=== PATIENT | male | born 1995 | race Two or more races ===

== ENCOUNTER 2018-12-01 10:42 | Emergency (ER) | payer SELFPAY ==
[~2018-12-01] VITALS: Ht 165.1 cm; Wt 54.4 kg
[2018-12-01 11:09] VITALS: BP 110/53
== END 2018-12-01 15:14 | disposition left against medical advice (07) ==
LOC: ER 10:46
DX: R07.81 Pleurodynia (principal); Z53.21 Procedure and treatment not carried out due to patient leaving prior to being seen by health care provider
CPT/HCPCS: 71046

== ENCOUNTER 2024-08-20 14:46 | Inpatient (IN) | payer BC, MEDICAID ==
[~2024-08-20] VITALS: Ht 162.6 cm; Wt 61.0 kg
--- NOTE | 2024-08-20 15:02 | ED.PDOC ---
GI ASSESSMENT HPI Comments HPI: Poor [place][age][place]89 y.o male presents to the ED for a chief complaint of RUQ pain radiating to his right flank that started one week ago. Patient was seen at an urgent care 4 days ago, was prescribed azithromycin and Prednisone and has been taking it. Patient returned to work yesterday, pain continued and returned to the same urgent care today in which he then was referred to the ED for further evaluation. Patient reports pain is constant, associated with body aches and a fever of 99 F today at urgent care. Patient has been taking Ibuprofen 600-800mg twice a day with some pain relief and fever break. No other symptoms or pain reported. Patient denies allergies Vitals Blood Pressure: 123/79 Heart Rate: 127 Temperature: 98.7 F SPO2: 95% RA RR: Past Medical History: Depression and ADHD Past Surgical History. Denies REVIEW OF SYSTEMS: CONSTITUTIONAL: Denies acute: , diaphoresis HEAD: Denies acute: headache, photophobia Eyes: Denies acute: Double vision, vision loss, eye pain, eye discharge. EARS: Denies acute: tinnitus, hearing loss, ear discharge, ear pain, THROAT: Denies acute: sore throat, swelling, difficulty swallowing , pain with swallowing, change in voice. NECK: Denies acute: neck pain, neck swelling, stiff neck. HEART: Denies acute : chest pain, palpitations, LUNGS: Denies acute: SOB, wheezing, cough, hemoptysis ABDOMEN: Denies acute: Nausea, Vomiting, diarrhea, melena , hematemesis, hematochezia SKIN: Denies acute: rash, redness, lesions, itchiness. EXTREMITIES: Denies acute: calf pain, numbness, tingling, weakness, denies pain in extremity. Denies acute: Low back pain. Neuro: Denies acute: focal neurological deficit, motor or sensory focal neurological deficit, tremors, seizure like activity, confusion, dizziness, change in mental status, loss of bowel or bladder function, cauda equina like symptoms. : Denies acute: dysuria, hematuria, increase in urinary frequency. PSYCH: Denies acute: hallucination, suicidal ideation, homicidal ideation. PHYSICAL EXAM: General: no acute distress, awake and alert. Head: normocephalic, atraumatic. Neck: supple, trachea is midline, no swelling. Throat: Normal phonation. Eyes:, no erythema, no purulent discharge, no proptosis, no icterus. Heart: regular tachycardic, no significant murmur appreciated. Lungs: no apparent respiratory distress, Able to speak in full sentences. No wheezing, no rhonchi, no crackles. No stridors Clear to auscultation bilaterally. Abdomen: Right upper quadrant tender to palpation, non distended, soft, no guarding, no rebound, + bowel sounds. Neuro: Awake, Alert, oriented to name, self, situation, follows commands GCS=15. Speech is normal. Skin: no petechia, no purpura, no cyanosis, non-pale, not jaundice. Lower extremities: --no - Pitting edema no deformity, no focal swelling, no calf TTP. Makes eye contact. moves all four extremities. Face: no apparent facial droop. Right CVA tenderness to percussion . Ambulating in the ED independently. No nuchal rigidity, Kernig's sign, Brudzinski's sign, no meningeal signs. Chief Complaint: Abdominal Pain Time Seen by MD: 19:50 Primary Care Provider: NONE Reviewed Notes: Allergies Allergies: Coded Allergies: NO KNOWN ALLERGIES (Unverified , 12/01/18) Home Meds Reported Medications Fluoxetine HCl (Pmdd) (Fluoxetine HCl) 20 Mg Tab, 20 MG PO DAILY, TAB 08/21/24 Lamotrigine (Lamotrigine) 100 Mg Tab, 1 TAB PO BID 08/21/24 Information Source: Patient Mode of Arrival: Ambulatory Timing: Weeks (1) Duration: Since onset Past Medical History PAST MEDICAL HISTORY: Depression Past Medical History (Other): ADHD Surgical History: Denies all surgeries Family History Family History: Reviewed,noncontributory to illness, No family hx of Cancer, No family hx of DM, No family hx of Heart danii, No family hx of HTN, No family hx ofKidney danii, No family hx of Liver danii, No family hx of Lung danii, No family hx of Stroke Social History Smoker: Non-Smoker Alcohol: Denies ETOH Use Drugs: Denies Drug Use Lives In: Home Was a procedure done? Was a procedure done?: No GI differential Dx Differential Diagnosis: Other (DDX include but not limited to diverticulitis, colitis, gastroenteritis, acute abdomen, SBO, enteritis, constipation, volvulus, appendicitis, Gallbladder disease, choledocolithiasis, ascending cholangitis, pancreatitis, intraAbdominal mass/neoplasm, hepatitis, UTI, pylonephritis, kidney stone, aneurysm, dissection, Inflammatory bowel disease, gastroparesis, ischemic bowel.) X-Ray, Labs, Meds, VS Vital Signs Date Time Temp Pulse Resp B/P (MAP) Pulse Ox O2 Delivery O2 Flow Rate FiO2 08/20/24 23:30 120 19 112/66 (81) 94 08/20/24 22:43 100.2 08/20/24 21:30 106 17 102/66 (78) 93 08/20/24 19:20 Room Air* 0 21 08/20/24 19:20 99 16 104/58 (73) 99 08/20/24 18:00 99.2 105 29 110/63 (79) 96 99.2 08/20/24 18:00 107 08/20/24 17:48 99.2 08/20/24 16:58 102.9 08/20/24 16:56 121/69 08/20/24 16:45 102.9 119 26 121/69 (86) 96 102.9 08/20/24 16:45 119 26 96 Nasal Cannula* 2 28 08/20/24 16:14 114 20 96 Room Air 08/20/24 16:14 103.0 114 20 120/69 (86) 103.0 08/20/24 14:56 98.7 127 20 123/79 (94) 94 Lab Test 08/20/24 18:15 08/20/24 15:58 08/20/24 15:57 Range/Units SARS-CoV-2 Antigen (Rapid) Negative NEGATIVE White Blood Count 9.6 4.4-10.8 10^3/uL Red Blood Count 5.89 4.5-5.90 10^6/uL Hemoglobin 11.7 L 13.5-17.5 g/dL Hematocrit 36.0 L 41.0-53.0 % Mean Corpuscular Volume 61.1 L 80.0-100.0 fL Mean Corpuscular Hemoglobin 19.9 L 28.0-32.0 pg Mean Corpuscular Hemoglobin Concent 32.5 32.0-36.0 g/dL Red Cell Distribution Width 15.7 H 11.8-14.3 % Platelet Count 403 140-450 10^3/uL Mean Platelet Volume 8.3 6.9-10.8 fL Neutrophils (%) (Auto) 76.2 37.0-80.0 % Lymphocytes (%) (Auto) 10.0 10.0-50.0 % Monocytes (%) (Auto) 12.4 H 0.0-12.0 % Eosinophils (%) (Auto) 0.6 0.0-7.0 % Basophils (%) (Auto) 0.8 0.0-2.0 % Neutrophils # (Auto) 7.3 1.6-8.6 10 ^3/uL Lymphocytes # (Auto) 1.0 0.4-5.4 10 ^3/uL Monocytes # (Auto) 1.2 0-1.3 10 ^3/uL Eosinophils # (Auto) 0.1 0-0.8 10 ^3/uL Basophils # (Auto) 0.1 0-0.2 10 ^3/uL Nucleated Red Blood Cells 0.1 % Sodium Level 135 L 136-145 mmol/L Potassium Level 3.7 3.5-5.1 mmol/L Chloride Level 101 98-107 mmol/L Carbon Dioxide Level 28 20-31 mmol/L Anion Gap 6 5-15 Blood Urea Nitrogen 11 9-23 mg/dL Creatinine 0.90 0.700-1.30 mg/dL Glomerular Filtration Rate Calc 121 >90 mL/min BUN/Creatinine Ratio 12.2 10.0-20.0 Serum Glucose 125 H 74-106 mg/dL Lactic Acid Level 1.5 0.4-2.0 mmol/L Calcium Level 8.9 8.7-10.4 mg/dL Magnesium Level 2.2 1.6-2.6 mg/dL Total Bilirubin 1.0 0.2-1.0 mg/dL Aspartate Amino Transferase (AST) 62 H 13-40 U/L Alanine Aminotransferase (ALT) 89 H 7-40 U/L Alkaline Phosphatase 156 H 46-116 U/L Troponin I High Sensitivity 32 </=54 ng/L B-Type Natriuretic Peptide 25.14 0-100 pg/mL Total Protein 6.1 5.7-8.2 g/dL Albumin 4.0 3.2-4.8 g/dL Lipase 30 12-53 U/L Plasma/Serum Blood Alcohol < 3.0 <10 mg/dL Monoscreen Negative Urine Color Yellow Yellow Urine Clarity Clear Clear Urine pH 6.5 5.0-9.0 Urine Specific Dawes 1.018 1.001-1.035 Urine Protein Trace H Negative Urine Ketones Negative Negative Urine Blood 2+ H Negative /uL Urine Nitrite Negative Negative Urine Bilirubin Negative Negative Urine Urobilinogen 3 H Negative mg/dL Urine Leukocyte Esterase Negative Negative /uL Urine RBC 17 0 - 3 /hpf Urine WBC 1 0 - 3 /hpf Urine Squamous Epithelial Cells None seen <5 /hpf Urine Bacteria None seen None Seen /hpf Urine Glucose Normal Normal mg/dL Urine Opiates Screen Neg NEGATIVE Urine Fentanyl Screen Neg NEGATIVE Urine Barbiturates Screen Neg NEGATIVE Urine Phencyclidine Screen Neg NEGATIVE Urine Amphetamines Screen Neg NEGATIVE Urine Benzodiazepines Screen Neg NEGATIVE Urine Cocaine Screen Neg NEGATIVE Urine Cannabinoids Screen Neg NEGATIVE Microbiology Date/Time Source Procedure Growth Status 08/20/24 15:58 Blood Blood Culture - Final NO GROWTH AFTER 5 DAYS OF INCUBATION. [facility] [id number] [place] [address] Ph: [phone] DIAGNOSTIC IMAGING Diagnostic Imaging Report : [id number] Signed PATIENT: SIS SUTTON ACCT: [id number] UNIT: [id number] : 1995 LOC: ER ROOM / BED: / AGE / SEX: 28 / M ADM STATUS: REG ER SERVICE 1515 ORDERING PHYSICIAN: MONICA RAMIREZ DO PROCEDURE(s): CX2CT - CHEST WITHOUT CONTRAST REASON: lung consolidation ORDER NUMBER(s): [id number], ACCESSION NUMBER(s): [id number] Exam: CT CT AB PEL WO CON-NO ORAL OR IV, CT CHEST WITHOUT CONTRAST History: RUQ and r flank pain, fever Comparison Study: None available at time of dictation. TECHNIQUE: Multidetector CT of the abdomen was performed from lung bases to pubic symphysis. Imaging was performed without IV contrast. Axial, coronal and sagittal multiplanar reformats were obtained from the axial data set by the technologist. Radiation Dose Information: CT Dose: CTDI volume is 5.68 mGy. Dose-length product is 324.0 mGy*cm FINDINGS: Evaluation of solid organs is limited due to lack of intravenous contrast use. Findings: Lung Bases: Normal heart size. There is a right pleural effusion with atelectasis in the right lower lung field. There is a trace pericardial effusion.. Liver: The liver is normal in size. No focal lesions. Gallbladder and Biliary Tree: Gallbladder contracted. There are no calcified gallstones. Spleen: Unremarkable Pancreas: The pancreas is grossly normal in appearance. Adrenal Glands: Unremarkable Kidneys: Kidneys are grossly normal without calculi or hydronephrosis. Bladder: Grossly unremarkable for degree of distention. Bowel: The stomach is grossly normal in appearance. Small bowel and colon are normal in caliber and distribution. There are no findings to suggest bowel obstruction. Stool is noted throughout colon. The appendix is not visualized; however, no secondary findings of acute appendicitis identified. Ascites: Absent Lymphadenopathy: No mesenteric, retroperitoneal or periportal lymphadenopathy. Abdominal Wall and Mesentery: Unremarkable. Vasculature: The visualized abdominal aorta is normal in size and caliber. Evaluation of abdominal and pelvic vessels is limited due to lack of intravenous contrast. Pelvic Organs: Unremarkable Musculoskeletal: No aggressive focal bony lesions, acute fractures or dislocation. Soft tissues: Unremarkable IMPRESSION: 1. No acute abdominal or pelvic finding. 2. Gallbladder is contracted. 3. No findings of bowel obstruction 4. Stool noted throughout the colon. 5. No nephrolithiasis or hydronephrosis. 6. Right pleural effusion with atelectasis in the right lower lung field. Radiation optimization: All CT scans at this facility use at least one of these dose optimization techniques: automated exposure control mA and/or kV adjustment per patient size (includes targeted exams where dose is matched to clinical indication) or iterative reconstruction. ATED BY: KARYN BHAGAT Jr., DO DICTATED DATE/TIME: 08/20/24 1538 SIGNED BY: KARYN BHAGAT Jr., DO SIGNED DATE/TIME: 08/20/24 1538 CC: [place] [id number] Ph: [phone] DIAGNOSTIC IMAGING Diagnostic Imaging Report : [id number] Signed PATIENT: SIS SUTTON ACCT: [id number] UNIT: [id number] : 1995 LOC: ER ROOM / BED: / AGE / SEX: 28 / M ADM STATUS: REG ER SERVICE 1500 ORDERING PHYSICIAN: MONICA RAMIREZ DO PROCEDURE(s): CXRP - CHEST PORTABLE REASON: RUQ pain, fever ORDER NUMBER(s): [id number], ACCESSION NUMBER(s): [id number] CHEST RADIOGRAPH Indication:RUQ pain, fever Technique: Single frontal view of the chest was obtained Comparison: None FINDINGS: Lines and Tubes: None Lungs: Opacification of the right mid and lower lung zone with obscuration of the right hemidiaphragm. No pneumothorax. Cardiomediastinal contours: Unremarkable Bones: No acute osseous abnormality. IMPRESSION: Moderate right-sided pleural effusion with associated atelectasis. Underlying pneumonia / mass can not be excluded. ATED BY: XIOMARA EM DO DICTATED DATE/TIME: 08/20/241527 SIGNED BY: XIOMARA EM DO SIGNED DATE/TIME: 08/20/241527 CC: [place] [address] Ph: [phone] DIAGNOSTIC IMAGING Diagnostic Imaging Report : [id number] Signed PATIENT: SIS SUTTON ACCT: [id number] UNIT: [id number] : 1995 LOC: ER ROOM / BED: / AGE / SEX: 28 / M ADM STATUS: REG ER SERVICE 1500 ORDERING PHYSICIAN: MONICA RAMIREZ DO PROCEDURE(s): ABPL - CT AB PEL WO CON-NO ORAL OR IV REASON: RUQ and r flank pain, fever ORDER NUMBER(s): [id number], ACCESSION NUMBER(s): [id number] Exam: CT CT AB PEL WO CON-NO ORAL OR IV, CT CHEST WITHOUT CONTRAST History: RUQ and r flank pain, fever Comparison Study: None available at time of dictation. TECHNIQUE: Multidetector CT of the abdomen was performed from lung bases to pubic symphysis. Imaging was performed without IV contrast. Axial, coronal and sagittal multiplanar reformats were obtained from the axial data set by the technologist. Radiation Dose Information: CT Dose: CTDI volume is 5.68 mGy. Dose-length product is 324.0 mGy*cm FINDINGS: Evaluation of solid organs is limited due to lack of intravenous contrast use. Findings: Lung Bases: Normal heart size. There is a right pleural effusion with atelectasis in the right lower lung field. There is a trace pericardial ef fusion.. Liver: The liver is normal in size. No focal lesions. Gallbladder and Biliary Tree: Gallbladder contracted. There are no calcified gallstones. Spleen: Unremarkable Pancreas: The pancreas is grossly normal in appearance. Adrenal Glands: Unremarkable Kidneys: Kidneys are grossly normal without calculi or hydronephrosis. Bladder: Grossly unremarkable for degree of distention. Bowel: The stomach is grossly normal in appearance. Small bowel and colon are normal in caliber and distribution. There are no findings to suggest bowel obstruction. Stool is noted throughout colon. The appendix is not visualized; however, no secondary findings of acute appendicitis identified. Ascites: Absent Lymphadenopathy: No mesenteric, retroperitoneal or periportal lymphadenopathy. Abdominal Wall and Mesentery: Unremarkable. Vasculature: The visualized abdominal aorta is normal in size and caliber. Evaluation of abdominal and pelvic vessels is limited due to lack of intravenous contrast. Pelvic Organs: Unremarkable Musculoskeletal: No aggressive focal bony lesions, acute fractures or dislocation. Soft tissues: Unremarkable IMPRESSION: 1. No acute abdominal or pelvic finding. 2. Gallbladder is contracted. 3. No findings of bowel obstruction 4. Stool noted throughout the colon. 5. No nephrolithiasis or hydronephrosis. 6. Right pleural effusion with atelectasis in the right lower lung field. Radiation optimization: All CT scans at this facility use at least one of these dose optimization techniques: automated exposure control mA and/or kV adjustment per patient size (includes targeted exams where dose is matched to c linical indication) or iterative reconstruction. ATED BY: KARYN BHAGAT Jr., DO DICTATED DATE/TIME: 08/20/24 1538 SIGNED BY: KARYN BHAGAT Jr., SIGNED DATE/TIME: 08/20/241537 CC: [place] [address] Ph: [phone] DIAGNOSTIC IMAGING Diagnostic Imaging Report : [id number] Signed PATIENT: SIS SUTTON ACCT: [id number] UNIT: [id number] : 1995 LOC: ER ROOM / BED: / AGE / SEX: 28 / M ADM STATUS: REG ER SERVICE 1500 ORDERING PHYSICIAN: MONICA RAMIREZ DO PROCEDURE(s): CXRP - CHEST PORTABLE REASON: RUQ pain, fever ORDER NUMBER(s): [id number], ACCESSION NUMBER(s): [id number] CHEST RADIOGRAPH Indication:RUQ pain, fever Technique: Single frontal view of the chest was obtained Comparison: None FINDINGS: Lines and Tubes: None Lungs: Opacification of the right mid and lower lung zone with obscuration of the right hemidiaphragm. No pneumothorax. Cardiomediastinal contours: Unremarkable Bones: No acute osseous abnormality. IMPRESSION: Moderate right-sided pleural effusion with associated atelectasis. Underlying pneumonia / mass can not be excluded. ATED BY: XIOMARA EM DO DICTATED DATE/TIME: 08/20/24 1528 SIGNED BY: XIOMARA EM DO SIGNED DATE/TIME: 08/20/24 1528 CC: [place] [address] Ph: [phone] DIAGNOSTIC IMAGING Diagnostic Imaging Report : [id number] Signed PATIENT: SIS SUTTON ACCT: [id number] UNIT: [id number] : 1995 LOC: ER ROOM / BED: / AGE / SEX: 28 / M ADM STATUS: [facility] ER SERVICE 1515 ORDERING PHYSICIAN: MONICA RAMIREZ DO PROCEDURE(s): CX2CT - CHEST WITHOUT CONTRAST REASON: lung consolidation ORDER NUMBER(s): [id number], ACCESSION NUMBER(s): [id number] Exam: CT CT AB PEL WO CON-NO ORAL OR IV, CT CHEST WITHOUT CONTRAST History: RUQ and r flank pain, fever Comparison Study: None available at time of dictation. TECHNIQUE: Multidetector CT of the abdomen was performed from lung bases to pubic symphysis. Imaging was performed without IV contrast. Axial, coronal and sagittal multiplanar reformats were obtained from the axial data set by the technologist. Radiation Dose Information: CT Dose: CTDI volume is 5.68 mGy. Dose-length product is 324.0 mGy*cm FINDINGS: Evaluation of solid organs is limited due to lack of intravenous contrast use. Findings: Lung Bases: Normal heart size. There is a right pleural effusion with atelectasis in the right lower lung field. There is a trace pericardial effusion.. Liver: The liver is normal in size. No focal lesions. Gallbladder and Biliary Tree: Gallbladder contracted. There are no calcified gallstones. Spleen: Unremarkable Pancreas: The pancreas is grossly normal in appearance. Adrenal Glands: Unremarkable Kidneys: Kidneys are grossly normal without calculi or hydronephrosis. Bladder: Grossly unremarkable for degree of distention. Bowel: The stomach is grossly normal in appearance. Small bowel and colon are normal in caliber and distribution. There are no findings to suggest bowel obstruction. Stool is noted throughout colon. The appendix is not visualized; however, no secondary findings of acute appendicitis identified. Ascites: Absent Lymphadenopathy: No mesenteric, retroperitoneal or periportal lymphadenopathy. Abdominal Wall and Mesentery: Unremarkable. Vasculature: The visualized abdominal aorta is normal in size and caliber. Evaluation of abdominal and pelvic vessels is limited due to lack of intravenous contrast. Pelvic Organs: Unremarkable Musculoskeletal: No aggressive focal bony lesions, acute fractures or dislocation. Soft tissues: Unremarkable IMPRESSION: 1. No acute abdominal or pelvic finding. 2. Gallbladder is contracted. 3. No findings of bowel obstruction 4. Stool noted throughout the colon. 5. No nephrolithiasis or hydronephrosis. 6. Right pleural effusion with atelectasis in the right lower lung field. Radiation optimization: All CT scans at this facility use at least one of these dose optimization techniques: automated exposure control mA and/or kV adjustment per patient size (includes targeted exams where dose is matched to clinical indication) or iterative reconstruction. ATED BY: KARYN BHAGAT Jr., DO DICTATED DATE/TIME: 08/20/24 153 SIGNED BY: KARYN BHAGAT Jr., SIGNED DATE/TIME: 08/20/241537 CC: Time of 1ST Reevaluation: 14:57 Reevaluation 1ST: Unchanged Patient Education/Counseling: Diagnosis, Treatment Family Education/Counseling: No Family Present Comments Patient presented with the above HPI.--abdominal pain----workup was initiated. patient was found with the above mentioned diagnosis. Patient ED course and VS have been stabilized. Patient has been reassessed in the ED and remained in a stable condition. Pertinent incidental findings were discussed with the patient and/or family. Patient/family voices understanding and is agreeable with plan. Patient has been observed in the ED adequate length of time to insure improvement/stability. patient was admitted to the medicine team for further evaluation and treatment of their presentation. All the reports of any imaging studies that were ordered by myself were reviewed by myself. Departure 1 Departure Time of Disposition: 15:40 Impression: Primary Impression: Pleural effusion Additional Impressions: Abdominal pain Elevated LFTs Disposition: ADMITTED INPATIENT Admit to: Tele Condition: Guarded Discharged With: Self Critical Care Note Critical Care Time?: Yes (35 min-critical care time only) I personally scribed for MONICA RAMIREZ DO ([email or web address]) on 08/20/24 at 15:02. Electronically submitted by Cecily Powers ([facility]). I personally scribed for MONICA RAMIREZ DO ([email or web address]) on 08/20/24 at 15:52. Electronically submitted by Cecily Powers ([facility]). MONICA RAMIREZ DO Aug 20, 2024 15:02
--- NOTE | 2024-08-20 15:30 | DVH ---
CHEST RADIOGRAPH Indication:RUQ pain, fever Technique: Single frontal view of the chest was obtained Comparison: None FINDINGS: Lines and Tubes: None Lungs: Opacification of the right mid and lower lung zone with obscuration of the right hemidiaphragm . No pneumothorax. Cardiomediastinal contours: Unremarkable Bones: No acute osseous abnormality. IMPRESSION: Moderate right-sided pleural effusion with associated atelectasis. Underlying pneumonia / mass can n ot be excluded.
--- NOTE | 2024-08-20 15:40 | DVH ---
Exam: CT CT AB PEL WO CON-NO ORAL OR IV, CT CHEST WITHOUT CONTRAST History: RUQ and r flank pain, fever Comparison Study: None available at time of dictation. TECHNIQUE: Multidetector CT of the abdomen was performed from lung bases to pubic symphysis. Imaging was performed without IV contrast. Axial, coronal and sagittal multiplanar reformats were obtained fr om the axial data set by the technologist. Radiation Dose Information: CT Dose: CTDI volume is 5.68 mGy. Dose-length product is 324.0 mGy*cm FINDINGS: Evaluation of solid organs is limited due to lack of intravenous contrast use. Findings: Lung Bases: Normal heart size. There is a right pleural effusion with atelectasis in the right lower lung field. There is a trace pericardial effusion.. Liver: The liver is normal in size. No focal lesions. Gallbladder and Biliary Tree: Gallbladder contracted. There are no calcified gallstones. Spleen: Unremarkable Pancreas: The pancreas is grossly normal in appearance. Adrenal Glands: Unremarkable Kidneys: Kidneys are grossly normal without calculi or hydronephrosis. Bladder: Grossly unremarkable for degree of distention. Bowel: The stomach is grossly normal in appearance. Small bowel and colon are normal in caliber and d istribution. There are no findings to suggest bowel obstruction. Stool is noted throughout colon. The appendix is not visualized; however, no secondary findings of acute appendicitis identified. Ascites: Absent Lymphadenopathy: No mesenteric, retroperitoneal or periportal lymphadenopathy. Abdominal Wall and Mesentery: Unremarkable. Vasculature: The visualized abdominal aorta is normal in size and caliber. Evaluation of abdominal a nd pelvic vessels is limited due to lack of intravenous contrast. Pelvic Organs: Unremarkable Musculoskeletal: No aggressive focal bony lesions, acute fractures or dislocation. Soft tissues: Unremarkable IMPRESSION: 1. No acute abdominal or pelvic finding. 2. Gallbladder is contracted. 3. No findings of bowel obstruction 4. Stool noted throughout the colon. 5. No nephrolithiasis or hydronephrosis. 6. Right pleural effusion with atelectasis in the right lower lung field. Radiation optimization: All CT scans at this facility use at least one of these dose optimization leatha hniques: automated exposure control mA and/or kV adjustment per patient size (includes targeted exam s where dose is matched to clinical indication) or iterative reconstruction.
[2024-08-20 15:58] LABS: Urine Bacteria None Seen /hpf (None Seen)
[2024-08-20 16:09] LABS: Urine Blood 2+ /uL (Negative); Urine Clarity Clear (Clear); Urine Color Yellow (Yellow); Urine Protein, UAD TRACE (Negative); Urine Specific Gravity 1.018 (1.001-1.035); Urine Urobilinogen 3 mg/dL (Negative); Urine WBC 1 /hpf (0 - 3); Urine pH 6.5 (5.0-9.0)
[2024-08-20 16:23] LABS: Amphetamine Screen, Urine Neg (NEGATIVE)
[2024-08-20 16:24] LABS: Barbiturate Scree,Urine Neg (NEGATIVE); Benzodiazephine Screen, Urine Neg (NEGATIVE); Cocaine Screen, Urine Neg (NEGATIVE); Opiate Scree,Urine Neg (NEGATIVE)
[2024-08-20 16:25] LABS: Cannabinoid Screen, Urine Neg (NEGATIVE); Phencyclidine Screen, Urine Neg (NEGATIVE)
[2024-08-20 16:45] VITALS: PULSE 119; RESP 26; O2SAT 96
[2024-08-20 16:46] LABS: Basophils # (auto) 0.1 10 ^3/uL (0-0.2); Mean Corpuscular Volume 61.1 fL (80.0-100.0); Monocytes # (auto) 1.2 10 ^3/uL (0-1.3); Platelet Count (auto) 403 10^3/uL (140-450); Red Blood Cells 5.89 10^6/uL (4.5-5.90)
[2024-08-20 16:48] LABS: Basophils % (auto) 0.8 % (0.0-2.0); Eosinophils # (auto) 0.1 10 ^3/uL (0-0.8); Eosinophils % (auto) 0.6 % (0.0-7.0); Hemoglobin 11.7 g/dL (13.5-17.5); Mean Corpuscular Hemoglobin 19.9 pg (28.0-32.0); Mean Corpuscular Hgb Conc. 32.5 g/dL (32.0-36.0); Monocytes % (auto) 12.4 % (0.0-12.0); Neutrophils # (auto) 7.3 10 ^3/uL (1.6-8.6); Neutrophils % (auto) 76.2 % (37.0-80.0); Nucleated Red Blood Cells % 0.1 %; Red Cell Distribution Width 15.7 % (11.8-14.3); White Blood Cell 9.6 10^3/uL (4.4-10.8)
[2024-08-20] MEDS: SODIUM CHLORIDE 0.9% 1,000 ML IV ONE (16:52)
[2024-08-20] MEDS: PIPERACILLIN-TAZOB 3.375GM 100 ML IV ONE (16:53)
[2024-08-20] MEDS: FUROSEMIDE 40 MG/4 ML VIAL IV ONE (16:56)
[2024-08-20] MEDS: ACETAMINOPHEN 325 MG TAB PO ONE (16:58)
[2024-08-20 17:07] LABS: Alanine Aminotransferase 89 U/L (7-40); Alkaline Phosphatase 156 U/L (46-116); Anion Gap 6 (5-15); Aspartate Aminotransferase 62 U/L (13-40); BUN/Creatinine Ratio 12.2 (10.0-20.0); Blood Alcohol < 3.0 mg/dL (<10); Blood Urea Nitrogen 11 mg/dL (9-23); Calcium 8.9 mg/dL (8.7-10.4); Carbon Dioxide 28 mmol/L (20-31); Chloride 101 mmol/L (98-107); Glucose 125 mg/dL (74-106); Magnesium 2.2 mg/dL (1.6-2.6); Potassium 3.7 mmol/L (3.5-5.1); Sodium 135 mmol/L (136-145); Total Protein 6.1 g/dL (5.7-8.2)
[2024-08-20 17:15] LABS: Lipase 30 U/L (12-53)
[2024-08-20 19:03] LABS: COVID19 ANTIGEN SOFIA FIA NEGATIVE (NEGATIVE)
[2024-08-20] MEDS ORDERED: MORPHINE SULFATE INJ 2 MG/ml SYRG IV PRN ×2 (21:45→23:30)
[2024-08-20] MEDS: AZITHROMYCIN 500MG/ 250ML 250 ML IV ONE (22:25)
[2024-08-20] MEDS: SODIUM CHLORIDE 0.9% 1,000 ML IV SCH (22:42)
[2024-08-20] MEDS: IBUPROFEN 600 MG TAB PO PRN (22:43)
[2024-08-20] MEDS ORDERED: NITROGLYCERIN 0.4 MG SL TAB SL PRN (23:30)
--- NOTE | 2024-08-20 23:32 | DVHHP2 ---
History of Present Illness Reason for Visit: Pneumonia, unspecified organism History of Present Illness The patient is a 28-year-old male with past medical history of ADHD and depression who presented to [facility] ED with complaint of right upper quadrant abdominal pain. Patient reports radiating right flank pain, rating 9/10 numeric scale, getting worse that prompted this visit. Patient was seen and evaluated in the ED, laboratory data shows WBC 9.6, platelets 403, sodium 135, potassium 3.7, BUN 11, creatinine 0.90, glucose 125, troponin 32, AST 62, ALT 89, BNP 25.14, lipase 30. Chest x-ray revealing moderate right-sided pleural effusion with associated atelectasis, underlying pneumonia/mass can not be excluded. Patient was started on IV antibiotic regimen azithromycin, given IV Lasix, please see medication orders section in the computer. On my assessment, patient denied chest pain, no dizziness, no headache, no diaphoresis, no shortness of breath, no nausea, no vomiting, no fever, no chills. Patient was admitted for further evaluation and medical management. Past Medical History Depression and ADHD Past Surgical History Denies all surgeries Family History Reviewed, noncontributory to the management of this case. Past Social History The patient lives at home, denies smoking, alcohol or illicit drugs abuse. Review of Systems Constitutional: No: Fever, Chills, Sweats, Weakness, Malaise, Other Eyes: No: Pain, Vision change, Conjunctivae inflammation, Eyelid inflammation, Other, Redness ENT: No: Ear pain, Ear discharge, Nose pain, Nose discharge, Nose congestion, Mouth pain, Mouth swelling, Throat pain, Throat swelling, Other Respiratory: No: Cough, Dry, Shortness of breath, SOB with excertion, Wheezing, Hemoptysis, Pleuritic Pain, Sputum, Wheezing, Other Cardiovascular: No: Chest Pain, Palpitations, Orthopnea, Paroxysmal Noc. Dyspnea, Edema, Lt Headedness, Other Gastrointestinal: Abdominal Pain; No: Nausea, Vomiting, Diarrhea, Constipation, Melena, Hematochezia, Other Genitourinary: No Dysuria, No Frequency, No Incontinence, No Hematuria, No Retention, No Other Musculoskeletal: No: other, neck pain, shoulder pain, arm pain, back pain, hand pain, leg pain, foot pain Skin: No: Rash, Lesions, Jaundice, Bruising, Other Neurological: No: Weakness, Numbness, Incoordination, Change in speech, Confusion, Seizures, Other Allergies: Coded Allergies: NO KNOWN ALLERGIES (Unverified , 12/01/18) Medications Current Medications Medications Dose Ordered Sig/Lori Route Start Time Stop Time Status Last Admin Dose Admin Azithromycin 250 ml @ 125 mls/hr DAILY@2100 IV 08/21/24 21:00 Furosemide 40 mg DAILY IV 08/21/24 10:00 Ibuprofen 600 mg Q6HP PRN PO 08/20/24 21:45 08/20/24 22:43 600 MG Sodium Chloride 1,000 ml @ 60 mls/hr [id number] IV 08/20/24 21:45 08/20/24 22:42 60 MLS/HR Acetaminophen/ Hydrocodone Bitart 1 tab Q4HP PRN PO 08/20/24 21:45 Ondansetron HCl 4 mg Q4HP PRN IV 08/20/24 21:45 Docusate Sodium 100 mg BIDPRN PRN PO 08/20/24 21:45 Morphine Sulfate 2 mg Q4HPRN PRN IV 08/20/24 21:45 Fluoxetine HCl 40 mg DAILY PO 08/21/24 10:00 Exam Vital Signs Vital Signs Date Time Temp Pulse Resp B/P (MAP) Pulse Ox O2 Delivery O2 Flow Rate FiO2 08/20/24 22:43 100.2 08/20/24 19:20 Room Air* 0 21 08/20/24 19:20 99 16 104/58 (73) 99 General Appearance: Alert, Oriented X3, Cooperative, No acute distress HEENT: Atraumatic, PERRLA, EOMI, Mucous membr. moist/pink Respiratory: Normal air movement, Other (Diminished breath sounds) Cardiovascular: Regular rate, Normal S1, Normal S2, No murmurs Abdominal: Normal bowel sounds, Soft, No tenderness, No hepatospenomegaly, No masses Extremities: No clubbing, No cyanosis, No edema, Normal pulses, No tenderness/swelling Skin: No rashes, No breakdown, No significant lesion Neuro: Normal gait, Normal speech, Strength at 5/5 X4 ext, Normal tone, Sensation intact, Cranial nerves 3-12 NL, Reflexes 2+ Psych/Mental Status: Mental status NL, Mood NL Labs/Xrays Labs Test 08/20/24 18:15 08/20/24 15:58 08/20/24 15:57 Range/Units SARS-CoV-2 Antigen (Rapid) Negative NEGATIVE White Blood Count 9.6 4.4-10.8 10^3/uL Red Blood Count 5.89 4.5-5.90 10^6/uL Hemoglobin 11.7 L 13.5-17.5 g/dL Hematocrit 36.0 L 41.0-53.0 % Mean Corpuscular Volume 61.1 L 80.0-100.0 fL Mean Corpuscular Hemoglobin 19.9 L 28.0-32.0 pg Mean Corpuscular Hemoglobin Concent 32.5 32.0-36.0 g/dL Red Cell Distribution Width 15.7 H 11.8-14.3 % Platelet Count 403 140-450 10^3/uL Mean Platelet Volume 8.3 6.9-10.8 fL Neutrophils (%) (Auto) 76.2 37.0-80.0 % Lymphocytes (%) (Auto) 10.0 10.0-50.0 % Monocytes (%) (Auto) 12.4 H 0.0-12.0 % Eosinophils (%) (Auto) 0.6 0.0-7.0 % Basophils (%) (Auto) 0.8 0.0-2.0 % Neutrophils # (Auto) 7.3 1.6-8.6 10 ^3/uL Lymphocytes # (Auto) 1.0 0.4-5.4 10 ^3/uL Monocytes # (Auto) 1.2 0-1.3 10 ^3/uL Eosinophils # (Auto) 0.1 0-0.8 10 ^3/uL Basophils # (Auto) 0.1 0-0.2 10 ^3/uL Nucleated Red Blood Cells 0.1 % Sodium Level 135 L 136-145 mmol/L Potassium Level 3.7 3.5-5.1 mmol/L Chloride Level 101 98-107 mmol/L Carbon Dioxide Level 28 20-31 mmol/L Anion Gap 6 5-15 Blood Urea Nitrogen 11 9-23 mg/dL Creatinine 0.90 0.700-1.30 mg/dL Glomerular Filtration Rate Calc 121 >90 mL/min BUN/Creatinine Ratio 12.2 10.0-20.0 Serum Glucose 125 H 74-106 mg/dL Lactic Acid Level 1.5 0.4-2.0 mmol/L Calcium Level 8.9 8.7-10.4 mg/dL Magnesium Level 2.2 1.6-2.6 mg/dL Total Bilirubin 1.0 0.2-1.0 mg/dL Aspartate Amino Transferase (AST) 62 H 13-40 U/L Alanine Aminotransferase (ALT) 89 H 7-40 U/L Alkaline Phosphatase 156 H 46-116 U/L Troponin I High Sensitivity 32 </=54 ng/L B-Type Natriuretic Peptide 25.14 0-100 pg/mL Total Protein 6.1 5.7-8.2 g/dL Albumin 4.0 3.2-4.8 g/dL Lipase 30 12-53 U/L Plasma/Serum Blood Alcohol < 3.0 <10 mg/dL Monoscreen Negative Urine Color Yellow Yellow Urine Clarity Clear Clear Urine pH 6.5 5.0-9.0 Urine Specific [place] 1.018 1.001-1.035 Urine Protein Trace H Negative Urine Ketones Negative Negative Urine Blood 2+ H Negative /uL Urine Nitrite Negative Negative Urine Bilirubin Negative Negative Urine Urobilinogen 3 H Negative mg/dL Urine Leukocyte Esterase Negative Negative /uL Urine RBC 17 0 - 3 /hpf Urine WBC 1 0 - 3 /hpf Urine Squamous Epithelial Cells None seen <5 /hpf Urine Bacteria None seen None Seen /hpf Urine Glucose Normal Normal mg/dL Urine Opiates Screen Neg NEGATIVE Urine Fentanyl Screen Neg NEGATIVE Urine Barbiturates Screen Neg NEGATIVE Urine Phencyclidine Screen Neg NEGATIVE Urine Amphetamines Screen Neg NEGATIVE Urine Benzodiazepines Screen Neg NEGATIVE Urine Cocaine Screen Neg NEGATIVE Urine Cannabinoids Screen Neg NEGATIVE PATIENT: SIS SUTTON ACCT: [id number] UNIT: [id number] : 1995 LOC: ER ROOM / BED: / AGE / SEX: 28 / M ADM STATUS: REG ER SERVICE 1500 ORDERING PHYSICIAN: MONICA RAMIREZ DO PROCEDURE(s): ABPL - CT AB PEL WO CON-NO ORAL OR IV REASON: RUQ and r flank pain, fever ORDER NUMBER(s): [id number], ACCESSION NUMBER(s): [id number] Exam: CT CT AB PEL WO CON-NO ORAL OR IV, CT CHEST WITHOUT CONTRAST History: RUQ and r flank pain, fever Comparison Study: None available at time of dictation. TECHNIQUE: Multidetector CT of the abdomen was performed from lung bases to pubic symphysis. Imaging was performed without IV contrast. Axial, coronal and sagittal multiplanar reformats were obtained from the axial data set by the technologist. Radiation Dose Information: CT Dose: CTDI volume is 5.68 mGy. Dose-length product is 324.0 mGy*cm FINDINGS: Evaluation of solid organs is limited due to lack of intravenous contrast use. Findings: Lung Bases: Normal heart size. There is a right pleural effusion with atelectasis in the right lower lung field. There is a trace pericardial effusion.. Liver: The liver is normal in size. No focal lesions. Gallbladder and Biliary Tree: Gallbladder contracted. There are no calcified gallstones. Spleen: Unremarkable Pancreas: The pancreas is grossly normal in appearance. Adrenal Glands: Unremarkable Kidneys: Kidneys are grossly normal without calculi or hydronephrosis. Bladder: Grossly unremarkable for degree of distention. Bowel: The stomach is grossly normal in appearance. Small bowel and colon are normal in caliber and distribution. There are no findings to suggest bowel obstruction. Stool is noted throughout colon. The appendix is not visualized; however, no secondary findings of acute appendicitis identified. Ascites: Absent Lymphadenopathy: No mesenteric, retroperitoneal or periportal lymphadenopathy. Abdominal Wall and Mesentery: Unremarkable. Vasculature: The visualized abdominal aorta is normal in size and caliber. Evaluation of abdominal and pelvic vessels is limited due to lack of intravenous contrast. Pelvic Organs: Unremarkable Musculoskeletal: No aggressive focal bony lesions, acute fractures or dislocation. Soft tissues: Unremarkable IMPRESSION: 1. No acute abdominal or pelvic finding. 2. Gallbladder is contracted. 3. No findings of bowel obstruction 4. Stool noted throughout the colon. 5. No nephrolithiasis or hydronephrosis. 6. Right pleural effusion with atelectasis in the right lower lung field. ORDERING PHYSICIAN: MONICA RAMIREZ DO PROCEDURE(s): CXRP - CHEST PORTABLE REASON: RUQ pain, fever ORDER NUMBER(s): [id number], ACCESSION NUMBER(s): [id number] CHEST RADIOGRAPH Indication:RUQ pain, fever Technique: Single frontal view of the chest was obtained Comparison: None FINDINGS: Lines and Tubes: None Lungs: Opacification of the right mid and lower lung zone with obscuration of the right hemidiaphragm. No pneumothorax. Cardiomediastinal contours: Unremarkable Bones: No acute osseous abnormality. IMPRESSION: Moderate right-sided pleural effusion with associated atelectasis. Underlying pneumonia/mass can not be excluded. ORDERING PHYSICIAN: MONICA RAMIREZ DO PROCEDURE(s): CX2CT - CHEST WITHOUT CONTRAST REASON: lung consolidation ORDER NUMBER(s): [id number], ACCESSION NUMBER(s): [id number] Exam: CT CT AB PEL WO CON-NO ORAL OR IV, CT CHEST WITHOUT CONTRAST History: RUQ and r flank pain, fever Comparison Study: None available at time of dictation. TECHNIQUE: Multidetector CT of the abdomen was performed from lung bases to pubic symphysis. Imaging was performed without IV contrast. Axial, coronal and sagittal multiplanar reformats were obtained from the axial data set by the technologist. Radiation Dose Information: CT Dose: CTDI volume is 5.68 mGy. Dose-length product is 324.0 mGy*cm FINDINGS: Evaluation of solid organs is limited due to lack of intravenous contrast use. Findings: Lung Bases: Normal heart size. There is a right pleural effusion with atelectasis in the right lower lung field. There is a trace pericardial effusion.. Liver: The liver is normal in size. No focal lesions. Gallbladder and Biliary Tree: Gallbladder contracted. There are no calcified gallstones. Spleen: Unremarkable Pancreas: The pancreas is grossly normal in appearance. Adrenal Glands: Unremarkable Kidneys: Kidneys are grossly normal without calculi or hydronephrosis. Bladder: Grossly unremarkable for degree of distention. Bowel: The stomach is grossly normal in appearance. Small bowel and colon are normal in caliber and distribution. There are no findings to suggest bowel obstruction. Stool is noted throughout colon. The appendix is not visualized; however, no secondary findings of acute appendicitis identified. Ascites: Absent Lymphadenopathy: No mesenteric, retroperitoneal or periportal lymphadenopathy. Abdominal Wall and Mesentery: Unremarkable. Vasculature: The visualized abdominal aorta is normal in size and caliber. Evaluation of abdominal and pelvic vessels is limited due to lack of intravenous contrast. Pelvic Organs: Unremarkable Musculoskeletal: No aggressive focal bony lesions, acute fractures or dislocation. Soft tissues: Unremarkable IMPRESSION: 1. No acute abdominal or pelvic finding. 2. Gallbladder is contracted. 3. No findings of bowel obstruction 4. Stool noted throughout the colon. 5. No nephrolithiasis or hydronephrosis. 6. Right pleural effusion with atelectasis in the right lower lung field. Assessment/Plan Assessment/Plan Pleural effusion Elevated liver enzymes Pneumonia, unspecified organism Plan 1. Admit to telemetry unit 2. Breathing treatment 3. Pain control management 4. IV antibiotic management 5. Management of fluids and electrolytes 6. Consultation for hospitalist 7. Diagnostic test chest x-ray 8. DVT prophylaxis-on SCDs 9. Repeat labs CBC, CMP in a.m. 10. Home medication reviewed and reconciled 11. Continue with current medical management 12. Treatment plan discussed with patient and RN. Patient verbalized understanding. Plan discussed with: Patient, Other (RN) My Orders Orders - MARY KAY MOREJON DNP Procedure Category Date Status Time Azithromycin 500mg/ PHA 08/21/24 In Process 250ml (Zithromax 50 21:00 Furosemide Injection PHA 08/21/24 In Process (Lasix Injection) 10:00 Azithromycin 500mg/ PHA 08/20/24 In Process 250ml (Zithromax 50 21:45 Ibuprofen Tablet PHA 08/20/24 In Process (Motrin Tablet) 21:45 Allergies LEANDRO 08/20/24 In Process 21:32 Code Status CODE 08/20/24 Transmitted 21:32 Sodium Chloride 0.9% PHA 08/20/24 In Process 21:45 Oxygen Per Hour RT 08/20/24 Transmitted 21:32 Hydrocodone-Acet PHA 08/20/24 In Process 5/325mg Tab ([place] 21:45 Ondansetron Hcl PHA 08/20/24 In Process (Zofran) 21:45 Docusate Sodium PHA 08/20/24 In Process Capsule (Colace 21:45 Complete Blood Count LAB 08/21/24 Verified 04:00 Comprehensive LAB 08/21/24 Verified Metabolic Panel 04:00 Cardiac DIET 08/21/24 Transmitted Diet-2gna,Lofat,Lochol Breakfast Condition: Serious LEANDRO 08/20/24 In Process 21:32 Bedrest With Bathroom LEANDRO 08/20/24 In Process Privileg 21:32 Morphine Sulfate PHA 08/20/24 In Process Injection 21:45 Sequential LEANDRO 08/20/24 In Process Compression Device Fluoxetine Capsule PHA 08/21/24 In Process (Prozac Capsule) 10:00 Problem List: (1) Pleural effusion (2) Elevated liver enzymes (3) Pneumonia, unspecified organism Date of Service: Aug 20, 2024 Billing Provider: MARY KAY MOREJON DNP Common Visit Codes: [id number] INP/OBS CARE (HIGH) MARY KAY MOREJON DNP Aug 20, 2024 23:31
[2024-08-21] VITALS (14 sets, daily range): BP systolic 107–135; BP diastolic 56–73; PULSE 79–126; RESP 16–19; TEMP 98.1–101.8; O2SAT 89–100
[2024-08-21 04:03] LABS: Basophils # (auto) 0.1 10 ^3/uL (0-0.2); Eosinophils # (auto) 0.1 10 ^3/uL (0-0.8); Neutrophils # (auto) 6.3 10 ^3/uL (1.6-8.6); Red Blood Cells 5.63 10^6/uL (4.5-5.90)
[2024-08-21 04:06] LABS: Basophils % (auto) 0.7 % (0.0-2.0); Eosinophils % (auto) 0.7 % (0.0-7.0); Hematocrit 34.1 % (41.0-53.0); Hemoglobin 11.3 g/dL (13.5-17.5); Lymphocytes % (auto) 11.3 % (10.0-50.0); Mean Corpuscular Hgb Conc. 33.1 g/dL (32.0-36.0); Mean Corpuscular Volume 60.6 fL (80.0-100.0); Monocytes # (auto) 1.2 10 ^3/uL (0-1.3); Monocytes % (auto) 13.9 % (0.0-12.0); Neutrophils % (auto) 73.4 % (37.0-80.0); Nucleated Red Blood Cells % 0.1 %; Platelet Count (auto) 372 10^3/uL (140-450); Red Cell Distribution Width 16.1 % (11.8-14.3); White Blood Cell 8.6 10^3/uL (4.4-10.8)
[2024-08-21 04:12] LABS: Alanine Aminotransferase 75 U/L (7-40); Albumin 3.8 g/dL (3.2-4.8); Alkaline Phosphatase 145 U/L (46-116); Anion Gap 6 (5-15); Aspartate Aminotransferase 44 U/L (13-40); BUN/Creatinine Ratio 9.9 (10.0-20.0); Blood Urea Nitrogen 8 mg/dL (9-23); Carbon Dioxide 28 mmol/L (20-31); Chloride 103 mmol/L (98-107); Glucose 107 mg/dL (74-106); Potassium 3.2 mmol/L (3.5-5.1); Sodium 137 mmol/L (136-145)
[2024-08-21 04:13] LABS: Bilirubin, Total 1.3 mg/dL (0.2-1.0); Total Protein 6.1 g/dL (5.7-8.2)
[2024-08-21 04:35] LABS: Calcium 8.9 mg/dL (8.7-10.4)
[2024-08-21 04:53] LABS: Large Platelets FEW; Ovalocytes FEW; Platelet Estimate Adequa; Stomatocytes Few; Tear Drop Cells FEW
[2024-08-21] MEDS ORDERED: LAMO100T44 PO (05:38)
[2024-08-21] MEDS: POTASSIUM CHL 20 Meq TABLET PO ONE (06:29)
[2024-08-21] MEDS: FLUoxetine HCL 20 MG CAP PO SCH ×2 (10:00→17:56)
[2024-08-21] MEDS ORDERED: FUROSEMIDE 40 MG/4 ML VIAL IV SCH (10:00)
[2024-08-21] MEDS ORDERED: FLUO1TAB14 PO (10:30)
--- NOTE | 2024-08-21 10:54 | DVHPNRES ---
Progress Note Date Seen: Aug 21, 2024 Resident Creating Document: RAMSES CONTRERAS RESIDENT Medical Necessity Reason Pt with a Central, PICC or Fol: No Subjective Review of Systems The patient is a 28-year-old male with past medical history of ADHD and depression who presented to [facility] ED with complaint of right upper quadrant abdominal pain. Patient reports radiating right flank pain, rating 9/10 numeric scale, getting worse that prompted this visit. Patient also mentioned he has a history of fever for last 1 week and the highest temperature was 104 and yesterday he went to urgent care and he was referred from the urgent care due to the right-sided pleural effusion. Patient denied chest pain, dizziness, headache, diaphoresis, nausea or vomiting. Patient was admitted for further evaluation and medical management. Patient was seen and examined on the bedside. He is alert oriented x3. Complaining of fever, chills and right-sided chest pain. No other active complaints. Review of system: Constitutional: Fever, Chills, No Sweats, Weakness, Malaise, Other Eyes: No: Pain, Vision change, Conjunctivae inflammation, Eyelid inflammation, Other, Redness ENT: No: Ear pain, Ear discharge, Nose pain, Nose discharge, Nose congestion, Mouth pain, Mouth swelling, Throat pain, Throat swelling, Other Respiratory: Shortness of breath, improving No: Cough, Dry,Wheezing, Hemoptysis, Pleuritic Pain, Sputum, Wheezing, Other Cardiovascular: Chest Pain, No Palpitations, Orthopnea, Paroxysmal Noc. Dyspnea, Edema, Lt Headedness, Other Gastrointestinal: No: Nausea, Vomiting, Abdominal Pain, Diarrhea, Constipation, Melena, Hematochezia, Other Musculoskeletal: No: other, neck pain, shoulder pain, arm pain, back pain, hand pain, leg pain, foot pain Neurological:; No: Weakness, Numbness, Incoordination, Change in speech, Confusion, Seizures Objective vital signs Vital Sign Date Time Temp Pulse Resp B/P (MAP) Pulse Ox O2 Delivery O2 Flow Rate FiO2 08/21/24 10:03 100.1 118 18 135/73 94 2.0 28 100.1 08/21/24 05:02 Nasal Cannula* Total Intake and Output 08/20/24 08/20/24 08/21/24 15:00 23:00 07:00 Intake Total 1133.32 ml 370 ml Balance 1133.32 ml 370 ml medications Current Medications Medications Dose Ordered Sig/Lori Route Start Time Stop Time Status Last Admin Dose Admin Azithromycin 250 ml @ 125 mls/hr DAILY@2100 IV 08/21/24 21:00 Ibuprofen 600 mg Q6HP PRN PO 08/20/24 21:45 08/20/24 22:43 600 MG Sodium Chloride 1,000 ml @ 60 mls/hr [id number] IV 08/20/24 21:45 08/20/24 22:42 60 MLS/HR Acetaminophen/ Hydrocodone Bitart 1 tab Q4HP PRN PO 08/20/24 21:45 Ondansetron HCl 4 mg Q4HP PRN IV 08/20/24 21:45 Docusate Sodium 100 mg BIDPRN PRN PO 08/20/24 21:45 Morphine Sulfate 2 mg Q4HPRN PRN IV 08/20/24 21:45 Fluoxetine HCl 40 mg DAILY PO 08/21/24 10:00 Nitroglycerin 0.4 mg Q5MINP PRN SL 08/20/24 23:30 Morphine Sulfate 2 mg Q30M PRN IV 08/20/24 23:30 Piperacillin Sod/ Tazobactam Sod 100 ml @ 25 mls/hr Q6HR IV 08/21/24 12:00 Albuterol 2.5 mg Q6HR NEB 08/21/24 12:00 Ipratropium [place]iken 0.5 mg Q6HR NEB 08/21/24 12:00 Examination Physical examination: General Appearance: Alert, Oriented X3, Cooperative, No acute distress HEENT: Atraumatic, PERRLA, EOMI, Mucous membrane moist/pink Respiratory: Diminished breath sound on the rt side and Lt side vesicular breath sound. Cardiovascular: Regular rate, Normal S1, Normal S2, No murmurs, no chest wall tenderness Abdominal: Normal bowel sounds, Soft, No tenderness, No hepatospenomegaly, No masses Extremities: No clubbing, No cyanosis, No edema, Normal pulses, No tenderness/swelling Skin: No rashes, No breakdown, No significant lesion Neuro: Normal gait, Normal speech, Strength at 5/5 X4 ext, Normal tone, Sensation intact, grossly intact cranial nerves. Psych/Mental Status: Mental status NL, Mood NL laboratory and microbiology Laboratory Tests 08/21/24 03:21 Test 08/21/24 03:21 Range/Units Serum Glucose 107 H 74-106 mg/dL Labs and/or images reviewed: Labs reviewed by me, Image(s) reviewed by me Problem List/Assessment/Plan Problem List/Assessment/Plan Assessment and Plan: # Acute respiratory failure likely due to Gram positive for Gram-negative pneumonia - Patient is on 2L oxygen with saturation 94%. # Rt sided pleural effusion likely due to Gram-positive or Gram-negative pneumonia - CT chest revealed right pleural effusion with atelectasis in the right lower lung field - neb treatment with ipratropium and albuterol q.6 hour - IV Zosyn 3.37 mg q.6 hour and IV azithromycin 500 mg daily - IV normal saline at 60 mL/hour. # Hyperbilirubinemia with transaminitis likely due to medication. - Ordered hepatitis panel, HIV 1 and 2 - Monitor CMP # Hypokalemia - Replenished # ADHD, depression - Resumed home medication of fluoxetine 40 mg daily p.o lamotrigine 100 mg 1 tab p.o. b.i.d. # Vitamin D defieciency - Vitamin D 97777 units Q 7D Goal of care discussed with the patient for more than 15 minutes full code Plan of treatment discussed with . Plan discussed with: Patient, Other My Orders My Orders Orders - RAMSES CONTRERAS RESIDENT Procedure Category Date Status Time Vitamin D, 25-Hydroxy LAB 08/21/24 In Process 08:10 Rapid Influenza A&B LAB 08/21/24 Logged 09:37 Comprehensive LAB 08/21/24 In Process Hepatitis Panel 09:37 Hiv 1&2 Antibody LAB 08/21/24 In Process 09:40 Piperacillin-Tazob PHA 08/21/24 In Process 3.375gm (Zosyn 3.375g 12:00 Respiratory Culture RONNIE 08/21/24 Uncollected W/ Gs 09:40 Albuterol Medneb PHA 08/21/24 In Process (Ventolin Medneb) 12:00 Ipratropium Medneb PHA 08/21/24 In Process (Atrovent Medneb) 12:00 Lamotrigine Tablet PHA 08/21/24 Transmitted (Lamictal Tablet) 22:00 Date of Service: Aug 21, 2024 Billing Provider: CIERRA FRANCIS MD Common Visit Codes: [id number] INP/OBS CARE(HIGH) RAMSES CONTRERAS RESIDENT Aug 21, 2024 10:54 CIERRA FRANCIS MD Aug 22, 2024 02:03
[2024-08-21] MEDS: PIPERACILLIN-TAZOB 3.375GM 100 ML IV SCH (12:27)
[2024-08-21] MEDS: IPRATROPIUM BROM 0.5 MG/2.5ML INH SOL NEB SCH (13:15)
[2024-08-21] MEDS: ALBUTEROL SULF 2.5 MG/0.5ML(0.5%) NEB SOLN NEB SCH (13:15)
[2024-08-21 14:55] LABS: Rapid Influenza A Negative (Negative); Rapid Influenza B Negative (Negative)
[2024-08-21] MEDS: ERGOCALCIFEROL 50,000 UNIT(1.25MG) CAP PO SCH (15:14)
[2024-08-21] MEDS: lamoTRIgine 100 MG TAB PO SCH (21:55)
[2024-08-21] MEDS: AZITHROMYCIN 500MG/ 250ML 250 ML IV SCH (22:09)
[2024-08-22] VITALS (16 sets, daily range): BP systolic 102–122; BP diastolic 63–70; PULSE 82–130; RESP 17–22; TEMP 97.5–100.3; O2SAT 92–100
[2024-08-22 12:27] LABS: Basophils # (auto) 0.1 10 ^3/uL (0-0.2); Eosinophils # (auto) 0 10 ^3/uL (0-0.8)
[2024-08-22 12:29] LABS: Basophils % (auto) 0.6 % (0.0-2.0); Eosinophils % (auto) 0.4 % (0.0-7.0); Hematocrit 33.4 % (41.0-53.0); Lymphocytes # (auto) 0.7 10 ^3/uL (0.4-5.4); Lymphocytes % (auto) 5.8 % (10.0-50.0); Mean Corpuscular Hemoglobin 20.1 pg (28.0-32.0); Mean Corpuscular Volume 60.8 fL (80.0-100.0); Monocytes # (auto) 1.3 10 ^3/uL (0-1.3); Monocytes % (auto) 11.1 % (0.0-12.0); Neutrophils # (auto) 9.8 10 ^3/uL (1.6-8.6); Neutrophils % (auto) 82.1 % (37.0-80.0); Nucleated Red Blood Cells % 0.2 %; Platelet Count (auto) 460 10^3/uL (140-450); Red Cell Distribution Width 15.8 % (11.8-14.3)
[2024-08-22 12:39] LABS: Chloride 105 mmol/L (98-107); Potassium 3.6 mmol/L (3.5-5.1); Sodium 138 mmol/L (136-145)
[2024-08-22 12:40] LABS: Anion Gap 5 (5-15); Calcium 9.2 mg/dL (8.7-10.4); Carbon Dioxide 28 mmol/L (20-31)
[2024-08-22 12:45] LABS: BUN/Creatinine Ratio 8.2 (10.0-20.0); Blood Urea Nitrogen 6 mg/dL (9-23); Glucose 142 mg/dL (74-106)
[2024-08-22 13:27] LABS: Hypochromia Marked; Ovalocytes FEW; Platelet Estimate Increased; Tear Drop Cells FEW
[2024-08-22] MEDS: LORazepam 2MG/ML-1ML VIAL IV ONE (17:20)
--- NOTE | 2024-08-22 17:55 | DVHINCON2 ---
Date of service: Aug 22, [address] Jewell Reason for Consultation Right pleural effusion, loculated. History of Present Illness 28-year-old man history of ADHD, depression who presented with a chief complaint of right upper quadrant abdominal pain. CT chest was performed demonstrated right loculated pleural effusion. He was initiated on antibiotics. He was given diuretics as well. Pulmonary consultation is called due to acute hypoxic respiratory failure, loculated pleural effusion with compressive atelectasis. Review of systems: 14 point review of systems is negative unless otherwise noted above. Past medical history: Depression, ADHD Past surgical history: Denies any prior surgeries. Medications: Reviewed Allergies: No known drug allergies. Family history: No family history of premature CAD. No family history of lung disease Social history: Nonsmoker. No alcohol or illicit drug use. Lives at home. Family History: Patient reports no known family medical history. Allergies: Coded Allergies: NO KNOWN ALLERGIES (Unverified , 12/01/18) Home Meds Reported Medications Fluoxetine HCl (Pmdd) (Fluoxetine HCl) 20 Mg Tab, 20 MG PO DAILY, TAB 08/21/24 Lamotrigine (Lamotrigine) 100 Mg Tab, 1 TAB PO BID 08/21/24 Current Medications Current Medications Medications (Trade) Dose Ordered Sig/Lori Route PRN Reason Start Time Stop Time Status Last Admin Azithromycin 250 ml @ 125 mls/hr DAILY@2100 IV 08/21/24 21:00 08/21/24 22:09 Lamotrigine (LaMICtal TABLET) 100 mg Q12HR PO 08/21/24 22:00 08/22/24 10:08 Fluoxetine HCl (PROzac CAPSULE) 40 mg QPM PO 08/21/24 18:00 08/21/24 17:56 Vital Signs Vital Signs Date Time Temp Pulse Resp B/P (MAP) Pulse Ox O2 Delivery O2 Flow Rate FiO2 08/22/24 16:50 98.1 105 18 106/64 (78) 93 98.1 08/22/24 10:00 Nasal Cannula 2.0 08/22/24 10:00 28 Physical Exam Gen.: Patient lying in bed in no apparent distress. On supplemental oxygen. Head: Normocephalic, atraumatic Eyes: EOMI/PERRLA. Ears: Normal hearing. Normal anatomy. Neck/trachea: Trachea midline, supple. Nose: Normal external anatomy. Mouth: Moist mucous membranes. Chest: Decreased air entry right lower lung field. No wheezing or rhonchi. Dullness to percussion in mid to lower right lung field. Cardio vascular: Positive S1, positive S2. Regular rate and rhythm. Abdomen: Positive bowel sounds in all 4 quadrants. Soft, non-tender, non- distended. : Deferred. Rectal: Deferred Skin: Warm, dry. Extremities: 2+ radial pulses bilaterally. No lower extremity edema. Neuro: Awake, alert, oriented x3. No gross motor or sensory deficits. Cranial nerves II through XII intact. Gait not assessed. Labs/Diagnostic Data Labs Test 08/22/24 12:15 08/21/24 14:08 08/21/24 03:21 08/20/24 18:15 Range/Units White Blood Count 12.0 #H 4.4-10.8 10^3/uL Red Blood Count 5.50 4.5-5.90 10^6/uL Hemoglobin 11.0 L 13.5-17.5 g/dL Hematocrit 33.4 L 41.0-53.0 % Mean Corpuscular Volume 60.8 L 80.0-100.0 fL Mean Corpuscular Hemoglobin 20.1 L 28.0-32.0 pg Mean Corpuscular Hemoglobin Concent 33.0 32.0-36.0 g/dL Red Cell Distribution Width 15.8 H 11.8-14.3 % Platelet Count 460 H 140-450 10^3/uL Mean Platelet Volume 7.7 6.9-10.8 fL Neutrophils (%) (Auto) 82.1 H 37.0-80.0 % Lymphocytes (%) (Auto) 5.8 L 10.0-50.0 % Monocytes (%) (Auto) 11.1 0.0-12.0 % Eosinophils (%) (Auto) 0.4 0.0-7.0 % Basophils (%) (Auto) 0.6 0.0-2.0 % Neutrophils # (Auto) 9.8 H 1.6-8.6 10 ^3/uL Lymphocytes # (Auto) 0.7 0.4-5.4 10 ^3/uL Monocytes # (Auto) 1.3 0-1.3 10 ^3/uL Eosinophils # (Auto) 0 0-0.8 10 ^3/uL Basophils # (Auto) 0.1 0-0.2 10 ^3/uL Nucleated Red Blood Cells 0.2 % Platelet Estimate Increased Hypochromasia (manual) Marked Microcytosis Marked Tear Drop Cells Few Ovalocytes Few Sodium Level 138 136-145 mmol/L Potassium Level 3.6 3.5-5.1 mmol/L Chloride Level 105 98-107 mmol/L Carbon Dioxide Level 28 20-31 mmol/L Anion Gap 5 5-15 Blood Urea Nitrogen 6 L 9-23 mg/dL Creatinine 0.73 0.700-1.30 mg/dL Glomerular Filtration Rate Calc 129 >90 mL/min BUN/Creatinine Ratio 8.2 L 10.0-20.0 Serum Glucose 142 H 74-106 mg/dL Calcium Level 9.2 8.7-10.4 mg/dL Influenza Type A Antigen Negative Negative Influenza Type B Antigen Negative Negative Large Platelets Few Stomatocytes Few Hemoglobin A1c 5.1 <5.7 % A1C Total Bilirubin 1.3 H 0.2-1.0 mg/dL Aspartate Amino Transferase (AST) 44 H 13-40 U/L Alanine Aminotransferase (ALT) 75 H 7-40 U/L Alkaline Phosphatase 145 H 46-116 U/L Lactate Dehydrogenase 328 H 120-246 U/L Total Protein 6.1 5.7-8.2 g/dL Albumin 3.8 3.2-4.8 g/dL Vitamin B12 Level 673 211-911 pg/mL Vitamin D 25-Hydroxy 22.4 L 30.0-100 ng/mL Thyroid Stimulating Hormone (TSH) 1.30 0.55-4.78 uIU/mL HIV (1&2) Antibody Negative Negative SARS-CoV-2 Antigen (Rapid) Negative NEGATIVE Test 08/20/24 15:58 08/20/24 15:57 Range/Units Lactic Acid Level 1.5 0.4-2.0 mmol/L Magnesium Level 2.2 1.6-2.6 mg/dL Troponin I High Sensitivity 32 </=54 ng/L B-Type Natriuretic Peptide 25.14 0-100 pg/mL Lipase 30 12-53 U/L Plasma/Serum Blood Alcohol < 3.0 <10 mg/dL Monoscreen Negative Urine Color Yellow Yellow Urine Clarity Clear Clear Urine pH 6.5 5.0-9.0 Urine Specific [place] 1.018 1.001-1.035 Urine Protein Trace H Negative Urine Ketones Negative Negative Urine Blood 2+ H Negative /uL Urine Nitrite Negative Negative Urine Bilirubin Negative Negative Urine Urobilinogen 3 H Negative mg/dL Urine Leukocyte Esterase Negative Negative /uL Urine RBC 17 0 - 3 /hpf Urine WBC 1 0 - 3 /hpf Urine Squamous Epithelial Cells None seen <5 /hpf Urine Bacteria None seen None Seen /hpf Urine Glucose Normal Normal mg/dL Urine Opiates Screen Neg NEGATIVE Urine Fentanyl Screen Neg NEGATIVE Urine Barbiturates Screen Neg NEGATIVE Urine Phencyclidine Screen Neg NEGATIVE Urine Amphetamines Screen Neg NEGATIVE Urine Benzodiazepines Screen Neg NEGATIVE Urine Cocaine Screen Neg NEGATIVE Urine Cannabinoids Screen Neg NEGATIVE Microbiology Date/Time Source Procedure Growth Status 08/20/24 15:58 Blood Blood Culture - Preliminary NO GROWTH AFTER 48 HOURS OF INCUBATION. Resulted Assessment Impression: Loculated pleural effusion Pneumonia likely Gram-negative Elevated liver enzymes Atelectasis Plan: Supplemental oxygen if necessary Keep O2 saturation above 92%. Continue antibiotics Follow up fluid cultures Limited chest ultrasound demonstrated loculated pleural effusion. Drained 700 mL of yellow colored fluid. Several septations were seen. See separate procedure note for right thoracentesis. Continue bronchodilators Anxiolytics prn DVT prophylaxis Prognosis: Poor given multiple comorbidities. Rest of plan per hospitalist and other consultants. Thank you Dr. Jewell for allowing me to participate in this patient's care. Further recommendations will depend on patient's clinical course. Please do not hesitate to contact me if you have any questions or concerns. This medical document was created using an electronic medical record system with [employer] dictation system. Although this document has been carefully reviewed, there may still be some phonetic and typographical errors. These areas are purely typographical due to imperfections of the software programs, and do not reflect any compromise in the patient's medical care. Plan discussed with: Other (DCO Santiago, RT, MD) PRESTON CARTY MD Aug 22, 2024 17:55
--- NOTE | 2024-08-22 17:57 | DVHNC2 ---
Procedure - Ultrasound-guided thoracentesis procedure note: Physician: Dr Calderon Kemp Date: 08/22/24 Time: 1756 pm Medical Office Assistant Dr Jewell Consent: Consent was obtained from patient's healthcare proxy prior to procedure. Indication, risks, and benefits were explained at length. Procedure summary: A time out was performed and a chest x-ray was reviewed prior to procedure. The appropriate site was confirmed and marked. My hands were washed immediately prior to the procedure, I wore a surgical cap, mask with protective eyewear, sterile gown and sterile gloves throughout the procedure. The patient was pr epped and draped in a sterile manner using chlorhexidine scrub after the appropriate level was percussed and confirmed by ultrasound. 1% lidocaine was used to anesthetize the skin, subcutaneous tissue, superior aspect of the rib periosteum and parietal pleura. A finder needle was then introduced over the superior aspect of the rib to locate the pleural fluid; yellow colored fluid was aspirated. Thoracentesis needle was then introduced through the skin incision into the pleural space using negative aspiration pressure. The thoracentesis catheter was then threaded without difficulty. 700 mL's of yellow colored fluid were removed without difficulty. The catheter was then removed. No immediate complications were noted during the procedure. A postprocedure chest x-ray is pending at the time of this note. The pleural fluid will be sent for cultures and cytology. Estimated blood loss is less than 5 mL's. CPT: 58450 PRESTON KEMP MD Aug 22, 2024 17:57
--- NOTE | 2024-08-22 19:48 | DVHPNRES ---
Progress Note Date Seen: Aug 22, 2024 Resident Creating Document: RAMSES CONTRERAS RESIDENT Medical Necessity Reason Pt with a Central, PICC or Fol: No Subjective Review of Systems The patient is a 28-year-old male with past medical history of ADHD and depression who presented to [facility] ED with complaint of right upper quadrant abdominal pain. Patient reports radiating right flank pain, rating 9/10 numeric scale, getting worse that prompted this visit. Patient also mentioned he has a history of fever for last 1 week and the highest temperature was 104 and yesterday he went to urgent care and he was referred from the urgent care due to the right-sided pleural effusion. Patient denied chest pain, dizziness, headache, diaphoresis, nausea or vomiting. Patient was admitted for further evaluation and medical management. Patient underwent right thoracentesis due to right-sided pleural effusion on 08/22/2024 and 700 mL of pleural fluid removed and sent for study and the procedure was uneventful Patient was seen and examined on the bedside. He is alert oriented x3. Complaining of shortness of breath and right-sided chest pain. No other active complaints. Objective vital signs Vital Sign Date Time Temp Pulse Resp B/P (MAP) Pulse Ox O2 Delivery O2 Flow Rate FiO2 08/22/24 18:41 99 20 98 08/22/24 18:33 Room Air 08/22/24 18:33 0 21 08/22/24 16:50 98.1 106/64 (78) 98.1 Total Intake and Output 08/21/24 08/21/24 08/22/24 15:00 23:00 07:00 Intake Total 900 ml 1350 ml Output Total 900 ml Balance 900 ml 450 ml medications Current Medications Medications Dose Ordered Sig/Lori Route Start Time Stop Time Status Last Admin Dose Admin Azithromycin 250 ml @ 125 mls/hr DAILY@2100 IV 08/21/24 21:00 08/21/24 22:09 125 MLS/HR Ibuprofen 600 mg Q6HP PRN PO 08/20/24 21:45 08/22/24 13:43 600 MG Sodium Chloride 1,000 ml @ 60 mls/hr [id number] IV 08/20/24 21:45 08/22/24 05:28 60 MLS/HR Acetaminophen/ Hydrocodone Bitart 1 tab Q4HP PRN PO 08/20/24 21:45 Ondansetron HCl 4 mg Q4HP PRN IV 08/20/24 21:45 Docusate Sodium 100 mg BIDPRN PRN PO 08/20/24 21:45 Morphine Sulfate 2 mg Q4HPRN PRN IV 08/20/24 21:45 Nitroglycerin 0.4 mg Q5MINP PRN SL 08/20/24 23:30 Morphine Sulfate 2 mg Q30M PRN IV 08/20/24 23:30 Piperacillin Sod/ Tazobactam Sod 100 ml @ 25 mls/hr Q6HR IV 08/21/24 12:00 08/22/24 19:37 25 MLS/HR Albuterol 2.5 mg Q6HR NEB 08/21/24 12:00 08/22/24 18:33 2.5 MG Ipratropium [place] 0.5 mg Q6HR NEB 08/21/24 12:00 08/22/24 18:33 0.5 MG Lamotrigine 100 mg Q12HR PO 08/21/24 22:00 08/22/24 10:08 100 MG Ergocalciferol 50,000 unit Q7D PO 08/21/24 14:30 08/21/24 15:14 50,000 UNIT Fluoxetine HCl 40 mg QPM PO 08/21/24 18:00 08/22/24 17:59 40 MG Examination Physical examination: General Appearance: Alert, Oriented X3, Cooperative, No acute distress HEENT: Atraumatic, PERRLA, EOMI, Mucous membrane moist/pink Respiratory: Diminished breath sound on the rt side and Lt side vesicular breath sound. Cardiovascular: Regular rate, Normal S1, Normal S2, No murmurs, no chest wall tenderness Abdominal: Normal bowel sounds, Soft, No tenderness, No hepatospenomegaly, No masses Extremities: No clubbing, No cyanosis, No edema, Normal pulses, No tenderness/swelling Skin: No rashes, No breakdown, No significant lesion Neuro: Normal gait, Normal speech, Strength at 5/5 X4 ext, Normal tone, Sensation intact, grossly intact cranial nerves. Psych/Mental Status: Mental status NL, Mood NL laboratory and microbiology Laboratory Tests 08/22/24 12:15 Test 08/22/24 12:15 Range/Units Serum Glucose 142 H 74-106 mg/dL Microbiology Date/Time Source Procedure Growth Status 08/20/24 15:58 Blood Blood Culture - Preliminary NO GROWTH AFTER 48 HOURS OF INCUBATION. Resulted Labs and/or images reviewed: Labs reviewed by me, Image(s) reviewed by me Problem List/Assessment/Plan Problem List/Assessment/Plan Assessment and Plan: # Acute respiratory failure likely due to Gram positive for Gram-negative pneumonia - Patient is on 2L oxygen with saturation 94%. # Rt sided pleural effusion likely due to Gram-positive or Gram-negative pneumonia; S/P rt thoracentesis - CT chest revealed right pleural effusion with atelectasis in the right lower lung field - neb treatment with ipratropium and albuterol q.6 hour - IV Zosyn 3.37 mg q.6 hour and IV azithromycin 500 mg daily - IV normal saline at 60 mL/hour. # Hyperbilirubinemia with transaminitis likely due to medication. - HIV negative and hepatitis panel pending. - Monitor CMP # Hypokalemia - Replenished # ADHD, depression - Resumed home medication of fluoxetine 40 mg daily p.o lamotrigine 100 mg 1 tab p.o. b.i.d. # Vitamin D defieciency - Vitamin D 34258 units Q 7D Goal of care discussed with the patient for more than 15 minutes full code Plan of treatment discussed with . Plan discussed with: Patient, Other Date of Service: Aug 22, 2024 Billing Provider: CIERRA FRANCIS MD Common Visit Codes: [id number] INP/OBS CARE(HIGH) RAMSES CONTRERAS RESIDENT Aug 22, 2024 19:48 CIERRA FRANCIS MD Aug 25, 2024 18:35
[2024-08-22 19:52] LABS: Body Fluid Polymorphonuclear 3 % (0-25); Body Fluid Red Blood Cells 1213 CUMM (0-2000); Body Fluid White Blood Cells 1756 CUMM (0-200); Body Fluid pH 8
[2024-08-23] VITALS (18 sets, daily range): BP systolic 94–144; BP diastolic 62–73; PULSE 96–144; RESP 16–19; TEMP 97.3–100.6; O2SAT 90–100
--- NOTE | 2024-08-23 05:33 | DVH ---
EXAM: XY CHEST XRAY 1 VIEW Indication:s/p right thoracenetsis, r/o PTX Technique: Single frontal view of the chest was obtained Comparison: XY CHEST PORTABLE on DOS: 08/20/24 FINDINGS: Lines and Tubes: None Lungs: Right lower lobe atelectasis. Pulmonary edema. Pleura: Large right pleural effusion. No pneumothorax. Cardiomediastinal contours: Unremarkable Bones: No acute osseous abnormality. IMPRESSION: Large right pleural effusion. No pneumothorax.
[2024-08-23 06:11] LABS: Basophils # (auto) 0.1 10 ^3/uL (0-0.2); Eosinophils # (auto) 0.1 10 ^3/uL (0-0.8); Eosinophils % (auto) 0.8 % (0.0-7.0); Monocytes # (auto) 1.4 10 ^3/uL (0-1.3); Monocytes % (auto) 13.9 % (0.0-12.0)
[2024-08-23 06:19] LABS: Basophils % (auto) 0.8 % (0.0-2.0); Hematocrit 32.8 % (41.0-53.0); Lymphocytes # (auto) 1.2 10 ^3/uL (0.4-5.4); Lymphocytes % (auto) 12.2 % (10.0-50.0); Mean Corpuscular Hemoglobin 20.3 pg (28.0-32.0); Mean Corpuscular Hgb Conc. 33.5 g/dL (32.0-36.0); Mean Corpuscular Volume 60.7 fL (80.0-100.0); Neutrophils # (auto) 7.1 10 ^3/uL (1.6-8.6); Neutrophils % (auto) 72.3 % (37.0-80.0); Nucleated Red Blood Cells % 0.2 %; Platelet Count (auto) 488 10^3/uL (140-450); White Blood Cell 9.9 10^3/uL (4.4-10.8)
[2024-08-23 06:24] LABS: Red Cell Distribution Width 15.6 % (11.8-14.3)
[2024-08-23 06:39] LABS: Alanine Aminotransferase 84 U/L (7-40); Alkaline Phosphatase 207 U/L (46-116); Anion Gap 7 (5-15); Aspartate Aminotransferase 53 U/L (13-40); BUN/Creatinine Ratio 6.9 (10.0-20.0); Bilirubin, Total 1.3 mg/dL (0.2-1.0); Blood Urea Nitrogen 6 mg/dL (9-23); Calcium 9.4 mg/dL (8.7-10.4); Carbon Dioxide 27 mmol/L (20-31); Chloride 100 mmol/L (98-107); Glucose 123 mg/dL (74-106); Potassium 3.9 mmol/L (3.5-5.1); Sodium 134 mmol/L (136-145)
[2024-08-23 06:40] LABS: Total Protein 6.6 g/dL (5.7-8.2)
[2024-08-23] MEDS: LORazepam 2MG/ML-1ML VIAL IV ONE (13:43)
--- NOTE | 2024-08-23 16:08 | DVHPNRES ---
Progress Note Date Seen: Aug 23, 2024 Resident Creating Document: ROBERTO LOTT RESIDENT Medical Necessity Reason Pt with a Central, PICC or Fol: No Subjective Review of Systems Patient seen and examined at bedside. Patient complaining of feeling chilled and feverish in nighttime, however patient shortness of breath is significantly improved after he underwent right thoracentesis on 08/22/2024 where they removed 700 mL of pleural fluid. No complication noted, no overnight events notified. Objective vital signs Vital Sign Date Time Temp Pulse Resp B/P (MAP) Pulse Ox O2 Delivery O2 Flow Rate FiO2 08/23/24 11:42 101.1 08/23/24 11:26 119 16 100 08/23/24 11:20 Room Air* 0 21 08/23/24 09:00 124/67 (86) Total Intake and Output 08/22/24 08/22/24 08/23/24 15:00 23:00 07:00 Intake Total 900 ml 1850 ml Output Total 1200 ml Balance 900 ml 650 ml medications Current Medications Medications Dose Ordered Sig/Lori Route Start Time Stop Time Status Last Admin Dose Admin Azithromycin 250 ml @ 125 mls/hr DAILY@2100 IV 08/21/24 21:00 08/22/24 23:33 125 MLS/HR Ibuprofen 600 mg Q6HP PRN PO 08/20/24 21:45 08/23/24 11:42 600 MG Acetaminophen/ Hydrocodone Bitart 1 tab Q4HP PRN PO 08/20/24 21:45 Ondansetron HCl 4 mg Q4HP PRN IV 08/20/24 21:45 Docusate Sodium 100 mg BIDPRN PRN PO 08/20/24 21:45 Morphine Sulfate 2 mg Q4HPRN PRN IV 08/20/24 21:45 Nitroglycerin 0.4 mg Q5MINP PRN SL 08/20/24 23:30 Morphine Sulfate 2 mg Q30M PRN IV 08/20/24 23:30 Piperacillin Sod/ Tazobactam Sod 100 ml @ 25 mls/hr Q6HR IV 08/21/24 12:00 08/23/24 11:42 25 MLS/HR Albuterol 2.5 mg Q6HR NEB 08/21/24 12:00 08/23/24 11:20 2.5 MG Ipratropium [place] 0.5 mg Q6HR NEB 08/21/24 12:00 08/23/24 11:20 0.5 MG Lamotrigine 100 mg Q12HR PO 08/21/24 22:00 08/23/24 09:41 100 MG Ergocalciferol 50,000 unit Q7D PO 08/21/24 14:30 08/21/24 15:14 50,000 UNIT Fluoxetine HCl 40 mg QPM PO 08/21/24 18:00 08/22/24 17:59 40 MG Examination General Appearance: Cooperative. Well developed. Well nourished. NAD Head Exam: Normal inspection Neck Exam: Normal inspection. Non-tender. Normal alignment Pulmonary/Respiratory: Chest non-tender. Right lower lobe crackles, decreased breath sound in bed lower lobe, clear left lung. Cardiovascular/Chest: Regular rate and rhythm. No murmurs. No JVD. Peripheral Pulses: 2+ Radial (R). 2+ Radial (L). 2+ Pedal (R). 2+ Pedal (L) Abdominal Exam: Normal bowel sounds. Soft. Nontender. No hepatospenomegaly. No masses Ankle Exam: Negative ankle edema Lower extremities: Negative lower extremity edema Neuro/Mental Status: A&O x4. Coherent Thoughts/Psych: Normal thought pattern. Appropriate mood and affect. Good judgement and insight Appearance: In no acute distress Skin Exam: Normal inspection. Normal color. Warm. Dry laboratory and microbiology Laboratory Tests 08/23/24 05:08 Test 08/23/24 05:08 Range/Units Serum Glucose 123 H 74-106 mg/dL Microbiology Date/Time Source Procedure Growth Status 08/20/24 15:58 Blood Blood Culture - Preliminary NO GROWTH AFTER 48 HOURS OF INCUBATION. Resulted Problem List/Assessment/Plan Problem List/Assessment/Plan # Acute respiratory failure likely due to Gram positive for Gram-negative pneumonia - currently on room air. # sepsis due to pneumonia Gram-positive/Gram-negative -IV antibiotic with Zosyn and IV azithromycin -pending sputum culture # Rt sided pleural effusion likely due to Gram-positive or Gram-negative pneumonia; S/P rt thoracentesis - CT chest revealed right pleural effusion with atelectasis in the right lower lung field - neb treatment with ipratropium and albuterol q.6 hour - IV Zosyn 3.37 mg q.6 hour and IV azithromycin 500 mg daily -discontinue IV fluid -status post thoracentesis on 08/22/2024: 700 mL pleural fluid removed. -chest x-ray(08/23/24): Right-sided pleural effusion # Hyperbilirubinemia with transaminitis likely due to medication. - HIV negative and hepatitis panel pending. - Monitor CMP # Hypokalemia - Replenished # ADHD, depression - Resumed home medication of fluoxetine 40 mg daily p.o lamotrigine 100 mg 1 tab p.o. b.i.d. # Vitamin D defieciency - Vitamin D 06621 units Q 7D Goal of care discussed with the patient for more than 15 minutes full code Plan of treatment discussed with . Plan: Continue with current management with IV antibiotic given tachycardia, elevated temperature, x-ray findings of right pleural effusion. Pulmonology on board. Continue current management and follow with pulmonology. Plan discussed with: Patient, Other (RN) Date of Service: Aug 23, 2024 Billing Provider: CIERRA FRANCIS MD Common Visit Codes: [id number] INP/OBS CARE(HIGH) ROBERTO LOTT RESIDENT Aug 23, 2024 16:08 CIERRA FRANCIS MD Aug 24, 2024 22:37
--- NOTE | 2024-08-23 23:31 | DVHPN2 ---
Progress Note - Dictate Date Seen: Aug 23, 2024 Medical Necessity Reason Pt with a Central, PICC or Fol: No Subjective Patient seen and examined at bedside. Breathing comfortably on room air. Overnight events reviewed. vital signs Vital Sign Date Time Temp Pulse Resp B/P (MAP) Pulse Ox O2 Delivery O2 Flow Rate FiO2 08/23/24 21:50 98.6 08/23/24 21:00 133 18 130/70 (90) 93 08/23/24 18:28 Room Air* 0 21 Total Intake and Output 08/22/24 08/22/24 08/23/24 15:00 23:00 07:00 Intake Total 900 ml 1850 ml Output Total 1200 ml Balance 900 ml 650 ml medications Current Medications Medications Dose Ordered Sig/Lori Route Start Time Stop Time Status Last Admin Dose Admin Azithromycin 250 ml @ 125 mls/hr DAILY@2100 IV 08/21/24 21:00 08/23/24 22:30 125 MLS/HR Ibuprofen 600 mg Q6HP PRN PO 08/20/24 21:45 08/23/24 20:50 600 MG Acetaminophen/ Hydrocodone Bitart 1 tab Q4HP PRN PO 08/20/24 21:45 Ondansetron HCl 4 mg Q4HP PRN IV 08/20/24 21:45 Docusate Sodium 100 mg BIDPRN PRN PO 08/20/24 21:45 Morphine Sulfate 2 mg Q4HPRN PRN IV 08/20/24 21:45 Nitroglycerin 0.4 mg Q5MINP PRN SL 08/20/24 23:30 Morphine Sulfate 2 mg Q30M PRN IV 08/20/24 23:30 Piperacillin Sod/ Tazobactam Sod 100 ml @ 25 mls/hr Q6HR IV 08/21/24 12:00 08/23/24 17:57 25 MLS/HR Albuterol 2.5 mg Q6HR NEB 08/21/24 12:00 08/23/24 18:49 2.5 MG Ipratropium [place] 0.5 mg Q6HR NEB 08/21/24 12:00 08/23/24 18:49 0.5 MG Lamotrigine 100 mg Q12HR PO 08/21/24 22:00 08/23/24 22:22 100 MG Ergocalciferol 50,000 unit Q7D PO 08/21/24 14:30 08/21/24 15:14 50,000 UNIT Fluoxetine HCl 40 mg QPM PO 08/21/24 18:00 08/23/24 17:57 40 MG objective Gen.: Patient lying in bed in no apparent distress. Breathing on room air. Head: Normocephalic, atraumatic. Eyes: EOMI/PERRLA. Ears: Normal hearing. Normal anatomy. Neck/trachea: Trachea midline, supple. Nose: Normal external anatomy. Mouth: Moist mucous membranes. Chest: Decreased air entry bilaterally. No wheezing or rhonchi. Cardiovascular: Positive S1, positive S2. Regular rate and rhythm. Abdomen: Positive bowel sounds in all 4 quadrants. Soft, non-tender, non- distended. : Deferred. Rectal: Deferred. Skin: Warm, dry. Intact. Extremities: 2+ radial pulses bilaterally. No lower extremity edema. Neuro: Awake, alert, oriented x3. No gross motor or sensory deficits. Cranial nerves II through XII intact. Gait not assessed. laboratory and microbiology Laboratory Tests 08/23/24 05:08 Test 08/23/24 05:08 Range/Units Serum Glucose 123 H 74-106 mg/dL Assessment/Plan Impression: Loculated pleural effusion Pneumonia likely Gram-negative Elevated liver enzymes Atelectasis Events: Remains on room air No respiratory distress Continue bronchodilators Continue antibiotics Motrin - Patient spiking fevers Labs and imaging reviewed. Rest of plan as noted below. Plan: Supplemental oxygen if necessary Keep O2 saturation above 92%. Continue antibiotics Follow up fluid cultures Limited chest ultrasound demonstrated loculated pleural effusion. Drained 700 mL of yellow colored fluid. Several septations were seen. See separate procedure note for right thoracentesis (08/22). Continue bronchodilators Anxiolytics prn DVT prophylaxis Prognosis: Poor given multiple comorbidities. Rest of plan per hospitalist and other consultants. Thank you Dr. Jewell for allowing me to participate in this patient's care. Further recommendations will depend on patient's clinical course. Please do not hesitate to contact me if you have any questions or concerns. This medical document was created using an electronic medical record system with [employer] system. Although this document has been carefully reviewed, there may still be some phonetic and typographical errors. These areas are purely typographical due to imperfections of the software programs, and do not reflect any compromise in the patient's medical care. Plan discussed with: Patient, Other (DOC Brasher) PRESTON CARTY MD Aug 23, 2024 23:31
[2024-08-24] VITALS (16 sets, daily range): BP systolic 96–125; BP diastolic 60–77; PULSE 85–144; RESP 16–22; TEMP 97.8–102.9; O2SAT 91–98
[2024-08-24 07:32] LABS: Basophils # (auto) 0.1 10 ^3/uL (0-0.2); Eosinophils # (auto) 0.1 10 ^3/uL (0-0.8); Eosinophils % (auto) 1.2 % (0.0-7.0); Hemoglobin 10.8 g/dL (13.5-17.5); Monocytes # (auto) 1.2 10 ^3/uL (0-1.3); Neutrophils % (auto) 77.3 % (37.0-80.0)
[2024-08-24 07:36] LABS: Basophils % (auto) 0.7 % (0.0-2.0); Hematocrit 32.1 % (41.0-53.0); Lymphocytes # (auto) 0.9 10 ^3/uL (0.4-5.4); Lymphocytes % (auto) 8.9 % (10.0-50.0); Mean Corpuscular Hemoglobin 20.4 pg (28.0-32.0); Mean Corpuscular Hgb Conc. 33.7 g/dL (32.0-36.0); Mean Corpuscular Volume 60.5 fL (80.0-100.0); Monocytes % (auto) 11.9 % (0.0-12.0); Neutrophils # (auto) 7.7 10 ^3/uL (1.6-8.6); Nucleated Red Blood Cells % 0.2 %; Platelet Count (auto) 540 10^3/uL (140-450); Red Blood Cells 5.31 10^6/uL (4.5-5.90); Red Cell Distribution Width 15.5 % (11.8-14.3)
[2024-08-24 07:38] LABS: Anion Gap 6 (5-15); Carbon Dioxide 29 mmol/L (20-31); Chloride 100 mmol/L (98-107); Potassium 3.7 mmol/L (3.5-5.1); Sodium 135 mmol/L (136-145)
[2024-08-24 07:39] LABS: Calcium 9.5 mg/dL (8.7-10.4)
[2024-08-24 07:44] LABS: BUN/Creatinine Ratio 7.7 (10.0-20.0); Blood Urea Nitrogen 6 mg/dL (9-23); Glucose 99 mg/dL (74-106)
[2024-08-24 09:09] LABS: Hepatitis B Core Total AB Negative (Negative)
[2024-08-24 09:25] LABS: Hepatitis A Total Antibody Positive (Negative); Hepatitis B Surface Antibody Negative (Negative); Hepatitis B Surface Antigen Negative (Negative); Hepatitis C Antibody Negative (Negative)
[2024-08-24] MEDS: SODIUM CHLORIDE 0.9% 500 ML IV ONE (10:45)
[2024-08-24] MEDS ORDERED: DOXYCYCLINE 100MG/250ML 250 ML IV SCH ×2 (11:15→20:00)
[2024-08-24 11:22] LABS: % Iron Saturation 11.8 % (20-55)
[2024-08-24 11:23] LABS: Albumin 4.1 g/dL (3.2-4.8); Bilirubin, Direct 0.7 mg/dL (<0.3); Bilirubin, Total 1.3 mg/dL (0.2-1.0); Total Protein 6.7 g/dL (5.7-8.2)
--- NOTE | 2024-08-24 11:53 | DVHPNRES ---
Progress Note Date Seen: Aug 24, 2024 Resident Creating Document: LAVELL GONSALES RESIDENT Medical Necessity Reason Pt with a Central, PICC or Fol: No Subjective Review of Systems Xu Hendrickson is a 28-year-old male with past medical history of ADHD and depression who presented to [facility] ED with complaint of right sided chest pain and shortness of breath. 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 Reports vaping a lot recently and sharing his friends vape. Denies any recent travel history. [place] was [place]His father in law has probable COPD as he smokes and cough a lot per the patient. His pain is 9/10 numeric scale, getting worse on deep inhalation that prompted this visit. Patient also mentioned he has a history of fever for last 1 week and the highest temperature was 104 and yesterday he went to urgent care and he was referred from the urgent care due to the right-sided pleural effusion. Patient denied chest pain, dizziness, headache, diaphoresis, nausea or vomiting. Patient was admitted for further evaluation and medical management. Denies any weight loss. No history of incarceration or IV drug use. Home medications; lamotrigine, fluoxetine Patient seen and examined at bedside. Reports feeling better. Repeated two view chest x-ray, right-sided opacity is enlarged as compared to the previous x- ray completed on 08/23. HIV is negative. Objective vital signs Vital Sign Date Time Temp Pulse Resp B/P (MAP) Pulse Ox O2 Delivery O2 Flow Rate FiO2 08/24/24 10:00 91 Room Air 0.0 08/24/24 10:00 21 08/24/24 09:00 102.9 134 21 123/77 (92) 102.9 Total Intake and Output 08/23/24 08/23/24 08/24/24 15:00 23:00 07:00 Intake Total 100 ml 750 ml 1350 ml Output Total 1200 ml 600 ml Balance 100 ml -450 ml 750 ml medications Current Medications Medications Dose Ordered Sig/Lori Route Start Time Stop Time Status Last Admin Dose Admin Ibuprofen 600 mg Q6HP PRN PO 08/20/24 21:45 08/24/24 07:37 600 MG Acetaminophen/ Hydrocodone Bitart 1 tab Q4HP PRN PO 08/20/24 21:45 Ondansetron HCl 4 mg Q4HP PRN IV 08/20/24 21:45 Docusate Sodium 100 mg BIDPRN PRN PO 08/20/24 21:45 Morphine Sulfate 2 mg Q4HPRN PRN IV 08/20/24 21:45 Nitroglycerin 0.4 mg Q5MINP PRN SL 08/20/24 23:30 Morphine Sulfate 2 mg Q30M PRN IV 08/20/24 23:30 Albuterol 2.5 mg Q6HR NEB 08/21/24 12:00 08/24/24 06:33 2.5 MG Ipratropium [place] 0.5 mg Q6HR NEB 08/21/24 12:00 08/24/24 06:33 0.5 MG Lamotrigine 100 mg Q12HR PO 08/21/24 22:00 08/24/24 08:41 100 MG Ergocalciferol 50,000 unit Q7D PO 08/21/24 14:30 08/21/24 15:14 50,000 UNIT Fluoxetine HCl 40 mg QPM PO 08/21/24 18:00 08/23/24 17:57 40 MG Doxycycline Hyclate 250 ml @ 125 mls/hr Q12H IV 08/24/24 12:00 Piperacillin Sod/ Tazobactam Sod 100 ml @ 25 mls/hr Q6HR IV 08/24/24 14:00 Examination General Appearance: Alert, Oriented X4, Cooperative, No acute distress. Lying comfortably in the bed HEENT: Atraumatic, PERRLA, EOMI, Mucous membrane moist/pink Respiratory: Diminished breath sounds, more on the right side. No crackles or wheezing heard. Cardiovascular: Regular rate, Normal S1, Normal S2, No murmurs, no chest wall tenderness Abdominal: Normal bowel sounds, Soft, No tenderness, No hepatospenomegaly, No masses Extremities: Erythema noticed on the extensor surfaces including the elbows, knees and the ankles. Skin: No rashes, No breakdown, No significant lesion Neuro: Normal gait, Normal speech, Strength at 5/5 X4 ext, Normal tone, Sensation intact, grossly intact cranial nerves. Psych/Mental Status: Mental status NL, Mood NL laboratory and microbiology Laboratory Tests 08/24/24 05:52 Test 08/24/24 05:52 Range/Units Serum Glucose 99 74-106 mg/dL Microbiology Date/Time Source Procedure Growth Status 08/20/24 15:58 Blood Blood Culture - Preliminary NO GROWTH AFTER 72 HOURS OF INCUBATION. Resulted Labs and/or images reviewed: Labs reviewed by me, Image(s) reviewed by me Problem List/Assessment/Plan Problem List/Assessment/Plan Acute hypoxic respiratory failure likely secondary to community-acquired pneumonia ? Vape associated Sepsis due to Community-acquired pneumonia, Gram-positive and Gram-negative Loculated right-sided pleural effusion status post thoracocentesis with 700 mL drainage Patient required oxygen supplementation with 2 L oxygen via NC, now on room air. CT chest revealed right-sided pleural effusion with atelectasis in the right lower lung field Thoracocentesis performed by Dr. Kemp 08/22, drain 700 mL of yellow fluid. Pleural studies pending. IV Zosyn q.6 hour starting 08/21/2024 IV doxycycline q.12 hour started 08/24/24 Discontinue IV azithromycin 500 mg daily - patient received from 08/21 to 08/24 Nebulized treatment with albuterol and ipratropium q.6 hours Sputum g stain final result reveals many white blood cells, few Gram-positive cocci in pairs Prelim respiratory culture shows moderate grew normal oropharyngeal ghassan Prelim blood culture negative WBC 12 on arrival, now 10 COVID and influenza testing negative Rule Out pericardial effusion Echocardiogram completed 08/24 showed LVEF 55%. Normal frontal/valvular heart. No pericardial effusion Anemia, likely microcytic Hemoglobin 10.8, MCV 32, hematocrit 32 ESR 50, retic count 1.66, CRP 14, LDH 328 Iron panel completed shows low iron low TIBC low% saturation Ferritin elevated at 744 Urine analysis shows 2+ blood and 17 RBCs Transaminitis Bilirubin elevated at 1.3 Direct bili 0.7 AST 33, ALT 69, ALP 196 Patient quit drinking 3 years back Ruled out HIV HIV testing negative ADHD, depression - stable No homicidal or suicidal ideation Continue fluoxetine 40 mg daily, lamotrigine 100 mg b.i.d. Vitamin-D deficiency Supplemented Plan discussed with patient in which all questions have been answered Goals of care discussed for more than 22 minutes, full code status Case discussed with Dr. Gonzalez. critical care time 45 mins Plan discussed with: Patient My Orders My Orders Orders - LAVELL GONSALES RESIDENT Procedure Category Date Status Time Chest Xray 1 View XY 08/24/24 Logged 11:05 Doxycycline PHA 08/24/24 In Process 100mg/250ml 12:00 Date of Service: Aug 24, 2024 Billing Provider: MARICRUZ GONZALEZ MD Common Visit Codes: [id number] CARE 30-74 MIN LAVELL GONSALES RESIDENT Aug 24, 2024 11:53 MARICRUZ GONZALEZ MD Aug 25, 2024 09:28
[2024-08-24] MEDS: DOXYCYCLINE 100MG/250ML 250 ML IV SCH (11:54)
[2024-08-24 12:38] LABS: INR 1.18 (0.9-1.15); Partial Thromboplastin Time 33.3 SEC (24.5-34.5); Prothrombin Time 12.4 sec (9.3-11.8)
--- NOTE | 2024-08-24 14:14 | DVH ---
EXAM: XY CHEST XRAY 1 VIEW Indication:post effusion drainage Technique: Single frontal view of the chest was obtained Comparison: XY CHEST XRAY 1 VIEW on DOS: 08/23/24, XY CHEST PORTABLE on DOS: 08/20/24 FINDINGS: Lines and Tubes: None Lungs: Large right pleural effusion. Right lower lobe atelectasis and pulmonary edema. Cardiomediastinal contours: Unremarkable Bones: No acute osseous abnormality. IMPRESSION: No significant change compared to prior exam.
[2024-08-24] MEDS: PIPERACILLIN-TAZOB 3.375GM 100 ML IV SCH ×2 (14:22→19:23)
[2024-08-24 16:01] LABS: Erythrocyte Sedimentation Rate 50 mm/hr (0-20)
--- NOTE | 2024-08-24 16:31 | DVH ---
EXAM: XY CHEST TWO VIEWS ROUTINE TECHNIQUE: Two radiographic views of the chest CLINICAL HISTORY: PNA COMPARISON: None Findings/Impression: Frontal and lateral chest radiographs demonstrate no acute osseous or superficial soft tissue abnorma lities. The trachea is midline. The cardiac silhouette and mediastinum are within normal limits. Unchanged right mid and lower lung field atelectasis and/or infection. No pneumothorax or pleural effusions.
--- NOTE | 2024-08-24 16:32 | DVHSR ---
APPROVED REPORT EXAM: Two-dimensional and M-mode echocardiogram with Doppler and color Doppler. Blood Pressure: 96/60 mmHg INDICATION Pericarditis? Effusion? EF? RISK FACTORS Height: 64, Weight: 160 DIMENSIONS LVDd4.4 (3.8-5.7cm)LA (2D)3.5 (1.9-4.0cm)Aortic Root3.2 (2.0-3.7cm) LVDs3.0 (2.5-4.0cm)LA (MM) (1.9-4.0cm)Aortic Cusp Exc1.7 (1.5-2.0cm) EF (%) 60.0 (55-70%)Rt. Atrium3.9 (1.9-4.0cm)Asc. Aorta cm IVSd0.9 (0.7-1.1cm)RV (D) (1.8-2.4cm) PWd1.1 (0.7-1.1cm) Mitral Valve MitralMitral Stenosis E wave0.82m/sMV Mean GR.mmHg A wave0.82m/sMV Peak GR.47mmHg E/A ratio1.02D MVAcm2 DECEL [id number] 1/2 [id number] IVRTmsDop MVA4.66cm2 Aortic Valve Aortic ValveAortic Stenosis V11.12m/Yvan Mean GR.4mmHg V21.34m/Yvan Peak GR.7mmHg LVOT Diameter2.3 (1.8-2.4cm)Doppler AVA3.47cm2 Pulmonic Valve V21.14m/s Tricuspid Valve TR Velocity2.49m/s [id number] Conclusion Normal left ventricular size and dimension. Normal left ventricular systolic function estimated ejec tion fraction 55%. Normal diastolic function. Normal right ventricular size and dimension. Normal right ventricular systolic function. Normal biatrial size and dimension. Normal aortic valve structure and function. Normal mitral valve structure and function. Normal tricuspid valve structure and function. The pulmonary valve is grossly normal. No pericardial effusion.
[2024-08-24] MEDS ORDERED: PIPERACILLIN-TAZOB 3.375GM 100 ML IV SCH (17:45)
[2024-08-24] MEDS: LORazepam 2MG/ML-1ML VIAL IV ONE (22:02)
--- NOTE | 2024-08-24 22:35 | DVHPN2 ---
Progress Note - Dictate Date Seen: Aug 24, 2024 Medical Necessity Reason Pt with a Central, PICC or Fol: No Subjective Patient seen and examined at bedside. Breathing comfortably on room air. Overnight events reviewed. vital signs Vital Sign Date Time Temp Pulse Resp B/P (MAP) Pulse Ox O2 Delivery O2 Flow Rate FiO2 08/24/24 21:00 100.7 135 21 125/60 (81) 91 100.7 08/24/24 19:34 Room Air 08/24/24 19:34 0 21 Total Intake and Output 08/23/24 08/23/24 08/24/24 15:00 23:00 07:00 Intake Total 100 ml 750 ml 1350 ml Output Total 1200 ml 600 ml Balance 100 ml -450 ml 750 ml medications Current Medications Medications Dose Ordered Sig/Lori Route Start Time Stop Time Status Last Admin Dose Admin Ibuprofen 600 mg Q6HP PRN PO 08/20/24 21:45 08/24/24 07:37 600 MG Acetaminophen/ Hydrocodone Bitart 1 tab Q4HP PRN PO 08/20/24 21:45 Ondansetron HCl 4 mg Q4HP PRN IV 08/20/24 21:45 Docusate Sodium 100 mg BIDPRN PRN PO 08/20/24 21:45 Morphine Sulfate 2 mg Q4HPRN PRN IV 08/20/24 21:45 Nitroglycerin 0.4 mg Q5MINP PRN SL 08/20/24 23:30 Morphine Sulfate 2 mg Q30M PRN IV 08/20/24 23:30 Albuterol 2.5 mg Q6HR NEB 08/21/24 12:00 08/24/24 19:34 2.5 MG Ipratropium [place] 0.5 mg Q6HR NEB 08/21/24 12:00 08/24/24 19:34 0.5 MG Lamotrigine 100 mg Q12HR PO 08/21/24 22:00 08/24/24 22:01 100 MG Ergocalciferol 50,000 unit Q7D PO 08/21/24 14:30 08/21/24 15:14 50,000 UNIT Fluoxetine HCl 40 mg QPM PO 08/21/24 18:00 08/24/24 18:36 40 MG Piperacillin Sod/ Tazobactam Sod 100 ml @ 25 mls/hr Q6H IV 08/24/24 20:00 08/24/24 19:23 25 MLS/HR Doxycycline Hyclate 250 ml @ 125 mls/hr Q12H IV 08/25/24 00:00 objective Gen.: Patient lying in bed in no apparent distress. Breathing on room air. Head: Normocephalic, atraumatic. Eyes: EOMI/PERRLA. Ears: Normal hearing. Normal anatomy. Neck/trachea: Trachea midline, supple. Nose: Normal external anatomy. Mouth: Moist mucous membranes. Chest: Decreased air entry bilaterally. No wheezing or rhonchi. Cardiovascular: Positive S1, positive S2. Regular rate and rhythm. Abdomen: Positive bowel sounds in all 4 quadrants. Soft, non-tender, non- distended. : Deferred. Rectal: Deferred. Skin: Warm, dry. Intact. Extremities: 2+ radial pulses bilaterally. No lower extremity edema. Neuro: Awake, alert, oriented x3. No gross motor or sensory deficits. Cranial nerves II through XII intact. Gait not assessed. laboratory and microbiology Laboratory Tests 08/24/24 05:52 Test 08/24/24 05:52 Range/Units Serum Glucose 99 74-106 mg/dL Assessment/Plan Impression: Loculated pleural effusion Pneumonia likely Gram-negative Elevated liver enzymes Atelectasis Events: Remains on room air No respiratory distress Continue bronchodilators Continue antibiotics Pleural fluid cultures show no growth F/u chest ultrasound results Monitor for fevers. Labs and imaging reviewed. Rest of plan as noted below. Plan: Supplemental oxygen if necessary Keep O2 saturation above 92%. Continue antibiotics Follow up fluid cultures Limited chest ultrasound demonstrated loculated pleural effusion. Drained 700 mL of yellow colored fluid. Several septations were seen. See separate procedure note for right thoracentesis (08/22). Continue bronchodilators Anxiolytics prn Monitor renal function Monitor electrolytes. Supplement as necessary. DVT prophylaxis Prognosis: Poor given multiple comorbidities. Rest of plan per hospitalist and other consultants. Thank you Dr. Jewell for allowing me to participate in this patient's care. Further recommendations will depend on patient's clinical course. Please do not hesitate to contact me if you have any questions or concerns. This medical document was created using an electronic medical record system with [employer] system. Although this document has been carefully reviewed, there may still be some phonetic and typographical errors. These areas are purely typographical due to imperfections of the software programs, and do not reflect any compromise in the patient's medical care. Plan discussed with: Patient, Other (DOC Malave/Anshu) PRESTON CARTY MD Aug 24, 2024 22:35
[2024-08-25] VITALS (14 sets, daily range): BP systolic 102–115; BP diastolic 57–73; PULSE 85–134; RESP 14–21; TEMP 97.6–100.9; O2SAT 90–100
[2024-08-25] MEDS: DOXYCYCLINE 100MG/250ML 250 ML IV SCH (00:13)
[2024-08-25 05:45] LABS: Basophils # (auto) 0.1 10 ^3/uL (0-0.2); Basophils % (auto) 0.9 % (0.0-2.0); Eosinophils # (auto) 0.2 10 ^3/uL (0-0.8); Eosinophils % (auto) 1.4 % (0.0-7.0); Lymphocytes # (auto) 1.4 10 ^3/uL (0.4-5.4); Monocytes # (auto) 1.8 10 ^3/uL (0-1.3); White Blood Cell 10.9 10^3/uL (4.4-10.8)
[2024-08-25 05:48] LABS: Hematocrit 31.7 % (41.0-53.0); Hemoglobin 10.5 g/dL (13.5-17.5); Lymphocytes % (auto) 12.8 % (10.0-50.0); Mean Corpuscular Hgb Conc. 33.1 g/dL (32.0-36.0); Mean Corpuscular Volume 60.5 fL (80.0-100.0); Monocytes % (auto) 16.5 % (0.0-12.0); Neutrophils # (auto) 7.4 10 ^3/uL (1.6-8.6); Neutrophils % (auto) 68.4 % (37.0-80.0); Nucleated Red Blood Cells % 0.2 %; Platelet Count (auto) 514 10^3/uL (140-450); Red Blood Cells 5.25 10^6/uL (4.5-5.90); Red Cell Distribution Width 15.4 % (11.8-14.3)
[2024-08-25 06:05] LABS: Alanine Aminotransferase 62 U/L (7-40); Alkaline Phosphatase 189 U/L (46-116); Anion Gap 7 (5-15); BUN/Creatinine Ratio 7.4 (10.0-20.0); Blood Urea Nitrogen 7 mg/dL (9-23); Calcium 9.9 mg/dL (8.7-10.4); Carbon Dioxide 28 mmol/L (20-31); Chloride 101 mmol/L (98-107); Glucose 110 mg/dL (74-106); Potassium 3.9 mmol/L (3.5-5.1); Sodium 136 mmol/L (136-145)
--- NOTE | 2024-08-25 06:05 | DVHPNRES ---
Progress Note Date Seen: Aug 25, 2024 Resident Creating Document: LAVELL GONSALES RESIDENT Medical Necessity Reason Pt with a Central, PICC or Fol: No Subjective Review of Systems Xu Hendrickson is a 28-year-old male with past medical history of ADHD and depression who presented to [facility] ED with complaint of right sided chest pain and shortness of breath. 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 Reports vaping a lot recently and sharing his friends vape. Denies any recent travel history. Patient was [place]His father in law has probable COPD as he smokes and cough a lot per the patient. His pain is 9/10 numeric scale, getting worse on deep inhalation that prompted this visit. Patient also mentioned he has a history of fever for last 1 week and the highest temperature was 104 and yesterday he went to urgent care and he was referred from the urgent care due to the right-sided pleural effusion. Patient denied chest pain, dizziness, headache, diaphoresis, nausea or vomiting. Patient was admitted for further evaluation and medical management. Denies any weight loss. No history of incarceration or IV drug use. Home medications; lamotrigine, fluoxetine Patient seen and examined at bedside. Overnight patient was anxious received lorazepam 1 mg. Also reported night sweats. Chest x-ray repeated, shows enlarging pleural effusion, surgeon consulted for chest tube placement. Final blood culture negative, MRSA screen is negative. Objective vital signs Vital Sign Date Time Temp Pulse Resp B/P (MAP) Pulse Ox O2 Delivery O2 Flow Rate FiO2 08/25/24 05:50 95 16 100 08/25/24 05:44 Room Air 08/25/24 05:44 0 21 08/25/24 05:00 97.6 102/64 (77) 97.6 Total Intake and Output 08/24/24 08/24/24 08/25/24 15:00 23:00 07:00 Intake Total 725 ml 1000 ml Output Total 950 ml 1400 ml Balance -225 ml -400 ml medications Current Medications Medications Dose Ordered Sig/Lori Route Start Time Stop Time Status Last Admin Dose Admin Ibuprofen 600 mg Q6HP PRN PO 08/20/24 21:45 08/25/24 00:21 600 MG Acetaminophen/ Hydrocodone Bitart 1 tab Q4HP PRN PO 08/20/24 21:45 Ondansetron HCl 4 mg Q4HP PRN IV 08/20/24 21:45 Docusate Sodium 100 mg BIDPRN PRN PO 08/20/24 21:45 Morphine Sulfate 2 mg Q4HPRN PRN IV 08/20/24 21:45 Nitroglycerin 0.4 mg Q5MINP PRN SL 08/20/24 23:30 Morphine Sulfate 2 mg Q30M PRN IV 08/20/24 23:30 Albuterol 2.5 mg Q6HR NEB 08/21/24 12:00 08/25/24 05:44 2.5 MG Ipratropium [place] 0.5 mg Q6HR NEB 08/21/24 12:00 08/25/24 05:44 0.5 MG Lamotrigine 100 mg Q12HR PO 08/21/24 22:00 08/24/24 22:01 100 MG Ergocalciferol 50,000 unit Q7D PO 08/21/24 14:30 08/21/24 15:14 50,000 UNIT Fluoxetine HCl 40 mg QPM PO 08/21/24 18:00 08/24/24 18:36 40 MG Piperacillin Sod/ Tazobactam Sod 100 ml @ 25 mls/hr Q6H IV 08/24/24 20:00 08/25/24 02:29 25 MLS/HR Doxycycline Hyclate 250 ml @ 125 mls/hr Q12H IV 08/25/24 00:00 08/25/24 00:13 125 MLS/HR Examination General Appearance: Alert, Oriented X4, Cooperative, No acute distress. Lying comfortably in the bed HEENT: Atraumatic, PERRLA, EOMI, Mucous membrane moist/pink Respiratory: Diminished breath sounds, more on the right side. No crackles or wheezing heard. Cardiovascular: Regular rate, Normal S1, Normal S2, No murmurs, no chest wall tenderness Abdominal: Normal bowel sounds, Soft, No tenderness, No hepatospenomegaly, No masses Extremities: Erythema noticed on the extensor surfaces including the elbows, knees and the ankles. Skin: No rashes, No breakdown, No significant lesion Neuro: Normal gait, Normal speech, Strength at 5/5 X4 ext, Normal tone, Sensation intact, grossly intact cranial nerves. Psych/Mental Status: Mental status NL, Mood NL laboratory and microbiology Laboratory Tests 10/22/24 05:21 Test 08/25/24 05:21 Range/Units Serum Glucose Pending Microbiology Date/Time Source Procedure Growth Status 08/22/24 18:20 Pleural Fluid Gram Stain - Final Resulted 08/22/24 18:20 Pleural Fluid Body Fluid Culture - Preliminary Resulted 08/22/24 13:47 Sputum Expectorated Sputum Gram Stain - Final Resulted 08/22/24 13:47 Sputum Expectorated Sputum Respiratory Culture - Preliminary Resulted 08/20/24 15:58 Blood Blood Culture - Preliminary NO GROWTH AFTER 72 HOURS OF INCUBATION. Resulted Labs and/or images reviewed: Labs reviewed by me, Image(s) reviewed by me Problem List/Assessment/Plan Problem List/Assessment/Plan Acute hypoxic respiratory failure likely secondary to community-acquired pneumonia ? Vape associated vs ? Malignancy Sepsis due to Community-acquired pneumonia, Gram-positive and Gram-negative Loculated right-sided pleural effusion status post thoracocentesis with 700 mL drainage Consulted surgeon for chest tube placement Patient required oxygen supplementation with 2 L oxygen via NC, now on room air. CT chest revealed right-sided pleural effusion with atelectasis in the right lower lung field Thoracocentesis performed by Dr. Kemp 08/22, drain 700 mL of yellow fluid. Pleural studies pending. IV Zosyn q.6 hour starting 08/21/2024 IV doxycycline q.12 hour started 08/24/24 Discontinue IV azithromycin 500 mg daily - patient received from 08/21 to 08/24 Nebulized treatment with albuterol and ipratropium q.6 hours Sputum g stain final result reveals many white blood cells, few Gram-positive cocci in pairs Prelim respiratory culture shows moderate grew normal oropharyngeal ghassan Final blood culture negative, MRSA screen negative WBC 12 on arrival, now 10 COVID and influenza testing negative Rule Out pericardial effusion Echocardiogram completed 08/24 showed LVEF 55%. Normal frontal/valvular heart. No pericardial effusion Anemia, likely microcytic Hemoglobin 10.8, MCV 32, hematocrit 32 ESR 50, retic count 1.66, CRP 14, LDH 328 Iron panel completed shows low iron low TIBC low% saturation Ferritin elevated at 744 Urine analysis shows 2+ blood and 17 RBCs Transaminitis Bilirubin elevated at 1.3 Direct bili 0.7 AST 33, ALT 69, ALP 196 Patient quit drinking 3 years back Cavernous hemangioma Ultrasound liver completed, shows 1.7 cm well-circumscribed oval echogenic nodule in the left hepatic lobe compatible with a cavernous hemangioma Outpatient workup advised Ruled out HIV HIV testing negative ADHD, depression - stable No homicidal or suicidal ideation Continue fluoxetine 40 mg daily, lamotrigine 100 mg b.i.d. Ativan 0.5 mg p.r.n. Vitamin-D deficiency Supplemented Plan discussed with patient in which all questions have been answered Goals of care discussed for more than 22 minutes, full code status Case discussed with Dr. Gonzalez. Surgeon consulted for chest tube placement. Plan discussed with: Patient My Orders My Orders Orders - LAVELL GONSALES Procedure Category Date Status Time Chest Xray 1 View XY 08/24/24 Resulted 11:05 [facility] Inhouse Covid19 RONNIE 08/24/24 In Process 14:32 Echo 2d Mode Cardiac US 08/24/24 Resulted DOP 14:32 Mrsa Screen RONNIE 08/24/24 In Process 14:32 Chest Two Views XY 08/24/24 Resulted Routine 15:16 LIVER US 08/25/24 Logged 08:00 Doxycycline PHA 08/25/24 In Process 100mg/250ml 00:00 Comprehensive LAB 08/25/24 In Process Metabolic Panel 04:00 Date of Service: Aug 25, 2024 Billing Provider: MARICRUZ GONZALEZ MD Common Visit Codes: [id number] INP/OBS CARE(HIGH) LAVELL GONSALES Aug 25, 2024 06:04 MARICRUZ GONZALEZ MD Aug 26, 2024 08:57
[2024-08-25 06:06] LABS: Albumin 4.1 g/dL (3.2-4.8); Aspartate Aminotransferase 31 U/L (13-40); Bilirubin, Total 1.1 mg/dL (0.2-1.0); Total Protein 6.8 g/dL (5.7-8.2)
--- NOTE | 2024-08-25 09:04 | DVH ---
ULTRASOUND LIVER INDICATION: Pain. TECHNIQUE: Multiple real-time sonographic images of the abdomen were obtained. COMPARISON: None FINDINGS: [Findings] The liver parenchyma appears homogeneous. There is a 1.7 cm well-circumscribed oval echogenic nodule in the left hepatic lobe compatible with a cavernous hemangioma. There is no intrahepatic biliary jakub albin dilatation. There is partial visualization of right pleural effusion. There is no evidence of gallstones, gallbladder wall thickening or pericholecystic fluid. The sonogr apher reports a negative Britt's sign. The common duct is not dilated. The right kidney measures 10.3 cm. No nephrolithiasis or hydronephrosis. Visualized pancreas appears within normal limits. IMPRESSION: 1. 1.7 cm well-circumscribed oval echogenic nodule in the left hepatic lobe compatible with a caverno us hemangioma. 2. There is partial visualization of right pleural effusion. HS:Y
[2024-08-25 11:07] LABS: Protein, Body Fluid 4.6 g/dL (.)
[2024-08-25] MEDS: HYDROcodone-ACET 5/325MG TAB PO PRN (16:36)
--- NOTE | 2024-08-25 17:42 | DVH ---
CHEST RADIOGRAPH Indication:pleural effusion Technique: Single frontal view of the chest was obtained Comparison: XY CHEST XRAY 1 VIEW on DOS: 08/24/24, XY CHEST XRAY 1 VIEW on DOS: 08/23/24, XY CHEST PO RTABLE on DOS: 08/20/24 FINDINGS: Lines and Tubes: None Lungs: Opacification of the right mid and lower lung zone with obscuration of the right hemidiaphragm and opacification of the right lateral upper lung zone. Mild interstitial prominence of the right u pper lung zone. No pneumothorax. Cardiomediastinal contours: Unremarkable Bones: No acute osseous abnormality. IMPRESSION: Redemonstration of large right-sided pleural effusion with associated atelectasis. Underlying pneumon ia can not be excluded.
--- NOTE | 2024-08-25 21:35 | DVHPN2 ---
Progress Note - Dictate Date Seen: Aug 25, 2024 Medical Necessity Reason Pt with a Central, PICC or Fol: No Subjective Patient seen and examined at bedside. Breathing comfortably on room air. Overnight events reviewed. vital signs Vital Sign Date Time Temp Pulse Resp B/P (MAP) Pulse Ox O2 Delivery O2 Flow Rate FiO2 08/25/24 18:21 110 18 96 08/25/24 18:14 Room Air* 0 21 08/25/24 17:00 98.5 110/57 (74) 98.5 Total Intake and Output 08/24/24 08/24/24 08/25/24 15:00 23:00 07:00 Intake Total 725 ml 1200 ml Output Total 950 ml 1400 ml Balance -225 ml -200 ml medications Current Medications Medications Dose Ordered Sig/Lori Route Start Time Stop Time Status Last Admin Dose Admin Ibuprofen 600 mg Q6HP PRN PO 08/20/24 21:45 08/25/24 00:21 600 MG Acetaminophen/ Hydrocodone Bitart 1 tab Q4HP PRN PO 08/20/24 21:45 08/25/24 16:36 1 TAB Ondansetron HCl 4 mg Q4HP PRN IV 08/20/24 21:45 Docusate Sodium 100 mg BIDPRN PRN PO 08/20/24 21:45 Morphine Sulfate 2 mg Q4HPRN PRN IV 08/20/24 21:45 Nitroglycerin 0.4 mg Q5MINP PRN SL 08/20/24 23:30 Morphine Sulfate 2 mg Q30M PRN IV 08/20/24 23:30 Albuterol 2.5 mg Q6HR NEB 08/21/24 12:00 08/25/24 18:14 2.5 MG Ipratropium [place] 0.5 mg Q6HR NEB 08/21/24 12:00 08/25/24 18:14 0.5 MG Lamotrigine 100 mg Q12HR PO 08/21/24 22:00 08/25/24 20:19 100 MG Ergocalciferol 50,000 unit Q7D PO 08/21/24 14:30 08/21/24 15:14 50,000 UNIT Piperacillin Sod/ Tazobactam Sod 100 ml @ 25 mls/hr Q6H IV 08/24/24 20:00 08/25/24 20:15 25 MLS/HR Doxycycline Hyclate 250 ml @ 125 mls/hr Q12H IV 08/25/24 00:00 08/25/24 12:00 125 MLS/HR Fluoxetine HCl 40 mg DAILY@2000 PO 08/26/24 20:00 Lorazepam 0.5 mg Q6HP PRN IV 08/25/24 20:30 objective Gen.: Patient lying in bed in no apparent distress. Breathing on room air. Head: Normocephalic, atraumatic. Eyes: EOMI/PERRLA. Ears: Normal hearing. Normal anatomy. Neck/trachea: Trachea midline, supple. Nose: Normal external anatomy. Mouth: Moist mucous membranes. Chest: Decreased air entry bilaterally. No wheezing or rhonchi. Cardiovascular: Positive S1, positive S2. Regular rate and rhythm. Abdomen: Positive bowel sounds in all 4 quadrants. Soft, non-tender, non- distended. : Deferred. Rectal: Deferred. Skin: Warm, dry. Intact. Extremities: 2+ radial pulses bilaterally. No lower extremity edema. Neuro: Awake, alert, oriented x3. No gross motor or sensory deficits. Cranial nerves II through XII intact. Gait not assessed. laboratory and microbiology Laboratory Tests 08/25/24 05:21 Test 08/25/24 05:21 Range/Units Serum Glucose 110 H 74-106 mg/dL Assessment/Plan Impression: Loculated pleural effusion Pneumonia likely Gram-negative Elevated liver enzymes Atelectasis Events: Remains on room air No respiratory distress Continue bronchodilators Continue antibiotics Pleural fluid cultures show no growth CXR reviewed, redemonstration of large right-sided pleural effusion with associated atelectasis. Limited chest ultrasound shows loculated right pleural effusion IR consult for chest tube placement. TPA course after chest tube placement. Monitor for fevers. Labs and imaging reviewed. Rest of plan as noted below. Plan: Supplemental oxygen if necessary Keep O2 saturation above 92%. Continue antibiotics Follow up fluid cultures Limited chest ultrasound demonstrated loculated pleural effusion. Drained 700 mL of yellow colored fluid. Several septations were seen. See separate procedure note for right thoracentesis (08/22). Continue bronchodilators Anxiolytics prn Monitor renal function Monitor electrolytes. Supplement as necessary. DVT prophylaxis Prognosis: Poor given multiple comorbidities. Rest of plan per hospitalist and other consultants. Thank you Dr. Jewlel for allowing me to participate in this patient's care. Further recommendations will depend on patient's clinical course. Please do not hesitate to contact me if you have any questions or concerns. This medical document was created using an electronic medical record system with [employer] dictation system. Although this document has been carefully reviewed, there may still be some phonetic and typographical errors. These areas are purely typographical due to imperfections of the software programs, and do not reflect any compromise in the patient's medical care. Dietary Evaluation Review Comments: Continue current plan of care Expected Outcomes/Goals: F/U in 3-5 days Plan discussed with: Patient, Other (DOC Sanchez) PRESTON CARTY MD Aug 25, 2024 21:34
[2024-08-26] VITALS (14 sets, daily range): BP systolic 103–115; BP diastolic 55–71; PULSE 68–119; RESP 14–20; TEMP 97.1–100.7; O2SAT 92–100
[2024-08-26 06:19] LABS: Lymphocytes # (auto) 1.1 10 ^3/uL (0.4-5.4); Nucleated Red Blood Cells % 0.1 %
[2024-08-26 06:21] LABS: Basophils # (auto) 0.2 10 ^3/uL (0-0.2); Basophils % (auto) 1.3 % (0.0-2.0); Eosinophils # (auto) 0.2 10 ^3/uL (0-0.8); Eosinophils % (auto) 1.3 % (0.0-7.0); Hematocrit 30.2 % (41.0-53.0); Lymphocytes % (auto) 8.8 % (10.0-50.0); Mean Corpuscular Hemoglobin 19.8 pg (28.0-32.0); Mean Corpuscular Hgb Conc. 33.2 g/dL (32.0-36.0); Mean Corpuscular Volume 59.9 fL (80.0-100.0); Monocytes # (auto) 1.2 10 ^3/uL (0-1.3); Monocytes % (auto) 9.7 % (0.0-12.0); Neutrophils # (auto) 9.9 10 ^3/uL (1.6-8.6); Neutrophils % (auto) 78.9 % (37.0-80.0); Platelet Count (auto) 536 10^3/uL (140-450); Red Blood Cells 5.04 10^6/uL (4.5-5.90); Red Cell Distribution Width 15.6 % (11.8-14.3); White Blood Cell 12.6 10^3/uL (4.4-10.8)
[2024-08-26 06:30] LABS: Chloride 101 mmol/L (98-107); Potassium 3.2 mmol/L (3.5-5.1)
[2024-08-26 06:31] LABS: Anion Gap 6 (5-15); Calcium 9.6 mg/dL (8.7-10.4); Carbon Dioxide 24 mmol/L (20-31)
[2024-08-26 06:35] LABS: Sodium 131 mmol/L (136-145)
[2024-08-26 06:36] LABS: BUN/Creatinine Ratio 8.8 (10.0-20.0); Blood Urea Nitrogen 7 mg/dL (9-23); Glucose 105 mg/dL (74-106)
[2024-08-26] MEDS: LIDOCAINE 2%HCL (LOCAL ANESTH.) INJ 10ml MDV ONE (08:35)
[2024-08-26] MEDS: fentaNYL CITRATE 100 MCG/2 ML VL IV ONE (09:00)
[2024-08-26] MEDS: MIDAZOLAM HCL 2MG/2ML 2ml VIAL (1mg/ml) IV ONE (09:00)
[2024-08-26 09:17] LABS: Ovalocytes FEW
[2024-08-26 09:18] LABS: Tear Drop Cells FEW
[2024-08-26 09:19] LABS: Hypochromia Marked; Platelet Estimate Increased
[2024-08-26] MEDS: LORazepam 2MG/ML-1ML VIAL IV PRN (09:25)
--- NOTE | 2024-08-26 10:45 | DVH ---
EXAM: XY CHEST PORTABLE Indication:POST CHEST TUBE Technique: Single frontal view of the chest was obtained Comparison: XY CHEST PORTABLE on DOS: 08/25/24, XY CHEST XRAY 1 VIEW on DOS: 08/24/24, XY CHEST XRAY 1 VIEW on DOS: 08/23/24, XY CHEST PORTABLE on DOS: 08/20/24 FINDINGS: Lines and Tubes: Right chest tube is visualized. Lungs: Right lung consolidation. Pleura: No effusion. No pneumothorax. Cardiomediastinal contours: Unremarkable Bones: No acute osseous abnormality. IMPRESSION: Right chest tube with large right pleural effusion. No pneumothorax.
--- NOTE | 2024-08-26 11:26 | DVH ---
EXAM: CT-guided placement of right chest tube HISTORY: Loculated right pleural effusion Consent: Informed written consent was obtained from the patient. Anesthesia: 1% lidocaine local. Intravenous fentanyl and Versed for conscious sedation administered and monitored by the interventional radiology nurse under the supervision of dr. Javier dawn. To albin conscious sedation time was 45 minutes. Vital signs were continuously monitored. Technique: With the patient supine axial CT images of the chest were obtained. The right pleural effu chaitanya was localized. Skin was prepped and draped in the usual sterile fashion. A 5 Zambian needle cath eter was then advanced until fluid was aspirated. Fluid sample was sent for culture. A wire was adv anced through the catheter. Sequential dilatation of the tract was performed and a 10 [place]ambian locking pigtail drainage catheter was placed. Final CT images were obtained. The catheter was secured at th e skin and connected to Pleur-evac drainage. The patient tolerated procedure well without any immedia te complications. IMPRESSION: 1. Successful CT-guided placement of right chest tube. Continued pleural vac drainage recommended.
[2024-08-26] MEDS: POTASSIUM EFFERVESENT TAB 25 MEQ PO ONE ×2 (11:30→14:00)
--- NOTE | 2024-08-26 12:13 | DVH ---
EXAM: CT-guided placement of right chest tube HISTORY: Loculated right pleural effusion Consent: Informed written consent was obtained from the patient. Anesthesia: 1% lidocaine local. Intravenous fentanyl and Versed for conscious sedation administered a nd monitored by the interventional radiology nurse under the supervision of dr. Javier gauthier conscious sedation time was 45 minutes. Vital signs were continuously monitored. Technique: With the patient supine axial CT images of the chest were obtained. The right pleural effu chaitanya was localized. Skin was prepped and draped in the usual sterile fashion. A [address] was then advanced until fluid was aspirated. Fluid sample was sent for culture. A wire was advanc ed through the catheter. Sequential dilatation of the tract was performed and a 10 Cameroonian locking pig tail drainage catheter was placed. Final CT images were obtained. The catheter was secured at the ski n and connected to Pleur-evac drainage. The patient tolerated procedure well without any immediate co mplications. IMPRESSION: 1. Successful CT-guided placement of right chest tube. Continued pleural vac drainage recommended.
--- NOTE | 2024-08-26 13:19 | DVHPNRES ---
Progress Note Date Seen: Aug 26, 2024 Resident Creating Document: LAVELL GONSALES RESIDENT Medical Necessity Reason Pt with a Central, PICC or Fol: No Subjective Review of Systems Xu Aamdo is a 28-year-old male with past medical history of ADHD and depression who presented to [facility] ED with complaint of right sided chest pain and shortness of breath. 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 Reports vaping a lot recently and sharing his friends vape. Denies any recent travel history. Patient was [place]His father in law has probable COPD as he smokes and cough a lot per the patient. His pain is 9/10 numeric scale, getting worse on deep inhalation that prompted this visit. Patient also mentioned he has a history of fever for last 1 week and the highest temperature was 104 and yesterday he went to urgent care and he was referred from the urgent care due to the right-sided pleural effusion. Patient denied chest pain, dizziness, headache, diaphoresis, nausea or vomiting. Patient was admitted for further evaluation and medical management. Denies any weight loss. No history of incarceration or IV drug use. Home medications; lamotrigine, fluoxetine 08/25 - Patient seen and examined at bedside. Overnight patient was anxious received lorazepam 1 mg. Also reported night sweats. Chest x-ray repeated, shows enlarging pleural effusion, surgeon consulted for chest tube placement. Final blood culture negative, MRSA screen is negative. 08/26 - patient reports feeling better, no shortness of breaths. Overnight reports night sweats. IR was consulted, chest tube placed - draining yellow fluid. Specimen sent for cytology/differential/culture. Objective vital signs Vital Sign Date Time Temp Pulse Resp B/P (MAP) Pulse Ox O2 Delivery O2 Flow Rate FiO2 08/26/24 11:53 105 18 100 08/26/24 11:47 Room Air 0.0 08/26/24 11:47 N/A 08/26/24 09:00 97.6 105/55 (72) 97.6 Total Intake and Output 08/25/24 08/25/24 08/26/24 15:00 23:00 07:00 Intake Total 350 ml 1950 ml 850 ml Balance 350 ml 1950 ml 850 ml medications Current Medications Medications Dose Ordered Sig/Lori Route Start Time Stop Time Status Last Admin Dose Admin Ibuprofen 600 mg Q6HP PRN PO 08/20/24 21:45 08/26/24 02:52 600 MG Acetaminophen/ Hydrocodone Bitart 1 tab Q4HP PRN PO 08/20/24 21:45 08/25/24 16:36 1 TAB Ondansetron HCl 4 mg Q4HP PRN IV 08/20/24 21:45 Docusate Sodium 100 mg BIDPRN PRN PO 08/20/24 21:45 Morphine Sulfate 2 mg Q4HPRN PRN IV 08/20/24 21:45 Nitroglycerin 0.4 mg Q5MINP PRN SL 08/20/24 23:30 Morphine Sulfate 2 mg Q30M PRN IV 08/20/24 23:30 Albuterol 2.5 mg Q6HR NEB 08/21/24 12:00 08/26/24 11:47 2.5 MG Ipratropium [place] 0.5 mg Q6HR NEB 08/21/24 12:00 08/26/24 11:47 0.5 MG Lamotrigine 100 mg Q12HR PO 08/21/24 22:00 08/26/24 11:30 100 MG Ergocalciferol 50,000 unit Q7D PO 08/21/24 14:30 08/21/24 15:14 50,000 UNIT Piperacillin Sod/ Tazobactam Sod 100 ml @ 25 mls/hr Q6H IV 08/24/24 20:00 08/26/24 08:36 25 MLS/HR Doxycycline Hyclate 250 ml @ 125 mls/hr Q12H IV 08/25/24 00:00 08/26/24 11:30 125 MLS/HR Fluoxetine HCl 40 mg DAILY@2000 PO 08/26/24 20:00 Lorazepam 0.5 mg Q6HP PRN IV 08/25/24 20:30 08/26/24 09:25 0.5 MG Examination General Appearance: Alert, Oriented X4, Cooperative, No acute distress. Lying comfortably in the bed HEENT: Atraumatic, PERRLA, EOMI, Mucous membrane moist/pink Respiratory: Diminished breath sounds, more on the right side. No crackles or wheezing heard. Right-sided chest tube seen draining yellow fluid. No air leak noticed. Cardiovascular: Regular rate, Normal S1, Normal S2, No murmurs, no chest wall tenderness Abdominal: Normal bowel sounds, Soft, No tenderness, No hepatospenomegaly, No masses Extremities: Erythema noticed on the extensor surfaces including the elbows, knees and the ankles. Skin: No rashes, No breakdown, No significant lesion Neuro: Normal gait, Normal speech, Strength at 5/5 X4 ext, Normal tone, Sensation intact, grossly intact cranial nerves. Psych/Mental Status: Mental status NL, Mood NL laboratory and microbiology Laboratory Tests 08/26/24 05:24 Test 08/26/24 05:24 Range/Units Serum Glucose 105 74-106 mg/dL Microbiology Date/Time Source Procedure Growth Status 08/24/24 18:29 Nose MRSA Screen - Final Complete 08/22/24 18:20 Pleural Fluid Gram Stain - Final Resulted 08/22/24 18:20 Pleural Fluid Body Fluid Culture - Preliminary Resulted 08/22/24 13:47 Sputum Expectorated Sputum Gram Stain - Final Complete 08/22/24 13:47 Sputum Expectorated Sputum Respiratory Culture - Final Complete 08/20/24 15:58 Blood Blood Culture - Final NO GROWTH AFTER 5 DAYS OF INCUBATION. Complete Labs and/or images reviewed: Labs reviewed by me, Image(s) reviewed by me Problem List/Assessment/Plan Problem List/Assessment/Plan Acute hypoxic respiratory failure likely secondary to community-acquired pneumonia ? Vape associated vs ? Malignancy Sepsis due to Community-acquired pneumonia, Gram-positive and Gram-negative Loculated right-sided exudative pleural effusion status post chest tube placement and thoracocentesis with 700 mL drainage Chest tube placed 08/26/2024 in the right 4th intercostal mid axillary line by the ER. Draining yellow fluid. Per Dr. Kemp, tPA course after chest tube placement. Patient required oxygen supplementation with 2 L oxygen via NC, now on room air. CT chest revealed right-sided pleural effusion with atelectasis in the right lower lung field Thoracocentesis performed by Dr. Kemp 08/22, drain 700 mL of yellow fluid. Pleural studies suggestive of exudative effusion. IV Zosyn q.6 hour starting 08/21/2024 IV doxycycline q.12 hour started 08/24/24 Discontinue IV azithromycin 500 mg daily - patient received from 08/21 to 08/24 Nebulized treatment with albuterol and ipratropium q.6 hours Gram stain and pleural effusion culture preliminary shows no organism. Lab studies from the sample sent on 08/26 pending Sputum g stain final result reveals many white blood cells, few Gram-positive cocci in pairs Prelim respiratory culture shows moderate grew normal oropharyngeal ghassan Final blood culture negative, MRSA screen negative WBC 12 on arrival, downtrending then up trending, now 12.6 COVID and influenza testing negative Rule Out pericardial effusion Echocardiogram completed 08/24 showed LVEF 55%. Normal frontal/valvular heart. No pericardial effusion Anemia, likely microcytic Hemoglobin 10.8, MCV 32, hematocrit 32 ESR 50, retic count 1.66, CRP 14, LDH 328 Iron panel completed shows low iron low TIBC low% saturation Ferritin elevated at 744 Urine analysis shows 2+ blood and 17 RBCs Transaminitis Bilirubin elevated at 1.3 Direct bili 0.7 AST 33, ALT 69, ALP 196 Patient quit drinking 3 years back Asymptomatic Hypotonic euvolemic hyponatremia secondary to ? Fluoxetine Serum sodium 131, serum osmolality 271, urine osmolality pending Cavernous hemangioma Ultrasound liver completed, shows 1.7 cm well-circumscribed oval echogenic nodule in the left hepatic lobe compatible with a cavernous hemangioma Outpatient workup advised Ruled out HIV HIV testing negative ADHD, depression - stable No homicidal or suicidal ideation Continue fluoxetine 40 mg daily, lamotrigine 100 mg b.i.d. Ativan 0.5 mg p.r.n. Vitamin-D deficiency Supplemented Hypokalemia Replenished, magnesium 2.4 Diet cardiac Plan discussed with patient in which all questions have been answered Goals of care discussed for more than 22 minutes, full code status Case discussed with Dr. Gonzalez. Monitor WBC and monitor for fever. Per Dr. Kemp, patient will require tPA course after chest tube placement. Plan discussed with: Patient My Orders My Orders Orders - LAVELL GONSALES RESIDENT Procedure Category Date Status Time Lorazepam 2mg/Ml Inj PHA 08/25/24 In Process (Ativan Inj) 20:[address] 08/26/24 Resulted Needle Placeme 08:[address] 08/26/24 Resulted 08:20 Potassium Effervesent PHA 08/26/24 In Process Tab (Klor-Con/Ef) 14:00 Chest Portable XY 08/26/24 Resulted 10:14 Dietary Evaluation Review Comments: Continue current plan of care Expected Outcomes/Goals: F/U in 3-5 days Date of Service: Aug 26, 2024 Billing Provider: MARICRUZ GONZALEZ MD Common Visit Codes: [id number] INP/OBS CARE(HIGH) LAVELL GONSALES RESIDENT Aug 26, 2024 13:19 MARICRUZ GONZALEZ MD Aug 26, 2024 18:59
[2024-08-26] MEDS: ONDANSETRON HCL 4 MG/2 ML VIAL IV PRN (17:07)
[2024-08-26] MEDS: FLUoxetine HCL 20 MG CAP PO SCH (21:15)
--- NOTE | 2024-08-26 22:55 | DVHPN2 ---
Progress Note - Dictate Date Seen: Aug 26, 2024 Medical Necessity Reason Pt with a Central, PICC or Fol: No Subjective Patient seen and examined at bedside. Breathing comfortably on room air. Overnight events reviewed. vital signs Vital Sign Date Time Temp Pulse Resp B/P (MAP) Pulse Ox O2 Delivery O2 Flow Rate FiO2 08/26/24 21:00 97.8 102 18 103/64 (77) 95 97.8 08/26/24 11:47 Room Air 0.0 08/26/24 11:47 N/A Total Intake and Output 08/25/24 08/25/24 08/26/24 15:00 23:00 07:00 Intake Total 350 ml 1950 ml 850 ml Balance 350 ml 1950 ml 850 ml medications Current Medications Medications Dose Ordered Sig/Lori Route Start Time Stop Time Status Last Admin Dose Admin Ibuprofen 600 mg Q6HP PRN PO 08/20/24 21:45 08/26/24 17:13 600 MG Acetaminophen/ Hydrocodone Bitart 1 tab Q4HP PRN PO 08/20/24 21:45 08/25/24 16:36 1 TAB Ondansetron HCl 4 mg Q4HP PRN IV 08/20/24 21:45 08/26/24 17:07 4 MG Docusate Sodium 100 mg BIDPRN PRN PO 08/20/24 21:45 Morphine Sulfate 2 mg Q4HPRN PRN IV 08/20/24 21:45 Nitroglycerin 0.4 mg Q5MINP PRN SL 08/20/24 23:30 Morphine Sulfate 2 mg Q30M PRN IV 08/20/24 23:30 Albuterol 2.5 mg Q6HR NEB 08/21/24 12:00 08/26/24 11:47 2.5 MG Ipratropium [place] 0.5 mg Q6HR NEB 08/21/24 12:00 08/26/24 11:47 0.5 MG Lamotrigine 100 mg Q12HR PO 08/21/24 22:00 08/26/24 11:30 100 MG Ergocalciferol 50,000 unit Q7D PO 08/21/24 14:30 08/21/24 15:14 50,000 UNIT Piperacillin Sod/ Tazobactam Sod 100 ml @ 25 mls/hr Q6H IV 08/24/24 20:00 08/26/24 16:01 25 MLS/HR Doxycycline Hyclate 250 ml @ 125 mls/hr Q12H IV 08/25/24 00:00 08/26/24 11:30 125 MLS/HR Fluoxetine HCl 40 mg DAILY@2000 PO 08/26/24 20:00 08/26/24 21:15 40 MG Lorazepam 0.5 mg Q6HP PRN IV 08/25/24 20:30 08/26/24 09:25 0.5 MG objective Gen.: Patient lying in bed in no apparent distress. Breathing on room air. Head: Normocephalic, atraumatic. Eyes: EOMI/PERRLA. Ears: Normal hearing. Normal anatomy. Neck/trachea: Trachea midline, supple. Nose: Normal external anatomy. Mouth: Moist mucous membranes. Chest: Decreased air entry bilaterally. No wheezing or rhonchi. Cardiovascular: Positive S1, positive S2. Regular rate and rhythm. Abdomen: Positive bowel sounds in all 4 quadrants. Soft, non-tender, non- distended. : Deferred. Rectal: Deferred. Skin: Warm, dry. Intact. Extremities: 2+ radial pulses bilaterally. No lower extremity edema. Neuro: Awake, alert, oriented x3. No gross motor or sensory deficits. Cranial nerves II through XII intact. Gait not assessed. laboratory and microbiology Laboratory Tests 08/26/24 05:24 Test 08/26/24 05:24 Range/Units Serum Glucose 105 74-106 mg/dL Assessment/Plan Impression: Loculated pleural effusion Pneumonia likely Gram-negative Elevated liver enzymes Atelectasis Events: Remains on room air No respiratory distress Status post chest tube Plan for tPA course Obtain 3-way stopcock Order 6 mg Alteplase for intrapleural administration Discussed with patient - pt agreed to proceed with tPA course. Continue bronchodilators Continue antibiotics Limited chest ultrasound showed loculated right pleural effusion S/P chest tube placement by IR. Labs and imaging reviewed. Rest of plan as noted below. Plan: Supplemental oxygen if necessary Keep O2 saturation above 92%. Continue antibiotics Follow up fluid cultures Limited chest ultrasound demonstrated loculated pleural effusion. Drained 700 mL of yellow colored fluid. Several septations were seen. See separate procedure note for right thoracentesis (08/22). Continue bronchodilators Anxiolytics prn Monitor renal function Monitor electrolytes. Supplement as necessary. DVT prophylaxis Prognosis: Poor given multiple comorbidities. Rest of plan per hospitalist and other consultants. Thank you Dr. Jewell for allowing me to participate in this patient's care. Further recommendations will depend on patient's clinical course. Please do not hesitate to contact me if you have any questions or concerns. This medical document was created using an electronic medical record system with [employer] dictation system. Although this document has been carefully reviewed, there may still be some phonetic and typographical errors. These areas are purely typographical due to imperfections of the software programs, and do not reflect any compromise in the patient's medical care. Dietary Evaluation Review Comments: Continue current plan of care Expected Outcomes/Goals: F/U in 3-5 days Plan discussed with: Patient, Other (DOC Nick) PRESTON CARTY MD Aug 26, 2024 22:55
[2024-08-27] VITALS (18 sets, daily range): BP systolic 104–119; BP diastolic 56–76; PULSE 75–129; RESP 16–20; TEMP 98–99.8; O2SAT 90–100
[2024-08-27 05:43] LABS: Neutrophils # (auto) 9.9 10 ^3/uL (1.6-8.6)
[2024-08-27 05:46] LABS: Basophils # (auto) 0.1 10 ^3/uL (0-0.2); Basophils % (auto) 0.8 % (0.0-2.0); Eosinophils # (auto) 0.2 10 ^3/uL (0-0.8); Eosinophils % (auto) 1.6 % (0.0-7.0); Hematocrit 31.2 % (41.0-53.0); Hemoglobin 10.4 g/dL (13.5-17.5); Lymphocytes # (auto) 1.2 10 ^3/uL (0.4-5.4); Lymphocytes % (auto) 9.7 % (10.0-50.0); Mean Corpuscular Hgb Conc. 33.2 g/dL (32.0-36.0); Mean Corpuscular Volume 60.2 fL (80.0-100.0); Monocytes # (auto) 1.1 10 ^3/uL (0-1.3); Monocytes % (auto) 8.7 % (0.0-12.0); Neutrophils % (auto) 79.2 % (37.0-80.0); Nucleated Red Blood Cells % 0.1 %; Platelet Count (auto) 517 10^3/uL (140-450); Red Blood Cells 5.17 10^6/uL (4.5-5.90); Red Cell Distribution Width 15.8 % (11.8-14.3); White Blood Cell 12.5 10^3/uL (4.4-10.8)
[2024-08-27 05:50] LABS: Chloride 99 mmol/L (98-107); Potassium 4.1 mmol/L (3.5-5.1); Sodium 134 mmol/L (136-145)
[2024-08-27 05:51] LABS: Anion Gap 6 (5-15); Calcium 9.7 mg/dL (8.7-10.4); Carbon Dioxide 29 mmol/L (20-31)
[2024-08-27 05:56] LABS: BUN/Creatinine Ratio 12.5 (10.0-20.0); Blood Urea Nitrogen 10 mg/dL (9-23); Glucose 99 mg/dL (74-106)
[2024-08-27 05:57] LABS: Magnesium 2.4 mg/dL (1.6-2.6)
[2024-08-27] MEDS ORDERED: CATHFLO ACTIVASE (ALTEPLASE) 2 MG VIAL IV ONE (20:15)
--- NOTE | 2024-08-27 21:14 | DVHPNRES ---
Progress Note Date Seen: Aug 27, 2024 Resident Creating Document: LAVELL GONSALES RESIDENT Medical Necessity Reason Pt with a Central, PICC or Fol: No Subjective Review of Systems Xu Amado is a 28-year-old male with past medical history of ADHD and depression who presented to [facility] ED with complaint of right sided chest pain and shortness of breath. 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 Reports vaping a lot recently and sharing his friends vape. Denies any recent travel history. [place] was [place]His father in law has probable COPD as he smokes and cough a lot per the patient. His pain is 9/10 numeric scale, getting worse on deep inhalation that prompted this visit. Patient also mentioned he has a history of fever for last 1 week and the highest temperature was 104 and yesterday he went to urgent care and he was referred from the urgent care due to the right-sided pleural effusion. Patient denied chest pain, dizziness, headache, diaphoresis, nausea or vomiting. Patient was admitted for further evaluation and medical management. Denies any weight loss. No history of incarceration or IV drug use. Home medications; lamotrigine, fluoxetine 08/25 - Patient seen and examined at bedside. Overnight patient was anxious received lorazepam 1 mg. Also reported night sweats. Chest x-ray repeated, shows enlarging pleural effusion, surgeon consulted for chest tube placement. Final blood culture negative, MRSA screen is negative. 08/26 - patient reports feeling better, no shortness of breaths. Overnight reports night sweats. IR was consulted, chest tube placed - draining yellow fluid. Specimen sent for cytology/differential/culture. 08/27-patient has no active complaint. 6 mg alteplase injected for intra- articular administration at around 8:30 p.m.. Patient tolerated well. Advised the nurse in the night float team to open the [place] at around 9:[address] Kemp in case gross blood seen. Objective vital signs Vital Sign Date Time Temp Pulse Resp B/P (MAP) Pulse Ox O2 Delivery O2 Flow Rate FiO2 08/27/24 18:23 85 16 96 08/27/24 18:13 Room Air* 0 21 08/27/24 16:44 99.5 110/64 (79) 99.5 Total Intake and Output 08/26/24 08/26/24 08/27/24 15:00 23:00 07:00 Intake Total 350 ml 900 ml 875 ml Output Total 250 ml 600 ml 200 ml Balance 100 ml 300 ml 675 ml medications Current Medications Medications Dose Ordered Sig/Lori Route Start Time Stop Time Status Last Admin Dose Admin Ibuprofen 600 mg Q6HP PRN PO 08/20/24 21:45 08/26/24 17:13 600 MG Acetaminophen/ Hydrocodone Bitart 1 tab Q4HP PRN PO 08/20/24 21:45 08/27/24 01:50 1 TAB Ondansetron HCl 4 mg Q4HP PRN IV 08/20/24 21:45 08/26/24 17:07 4 MG Docusate Sodium 100 mg BIDPRN PRN PO 08/20/24 21:45 Morphine Sulfate 2 mg Q4HPRN PRN IV 08/20/24 21:45 Nitroglycerin 0.4 mg Q5MINP PRN SL 08/20/24 23:30 Morphine Sulfate 2 mg Q30M PRN IV 08/20/24 23:30 Albuterol 2.5 mg Q6HR NEB 08/21/24 12:00 08/27/24 18:13 2.5 MG Ipratropium [place] 0.5 mg Q6HR NEB 08/21/24 12:00 08/27/24 18:13 0.5 MG Lamotrigine 100 mg Q12HR PO 08/21/24 22:00 08/27/24 08:03 100 MG Ergocalciferol 50,000 unit Q7D PO 08/21/24 14:30 08/21/24 15:14 50,000 UNIT Piperacillin Sod/ Tazobactam Sod 100 ml @ 25 mls/hr Q6H IV 08/24/24 20:00 08/27/24 20:27 25 MLS/HR Doxycycline Hyclate 250 ml @ 125 mls/hr Q12H IV 08/25/24 00:00 08/27/24 13:21 125 MLS/HR Fluoxetine HCl 40 mg DAILY@2000 PO 08/26/24 20:00 08/27/24 20:26 40 MG Lorazepam 0.5 mg Q6HP PRN IV 08/25/24 20:30 08/26/24 09:25 0.5 MG Examination General Appearance: Alert, Oriented X4, Cooperative, No acute distress. Lying comfortably in the bed HEENT: Atraumatic, PERRLA, EOMI, Mucous membrane moist/pink Respiratory: Diminished breath sounds, more on the right side. No crackles or wheezing heard. Right-sided chest tube seen draining yellow fluid of about 20 mL. No air leak noticed. Cardiovascular: Regular rate, Normal S1, Normal S2, No murmurs, no chest wall tenderness Abdominal: Normal bowel sounds, Soft, No tenderness, No hepatospenomegaly, No masses Extremities: Erythema noticed on the extensor surfaces including the elbows, knees and the ankles. Skin: No rashes, No breakdown, No significant lesion Neuro: Normal gait, Normal speech, Strength at 5/5 X4 ext, Normal tone, Sensation intact, grossly intact cranial nerves. Psych/Mental Status: Mental status NL, Mood NL laboratory and microbiology Laboratory Tests 08/27/24 05:08 Test 08/27/24 05:08 Range/Units Serum Glucose 99 74-106 mg/dL Microbiology Date/Time Source Procedure Growth Status 08/26/24 11:00 Pleural Fluid Gram Stain - Final Resulted 08/26/24 11:00 Pleural Fluid Body Fluid Culture - Preliminary Resulted 08/24/24 18:29 Nose MRSA Screen - Final Complete 08/22/24 13:47 Sputum Expectorated Sputum Gram Stain - Final Complete 08/22/24 13:47 Sputum Expectorated Sputum Respiratory Culture - Final Complete 08/20/24 15:58 Blood Blood Culture - Final NO GROWTH AFTER 5 DAYS OF INCUBATION. Complete Labs and/or images reviewed: Labs reviewed by me, Image(s) reviewed by me Problem List/Assessment/Plan Problem List/Assessment/Plan Acute hypoxic respiratory failure likely secondary to community-acquired pneumonia ? Vape associated vs ? Malignancy Sepsis due to Community-acquired pneumonia, Gram-positive and Gram-negative Loculated right-sided exudative pleural effusion status post chest tube placement and thoracocentesis with 700 mL drainage undergoing tPA course Chest tube placed 08/26/2024 in the right 4th intercostal mid axillary line by the ER. Draining yellow fluid. Per Dr. Kemp, tPA course after chest tube placement. 08/27- 6 mg alteplase injected for intra-articular administration at around 8:30 p.m.. Patient tolerated well. Advised the nurse in the night float team to open the [place] at around 9:[address] Kemp in case gross blood seen. Chest x-ray in the a.m.. Repeat administration within 24 hours. Patient required oxygen supplementation with 2 L oxygen via [place], now on room air. CT chest revealed right-sided pleural effusion with atelectasis in the right lower lung field Thoracocentesis performed by Dr. Kemp 08/22, drain 700 mL of yellow fluid. Pleural studies suggestive of exudative effusion. IV Zosyn q.6 hour starting 08/21/2024 IV doxycycline q.12 hour started 08/24/24 Discontinue IV azithromycin 500 mg daily - patient received from 08/21 to 08/24 Nebulized treatment with albuterol and ipratropium q.6 hours Gram stain and pleural effusion culture preliminary shows no organism. Lab studies from the sample sent on 08/26 also showed negative Gram stain. Sputum g stain final result reveals many white blood cells, few Gram-positive cocci in pairs Prelim respiratory culture shows moderate grew normal oropharyngeal ghassan Final blood culture negative, MRSA screen negative WBC 12 on arrival, downtrending then up trending, now 12.6 COVID and influenza testing negative Rule Out pericardial effusion Echocardiogram completed 08/24 showed LVEF 55%. Normal frontal/valvular heart. No pericardial effusion Anemia, likely microcytic Hemoglobin 10.8, MCV 32, hematocrit 32 ESR 50, retic count 1.66, CRP 14, LDH 328 Iron panel completed shows low iron low TIBC low% saturation Ferritin elevated at 744 Urine analysis shows 2+ blood and 17 RBCs Transaminitis Bilirubin elevated at 1.3 Direct bili 0.7 AST 33, ALT 69, ALP 196 Patient quit drinking 3 years back Asymptomatic Hypotonic euvolemic hyponatremia secondary to ? Fluoxetine Serum sodium 131, serum osmolality 271, urine osmolality pending Cavernous hemangioma Ultrasound liver completed, shows 1.7 cm well-circumscribed oval echogenic nodule in the left hepatic lobe compatible with a cavernous hemangioma Outpatient workup advised Ruled out HIV HIV testing negative ADHD, depression - stable No homicidal or suicidal ideation Continue fluoxetine 40 mg daily, lamotrigine 100 mg b.i.d. Ativan 0.5 mg p.r.n. Vitamin-D deficiency Supplemented Hypokalemia Replenished, magnesium 2.4 Diet cardiac Plan discussed with patient in which all questions have been answered Goals of care discussed for more than 22 minutes, full code status Case discussed with Dr. Gonzalez. Undergoing tPA course. Plan discussed with: Patient My Orders My Orders Orders - LAVELL GONSALES Procedure Category Date Status Time Cris Direct W/Reflex LAB 08/27/24 In Process To Comp. 06:37 Dietary Evaluation Review Comments: Continue current plan of care Expected Outcomes/Goals: F/U in 3-5 days Date of Service: Aug 27, 2024 Billing Provider: MARICRUZ GONZALEZ MD Common Visit Codes: [id number] INP/OBS CARE(MOD) LAVELL GONSALES Aug 27, 2024 21:14 MARICRUZ GONZALEZ MD Aug 28, 2024 09:45
[2024-08-27] MEDS: CATHFLO ACTIVASE (ALTEPLASE) 2 MG VIAL IV STA (22:30)
[2024-08-27] MEDS: CATHFLO ACTIVASE (ALTEPLASE) 2 MG VIAL XX ONE (22:30)
--- NOTE | 2024-08-27 23:07 | DVHPN2 ---
Progress Note - Dictate Date Seen: Aug 27, 2024 Medical Necessity Reason Pt with a Central, PICC or Fol: No Subjective Patient seen and examined at bedside. Breathing comfortably on room air. Overnight events reviewed. vital signs Vital Sign Date Time Temp Pulse Resp B/P (MAP) Pulse Ox O2 Delivery O2 Flow Rate FiO2 08/27/24 21:00 99.8 115 16 112/68 (83) 98 99.8 08/27/24 18:13 Room Air* 0 21 Total Intake and Output 08/26/24 08/26/24 08/27/24 15:00 23:00 07:00 Intake Total 350 ml 900 ml 875 ml Output Total 250 ml 600 ml 200 ml Balance 100 ml 300 ml 675 ml medications Current Medications Medications Dose Ordered Sig/Lori Route Start Time Stop Time Status Last Admin Dose Admin Ibuprofen 600 mg Q6HP PRN PO 08/20/24 21:45 08/26/24 17:13 600 MG Acetaminophen/ Hydrocodone Bitart 1 tab Q4HP PRN PO 08/20/24 21:45 08/27/24 22:58 1 TAB Ondansetron HCl 4 mg Q4HP PRN IV 08/20/24 21:45 08/26/24 17:07 4 MG Docusate Sodium 100 mg BIDPRN PRN PO 08/20/24 21:45 Morphine Sulfate 2 mg Q4HPRN PRN IV 08/20/24 21:45 Nitroglycerin 0.4 mg Q5MINP PRN SL 08/20/24 23:30 Morphine Sulfate 2 mg Q30M PRN IV 08/20/24 23:30 Albuterol 2.5 mg Q6HR NEB 08/21/24 12:00 08/27/24 18:13 2.5 MG Ipratropium [place] 0.5 mg Q6HR NEB 08/21/24 12:00 08/27/24 18:13 0.5 MG Lamotrigine 100 mg Q12HR PO 08/21/24 22:00 08/27/24 22:57 100 MG Ergocalciferol 50,000 unit Q7D PO 08/21/24 14:30 08/21/24 15:14 50,000 UNIT Piperacillin Sod/ Tazobactam Sod 100 ml @ 25 mls/hr Q6H IV 08/24/24 20:00 08/27/24 20:27 25 MLS/HR Doxycycline Hyclate 250 ml @ 125 mls/hr Q12H IV 08/25/24 00:00 08/27/24 13:21 125 MLS/HR Fluoxetine HCl 40 mg DAILY@2000 PO 08/26/24 20:00 08/27/24 20:26 40 MG Lorazepam 0.5 mg Q6HP PRN IV 08/25/24 20:30 08/26/24 09:25 0.5 MG objective Gen.: Patient lying in bed in no apparent distress. Breathing on room air. Head: Normocephalic, atraumatic. Eyes: EOMI/PERRLA. Ears: Normal hearing. Normal anatomy. Neck/trachea: Trachea midline, supple. Nose: Normal external anatomy. Mouth: Moist mucous membranes. Chest: Decreased air entry bilaterally. No wheezing or rhonchi. Cardiovascular: Positive S1, positive S2. Regular rate and rhythm. Abdomen: Positive bowel sounds in all 4 quadrants. Soft, non-tender, non- distended. : Deferred. Rectal: Deferred. Skin: Warm, dry. Intact. Extremities: 2+ radial pulses bilaterally. No lower extremity edema. Neuro: Awake, alert, oriented x3. No gross motor or sensory deficits. Cranial nerves II through XII intact. Gait not assessed. laboratory and microbiology Laboratory Tests 08/27/24 05:08 Test 08/27/24 05:08 Range/Units Serum Glucose 99 74-106 mg/dL Assessment/Plan Impression: Loculated pleural effusion Pneumonia likely Gram-negative Elevated liver enzymes Atelectasis Events: Remains on room air No respiratory distress Fevers improved. Continue antibiotics Status post chest tube First dose of tPA course administered Unclamp chest tube in 1 hour. Obtain CXR in the AM to assess for interval changes Daily chest tube flush. Limited chest ultrasound showed loculated right pleural effusion S/P chest tube placement by IR. Labs and imaging reviewed. Discussed with residents. Rest of plan as noted below. Plan: Supplemental oxygen if necessary Keep O2 saturation above 92%. Continue antibiotics Follow up fluid cultures Limited chest ultrasound demonstrated loculated pleural effusion. Drained 700 mL of yellow colored fluid. Several septations were seen. See separate procedure note for right thoracentesis (08/22). Continue bronchodilators Anxiolytics prn Monitor renal function Monitor electrolytes. Supplement as necessary. DVT prophylaxis Prognosis: Poor given multiple comorbidities. Rest of plan per hospitalist and other consultants. Thank you Dr. Jewell for allowing me to participate in this patient's care. Further recommendations will depend on patient's clinical course. Please do not hesitate to contact me if you have any questions or concerns. This medical document was created using an electronic medical record system with [employer] dictation system. Although this document has been carefully reviewed, there may still be some phonetic and typographical errors. These areas are purely typographical due to imperfections of the software programs, and do not reflect any compromise in the patient's medical care. Dietary Evaluation Review Comments: Continue current plan of care Expected Outcomes/Goals: F/U in 3-5 days Plan discussed with: Patient, Other (DOC Nick) PRESTON CARTY MD Aug 27, 2024 23:07
[2024-08-28] VITALS (17 sets, daily range): BP systolic 103–113; BP diastolic 54–70; PULSE 80–131; RESP 16–20; TEMP 97.6–100.6; O2SAT 91–99
[2024-08-28 06:17] LABS: Mean Corpuscular Hgb Conc. 32.8 g/dL (32.0-36.0); Red Cell Distribution Width 15.6 % (11.8-14.3)
[2024-08-28 06:24] LABS: Basophils # (auto) 0.2 10 ^3/uL (0-0.2); Eosinophils # (auto) 0.1 10 ^3/uL (0-0.8); Eosinophils % (auto) 0.9 % (0.0-7.0); Hematocrit 31.9 % (41.0-53.0); Hemoglobin 10.5 g/dL (13.5-17.5); Lymphocytes # (auto) 0.8 10 ^3/uL (0.4-5.4); Lymphocytes % (auto) 5.5 % (10.0-50.0); Mean Corpuscular Hemoglobin 19.8 pg (28.0-32.0); Mean Corpuscular Volume 60.2 fL (80.0-100.0); Monocytes # (auto) 1.3 10 ^3/uL (0-1.3); Monocytes % (auto) 8.7 % (0.0-12.0); Neutrophils # (auto) 12.8 10 ^3/uL (1.6-8.6); Neutrophils % (auto) 83.9 % (37.0-80.0); Nucleated Red Blood Cells % 0.1 %; Platelet Count (auto) 611 10^3/uL (140-450); White Blood Cell 15.2 10^3/uL (4.4-10.8)
--- NOTE | 2024-08-28 08:37 | DVH ---
CLINICAL INFORMATION: 28 years old, Male; pleural efffusion. TECHNIQUE: Single AP portable chest radiograph was obtained. COMPARISON: XY CHEST PORTABLE on DOS: 08/26/24, XY CHEST PORTABLE on DOS: 08/25/24, XY CHEST XRAY 1 V IEW on DOS: 08/24/24 FINDINGS: Significant interval decrease in size in the right pleural effusion compared to the prior exam with r ight pleural catheter in place. Small residual right pleural effusion with overlying atelectasis and /or consolidation. Left lung is clear. No other significant interval change. IMPRESSION: Significant interval decrease in size in the right pleural effusion with right pleural catheter in pl [place].
[2024-08-28 14:06] LABS: Anti-Nuclear Antibody Direct Negative (Negative)
[2024-08-28] MEDS: CATHFLO ACTIVASE (ALTEPLASE) 2 MG VIAL IV ONE (16:56)
--- NOTE | 2024-08-28 18:02 | DVHPNRES ---
Progress Note Date Seen: Aug 28, 2024 Resident Creating Document: LAVELL GONSALES RESIDENT Medical Necessity Reason Pt with a Central, PICC or Fol: No Subjective Review of Systems Xu Amado is a 28-year-old male with past medical history of ADHD and depression who presented to [facility] ED with complaint of right sided chest pain and shortness of breath. 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 Reports vaping a lot recently and sharing his friends vape. Denies any recent travel history. Patient was [place]His father in law has probable COPD as he smokes and cough a lot per the patient. His pain is 9/10 numeric scale, getting worse on deep inhalation that prompted this visit. Patient also mentioned he has a history of fever for last 1 week and the highest temperature was 104 and yesterday he went to urgent care and he was referred from the urgent care due to the right-sided pleural effusion. Patient denied chest pain, dizziness, headache, diaphoresis, nausea or vomiting. Patient was admitted for further evaluation and medical management. Denies any weight loss. No history of incarceration or IV drug use. Home medications; lamotrigine, fluoxetine 08/25 - Patient seen and examined at bedside. Overnight patient was anxious received lorazepam 1 mg. Also reported night sweats. Chest x-ray repeated, shows enlarging pleural effusion, surgeon consulted for chest tube placement. Final blood culture negative, MRSA screen is negative. 08/26 - patient reports feeling better, no shortness of breaths. Overnight reports night sweats. IR was consulted, chest tube placed - draining yellow fluid. Specimen sent for cytology/differential/culture. 08/27-patient has no active complaint. 6 mg alteplase injected for intra- articular administration at around 8:30 p.m.. Patient tolerated well. Advised the nurse in the night float team to open the [place] at around 9:[address] Kemp in case gross blood seen. 08/28-patient feels much better. Chest x-ray repeated 12 hours after 6 mg alteplase injection. Shows dramatic improvement in the right pleural effusion. Second dose of alteplase injection administered at 5:00 p.m.. Nurse advised to and cough the chest tube at 6:00 p.m.. Notify geological sample tester in case of gross bleeding in the chest tube. Objective vital signs Vital Sign Date Time Temp Pulse Resp B/P (MAP) Pulse Ox O2 Delivery O2 Flow Rate FiO2 08/28/24 17:29 97.6 96 16 105/54 (71) 95 97.6 08/28/24 11:39 Room Air* 0 21 Total Intake and Output 08/27/24 08/27/24 08/28/24 15:00 23:00 07:00 Intake Total 100 ml 680 ml 1500 ml Output Total 1200 ml Balance 100 ml 680 ml 300 ml medications Current Medications Medications Dose Ordered Sig/Lori Route Start Time Stop Time Status Last Admin Dose Admin Ibuprofen 600 mg Q6HP PRN PO 08/20/24 21:45 08/28/24 08:51 600 MG Acetaminophen/ Hydrocodone Bitart 1 tab Q4HP PRN PO 08/20/24 21:45 08/27/24 22:58 1 TAB Ondansetron HCl 4 mg Q4HP PRN IV 08/20/24 21:45 08/26/24 17:07 4 MG Docusate Sodium 100 mg BIDPRN PRN PO 08/20/24 21:45 Morphine Sulfate 2 mg Q4HPRN PRN IV 08/20/24 21:45 Nitroglycerin 0.4 mg Q5MINP PRN SL 08/20/24 23:30 Morphine Sulfate 2 mg Q30M PRN IV 08/20/24 23:30 Albuterol 2.5 mg Q6HR NEB 08/21/24 12:00 08/28/24 11:39 2.5 MG Ipratropium [place] 0.5 mg Q6HR NEB 08/21/24 12:00 08/28/24 11:39 0.5 MG Lamotrigine 100 mg Q12HR PO 08/21/24 22:00 08/28/24 08:51 100 MG Ergocalciferol 50,000 unit Q7D PO 08/21/24 14:30 08/28/24 15:11 50,000 UNIT Piperacillin Sod/ Tazobactam Sod 100 ml @ 25 mls/hr Q6H IV 08/24/24 20:00 08/28/24 15:10 25 MLS/HR Doxycycline Hyclate 250 ml @ 125 mls/hr Q12H IV 08/25/24 00:00 08/28/24 12:00 125 MLS/HR Fluoxetine HCl 40 mg DAILY@2000 PO 08/26/24 20:00 08/27/24 20:26 40 MG Lorazepam 0.5 mg Q6HP PRN IV 08/25/24 20:30 08/26/24 09:25 0.5 MG Examination General Appearance: Alert, Oriented X4, Cooperative, No acute distress. Lying comfortably in the bed HEENT: Atraumatic, PERRLA, EOMI, Mucous membrane moist/pink Respiratory: Diminished breath sounds, more on the right side. No crackles or wheezing heard. Right-sided chest tube seen draining yellow fluid of about 50 mL. No air leak noticed. Cardiovascular: Regular rate, Normal S1, Normal S2, No murmurs, no chest wall tenderness Abdominal: Normal bowel sounds, Soft, No tenderness, No hepatospenomegaly, No masses Extremities: Erythema noticed on the extensor surfaces including the elbows, knees and the ankles. Skin: No rashes, No breakdown, No significant lesion Neuro: Normal gait, Normal speech, Strength at 5/5 X4 ext, Normal tone, Sensation intact, grossly intact cranial nerves. Psych/Mental Status: Mental status NL, Mood NL laboratory and microbiology Laboratory Tests 08/28/24 05:12 08/27/24 05:08 Test 08/27/24 05:08 Range/Units Serum Glucose 99 74-106 mg/dL Microbiology Date/Time Source Procedure Growth Status 08/26/24 11:00 Pleural Fluid Gram Stain - Final Resulted 08/26/24 11:00 Pleural Fluid Body Fluid Culture - Preliminary Resulted 08/24/24 21:20 Nasopharynx Coronavirus COVID-19 PCR (RONNIE) - Final Complete 08/24/24 18:29 Nose MRSA Screen - Final Complete 08/20/24 15:58 Blood Blood Culture - Final NO GROWTH AFTER 5 DAYS OF INCUBATION. Complete Labs and/or images reviewed: Labs reviewed by me, Image(s) reviewed by me Problem List/Assessment/Plan Problem List/Assessment/Plan Acute hypoxic respiratory failure likely secondary to community-acquired pneumonia ? Vape associated vs ? Malignancy Sepsis due to Community-acquired pneumonia, Gram-positive and Gram-negative Loculated right-sided exudative pleural effusion status post chest tube placement and thoracocentesis with 700 mL drainage undergoing tPA course Chest tube placed 08/26/2024 in the right 4th intercostal mid axillary line by the ER. Draining yellow fluid. Per Dr. Kemp, tPA course after chest tube placement. 08/27 & 08/28- patient has received a total of 2 doses of 6 mg alteplase each day injected for intra-articular administration at around 8:30 p.m.. Patient tolerated well. Advised the nurse in the night float team to open the [place] at around 9:[address] Kemp in case gross blood seen. Chest x-ray in the a.m.. Repeat administration within 24 hours. Thoracocentesis performed by Dr. Kemp 08/22, drain 700 mL of yellow fluid. Pleural studies suggestive of exudative effusion. Patient required oxygen supplementation with 2 L oxygen via [place], now on room air. CT chest revealed right-sided pleural effusion with atelectasis in the right lower lung field IV Zosyn q.6 hour starting 08/21/2024 IV doxycycline q.12 hour started 08/24/24 Discontinue IV azithromycin 500 mg daily - patient received from 08/21 to 08/24 Nebulized treatment with albuterol and ipratropium q.6 hours Gram stain and pleural effusion culture preliminary shows no organism. Lab studies from the sample sent on 08/26 also showed negative Gram stain. Sputum g stain final result reveals many white blood cells, few Gram-positive cocci in pairs Prelim respiratory culture shows moderate grew normal oropharyngeal ghassan Final blood culture negative, MRSA screen negative WBC 12 on arrival, downtrending then up trending, now 15 COVID RNA and influenza testing negative Rule Out pericardial effusion Echocardiogram completed 08/24 showed LVEF 55%. Normal frontal/valvular heart. No pericardial effusion Anemia, likely microcytic Hemoglobin on arrival 10.8, MCV 32, hematocrit 32 ESR 50, retic count 1.66, CRP 14, LDH 328 Iron panel completed shows low iron low TIBC low% saturation Ferritin elevated at 744 Urine analysis shows 2+ blood and 17 RBCs Transaminitis Bilirubin elevated at 1.3 Direct bili 0.7 AST 33, ALT 69, ALP 196 Patient quit drinking 3 years back Asymptomatic Hypotonic euvolemic hyponatremia secondary to ? Fluoxetine Serum sodium 131, serum osmolality 271, urine osmolality pending Cavernous hemangioma Ultrasound liver completed, shows 1.7 cm well-circumscribed oval echogenic nodule in the left hepatic lobe compatible with a cavernous hemangioma Outpatient workup advised Ruled out HIV HIV testing negative ADHD, depression - stable No homicidal or suicidal ideation Continue fluoxetine 40 mg daily, lamotrigine 100 mg b.i.d. Ativan 0.5 mg p.r.n. Vitamin-D deficiency Supplemented Hypokalemia Replenished, magnesium 2.4 Diet cardiac Plan discussed with patient in which all questions have been answered Goals of care discussed for more than 22 minutes, full code status Case discussed with Dr. Betancourt. Two doses of tPA administered. Pending 3rd dose tomorrow 08/29. [employer] Dr. Kemp on the case. Plan discussed with: Patient Dietary Evaluation Review Comments: Continue current plan of care Expected Outcomes/Goals: F/U in 3-5 days Date of Service: Aug 28, 2024 Billing Provider: TANO BETANCOURT MD Common Visit Codes: [id number] INP/OBS CARE(HIGH) LAVELL GONSALES RESIDENT Aug 28, 2024 18:02 TANO BETANCOURT MD Aug 29, 2024 20:38
--- NOTE | 2024-08-28 20:15 | DVHPN2 ---
Progress Note - Dictate Date Seen: Aug 28, 2024 Medical Necessity Reason Pt with a Central, PICC or Fol: No Subjective Patient seen and examined at bedside. Breathing comfortably on room air. Overnight events reviewed. vital signs Vital Sign Date Time Temp Pulse Resp B/P (MAP) Pulse Ox O2 Delivery O2 Flow Rate FiO2 08/28/24 18:33 82 16 99 08/28/24 17:29 97.6 105/54 (71) 97.6 08/28/24 11:39 Room Air* 0 21 Total Intake and Output 08/27/24 08/27/24 08/28/24 15:00 23:00 07:00 Intake Total 100 ml 680 ml 1500 ml Output Total 1200 ml Balance 100 ml 680 ml 300 ml medications Current Medications Medications Dose Ordered Sig/Lori Route Start Time Stop Time Status Last Admin Dose Admin Ibuprofen 600 mg Q6HP PRN PO 08/20/24 21:45 08/28/24 08:51 600 MG Acetaminophen/ Hydrocodone Bitart 1 tab Q4HP PRN PO 08/20/24 21:45 08/27/24 22:58 1 TAB Ondansetron HCl 4 mg Q4HP PRN IV 08/20/24 21:45 08/26/24 17:07 4 MG Docusate Sodium 100 mg BIDPRN PRN PO 08/20/24 21:45 Morphine Sulfate 2 mg Q4HPRN PRN IV 08/20/24 21:45 Nitroglycerin 0.4 mg Q5MINP PRN SL 08/20/24 23:30 Morphine Sulfate 2 mg Q30M PRN IV 08/20/24 23:30 Albuterol 2.5 mg Q6HR NEB 08/21/24 12:00 08/28/24 18:32 2.5 MG Ipratropium [place] 0.5 mg Q6HR NEB 08/21/24 12:00 08/28/24 18:32 0.5 MG Lamotrigine 100 mg Q12HR PO 08/21/24 22:00 08/28/24 08:51 100 MG Ergocalciferol 50,000 unit Q7D PO 08/21/24 14:30 08/28/24 15:11 50,000 UNIT Piperacillin Sod/ Tazobactam Sod 100 ml @ 25 mls/hr Q6H IV 08/24/24 20:00 08/28/24 15:10 25 MLS/HR Doxycycline Hyclate 250 ml @ 125 mls/hr Q12H IV 08/25/24 00:00 08/28/24 12:00 125 MLS/HR Fluoxetine HCl 40 mg DAILY@2000 PO 08/26/24 20:00 08/27/24 20:26 40 MG Lorazepam 0.5 mg Q6HP PRN IV 08/25/24 20:30 08/26/24 09:25 0.5 MG objective Gen.: Patient lying in bed in no apparent distress. Breathing on room air. Head: Normocephalic, atraumatic. Eyes: EOMI/PERRLA. Ears: Normal hearing. Normal anatomy. Neck/trachea: Trachea midline, supple. Nose: Normal external anatomy. Mouth: Moist mucous membranes. Chest: Decreased air entry bilaterally. No wheezing or rhonchi. Cardiovascular: Positive S1, positive S2. Regular rate and rhythm. Abdomen: Positive bowel sounds in all 4 quadrants. Soft, non-tender, non- distended. : Deferred. Rectal: Deferred. Skin: Warm, dry. Intact. Extremities: 2+ radial pulses bilaterally. No lower extremity edema. Neuro: Awake, alert, oriented x3. No gross motor or sensory deficits. Cranial nerves II through XII intact. Gait not assessed. laboratory and microbiology Laboratory Tests 08/28/24 05:12 08/27/24 05:08 Test 08/27/24 05:08 Range/Units Serum Glucose 99 74-106 mg/dL Assessment/Plan Impression: Loculated pleural effusion Pneumonia likely Gram-negative Elevated liver enzymes Atelectasis Events: Remains on room air No respiratory distress No fevers Continue antibiotics Incentive spirometry CXR reviewed, demonstrates improved RUL pleural effusion. Status post chest tube One dose of tPA course administered Chest tube unclamped Daily chest tube flush. Pain control/Anxiolytic Avoid oversedation Limited chest ultrasound showed loculated right pleural effusion S/P chest tube placement by IR. Labs and imaging reviewed. Discussed with residents. Rest of plan as noted below. Plan: Supplemental oxygen if necessary Keep O2 saturation above 92%. Continue antibiotics Follow up fluid cultures Limited chest ultrasound demonstrated loculated pleural effusion. Drained 700 mL of yellow colored fluid. Several septations were seen. See separate procedure note for right thoracentesis (08/22). Continue bronchodilators Anxiolytics prn Monitor renal function Monitor electrolytes. Supplement as necessary. DVT prophylaxis Prognosis: Poor given multiple comorbidities. Rest of plan per hospitalist and other consultants. Thank you Dr. Jewell for allowing me to participate in this patient's care. Further recommendations will depend on patient's clinical course. Please do not hesitate to contact me if you have any questions or concerns. This medical document was created using an electronic medical record system with [employer] dictation system. Although this document has been carefully reviewed, there may still be some phonetic and typographical errors. These areas are purely typographical due to imperfections of the software programs, and do not reflect any compromise in the patient's medical care. Dietary Evaluation Review Comments: Continue current plan of care Expected Outcomes/Goals: F/U in 3-5 days Plan discussed with: Patient, Other (DOC Jeffrey) PRESTON CARTY MD Aug 28, 2024 20:15
[2024-08-29] VITALS (17 sets, daily range): BP systolic 102–120; BP diastolic 59–71; PULSE 18–124; RESP 16–22; TEMP 98.2–100.8; O2SAT 91–99
[2024-08-29] MEDS: THROAT LOZENGES(CEPASTAT) MT PRN (05:38)
--- NOTE | 2024-08-29 05:44 | DVH ---
CHEST RADIOGRAPH Indication:Right pleural effusion Technique: Single frontal view of the chest was obtained COMPARISON: XY CHEST XRAY 1 VIEW on DOS: 08/28/24, XY CHEST PORTABLE on DOS: 08/26/24, XY CHEST ZACHARY BLE on DOS: 08/25/24 FINDINGS: Lines and Tubes: Right chest tube in-situ. Lungs: Clear Pleura: Increased small to moderate right pleural effusion. No pneumothorax. Cardiomediastinal contours: Unremarkable Bones: Unremarkable IMPRESSION: Increased [id number] right pleural effusion with right chest tube in-situ.
[2024-08-29 06:07] LABS: Basophils # (auto) 0.1 10 ^3/uL (0-0.2); Eosinophils # (auto) 0.2 10 ^3/uL (0-0.8); Hemoglobin 10.4 g/dL (13.5-17.5)
[2024-08-29 06:09] LABS: Basophils % (auto) 0.7 % (0.0-2.0); Eosinophils % (auto) 0.9 % (0.0-7.0); Lymphocytes # (auto) 0.9 10 ^3/uL (0.4-5.4); Lymphocytes % (auto) 5.5 % (10.0-50.0); Mean Corpuscular Hemoglobin 19.6 pg (28.0-32.0); Mean Corpuscular Hgb Conc. 32.5 g/dL (32.0-36.0); Mean Corpuscular Volume 60.4 fL (80.0-100.0); Monocytes # (auto) 1.2 10 ^3/uL (0-1.3); Monocytes % (auto) 6.8 % (0.0-12.0); Neutrophils # (auto) 14.8 10 ^3/uL (1.6-8.6); Neutrophils % (auto) 86.1 % (37.0-80.0); Platelet Count (auto) 678 10^3/uL (140-450); Red Cell Distribution Width 15.8 % (11.8-14.3); White Blood Cell 17.2 10^3/uL (4.4-10.8)
[2024-08-29 06:29] LABS: Chloride 99 mmol/L (98-107); Potassium 3.8 mmol/L (3.5-5.1)
[2024-08-29 06:30] LABS: Anion Gap 4 (5-15); Carbon Dioxide 25 mmol/L (20-31)
[2024-08-29 06:35] LABS: BUN/Creatinine Ratio 11.1 (10.0-20.0); Blood Urea Nitrogen 8 mg/dL (9-23); Glucose 102 mg/dL (74-106)
[2024-08-29 06:42] LABS: Sodium 128 mmol/L (136-145)
[2024-08-29 06:55] LABS: Hypochromia Marked; Platelet Estimate Increased
[2024-08-29 06:56] LABS: Large Platelets MODERATE; Ovalocytes MODERATE
[2024-08-29 06:57] LABS: Stomatocytes Few
[2024-08-29] MEDS: diphenhdrAMINE HCL 50 MG/1 ML VL IV PRN (12:02)
--- NOTE | 2024-08-29 18:46 | DVHPNRES ---
Progress Note Date Seen: Aug 29, 2024 Resident Creating Document: LAVELL GONSALES RESIDENT Medical Necessity Reason Pt with a Central, PICC or Fol: No Subjective Review of Systems Xu Amado is a 28-year-old male with past medical history of ADHD and depression who presented to [facility] ED with complaint of right sided chest pain and shortness of breath. 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 Reports vaping a lot recently and sharing his friends vape. Denies any recent travel history. Patient was [place]His father in law has probable COPD as he smokes and cough a lot per the patient. His pain is 9/10 numeric scale, getting worse on deep inhalation that prompted this visit. Patient also mentioned he has a history of fever for last 1 week and the highest temperature was 104 and yesterday he went to urgent care and he was referred from the urgent care due to the right-sided pleural effusion. Patient denied chest pain, dizziness, headache, diaphoresis, nausea or vomiting. Patient was admitted for further evaluation and medical management. Denies any weight loss. No history of incarceration or IV drug use. Home medications; lamotrigine, fluoxetine 08/25 - Patient seen and examined at bedside. Overnight patient was anxious received lorazepam 1 mg. Also reported night sweats. Chest x-ray repeated, shows enlarging pleural effusion, surgeon consulted for chest tube placement. Final blood culture negative, MRSA screen is negative. 08/26 - patient reports feeling better, no shortness of breaths. Overnight reports night sweats. IR was consulted, chest tube placed - draining yellow fluid. Specimen sent for cytology/differential/culture. 08/27-patient has no active complaint. 6 mg alteplase injected for intra- articular administration at around 8:30 p.m.. Patient tolerated well. Advised the nurse in the night float team to open the [place] at around 9:[address] Kemp in case gross blood seen. 08/28-patient feels much better. Chest x-ray repeated 12 hours after 6 mg alteplase injection. Shows dramatic improvement in the right pleural effusion. Second dose of alteplase injection administered at 5:00 p.m.. Nurse advised to and cough the chest tube at 6:00 p.m.. Notify natural gas engineer in case of gross bleeding in the chest tube. 08/29-patient reports no active complaint. Wants to go home. Chest x-ray reviewed in the a.m., or effusion looks worsen. WBC elevated from 15-17 with neutrophilic predominance. Chest tube draining 1200 mL of dark yellow color fluid. 5:00 p.m.-history of draining pinkish color serosanguineous fluid. Per Dr. Kemp, chest x-ray in the a.m.. Third course of tPA probably tomorrow 08/30. Objective vital signs Vital Sign Date Time Temp Pulse Resp B/P (MAP) Pulse Ox O2 Delivery O2 Flow Rate FiO2 08/29/24 17:00 100.8 124 20 120/71 (87) 92 100.8 08/29/24 10:00 Room Air 0.0 08/29/24 10:00 21 Total Intake and Output 08/28/24 08/28/24 08/29/24 15:00 23:00 07:00 Intake Total 780 ml 1750 ml Output Total 800 ml 2900 ml 700 ml Balance -800 ml -2120 ml 1050 ml medications Current Medications Medications Dose Ordered Sig/Lori Route Start Time Stop Time Status Last Admin Dose Admin Ibuprofen 600 mg Q6HP PRN PO 08/20/24 21:45 08/28/24 08:51 600 MG Acetaminophen/ Hydrocodone Bitart 1 tab Q4HP PRN PO 08/20/24 21:45 08/29/24 16:40 1 TAB Ondansetron HCl 4 mg Q4HP PRN IV 08/20/24 21:45 08/26/24 17:07 4 MG Docusate Sodium 100 mg BIDPRN PRN PO 08/20/24 21:45 Morphine Sulfate 2 mg Q4HPRN PRN IV 08/20/24 21:45 Nitroglycerin 0.4 mg Q5MINP PRN SL 08/20/24 23:30 Morphine Sulfate 2 mg Q30M PRN IV 08/20/24 23:30 Albuterol 2.5 mg Q6HR NEB 08/21/24 12:00 08/29/24 18:07 2.5 MG Ipratropium [place] 0.5 mg Q6HR NEB 08/21/24 12:00 08/29/24 18:07 0.5 MG Lamotrigine 100 mg Q12HR PO 08/21/24 22:00 08/29/24 09:21 100 MG Ergocalciferol 50,000 unit Q7D PO 08/21/24 14:30 08/28/24 15:11 50,000 UNIT Piperacillin Sod/ Tazobactam Sod 100 ml @ 25 mls/hr Q6H IV 08/24/24 20:00 08/29/24 14:06 25 MLS/HR Doxycycline Hyclate 250 ml @ 125 mls/hr Q12H IV 08/25/24 00:00 08/29/24 11:52 125 MLS/HR Lorazepam 0.5 mg Q6HP PRN IV 08/25/24 20:30 08/26/24 09:25 0.5 MG Diphenhydramine HCl 25 mg Q4HP PRN IV 08/29/24 05:15 08/29/24 16:41 25 MG Throat Lozenges 1 jabier Q6HPRN PRN MT 08/29/24 05:15 08/29/24 16:41 1 JABIER Examination General Appearance: Alert, Oriented X4, Cooperative, No acute distress. Lying comfortably in the bed HEENT: Atraumatic, PERRLA, EOMI, Mucous membrane moist/pink Respiratory: Diminished breath sounds, more on the right side. No crackles or wheezing heard. Right-sided chest tube seen draining light pinkish serosanguineous fluid about 1200 mL mL. No air leak noticed. Cardiovascular: Regular rate, Normal S1, Normal S2, No murmurs, no chest wall tenderness Abdominal: Normal bowel sounds, Soft, No tenderness, No hepatospenomegaly, No masses Extremities: Erythema noticed on the extensor surfaces including the elbows, knees and the ankles. Skin: No rashes, No breakdown, No significant lesion Neuro: Normal gait, Normal speech, Strength at 5/5 X4 ext, Normal tone, Sensation intact, grossly intact cranial nerves. Psych/Mental Status: Mental status NL, Mood NL laboratory and microbiology Laboratory Tests 08/29/24 05:20 Test 08/29/24 05:20 Range/Units Serum Glucose 102 74-106 mg/dL Microbiology Date/Time Source Procedure Growth Status 08/26/24 11:00 Pleural Fluid Gram Stain - Final Resulted 08/26/24 11:00 Pleural Fluid Body Fluid Culture - Preliminary Resulted 08/24/24 21:20 Nasopharynx Coronavirus COVID-19 PCR (RONNIE) - Final Complete 08/24/24 18:29 Nose MRSA Screen - Final Complete 08/20/24 15:58 Blood Blood Culture - Final NO GROWTH AFTER 5 DAYS OF INCUBATION. Complete Labs and/or images reviewed: Labs reviewed by me, Image(s) reviewed by me Problem List/Assessment/Plan Problem List/Assessment/Plan Acute hypoxic respiratory failure likely secondary to community-acquired pneumonia ? Vape associated vs ? Malignancy Sepsis due to Community-acquired pneumonia, Gram-positive and Gram-negative Loculated right-sided exudative pleural effusion status post chest tube placement and thoracocentesis with 700 mL drainage undergoing tPA course Chest tube placed 08/26/2024 in the right 4th intercostal mid axillary line by the ER. Draining yellow fluid. Per Dr. Kemp, tPA course after chest tube placement. 08/27 & 08/28- patient has received a total of 2 doses of 6 mg alteplase each day injected for intra-articular administration at around 8:30 p.m.. Patient tolerated well. Advised the nurse in the night float team to open the [place] at around 9:[address] Kemp in case gross blood seen. Chest x-ray in the a.m.. Repeat administration within 24 hours. Thoracocentesis performed by Dr. Kemp 08/22, drain 700 mL of yellow fluid. Pleural studies suggestive of exudative effusion. Patient required oxygen supplementation with 2 L oxygen via NC, now on room air. CT chest revealed right-sided pleural effusion with atelectasis in the right lower lung field IV Zosyn q.6 hour starting 08/21/2024 IV doxycycline q.12 hour started 08/24/24 Discontinue IV azithromycin 500 mg daily - patient received from 08/21 to 08/24 Nebulized treatment with albuterol and ipratropium q.6 hours Gram stain and pleural effusion culture preliminary shows no organism. Lab studies from the sample sent on 08/26 also showed negative Gram stain. Sputum g stain final result reveals many white blood cells, few Gram-positive cocci in pairs Prelim respiratory culture shows moderate grew normal oropharyngeal ghassan Final blood culture negative, MRSA screen negative WBC 12 on arrival, up trending to 17 with 86 % neutrophils COVID RNA and influenza testing negative Reactive thrombocytosis Secondary to sepsis Monitor Rule Out pericardial effusion Echocardiogram completed 08/24 showed LVEF 55%. Normal frontal/valvular heart. No pericardial effusion Anemia, likely microcytic Hemoglobin on arrival 10.8, MCV 32, hematocrit 32 ESR 50, retic count 1.66, CRP 14, LDH 328 Iron panel completed shows low iron low TIBC low% saturation Ferritin elevated at 744 Urine analysis shows 2+ blood and 17 RBCs Transaminitis Bilirubin elevated at 1.3 Direct bili 0.7 AST 33, ALT 69, ALP 196 Patient quit drinking 3 years back Asymptomatic Hypotonic euvolemic hyponatremia secondary to ? Fluoxetine Serum sodium 128, serum osmolality 271, urine osmolality pending DC fluoxetine Cavernous hemangioma Ultrasound liver completed, shows 1.7 cm well-circumscribed oval echogenic nodule in the left hepatic lobe compatible with a cavernous hemangioma Outpatient workup advised Ruled out HIV HIV testing negative ADHD, depression - stable No homicidal or suicidal ideation Continue fluoxetine 40 mg daily, lamotrigine 100 mg b.i.d. Ativan 0.5 mg p.r.n. Vitamin-D deficiency Supplemented Hypokalemia Replenished, magnesium 2.4 Diet cardiac Plan discussed with patient in which all questions have been answered Goals of care discussed for 20 minutes, full code status Case discussed with Dr. Erwin. Two doses of tPA administered 08/27 and 08/28. Pending 3rd dose tomorrow 08/30. Composite Engineer Dr. Kemp on the case. Plan discussed with: Patient, Other (RN) My Orders My Orders Orders - LAVELL GONSALES RESIDENT Procedure Category Date Status Time Blood Culture RONNIE 08/29/24 In Process 09:24 Osmolality Urine LAB 08/29/24 Logged 09:24 Urine Sodium LAB 08/29/24 Logged 09:24 Communication Order ORDERS 08/29/24 Transmitted 14:55 Dietary Evaluation Review Comments: Continue current plan of care Expected Outcomes/Goals: F/U in 3-5 days Addendum Addendum Addendum I was physically present for the wood portions of the service provided to patient by THE RESIDENT. I have reviewed the documentation, discussed the case with resident and agree with the resident's documentation except as noted. Also the patient's clinical case was discussed with the patient's nurse. This medical document was created using an electronic medical record system with computerized dictation system. Although this document has been carefully reviewed, there might still be some phonetic and typographical errors. These areas are purely typographical due to imperfections of the software programs, and do not reflect any compromise in the patient's medical care. Late signature. Date of Service: Aug 29, 2024 Billing Provider: AASHISH ERWIN MD Common Visit Codes: 44727-ZUDGBORTYV INP/OBS CARE(HIGH) Secondary Visit Codes: 44457-[id number] CARE PLAN 30 MINUTES (20 minutes) LAVELL GONSAELS RESIDENT Aug 29, 2024 18:46 AASHISH ERWIN MD Aug 30, 2024 05:24
--- NOTE | 2024-08-29 22:43 | DVHPN2 ---
Progress Note - Dictate Date Seen: Aug 29, 2024 Medical Necessity Reason Pt with a Central, PICC or Fol: No Subjective Patient seen and examined at bedside. Breathing comfortably on room air. Overnight events reviewed. vital signs Vital Sign Date Time Temp Pulse Resp B/P (MAP) Pulse Ox O2 Delivery O2 Flow Rate FiO2 08/29/24 18:17 100 18 99 08/29/24 18:07 Room Air 0.0 08/29/24 18:07 21 08/29/24 17:00 100.8 120/71 (87) 100.8 Total Intake and Output 08/28/24 08/28/24 08/29/24 15:00 23:00 07:00 Intake Total 780 ml 1750 ml Output Total 800 ml 2900 ml 700 ml Balance -800 ml -2120 ml 1050 ml medications Current Medications Medications Dose Ordered Sig/Lori Route Start Time Stop Time Status Last Admin Dose Admin Ibuprofen 600 mg Q6HP PRN PO 08/20/24 21:45 08/28/24 08:51 600 MG Acetaminophen/ Hydrocodone Bitart 1 tab Q4HP PRN PO 08/20/24 21:45 08/29/24 21:53 1 TAB Ondansetron HCl 4 mg Q4HP PRN IV 08/20/24 21:45 08/26/24 17:07 4 MG Docusate Sodium 100 mg BIDPRN PRN PO 08/20/24 21:45 Morphine Sulfate 2 mg Q4HPRN PRN IV 08/20/24 21:45 Nitroglycerin 0.4 mg Q5MINP PRN SL 08/20/24 23:30 Morphine Sulfate 2 mg Q30M PRN IV 08/20/24 23:30 Albuterol 2.5 mg Q6HR NEB 08/21/24 12:00 08/29/24 18:07 2.5 MG Ipratropium [place] 0.5 mg Q6HR NEB 08/21/24 12:00 08/29/24 18:07 0.5 MG Lamotrigine 100 mg Q12HR PO 08/21/24 22:00 08/29/24 21:03 100 MG Ergocalciferol 50,000 unit Q7D PO 08/21/24 14:30 08/28/24 15:11 50,000 UNIT Piperacillin Sod/ Tazobactam Sod 100 ml @ 25 mls/hr Q6H IV 08/24/24 20:00 08/29/24 20:46 25 MLS/HR Doxycycline Hyclate 250 ml @ 125 mls/hr Q12H IV 08/25/24 00:00 08/29/24 11:52 125 MLS/HR Lorazepam 0.5 mg Q6HP PRN IV 08/25/24 20:30 08/26/24 09:25 0.5 MG Diphenhydramine HCl 25 mg Q4HP PRN IV 08/29/24 05:15 08/29/24 21:03 25 MG Throat Lozenges 1 jabier Q6HPRN PRN MT 08/29/24 05:15 08/29/24 21:04 1 JABIER objective Gen.: Patient lying in bed in no apparent distress. Breathing on room air. Head: Normocephalic, atraumatic. Eyes: EOMI/PERRLA. Ears: Normal hearing. Normal anatomy. Neck/trachea: Trachea midline, supple. Nose: Normal external anatomy. Mouth: Moist mucous membranes. Chest: Decreased air entry bilaterally. No wheezing or rhonchi. Cardiovascular: Positive S1, positive S2. Regular rate and rhythm. Abdomen: Positive bowel sounds in all 4 quadrants. Soft, non-tender, non- distended. : Deferred. Rectal: Deferred. Skin: Warm, dry. Intact. Extremities: 2+ radial pulses bilaterally. No lower extremity edema. Neuro: Awake, alert, oriented x3. No gross motor or sensory deficits. Cranial nerves II through XII intact. Gait not assessed. laboratory and microbiology Laboratory Tests 08/29/24 05:20 Test 08/29/24 05:20 Range/Units Serum Glucose 102 74-106 mg/dL Assessment/Plan Impression: Loculated pleural effusion Pneumonia likely Gram-negative Elevated liver enzymes Atelectasis Events: Remains on room air No respiratory distress Continue antibiotics Incentive spirometry Continue bronchodilators CXR reviewed, demonstrates interval worsening right pleural effusion. Serosanguineous drainage via chest tube Will hold off on third dose of tPA course Daily chest tube flush. Pain control/Anxiolytic Avoid oversedation Limited chest ultrasound showed loculated right pleural effusion S/P chest tube placement by IR. Labs and imaging reviewed. Discussed with residents. Rest of plan as noted below. Plan: Supplemental oxygen if necessary Keep O2 saturation above 92%. Continue antibiotics Follow up fluid cultures Limited chest ultrasound demonstrated loculated pleural effusion. Drained 700 mL of yellow colored fluid. Several septations were seen. See separate procedure note for right thoracentesis (08/22). Continue bronchodilators Anxiolytics prn Monitor renal function Monitor electrolytes. Supplement as necessary. DVT prophylaxis Prognosis: Poor given multiple comorbidities. Rest of plan per hospitalist and other consultants. Thank you Dr. Jewell for allowing me to participate in this patient's care. Further recommendations will depend on patient's clinical course. Please do not hesitate to contact me if you have any questions or concerns. This medical document was created using an electronic medical record system with [employer] dictation system. Although this document has been carefully reviewed, there may still be some phonetic and typographical errors. These areas are purely typographical due to imperfections of the software programs, and do not reflect any compromise in the patient's medical care. Dietary Evaluation Review Comments: Continue current plan of care Expected Outcomes/Goals: F/U in 3-5 days Plan discussed with: Patient, Other (DOC Moore) PRESTON CARTY MD Aug 29, 2024 22:43
[2024-08-30] VITALS (14 sets, daily range): BP systolic 94–113; BP diastolic 48–60; PULSE 18–120; RESP 18–21; TEMP 97.2–100.5; O2SAT 92–100
--- NOTE | 2024-08-30 05:50 | DVH ---
CHEST RADIOGRAPH Indication:R effusion. Deep inhalation Technique: Single frontal view of the chest was obtained Comparison: XY CHEST XRAY 1 VIEW on DOS: 08/29/24, XY CHEST XRAY 1 VIEW on DOS: 08/28/24, XY CHEST PO RTABLE on DOS: 08/26/24, CT 08/26/2024 IMPRESSION: The heart appears normal in size. There is persistent airspace opacity and effusion on the right, mod erate with right pleural catheter. Nodular density in the right upper lung is redemonstrated. No dis crete pneumothorax. HS:Y
[2024-08-30 06:09] LABS: Eosinophils # (auto) 0.3 10 ^3/uL (0-0.8); Eosinophils % (auto) 1.7 % (0.0-7.0); Hemoglobin 10.1 g/dL (13.5-17.5); Neutrophils # (auto) 13.3 10 ^3/uL (1.6-8.6)
[2024-08-30 06:12] LABS: Basophils # (auto) 0.2 10 ^3/uL (0-0.2); Basophils % (auto) 0.9 % (0.0-2.0); Hematocrit 31.9 % (41.0-53.0); Lymphocytes # (auto) 1.4 10 ^3/uL (0.4-5.4); Lymphocytes % (auto) 8.4 % (10.0-50.0); Mean Corpuscular Hemoglobin 19.5 pg (28.0-32.0); Mean Corpuscular Hgb Conc. 31.7 g/dL (32.0-36.0); Mean Corpuscular Volume 61.5 fL (80.0-100.0); Monocytes # (auto) 1.2 10 ^3/uL (0-1.3); Monocytes % (auto) 7.1 % (0.0-12.0); Neutrophils % (auto) 81.9 % (37.0-80.0); Nucleated Red Blood Cells % 0.2 %; Platelet Count (auto) 628 10^3/uL (140-450); Red Cell Distribution Width 16.2 % (11.8-14.3); White Blood Cell 16.2 10^3/uL (4.4-10.8)
[2024-08-30 06:19] LABS: Chloride 97 mmol/L (98-107); Potassium 3.8 mmol/L (3.5-5.1); Sodium 131 mmol/L (136-145)
[2024-08-30 06:20] LABS: Anion Gap 9 (5-15); Carbon Dioxide 25 mmol/L (20-31)
[2024-08-30 06:21] LABS: Calcium 9.1 mg/dL (8.7-10.4)
[2024-08-30 06:25] LABS: BUN/Creatinine Ratio 10.4 (10.0-20.0); Blood Urea Nitrogen 7 mg/dL (9-23); Glucose 93 mg/dL (74-106)
[2024-08-30] MEDS: ACETAMINOPHEN 500 MG TAB PO ONE ×2 (11:15→11:16)
[2024-08-30] MEDS: MORPHINE SULFATE INJ 2 MG/ml SYRG IV ONE (11:17)
[2024-08-30] MEDS: HYDROcodone-ACET 5/325MG TAB PO PRN (17:40)
--- NOTE | 2024-08-30 19:39 | DVHPNRES ---
Progress Note Date Seen: Aug 30, 2024 Resident Creating Document: DELORIS JENSEN RESIDENT Medical Necessity Reason Pt with a Central, PICC or Fol: No Subjective Review of Systems pt seen and examined at bedside, mentions pain around the chest tube region, on room air, denies any other complaints ROS Constitutional: No: Fever, Chills, Sweats, Weakness, Malaise, Other Eyes: No: Pain, Vision change, Conjunctivae inflammation, Eyelid inflammation, Other, Redness ENT: No: Ear pain, Ear discharge, Nose pain, Nose discharge, Nose congestion, Mouth pain, Mouth swelling, Throat pain, Throat swelling, Other Respiratory: Pain around chest tube region No: Cough, Dry, Shortness of breath, SOB with excertion, Wheezing, Hemoptysis, Pleuritic Pain, Sputum, Wheezing, Other Cardiovascular: No: Chest Pain, Palpitations, Orthopnea, Paroxysmal Noc. Dyspnea, Edema, Lt Headedness, Other Gastrointestinal: No: Nausea, Vomiting, Abdominal Pain, Diarrhea, Constipation, Melena, Hematochezia, Other Musculoskeletal: No: other, neck pain, shoulder pain, arm pain, back pain, hand pain, leg pain, foot pain Neurological:; No: Weakness, Numbness, Incoordination, Change in speech, Confusion, Seizures Objective vital signs Vital Sign Date Time Temp Pulse Resp B/P (MAP) Pulse Ox O2 Delivery O2 Flow Rate FiO2 08/30/24 17:00 98.7 101 20 108/51 (70) 97 98.7 08/30/24 12:35 Room Air 0.0 08/30/24 12:35 21 Total Intake and Output 08/29/24 08/29/24 08/30/24 15:00 23:00 07:00 Intake Total 350 ml 625 ml 450 ml Output Total 2200 ml 1300 ml Balance 350 ml -1575 ml -850 ml medications Current Medications Medications Dose Ordered Sig/Lori Route Start Time Stop Time Status Last Admin Dose Admin Ibuprofen 600 mg Q6HP PRN PO 08/20/24 21:45 08/28/24 08:51 600 MG Ondansetron HCl 4 mg Q4HP PRN IV 08/20/24 21:45 08/26/24 17:07 4 MG Docusate Sodium 100 mg BIDPRN PRN PO 08/20/24 21:45 Nitroglycerin 0.4 mg Q5MINP PRN SL 08/20/24 23:30 Albuterol 2.5 mg Q6HR NEB 08/21/24 12:00 08/30/24 18:36 2.5 MG Ipratropium [place] 0.5 mg Q6HR NEB 08/21/24 12:00 08/30/24 18:36 0.5 MG Lamotrigine 100 mg Q12HR PO 08/21/24 22:00 08/30/24 09:24 100 MG Ergocalciferol 50,000 unit Q7D PO 08/21/24 14:30 08/28/24 15:11 50,000 UNIT Piperacillin Sod/ Tazobactam Sod 100 ml @ 25 mls/hr Q6H IV 08/24/24 20:00 08/30/24 14:51 25 MLS/HR Doxycycline Hyclate 250 ml @ 125 mls/hr Q12H IV 08/25/24 00:00 08/30/24 12:06 125 MLS/HR Lorazepam 0.5 mg Q6HP PRN IV 08/25/24 20:30 08/26/24 09:25 0.5 MG Diphenhydramine HCl 25 mg Q4HP PRN IV 08/29/24 05:15 08/30/24 08:11 25 MG Throat Lozenges 1 jabier Q6HPRN PRN MT 08/29/24 05:15 08/30/24 16:55 1 JABIER Acetaminophen 650 mg Q6HP PRN PO 08/30/24 11:30 Acetaminophen/ Hydrocodone Bitart 1 tab Q6HPRN PRN PO 08/30/24 15:15 08/30/24 17:40 1 TAB Examination Examination General Appearance: Alert, Oriented X3, Cooperative, No acute distress HEENT: EOMI Respiratory: Auscultation Dull on the right side, chest tube present, draining serosanguineous fluid, no discharge around the chest tube site Cardiovascular: Regular rate, Normal S1, Normal S2 Abdominal: Normal bowel sounds Extremities: No cyanosis, No edema, Normal pulses, No tenderness/swelling Skin: No rashes, No breakdown Neuro: Normal speech and tone laboratory and microbiology Laboratory Tests 08/30/24 05:14 Test 08/30/24 05:14 Range/Units Serum Glucose 93 74-106 mg/dL Microbiology Date/Time Source Procedure Growth Status 08/29/24 13:23 Blood Blood Culture - Preliminary NO GROWTH AFTER 24 HOURS OF INCUBATION. Resulted 08/26/24 11:00 Pleural Fluid Gram Stain - Final Resulted 08/26/24 11:00 Pleural Fluid Body Fluid Culture - Preliminary Resulted 08/24/24 21:20 Nasopharynx Coronavirus COVID-19 PCR (RONNIE) - Final Complete 08/24/24 18:29 Nose MRSA Screen - Final Complete Labs and/or images reviewed: Labs reviewed by me, Image(s) reviewed by me Problem List/Assessment/Plan Problem List/Assessment/Plan Assessment #Sepsis due to pneumonia -received iv fluids -iv Zosyn plus iv doxy -repeat Blood culture # acute hypoxic respiratory failure due to pneumonia Currently on room air Nebulized treatment with albuterol and ipratropium q.6 hours # community-acquired pneumonia, Gram-positive/Gram-negative -iv Zosyn plus iv doxy -repeat Blood culture # pleural effusion, right side, parapneumonic, complicated, loculated -s/p thoracentesis 08/22, drain 700 mL of yellow fluid. Pleural studies suggestive of exudative effusion. -chest tube for recurrent pleural effusion -currently draining serosanguineous fluid -chest x-ray shows mild improvement, we will monitor -pulmonology onboard #Anemia, microcytic anemia Iron panel #Asymptomatic Hypotonic hyponatremia -monitor bmp #Cavernous hemangioma Ultrasound liver completed, shows 1.7 cm well-circumscribed oval echogenic nodule in the left hepatic lobe compatible with a cavernous hemangioma Outpatient workup advised #ADHD -continue home meds #depression - stable Continue fluoxetine 40 mg daily, lamotrigine 100 mg b.i.d. #Anxiety Ativan 0.5 mg p.r.n. #Vitamin-D deficiency Supplemented #Hypokalemia Replenished Case discussed with Dr. Erwin Plan discussed with: Patient, Other (RN) My Orders My Orders Orders - DELORIS JENSEN RESIDENT Procedure Category Date Status Time Acetaminophen Tablet PHA 08/30/24 In Process (Tylenol Tablet) 11:30 Hydrocodone-Acet PHA 08/30/24 In Process 5/325mg Tab ([place] 15:15 Dietary Evaluation Review Comments: Continue current plan of care Expected Outcomes/Goals: F/U in 3-5 days Addendum Addendum Addendum I was physically present for the wood portions of the service provided to patient by THE RESIDENT. I have reviewed the documentation, discussed the case with resident and agree with the resident's documentation except as noted. Also the patient's clinical case was discussed with the patient's nurse. This medical document was created using an electronic medical record system with computerized dictation system. Although this document has been carefully reviewed, there might still be some phonetic and typographical errors. These areas are purely typographical due to imperfections of the software programs, and do not reflect any compromise in the patient's medical care. Late signature. Date of Service: Aug 30, 2024 Billing Provider: AASHISH ERWIN MD Common Visit Codes: [id number] INP/OBS CARE(HIGH) DELORIS JENSEN RESIDENT Aug 30, 2024 19:39 AASHISH ERWIN MD Aug 31, 2024 07:02
[2024-08-31] VITALS (14 sets, daily range): BP systolic 94–129; BP diastolic 50–82; PULSE 93–120; RESP 17–20; TEMP 98–98.7; O2SAT 91–100
--- NOTE | 2024-08-31 00:50 | DVHPN2 ---
Progress Note - Dictate Date Seen: Aug 30, 2024 Medical Necessity Reason Pt with a Central, PICC or Fol: No Subjective Patient seen and examined at bedside. Breathing comfortably on room air. Overnight events reviewed. vital signs Vital Sign Date Time Temp Pulse Resp B/P (MAP) Pulse Ox O2 Delivery O2 Flow Rate FiO2 08/30/24 18:46 110 20 99 08/30/24 18:36 Room Air 0.0 08/30/24 18:36 21 08/30/24 17:00 98.7 108/51 (70) 98.7 Total Intake and Output 08/30/24 08/30/24 08/31/24 15:00 23:00 07:00 Intake Total 350 ml 150 ml Output Total 945 ml Balance 350 ml -795 ml medications Current Medications Medications Dose Ordered Sig/Lori Route Start Time Stop Time Status Last Admin Dose Admin Ibuprofen 600 mg Q6HP PRN PO 08/20/24 21:45 08/28/24 08:51 600 MG Ondansetron HCl 4 mg Q4HP PRN IV 08/20/24 21:45 08/26/24 17:07 4 MG Docusate Sodium 100 mg BIDPRN PRN PO 08/20/24 21:45 Nitroglycerin 0.4 mg Q5MINP PRN SL 08/20/24 23:30 Albuterol 2.5 mg Q6HR NEB 08/21/24 12:00 08/30/24 23:37 2.5 MG Ipratropium [place] 0.5 mg Q6HR NEB 08/21/24 12:00 08/30/24 23:37 0.5 MG Lamotrigine 100 mg Q12HR PO 08/21/24 22:00 08/30/24 21:21 100 MG Ergocalciferol 50,000 unit Q7D PO 08/21/24 14:30 08/28/24 15:11 50,000 UNIT Piperacillin Sod/ Tazobactam Sod 100 ml @ 25 mls/hr Q6H IV 08/24/24 20:00 08/30/24 21:22 25 MLS/HR Doxycycline Hyclate 250 ml @ 125 mls/hr Q12H IV 08/25/24 00:00 08/30/24 12:06 125 MLS/HR Lorazepam 0.5 mg Q6HP PRN IV 08/25/24 20:30 08/26/24 09:25 0.5 MG Diphenhydramine HCl 25 mg Q4HP PRN IV 08/29/24 05:15 08/30/24 21:21 25 MG Throat Lozenges 1 jabier Q6HPRN PRN MT 08/29/24 05:15 08/30/24 16:55 1 JABIER Acetaminophen 650 mg Q6HP PRN PO 08/30/24 11:30 Acetaminophen/ Hydrocodone Bitart 1 tab Q6HPRN PRN PO 08/30/24 15:15 08/30/24 22:22 1 TAB objective Gen.: Patient lying in bed in no apparent distress. Breathing on room air. Head: Normocephalic, atraumatic. Eyes: EOMI/PERRLA. Ears: Normal hearing. Normal anatomy. Neck/trachea: Trachea midline, supple. Nose: Normal external anatomy. Mouth: Moist mucous membranes. Chest: Decreased air entry bilaterally. No wheezing or rhonchi. Cardiovascular: Positive S1, positive S2. Regular rate and rhythm. Abdomen: Positive bowel sounds in all 4 quadrants. Soft, non-tender, non- distended. : Deferred. Rectal: Deferred. Skin: Warm, dry. Intact. Extremities: 2+ radial pulses bilaterally. No lower extremity edema. Neuro: Awake, alert, oriented x3. No gross motor or sensory deficits. Cranial nerves II through XII intact. Gait not assessed. laboratory and microbiology Laboratory Tests 08/30/24 05:14 Test 08/30/24 05:14 Range/Units Serum Glucose 93 74-106 mg/dL Assessment/Plan Impression: Loculated pleural effusion Pneumonia likely Gram-negative Elevated liver enzymes Atelectasis Events: Remains on room air No respiratory distress Continue antibiotics Incentive spirometry Blood cx show no growth in 24 hours CXR demonstrates slight improvement in right pleural effusion compared to yesterday. Chest tube with improved drainage, now serous Copious fibrin clots removed. Flushed chest tube and got 150 ml drainage Obtain CXR in the AM to assess for interval changes. Will hold off on third dose of tPA course Daily chest tube flush. Pain control/Anxiolytic Avoid oversedation Labs and imaging reviewed. Rest of plan as noted below. Plan: Supplemental oxygen if necessary Keep O2 saturation above 92%. Continue antibiotics Follow up fluid cultures Limited chest ultrasound demonstrated loculated right pleural effusion. Drained 700 mL of yellow colored fluid. Several septations were seen. See separate procedure note for right thoracentesis (08/22). S/p chest tube placement by IR. Continue bronchodilators Anxiolytics prn Monitor renal function Monitor electrolytes. Supplement as necessary. DVT prophylaxis Prognosis: Poor given multiple comorbidities. Rest of plan per hospitalist and other consultants. Thank you Dr. Jewell for allowing me to participate in this patient's care. Further recommendations will depend on patient's clinical course. Please do not hesitate to contact me if you have any questions or concerns. This medical document was created using an electronic medical record system with [employer] dictation system. Although this document has been carefully reviewed, there may still be some phonetic and typographical errors. These areas are purely typographical due to imperfections of the software programs, and do not reflect any compromise in the patient's medical care. Dietary Evaluation Review Comments: Continue current plan of care Expected Outcomes/Goals: F/U in 3-5 days Plan discussed with: Patient, Other (RN) PRESTON CARTY MD Aug 31, 2024 00:50
[2024-08-31] MEDS: PIPERACILLIN-TAZOB 3.375GM 100 ML IV SCH (04:24)
[2024-08-31 05:57] LABS: Eosinophils # (auto) 0.2 10 ^3/uL (0-0.8); Eosinophils % (auto) 1.6 % (0.0-7.0); Lymphocytes # (auto) 1.1 10 ^3/uL (0.4-5.4); Lymphocytes % (auto) 8.6 % (10.0-50.0); Monocytes # (auto) 0.9 10 ^3/uL (0-1.3); Nucleated Red Blood Cells % 0.1 %
[2024-08-31 05:59] LABS: Basophils # (auto) 0.2 10 ^3/uL (0-0.2); Basophils % (auto) 1.2 % (0.0-2.0); Hematocrit 28.8 % (41.0-53.0); Hemoglobin 9.6 g/dL (13.5-17.5); Mean Corpuscular Hemoglobin 19.9 pg (28.0-32.0); Mean Corpuscular Hgb Conc. 33.2 g/dL (32.0-36.0); Mean Corpuscular Volume 59.9 fL (80.0-100.0); Monocytes % (auto) 6.6 % (0.0-12.0); Neutrophils # (auto) 10.7 10 ^3/uL (1.6-8.6); Platelet Count (auto) 582 10^3/uL (140-450); Red Blood Cells 4.81 10^6/uL (4.5-5.90); Red Cell Distribution Width 15.7 % (11.8-14.3)
[2024-08-31 06:01] LABS: Chloride 95 mmol/L (98-107); Potassium 3.5 mmol/L (3.5-5.1); Sodium 130 mmol/L (136-145)
[2024-08-31 06:02] LABS: Anion Gap 7 (5-15); Carbon Dioxide 28 mmol/L (20-31)
[2024-08-31 06:03] LABS: Calcium 8.9 mg/dL (8.7-10.4)
[2024-08-31 06:08] LABS: BUN/Creatinine Ratio 10.8 (10.0-20.0); Blood Urea Nitrogen 8 mg/dL (9-23); Glucose 122 mg/dL (74-106); Magnesium 2.1 mg/dL (1.6-2.6)
[2024-08-31] MEDS: POTASSIUM EFFERVESENT TAB 25 MEQ PO ONE (07:03)
--- NOTE | 2024-08-31 11:36 | DVH ---
CHEST RADIOGRAPH Indication:RIGHT PLEURAL EFFUSION Technique: Single frontal view of the chest was obtained Comparison: XY CHEST XRAY 1 VIEW on DOS: 08/30/24, XY CHEST XRAY 1 VIEW on DOS: 08/29/24, XY CHEST XR AY 1 VIEW on DOS: 08/28/24, XY CHEST PORTABLE on DOS: 08/26/24, XY CHEST PORTABLE on DOS: 08/25/24, X Y CHEST XRAY 1 VIEW on DOS: 08/30/24 FINDINGS: The heart appears normal in size. There is persistent airspace opacity and effusion on the right, mod erate with right pleural catheter. Nodular density in the right upper lung is redemonstrated. No disc rete pneumothorax. IMPRESSION: No interval change.
--- NOTE | 2024-08-31 17:53 | DVHPNRES ---
Progress Note Date Seen: Aug 31, 2024 Resident Creating Document: LAVELL GONSALES RESIDENT Medical Necessity Reason Pt with a Central, PICC or Fol: No Subjective Review of Systems Xu Amado is a 28-year-old male with past medical history of ADHD and depression who presented to [facility] ED with complaint of right sided chest pain and shortness of breath. 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 Reports vaping a lot recently and sharing his friends vape. Denies any recent travel history. Patient was [place]His father in law has probable COPD as he smokes and cough a lot per the patient. His pain is 9/10 numeric scale, getting worse on deep inhalation that prompted this visit. Patient also mentioned he has a history of fever for last 1 week and the highest temperature was 104 and yesterday he went to urgent care and he was referred from the urgent care due to the right-sided pleural effusion. Patient denied chest pain, dizziness, headache, diaphoresis, nausea or vomiting. Patient was admitted for further evaluation and medical management. Denies any weight loss. No history of incarceration or IV drug use. Home medications; lamotrigine, fluoxetine 08/25 - Patient seen and examined at bedside. Overnight patient was anxious received lorazepam 1 mg. Also reported night sweats. Chest x-ray repeated, shows enlarging pleural effusion, surgeon consulted for chest tube placement. Final blood culture negative, MRSA screen is negative. 08/26 - patient reports feeling better, no shortness of breaths. Overnight reports night sweats. IR was consulted, chest tube placed - draining yellow fluid. Specimen sent for cytology/differential/culture. 08/27-patient has no active complaint. 6 mg alteplase injected for intra- articular administration at around 8:30 p.m.. Patient tolerated well. Advised the nurse in the night float team to open the [place] at around 9:[address] Kemp in case gross blood seen. 08/28-patient feels much better. Chest x-ray repeated 12 hours after 6 mg alteplase injection. Shows dramatic improvement in the right pleural effusion. Second dose of alteplase injection administered at 5:00 p.m.. Nurse advised to and cough the chest tube at 6:00 p.m.. Notify brand representative in case of gross bleeding in the chest tube. 08/29-patient reports no active complaint. Wants to go home. Chest x-ray reviewed in the a.m., or effusion looks worsen. WBC elevated from 15-17 with neutrophilic predominance. Chest tube draining 800 mL of dark yellow color fluid. 5:00 p.m.-history of draining pinkish color serosanguineous fluid. Per Dr. Kemp, chest x-ray in the a.m.. Third course of tPA probably tomorrow 08/30. 08/31-no acute complaint. Chest x-ray in the a.m. repeated, shows persistent right middle and lower lobe effusion. Chest tube draining serosanguineous fluid. Dressing dry and intact. WBC trended down to 13 today. Surgeon consulted for surgical chest tube. Objective vital signs Vital Sign Date Time Temp Pulse Resp B/P (MAP) Pulse Ox O2 Delivery O2 Flow Rate FiO2 08/31/24 17:00 98.7 118 20 106/82 (90) 93 98.7 08/31/24 11:37 Room Air* 0 21 Total Intake and Output 08/30/24 08/30/24 08/31/24 15:00 23:00 07:00 Intake Total 350 ml 150 ml 610 ml Output Total 945 ml 375 ml Balance 350 ml -795 ml 235 ml medications Current Medications Medications Dose Ordered Sig/Lori Route Start Time Stop Time Status Last Admin Dose Admin Ibuprofen 600 mg Q6HP PRN PO 08/20/24 21:45 08/28/24 08:51 600 MG Ondansetron HCl 4 mg Q4HP PRN IV 08/20/24 21:45 08/26/24 17:07 4 MG Docusate Sodium 100 mg BIDPRN PRN PO 08/20/24 21:45 Nitroglycerin 0.4 mg Q5MINP PRN SL 08/20/24 23:30 Albuterol 2.5 mg Q6HR NEB 08/21/24 12:00 08/31/24 11:37 2.5 MG Ipratropium [place] 0.5 mg Q6HR NEB 08/21/24 12:00 08/31/24 11:37 0.5 MG Lamotrigine 100 mg Q12HR PO 08/21/24 22:00 08/31/24 09:05 100 MG Ergocalciferol 50,000 unit Q7D PO 08/21/24 14:30 08/28/24 15:11 50,000 UNIT Doxycycline Hyclate 250 ml @ 125 mls/hr Q12H IV 08/25/24 00:00 08/31/24 12:35 125 MLS/HR Lorazepam 0.5 mg Q6HP PRN IV 08/25/24 20:30 08/26/24 09:25 0.5 MG Diphenhydramine HCl 25 mg Q4HP PRN IV 08/29/24 05:15 08/31/24 12:41 25 MG Throat Lozenges 1 jabier Q6HPRN PRN MT 08/29/24 05:15 08/30/24 16:55 1 JABIER Acetaminophen 650 mg Q6HP PRN PO 08/30/24 11:30 Acetaminophen/ Hydrocodone Bitart 1 tab Q6HPRN PRN PO 08/30/24 15:15 08/31/24 09:05 1 TAB Piperacillin Sod/ Tazobactam Sod 100 ml @ 25 mls/hr Q6H IV 08/31/24 04:00 08/31/24 17:06 25 MLS/HR Ferrous Sulfate 325 mg BIDWM PO 08/31/24 18:00 Examination General Appearance: Alert, Oriented X4, Cooperative, No acute distress. Lying comfortably in the bed HEENT: Atraumatic, PERRLA, EOMI, Mucous membrane moist/pink Respiratory: Diminished breath sounds, more on the right side. No crackles or wheezing heard. Right-sided chest tube seen draining light pinkish serosanguineous fluid. No air leak noticed. Dressing dry clean and intact. Cardiovascular: Regular rate, Normal S1, Normal S2, No murmurs, no chest wall tenderness Abdominal: Normal bowel sounds, Soft, No tenderness, No hepatospenomegaly, No masses Extremities: Erythema noticed on the extensor surfaces including the elbows, knees and the ankles. Skin: No rashes, No breakdown, No significant lesion Neuro: Normal gait, Normal speech, Strength at 5/5 X4 ext, Normal tone, Sensation intact, grossly intact cranial nerves. Psych/Mental Status: Mental status NL, Mood NL laboratory and microbiology Laboratory Tests 08/31/24 05:21 Test 08/31/24 05:21 Range/Units Serum Glucose 122 H 74-106 mg/dL Microbiology Date/Time Source Procedure Growth Status 08/29/24 13:23 Blood Blood Culture - Preliminary NO GROWTH AFTER 48 HOURS OF INCUBATION. Resulted 08/26/24 11:00 Pleural Fluid Gram Stain - Final Complete 08/26/24 11:00 Pleural Fluid Body Fluid Culture - Final Complete 08/24/24 21:20 Nasopharynx Coronavirus COVID-19 PCR (RONNIE) - Final Complete 08/24/24 18:29 Nose MRSA Screen - Final Complete Labs and/or images reviewed: Labs reviewed by me, Image(s) reviewed by me Problem List/Assessment/Plan Problem List/Assessment/Plan Acute hypoxic respiratory failure likely secondary to community-acquired pneumonia ? Vape associated vs ? Malignancy Sepsis due to Community-acquired pneumonia, Gram-positive and Gram-negative Loculated right-sided exudative pleural effusion status post chest tube placement and thoracocentesis with 700 mL drainage undergoing tPA course Chest tube placed 08/26/2024 in the right 4th intercostal mid axillary line by the ER. Draining yellow fluid. Per Dr. Kemp, tPA course after chest tube placement. 08/27 & 08/28- patient received 2 doses of 6 mg alteplase. Holding off on 3rd dose per brand representative Dr. Kemp. Thoracocentesis performed by Dr. Kemp 08/22, drain 700 mL of yellow fluid. Pleural studies suggestive of exudative effusion. Patient required oxygen supplementation with 2 L oxygen via NC, now on room air. CT chest revealed right-sided pleural effusion with atelectasis in the right lower lung field IV Zosyn q.6 hour starting 08/21/2024 IV doxycycline q.12 hour started 08/24/24 Discontinued IV azithromycin 500 mg daily - patient received from 08/21 to 08/24 Nebulized treatment with albuterol and ipratropium q.6 hours Blood cultures and body fluid culture have been negative so far. WBC 12 on arrival, up trending to 17 with 86 % neutrophils, now 13 COVID RNA and influenza testing negative 08/31-surgeon consulted for thoracotomy. Reactive thrombocytosis Secondary to sepsis Monitor Rule Out pericardial effusion Echocardiogram completed 08/24 showed LVEF 55%. Normal frontal/valvular heart. No pericardial effusion Anemia, likely microcytic Hemoglobin on arrival 10.8, MCV 32, hematocrit 32 ESR 50, retic count 1.66, CRP 14, LDH 328 Iron panel completed shows low iron low TIBC low% saturation Ferritin elevated at 744 Urine analysis shows 2+ blood and 17 RBCs P.o. iron supplementation b.i.d. Transaminitis Bilirubin elevated at 1.3 Direct bili 0.7 AST 33, ALT 69, ALP 196 Patient quit drinking 3 years back Asymptomatic Hypotonic euvolemic hyponatremia secondary to ? Fluoxetine Serum sodium 128, serum osmolality 271, urine osmolality 340, urine sodium less than 10 DC fluoxetine Cavernous hemangioma Ultrasound liver completed, shows 1.7 cm well-circumscribed oval echogenic nodule in the left hepatic lobe compatible with a cavernous hemangioma Outpatient workup advised Ruled out HIV HIV testing negative ADHD, depression - stable No homicidal or suicidal ideation Continue fluoxetine 40 mg daily, lamotrigine 100 mg b.i.d. Ativan 0.5 mg p.r.n. Vitamin-D deficiency Supplemented Hypokalemia Replenished Diet cardiac Plan discussed with patient in which all questions have been answered Goals of care discussed for more than 22 minutes, full code status Case discussed with Dr. Gonzalez. Two doses of tPA administered 08/27 and 08/28. Surgeon consulted for thoracotomy. Plan discussed with: Patient My Orders My Orders Orders - LAVELL GONSALES Procedure Category Date Status Time Ferrous Sulfate Tablet PHA 08/31/24 In Process 18:00 Dietary Evaluation Review Comments: Continue current plan of care Expected Outcomes/Goals: F/U in 3-5 days Date of Service: Aug 31, 2024 Billing Provider: MARICRUZ GONZALEZ MD Common Visit Codes: [id number] INP/OBS CARE(HIGH) LAVELL GONSALES Aug 31, 2024 17:53 MARICRUZ GONZALEZ MD Aug 31, 2024 19:05
[2024-08-31] MEDS: FERROUS SULFATE 325mg EC TAB PO SCH (18:10)
[2024-08-31] MEDS: ACETAMINOPHEN 325 MG TAB PO ONE (18:26)
[2024-08-31] MEDS: KETOROLAC TROMETH 30 MG/ML 1ML VIAL IV ONE (18:30)
--- NOTE | 2024-08-31 21:44 | DVHPN2 ---
Progress Note - Dictate Date Seen: Aug 31, 2024 Medical Necessity Reason Pt with a Central, PICC or Fol: No Subjective Patient seen and examined at bedside. Breathing comfortably on room air. Overnight events reviewed. vital signs Vital Sign Date Time Temp Pulse Resp B/P (MAP) Pulse Ox O2 Delivery O2 Flow Rate FiO2 08/31/24 19:34 103 18 100 08/31/24 19:24 Room Air* 0 21 08/31/24 17:00 98.7 106/82 (90) 98.7 Total Intake and Output 08/30/24 08/30/24 08/31/24 14:59 22:59 06:59 Intake Total 350 ml 150 ml 610 ml Output Total 945 ml 375 ml Balance 350 ml -795 ml 235 ml medications Current Medications Medications Dose Ordered Sig/Lori Route Start Time Stop Time Status Last Admin Dose Admin Ondansetron HCl 4 mg Q4HP PRN IV 08/20/24 21:45 08/26/24 17:07 4 MG Docusate Sodium 100 mg BIDPRN PRN PO 08/20/24 21:45 Nitroglycerin 0.4 mg Q5MINP PRN SL 08/20/24 23:30 Albuterol 2.5 mg Q6HR NEB 08/21/24 12:00 08/31/24 19:27 2.5 MG Ipratropium [place] 0.5 mg Q6HR NEB 08/21/24 12:00 08/31/24 19:27 0.5 MG Lamotrigine 100 mg Q12HR PO 08/21/24 22:00 08/31/24 21:12 100 MG Ergocalciferol 50,000 unit Q7D PO 08/21/24 14:30 08/28/24 15:11 50,000 UNIT Doxycycline Hyclate 250 ml @ 125 mls/hr Q12H IV 08/25/24 00:00 08/31/24 12:35 125 MLS/HR Lorazepam 0.5 mg Q6HP PRN IV 08/25/24 20:30 08/26/24 09:25 0.5 MG Diphenhydramine HCl 25 mg Q4HP PRN IV 08/29/24 05:15 08/31/24 12:41 25 MG Throat Lozenges 1 jabier Q6HPRN PRN MT 08/29/24 05:15 08/30/24 16:55 1 JABIER Acetaminophen 650 mg Q6HP PRN PO 08/30/24 11:30 Piperacillin Sod/ Tazobactam Sod 100 ml @ 25 mls/hr Q6H IV 08/31/24 04:00 08/31/24 21:17 25 MLS/HR Ferrous Sulfate 325 mg BIDWM PO 08/31/24 18:00 08/31/24 18:10 325 MG Acetaminophen/ Hydrocodone Bitart 1 tab Q6HP PRN PO 08/31/24 18:15 objective Gen.: Patient lying in bed in no apparent distress. Breathing on room air. Head: Normocephalic, atraumatic. Eyes: EOMI/PERRLA. Ears: Normal hearing. Normal anatomy. Neck/trachea: Trachea midline, supple. Nose: Normal external anatomy. Mouth: Moist mucous membranes. Chest: Decreased air entry bilaterally. No wheezing or rhonchi. Cardiovascular: Positive S1, positive S2. Regular rate and rhythm. Abdomen: Positive bowel sounds in all 4 quadrants. Soft, non-tender, non- distended. : Deferred. Rectal: Deferred. Skin: Warm, dry. Intact. Extremities: 2+ radial pulses bilaterally. No lower extremity edema. Neuro: Awake, alert, oriented x3. No gross motor or sensory deficits. Cranial nerves II through XII intact. Gait not assessed. laboratory and microbiology Laboratory Tests 08/31/24 05:21 Test 08/31/24 05:21 Range/Units Serum Glucose 122 H 74-106 mg/dL Assessment/Plan Impression: Loculated pleural effusion Pneumonia likely Gram-negative Elevated liver enzymes Atelectasis Events: Remains on room air No respiratory distress Patient is afebrile. Continue antibiotics Incentive spirometry Blood cx show no growth in 48 hours CXR reviewed, demonstrates moderate right pleural effusion Continue daily chest tube flush. Monitor output Pain control/Anxiolytic Avoid oversedation Labs and imaging reviewed. Rest of plan as noted below. Plan: Supplemental oxygen if necessary Keep O2 saturation above 92%. Continue antibiotics Follow up fluid cultures Limited chest ultrasound demonstrated loculated right pleural effusion. Drained 700 mL of yellow colored fluid. Several septations were seen. See separate procedure note for right thoracentesis (08/22). S/p chest tube placement by IR. Continue bronchodilators Anxiolytics prn Monitor renal function Monitor electrolytes. Supplement as necessary. DVT prophylaxis Prognosis: Poor given multiple comorbidities. Rest of plan per hospitalist and other consultants. Thank you Dr. Jewell for allowing me to participate in this patient's care. Further recommendations will depend on patient's clinical course. Please do not hesitate to contact me if you have any questions or concerns. This medical document was created using an electronic medical record system with [employer] dictation system. Although this document has been carefully reviewed, there may still be some phonetic and typographical errors. These areas are purely typographical due to imperfections of the software programs, and do not reflect any compromise in the patient's medical care. Dietary Evaluation Review Comments: Continue current plan of care Expected Outcomes/Goals: F/U in 3-5 days Plan discussed with: Patient, Other (DOC Pichardo) PRESTON CARTY MD Aug 31, 2024 21:44
[2024-09-01] VITALS (16 sets, daily range): BP systolic 95–109; BP diastolic 48–61; PULSE 77–113; RESP 14–20; TEMP 97.7–98.2; O2SAT 92–99
[2024-09-01 05:42] LABS: Basophils # (auto) 0.1 10 ^3/uL (0-0.2); Eosinophils # (auto) 0.2 10 ^3/uL (0-0.8); Hematocrit 29.7 % (41.0-53.0); Hemoglobin 9.5 g/dL (13.5-17.5)
[2024-09-01 05:45] LABS: Basophils % (auto) 1.1 % (0.0-2.0); Eosinophils % (auto) 1.7 % (0.0-7.0); Lymphocytes # (auto) 0.9 10 ^3/uL (0.4-5.4); Lymphocytes % (auto) 7.4 % (10.0-50.0); Mean Corpuscular Hemoglobin 19.4 pg (28.0-32.0); Mean Corpuscular Volume 60.6 fL (80.0-100.0); Monocytes # (auto) 0.9 10 ^3/uL (0-1.3); Monocytes % (auto) 7.6 % (0.0-12.0); Neutrophils # (auto) 9.8 10 ^3/uL (1.6-8.6); Neutrophils % (auto) 82.2 % (37.0-80.0); Nucleated Red Blood Cells % 0.1 %; Platelet Count (auto) 597 10^3/uL (140-450); Red Cell Distribution Width 15.9 % (11.8-14.3); White Blood Cell 11.9 10^3/uL (4.4-10.8)
[2024-09-01 06:05] LABS: Anion Gap 7 (5-15); Calcium 9.1 mg/dL (8.7-10.4); Carbon Dioxide 27 mmol/L (20-31); Chloride 99 mmol/L (98-107); Potassium 3.8 mmol/L (3.5-5.1); Sodium 133 mmol/L (136-145)
[2024-09-01 06:11] LABS: BUN/Creatinine Ratio 9.6 (10.0-20.0); Blood Urea Nitrogen 7 mg/dL (9-23); Glucose 95 mg/dL (74-106)
[2024-09-01] MEDS: HYDROcodone-ACET 10/325MG TAB PO PRN (06:26)
--- NOTE | 2024-09-01 07:49 | DVH ---
CHEST RADIOGRAPH Indication:deep inhalation view for R effusion Technique: Single frontal view of the chest was obtained COMPARISON: XY CHEST XRAY 1 VIEW on DOS: 08/31/24, XY CHEST XRAY 1 VIEW on DOS: 08/30/24, XY CHEST XR AY 1 VIEW on DOS: 08/29/24 FINDINGS: Lines and Tubes: Right chest tube in satisfactory position. Lungs: Right lower lobe airspace disease. Pleura: Small right pleural effusion. No pneumothorax. Cardiomediastinal contours: Unremarkable Bones: Unremarkable IMPRESSION: Small right pleural effusion.
[2024-09-01] MEDS: POTASSIUM EFFERVESENT TAB 25 MEQ PO ONE (11:39)
--- NOTE | 2024-09-01 11:59 | DVHPNRES ---
Progress Note Date Seen: Sep 01, 2024 Resident Creating Document: LAVELL GONSALES RESIDENT Medical Necessity Reason Pt with a Central, PICC or Fol: No Subjective Review of Systems Xu Amado is a 28-year-old male with past medical history of ADHD and depression who presented to [facility] ED with complaint of right sided chest pain and shortness of breath. 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 Reports vaping a lot recently and sharing his friends vape. Denies any recent travel history. [place] was [place]His father in law has probable COPD as he smokes and cough a lot per the patient. His pain is 9/10 numeric scale, getting worse on deep inhalation that prompted this visit. Patient also mentioned he has a history of fever for last 1 week and the highest temperature was 104 and yesterday he went to urgent care and he was referred from the urgent care due to the right-sided pleural effusion. Patient denied chest pain, dizziness, headache, diaphoresis, nausea or vomiting. Patient was admitted for further evaluation and medical management. Denies any weight loss. No history of incarceration or IV drug use. Home medications; lamotrigine, fluoxetine 08/25 - Patient seen and examined at bedside. Overnight patient was anxious received lorazepam 1 mg. Also reported night sweats. Chest x-ray repeated, shows enlarging pleural effusion, surgeon consulted for chest tube placement. Final blood culture negative, MRSA screen is negative. 08/26 - patient reports feeling better, no shortness of breaths. Overnight reports night sweats. IR was consulted, chest tube placed - draining yellow fluid. Specimen sent for cytology/differential/culture. 08/27-patient has no active complaint. 6 mg alteplase injected for intra- articular administration at around 8:30 p.m.. Patient tolerated well. Advised the nurse in the night float team to open the [place] at around 9:[address] Kemp in case gross blood seen. 08/28 - patient feels much better. Chest x-ray repeated 12 hours after 6 mg alteplase injection. Shows dramatic improvement in the right pleural effusion. Second dose of alteplase injection administered at 5:00 p.m.. Nurse advised to and cough the chest tube at 6:00 p.m.. Notify dental coordinator in case of gross bleeding in the chest tube. 08/29 - patient reports no active complaint. Wants to go home. Chest x-ray reviewed in the a.m., or effusion looks worsen. WBC elevated from 15-17 with neutrophilic predominance. Chest tube draining 800 mL of dark yellow color fluid. 5:00 p.m.-history of draining pinkish color serosanguineous fluid. Per Dr. Kemp, chest x-ray in the a.m.. Third course of tPA probably tomorrow 08/30. 08/31 - no acute complaint. Chest x-ray in the a.m. repeated, shows persistent right middle and lower lobe effusion. Chest tube draining serosanguineous fluid. Dressing dry and intact. WBC trended down to 13 today. Surgeon consulted for surgical chest tube. 09/01 - reports feeling fine. Breath sounds absent on RLL. Flushed the chest tube with saline in AM. Draining 1020 ml of serosanguis fluid. Satting 95 on RA. Potassium 25meQ given. WBC 11.9. CXR: Small right pleural effusion. NPO starting midnight. Thoracotomy scheduled 09/02. Objective vital signs Vital Sign Date Time Temp Pulse Resp B/P (MAP) Pulse Ox O2 Delivery O2 Flow Rate FiO2 09/01/24 10:02 95 Room Air* 0 21 09/01/24 09:00 97.7 92 16 101/56 (71) 97.7 Total Intake and Output 08/31/24 08/31/24 09/01/24 15:00 23:00 07:00 Intake Total 1130 ml 1050 ml Output Total 515 ml 1215 ml Balance 615 ml -165 ml medications Current Medications Medications Dose Ordered Sig/Lori Route Start Time Stop Time Status Last Admin Dose Admin Ondansetron HCl 4 mg Q4HP PRN IV 08/20/24 21:45 08/26/24 17:07 4 MG Docusate Sodium 100 mg BIDPRN PRN PO 08/20/24 21:45 Nitroglycerin 0.4 mg Q5MINP PRN SL 08/20/24 23:30 Albuterol 2.5 mg Q6HR NEB 08/21/24 12:00 09/01/24 07:12 2.5 MG Ipratropium [place] 0.5 mg Q6HR NEB 08/21/24 12:00 09/01/24 07:12 0.5 MG Lamotrigine 100 mg Q12HR PO 08/21/24 22:00 09/01/24 08:37 100 MG Ergocalciferol 50,000 unit Q7D PO 08/21/24 14:30 08/28/24 15:11 50,000 UNIT Doxycycline Hyclate 250 ml @ 125 mls/hr Q12H IV 08/25/24 00:00 09/01/24 11:42 125 MLS/HR Lorazepam 0.5 mg Q6HP PRN IV 08/25/24 20:30 08/26/24 09:25 0.5 MG Diphenhydramine HCl 25 mg Q4HP PRN IV 08/29/24 05:15 08/31/24 12:41 25 MG Throat Lozenges 1 jabier Q6HPRN PRN MT 08/29/24 05:15 08/30/24 16:55 1 JABIER Acetaminophen 650 mg Q6HP PRN PO 08/30/24 11:30 Piperacillin Sod/ Tazobactam Sod 100 ml @ 25 mls/hr Q6H IV 08/31/24 04:00 09/01/24 08:37 25 MLS/HR Ferrous Sulfate 325 mg BIDWM PO 08/31/24 18:00 09/01/24 08:37 325 MG Acetaminophen/ Hydrocodone Bitart 1 tab Q6HP PRN PO 08/31/24 18:15 09/01/24 06:26 1 TAB Examination General Appearance: Alert, Oriented X4, Cooperative, No acute distress. Lying comfortably in the bed HEENT: Atraumatic, PERRLA, EOMI, Mucous membrane moist/pink Respiratory: Diminished breath sounds, more on the right side. No crackles or wheezing heard. Right-sided chest tube seen draining light pinkish serosanguineous fluid. No air leak noticed. Dressing dry clean and intact. Cardiovascular: Regular rate, Normal S1, Normal S2, No murmurs, no chest wall tenderness Abdominal: Normal bowel sounds, Soft, No tenderness, No hepatospenomegaly, No masses Extremities: Erythema noticed on the extensor surfaces including the elbows, knees and the ankles. Skin: No rashes, No breakdown, No significant lesion Neuro: Normal gait, Normal speech, Strength at 5/5 X4 ext, Normal tone, Sensation intact, grossly intact cranial nerves. Psych/Mental Status: Mental status NL, Mood NL laboratory and microbiology Laboratory Tests 09/01/24 05:12 Test 09/01/24 05:12 Range/Units Serum Glucose 95 74-106 mg/dL Microbiology Date/Time Source Procedure Growth Status 08/29/24 13:23 Blood Blood Culture - Preliminary NO GROWTH AFTER 48 HOURS OF INCUBATION. Resulted 08/26/24 11:00 Pleural Fluid Gram Stain - Final Complete 08/26/24 11:00 Pleural Fluid Body Fluid Culture - Final Complete 08/24/24 21:20 Nasopharynx Coronavirus COVID-19 PCR (RONNIE) - Final Complete 08/24/24 18:29 Nose MRSA Screen - Final Complete Labs and/or images reviewed: Labs reviewed by me, Image(s) reviewed by me Problem List/Assessment/Plan Problem List/Assessment/Plan Acute hypoxic respiratory failure likely secondary to community-acquired pneumonia ? Vape associated vs ? Malignancy Sepsis due to Community-acquired pneumonia, Gram-positive and Gram-negative Loculated right-sided exudative pleural effusion status post chest tube placement and thoracocentesis with 700 mL drainage undergoing tPA course Chest tube placed 08/26/2024 in the right 4th intercostal mid axillary line by the ER. Draining yellow fluid. Per Dr. Kemp, tPA course after chest tube placement. 08/27 & 08/28- patient received 2 doses of 6 mg alteplase. Holding off on 3rd dose per dental coordinator Dr. Kemp. Thoracocentesis performed by Dr. Kemp 08/22, drain 700 mL of yellow fluid. Pleural studies suggestive of exudative effusion. Patient required oxygen supplementation with 2 L oxygen via NC, now on room air. CT chest revealed right-sided pleural effusion with atelectasis in the right lower lung field IV Zosyn q.6 hour starting 08/21/2024 IV doxycycline q.12 hour started 08/24/24 Discontinued IV azithromycin 500 mg daily - patient received from 08/21 to 08/24 Nebulized treatment with albuterol and ipratropium q.6 hours Blood cultures and body fluid culture have been negative so far. WBC 12 on arrival, up trending to 17 with 86 % neutrophils, now 13 COVID RNA and influenza testing negative 08/31-surgeon consulted for thoracotomy - NPO starting midnight. Thoracotomy scheduled 09/02. Reactive thrombocytosis Secondary to sepsis Monitor Rule Out pericardial effusion Echocardiogram completed 08/24 showed LVEF 55%. Normal frontal/valvular heart. No pericardial effusion Anemia, likely microcytic Hemoglobin on arrival 10.8, MCV 32, hematocrit 32 ESR 50, retic count 1.66, CRP 14, LDH 328 Iron panel completed shows low iron low TIBC low% saturation Ferritin elevated at 744 Urine analysis shows 2+ blood and 17 RBCs P.o. iron supplementation b.i.d. Transaminitis Bilirubin elevated at 1.3 Direct bili 0.7 AST 33, ALT 69, ALP 196 Patient quit drinking 3 years back Asymptomatic Hypotonic euvolemic hyponatremia secondary to ? Fluoxetine Serum sodium 128, serum osmolality 271, urine osmolality 340, urine sodium less than 10 DC fluoxetine Cavernous hemangioma Ultrasound liver completed, shows 1.7 cm well-circumscribed oval echogenic nodule in the left hepatic lobe compatible with a cavernous hemangioma Outpatient workup advised Ruled out HIV HIV testing negative ADHD, depression - stable No homicidal or suicidal ideation Continue fluoxetine 40 mg daily, lamotrigine 100 mg b.i.d. Ativan 0.5 mg p.r.n. Vitamin-D deficiency Supplemented Hypokalemia Replenished Diet cardiac Plan discussed with patient in which all questions have been answered Goals of care discussed for more than 22 minutes, full code status Case discussed with Dr. Gonzalez. Two doses of tPA administered 08/27 and 08/28. NPO starting midnight. Thoracotomy scheduled 09/02. Spoke with spouse/fiance - An Lloyd and updated with patient's plan. Plan discussed with: Patient My Orders My Orders Orders - LAVELL GONSALES Procedure Category Date Status Time Ferrous Sulfate Tablet PHA 08/31/24 In Process 18:00 Hydrocodone-Acet PHA 08/31/24 In Process 10/325mg Tab ([place] 18:15 Chest Xray 1 View XY 09/01/24 Resulted 06:13 Dietary Evaluation Review Comments: Continue current plan of care Expected Outcomes/Goals: F/U in 3-5 days Date of Service: Sep 01, 2024 Billing Provider: MARICRUZ GONZALEZ MD Common Visit Codes: [id number] INP/OBS CARE(MOD) LAVELL GONSALES Sep 01, 2024 11:59 MARICRUZ GONZALEZ MD Sep 02, 2024 08:48
--- NOTE | 2024-09-01 18:42 | DVHPN2 ---
Progress Note - Dictate Date Seen: Sep 01, 2024 Medical Necessity Reason Pt with a Central, PICC or Fol: No Subjective Patient seen and examined at bedside. Breathing comfortably on room air. Overnight events reviewed. vital signs Vital Sign Date Time Temp Pulse Resp B/P (MAP) Pulse Ox O2 Delivery O2 Flow Rate FiO2 09/01/24 17:00 98.0 100 18 97/48 (64) 97 98.0 09/01/24 11:51 Room Air* 0 21 Total Intake and Output 08/31/24 08/31/24 09/01/24 15:00 23:00 07:00 Intake Total 1130 ml 1050 ml Output Total 515 ml 1215 ml Balance 615 ml -165 ml medications Current Medications Medications Dose Ordered Sig/Lori Route Start Time Stop Time Status Last Admin Dose Admin Ondansetron HCl 4 mg Q4HP PRN IV 08/20/24 21:45 08/26/24 17:07 4 MG Docusate Sodium 100 mg BIDPRN PRN PO 08/20/24 21:45 Nitroglycerin 0.4 mg Q5MINP PRN SL 08/20/24 23:30 Albuterol 2.5 mg Q6HR NEB 08/21/24 12:00 09/01/24 18:39 2.5 MG Ipratropium [place] 0.5 mg Q6HR NEB 08/21/24 12:00 09/01/24 18:39 0.5 MG Lamotrigine 100 mg Q12HR PO 08/21/24 22:00 09/01/24 08:37 100 MG Ergocalciferol 50,000 unit Q7D PO 08/21/24 14:30 08/28/24 15:11 50,000 UNIT Doxycycline Hyclate 250 ml @ 125 mls/hr Q12H IV 08/25/24 00:00 09/01/24 11:42 125 MLS/HR Lorazepam 0.5 mg Q6HP PRN IV 08/25/24 20:30 08/26/24 09:25 0.5 MG Diphenhydramine HCl 25 mg Q4HP PRN IV 08/29/24 05:15 08/31/24 12:41 25 MG Throat Lozenges 1 jabier Q6HPRN PRN MT 08/29/24 05:15 08/30/24 16:55 1 JABIER Acetaminophen 650 mg Q6HP PRN PO 08/30/24 11:30 Piperacillin Sod/ Tazobactam Sod 100 ml @ 25 mls/hr Q6H IV 08/31/24 04:00 09/01/24 17:53 25 MLS/HR Ferrous Sulfate 325 mg BIDWM PO 08/31/24 18:00 09/01/24 17:15 325 MG Acetaminophen/ Hydrocodone Bitart 1 tab Q6HP PRN PO 08/31/24 18:15 09/01/24 17:15 1 TAB objective Gen.: Patient lying in bed in no apparent distress. Breathing on room air. Head: Normocephalic, atraumatic. Eyes: EOMI/PERRLA. Ears: Normal hearing. Normal anatomy. Neck/trachea: Trachea midline, supple. Nose: Normal external anatomy. Mouth: Moist mucous membranes. Chest: Decreased air entry bilaterally. No wheezing or rhonchi. Cardiovascular: Positive S1, positive S2. Regular rate and rhythm. Abdomen: Positive bowel sounds in all 4 quadrants. Soft, non-tender, non- distended. : Deferred. Rectal: Deferred. Skin: Warm, dry. Intact. Extremities: 2+ radial pulses bilaterally. No lower extremity edema. Neuro: Awake, alert, oriented x3. No gross motor or sensory deficits. Cranial nerves II through XII intact. Gait not assessed. laboratory and microbiology Laboratory Tests 09/01/24 05:12 Test 09/01/24 05:12 Range/Units Serum Glucose 95 74-106 mg/dL Assessment/Plan Impression: Loculated pleural effusion Pneumonia likely Gram-negative Elevated liver enzymes Atelectasis Events: Remains on room air No respiratory distress Patient is afebrile. Continue antibiotics Incentive spirometry Blood cx show no growth x72 hours CXR reviewed, demonstrates RLL airspace disease, small right pleural effusion, right chest tube in place Continue daily chest tube flush. Monitor output Pain control/Anxiolytic Avoid oversedation Plan for thoracotomy in the AM. Labs and imaging reviewed. Rest of plan as noted below. Plan: Supplemental oxygen if necessary Keep O2 saturation above 92%. Continue antibiotics Follow up fluid cultures Limited chest ultrasound demonstrated loculated right pleural effusion. Drained 700 mL of yellow colored fluid. Several septations were seen. See separate procedure note for right thoracentesis (08/22). S/p chest tube placement by IR. Continue bronchodilators Anxiolytics prn Monitor renal function Monitor electrolytes. Supplement as necessary. DVT prophylaxis Prognosis: Poor given multiple comorbidities. Rest of plan per hospitalist and other consultants. Thank you Dr. Jewell for allowing me to participate in this patient's care. Further recommendations will depend on patient's clinical course. Please do not hesitate to contact me if you have any questions or concerns. This medical document was created using an electronic medical record system with [employer] dictation system. Although this document has been carefully reviewed, there may still be some phonetic and typographical errors. These areas are purely typographical due to imperfections of the software programs, and do not reflect any compromise in the patient's medical care. Dietary Evaluation Review Comments: Continue current plan of care Expected Outcomes/Goals: F/U in 3-5 days Plan discussed with: Patient, Other (RN) PRESTON CARTY MD Sep 01, 2024 18:42
[2024-09-02] VITALS (17 sets, daily range): BP systolic 97–115; BP diastolic 45–64; PULSE 87–114; RESP 14–21; TEMP 97.9–99.5; O2SAT 92–100
[2024-09-02] MEDS: PIPERACILLIN-TAZOB 3.375GM 100 ML IV SCH ×2 (02:25→08:50)
[2024-09-02 05:48] LABS: Hemoglobin 9.7 g/dL (13.5-17.5); Lymphocytes % (auto) 9.1 % (10.0-50.0); Monocytes # (auto) 0.9 10 ^3/uL (0-1.3); Nucleated Red Blood Cells % 0.1 %
[2024-09-02 05:49] LABS: Basophils # (auto) 0.1 10 ^3/uL (0-0.2); Basophils % (auto) 1.2 % (0.0-2.0); Eosinophils # (auto) 0.2 10 ^3/uL (0-0.8); Eosinophils % (auto) 1.8 % (0.0-7.0); Hematocrit 29.9 % (41.0-53.0); Lymphocytes # (auto) 0.9 10 ^3/uL (0.4-5.4); Mean Corpuscular Hemoglobin 19.7 pg (28.0-32.0); Mean Corpuscular Hgb Conc. 32.4 g/dL (32.0-36.0); Mean Corpuscular Volume 60.7 fL (80.0-100.0); Neutrophils # (auto) 8.2 10 ^3/uL (1.6-8.6); Neutrophils % (auto) 78.9 % (37.0-80.0); Platelet Count (auto) 598 10^3/uL (140-450); Red Blood Cells 4.92 10^6/uL (4.5-5.90); Red Cell Distribution Width 15.9 % (11.8-14.3); White Blood Cell 10.4 10^3/uL (4.4-10.8)
[2024-09-02 05:56] LABS: Chloride 100 mmol/L (98-107); Sodium 136 mmol/L (136-145)
[2024-09-02 05:57] LABS: Anion Gap 7 (5-15); Calcium 9.4 mg/dL (8.7-10.4); Carbon Dioxide 29 mmol/L (20-31)
[2024-09-02 06:02] LABS: Blood Urea Nitrogen 8 mg/dL (9-23); Glucose 94 mg/dL (74-106)
[2024-09-02] MEDS: ACETAMINOPHEN 325 MG TAB PO PRN (08:48)
--- NOTE | 2024-09-02 13:56 | DVHPNRES ---
Progress Note Date Seen: Sep 02, 2024 Resident Creating Document: LAVELL GONSALES RESIDENT Medical Necessity Reason Pt with a Central, PICC or Fol: No Subjective Review of Systems Xu Amado is a 28-year-old male with past medical history of ADHD and depression who presented to [facility] ED with complaint of right sided chest pain and shortness of breath. 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 Reports vaping a lot recently and sharing his friends vape. Denies any recent travel history. Patient was [place]His father in law has probable COPD as he smokes and cough a lot per the patient. His pain is 9/10 numeric scale, getting worse on deep inhalation that prompted this visit. Patient also mentioned he has a history of fever for last 1 week and the highest temperature was 104 and yesterday he went to urgent care and he was referred from the urgent care due to the right-sided pleural effusion. Patient denied chest pain, dizziness, headache, diaphoresis, nausea or vomiting. Patient was admitted for further evaluation and medical management. Denies any weight loss. No history of incarceration or IV drug use. Home medications; lamotrigine, fluoxetine 08/25 - Patient seen and examined at bedside. Overnight patient was anxious received lorazepam 1 mg. Also reported night sweats. Chest x-ray repeated, shows enlarging pleural effusion, surgeon consulted for chest tube placement. Final blood culture negative, MRSA screen is negative. 08/26 - patient reports feeling better, no shortness of breaths. Overnight reports night sweats. IR was consulted, chest tube placed - draining yellow fluid. Specimen sent for cytology/differential/culture. 08/27-patient has no active complaint. 6 mg alteplase injected for intra- articular administration at around 8:30 p.m.. Patient tolerated well. Advised the nurse in the night float team to open the [place] at around 9:[address] Kemp in case gross blood seen. 08/28 - patient feels much better. Chest x-ray repeated 12 hours after 6 mg alteplase injection. Shows dramatic improvement in the right pleural effusion. Second dose of alteplase injection administered at 5:00 p.m.. Nurse advised to and cough the chest tube at 6:00 p.m.. Notify cylinder press operator in case of gross bleeding in the chest tube. 08/29 - patient reports no active complaint. Wants to go home. Chest x-ray reviewed in the a.m., or effusion looks worsen. WBC elevated from 15-17 with neutrophilic predominance. Chest tube draining 800 mL of dark yellow color fluid. 5:00 p.m.-history of draining pinkish color serosanguineous fluid. Per Dr. Kemp, chest x-ray in the a.m.. Third course of tPA probably tomorrow 08/30. 08/31 - no acute complaint. Chest x-ray in the a.m. repeated, shows persistent right middle and lower lobe effusion. Chest tube draining serosanguineous fluid. Dressing dry and intact. WBC trended down to 13 today. Surgeon consulted for surgical chest tube. 09/01 - reports feeling fine. Breath sounds absent on RLL. Flushed the chest tube with saline in AM. Draining 1020 ml of serosanguis fluid. Satting 95 on RA. Potassium 25meQ given. WBC 11.9. CXR: Small right pleural effusion. NPO starting midnight. Thoracotomy scheduled 09/02. 09/02 - Tmax 99.5. WBC count downtrending 10.4. Blood cultures so far have been negative. Underwent Right thoracotomy, evacuation of empyema, right lung decortication. Objective vital signs Vital Sign Date Time Temp Pulse Resp B/P (MAP) Pulse Ox O2 Delivery O2 Flow Rate FiO2 09/02/24 11:24 92 16 95 09/02/24 11:18 Room Air 0.0 09/02/24 11:18 21 09/02/24 09:00 99.5 107/59 (75) 99.5 Total Intake and Output 09/01/24 09/01/24 09/02/24 15:00 23:00 07:00 Intake Total 60 ml 1790 ml 550 ml Output Total 1050 ml Balance 60 ml 740 ml 550 ml medications Current Medications Medications Dose Ordered Sig/Lori Route Start Time Stop Time Status Last Admin Dose Admin Ondansetron HCl 4 mg Q4HP PRN IV 08/20/24 21:45 08/26/24 17:07 4 MG Docusate Sodium 100 mg BIDPRN PRN PO 08/20/24 21:45 Nitroglycerin 0.4 mg Q5MINP PRN SL 08/20/24 23:30 Albuterol 2.5 mg Q6HR NEB 08/21/24 12:00 09/02/24 11:18 2.5 MG Ipratropium [place] 0.5 mg Q6HR NEB 08/21/24 12:00 09/02/24 11:18 0.5 MG Lamotrigine 100 mg Q12HR PO 08/21/24 22:00 09/01/24 21:30 100 MG Ergocalciferol 50,000 unit Q7D PO 08/21/24 14:30 08/28/24 15:11 50,000 UNIT Doxycycline Hyclate 250 ml @ 125 mls/hr Q12H IV 08/25/24 00:00 09/02/24 12:13 125 MLS/HR Lorazepam 0.5 mg Q6HP PRN IV 08/25/24 20:30 09/02/24 12:13 0.5 MG Diphenhydramine HCl 25 mg Q4HP PRN IV 08/29/24 05:15 08/31/24 12:41 25 MG Throat Lozenges 1 jabier Q6HPRN PRN MT 08/29/24 05:15 08/30/24 16:55 1 JABIER Acetaminophen 650 mg Q6HP PRN PO 08/30/24 11:30 09/02/24 08:48 650 MG Ferrous Sulfate 325 mg BIDWM PO 08/31/24 18:00 09/02/24 08:48 325 MG Acetaminophen/ Hydrocodone Bitart 1 tab Q6HP PRN PO 08/31/24 18:15 09/02/24 01:24 1 TAB Piperacillin Sod/ Tazobactam Sod 100 ml @ 25 mls/hr Q6H IV 09/02/24 08:00 09/02/24 08:50 25 MLS/HR Examination General Appearance: Alert, Oriented X4, Cooperative, No acute distress. Lying comfortably in the bed HEENT: Atraumatic, PERRLA, EOMI, Mucous membrane moist/pink Respiratory: Diminished breath sounds, more on the right side. No crackles or wheezing heard. Right-sided chest tube seen draining reddish serosanguineous fluid. No air leak noticed. Dressing dry clean and intact. Cardiovascular: Regular rate, Normal S1, Normal S2, No murmurs, no chest wall tenderness Abdominal: Normal bowel sounds, Soft, No tenderness, No hepatospenomegaly, No masses Extremities: Erythema noticed on the extensor surfaces including the elbows, knees and the ankles. Skin: No rashes, No breakdown, No significant lesion Neuro: Normal gait, Normal speech, Strength at 5/5 X4 ext, Normal tone, Sensation intact, grossly intact cranial nerves. Psych/Mental Status: Mental status NL, Mood NL laboratory and microbiology Laboratory Tests 09/02/24 05:14 Test 09/02/24 05:14 Range/Units Serum Glucose 94 74-106 mg/dL Microbiology Date/Time Source Procedure Growth Status 08/29/24 13:23 Blood Blood Culture - Preliminary NO GROWTH AFTER 72 HOURS OF INCUBATION. Resulted 08/26/24 11:00 Pleural Fluid Gram Stain - Final Complete 08/26/24 11:00 Pleural Fluid Body Fluid Culture - Final Complete 08/24/24 21:20 Nasopharynx Coronavirus COVID-19 PCR (RONNIE) - Final Complete 08/24/24 18:29 Nose MRSA Screen - Final Complete Labs and/or images reviewed: Labs reviewed by me, Image(s) reviewed by me Problem List/Assessment/Plan Problem List/Assessment/Plan Acute hypoxic respiratory failure likely secondary to community-acquired pneumonia ? Vape associated vs ? Malignancy Sepsis due to Community-acquired pneumonia, Gram-positive and Gram-negative Loculated right-sided exudative pleural effusion status post R thoracotomy and chest tube placement and thoracocentesis with 700 mL drainage undergoing tPA course 09/02 - Underwent Right thoracotomy, evacuation of empyema, right lung decortication by Dr. Tobar Chest tube placed 08/26/2024 in the right 4th intercostal mid axillary line by the ER. Draining yellow fluid. Per Dr. Kemp, tPA course after chest tube placement. 08/27 & 08/28- patient received 2 doses of 6 mg alteplase. Holding off on 3rd dose per cylinder press operator Dr. Kemp. Thoracocentesis performed by Dr. Kemp 08/22, drain 700 mL of yellow fluid. Pleural studies suggestive of exudative effusion. Patient required oxygen supplementation with 2 L oxygen via NC, now on room air. CT chest revealed right-sided pleural effusion with atelectasis in the right lower lung field IV Zosyn q.6 hour starting 08/21/2024 IV doxycycline q.12 hour started 08/24/24 Discontinued IV azithromycin 500 mg daily - patient received from 08/21 to 08/24 Nebulized treatment with albuterol and ipratropium q.6 hours Blood cultures and body fluid culture have been negative so far. WBC 12 on arrival, up trending to 17 with 86 % neutrophils, now 13 COVID RNA and influenza testing negative 08/31-surgeon consulted for thoracotomy - NPO starting midnight. Thoracotomy scheduled 09/02. R lower lobe atelectasis Incentive spirometery Q1hr advised Reactive thrombocytosis Secondary to sepsis Monitor Rule Out pericardial effusion Echocardiogram completed 08/24 showed LVEF 55%. Normal frontal/valvular heart. No pericardial effusion Anemia, likely microcytic Hemoglobin on arrival 10.8, MCV 32, hematocrit 32 ESR 50, retic count 1.66, CRP 14, LDH 328 Iron panel completed shows low iron low TIBC low% saturation Ferritin elevated at 744 Urine analysis shows 2+ blood and 17 RBCs P.o. iron supplementation b.i.d. Transaminitis Bilirubin elevated at 1.3 Direct bili 0.7 AST 33, ALT 69, ALP 196 Patient quit drinking 3 years back Asymptomatic Hypotonic euvolemic hyponatremia secondary to ? Fluoxetine Serum sodium 128, serum osmolality 271, urine osmolality 340, urine sodium less than 10 DC fluoxetine Cavernous hemangioma Ultrasound liver completed, shows 1.7 cm well-circumscribed oval echogenic nodule in the left hepatic lobe compatible with a cavernous hemangioma Outpatient workup advised Ruled out HIV HIV testing negative ADHD, depression - stable No homicidal or suicidal ideation Continue fluoxetine 40 mg daily, lamotrigine 100 mg b.i.d. Ativan 0.5 mg p.r.n. Vitamin-D deficiency Supplemented Hypokalemia Replenished Diet cardiac Plan discussed with patient in which all questions have been answered Goals of care discussed for more than 22 minutes, full code status Case discussed with Dr. Gonzalez. Two doses of tPA administered 08/27 and 08/28. Underwent Right thoracotomy, evacuation of empyema, right lung decortication. critical care time 45 mins Plan discussed with: Patient My Orders My Orders Orders - LAVELL GONSALES RESIDENT Procedure Category Date Status Time Npo (Nothing By DIET 09/01/24 Transmitted Mouth) Diet Dinner Dietary Evaluation Review Comments: Continue current plan of care Expected Outcomes/Goals: F/U in 3-5 days Date of Service: Sep 02, 2024 Billing Provider: MARICRUZ GONZALEZ MD Common Visit Codes: [id number] CARE 30-74 MIN LAVELL GONSALES RESIDENT Sep 02, 2024 13:56 MARICRUZ GONZALEZ MD Sep 02, 2024 18:21
[2024-09-02] MEDS ORDERED: GLYCOPYRROLATE 0.2 MG/ML 1ML VIAL ONE (14:04)
[2024-09-02] MEDS ORDERED: ePHEDrine SULFATE 50 MG/ML AMP ONE (14:04)
[2024-09-02] MEDS ORDERED: ONDANSETRON HCL 4 MG/2 ML VIAL ONE (14:04)
[2024-09-02] MEDS ORDERED: MIDAZOLAM HCL 2MG/2ML 2ml VIAL (1mg/ml) ONE (14:04)
[2024-09-02] MEDS ORDERED: fentaNYL CITRATE 100 MCG/2 ML VL ONE (14:04)
[2024-09-02] MEDS ORDERED: KETOROLAC TROMETH 30 MG/ML 1ML VIAL ONE (14:04)
[2024-09-02] MEDS ORDERED: PROPOFOL 10 MG/ML 20 ML IV ONE (14:04)
[2024-09-02] MEDS ORDERED: HYDROmorphone HCL 2 MG/ML VL/or syr ONE (14:04)
[2024-09-02] MEDS ORDERED: DexAMETHasone SOD PHOS 10MG/1ML VIAL INJ ONE (14:04)
[2024-09-02] MEDS ORDERED: MEPERIDINE HCL (50 MG/ML) 1 ML VIAL ONE (14:05)
[2024-09-02] MEDS ORDERED: HYDROmorphone HCL 2 MG/ML VL/or syr IV PRN ×2 (15:15→17:30)
[2024-09-02] MEDS ORDERED: SUGAMMADEX 200mg/2ml Vial (100MG/ML) IV ONE (15:20)
[2024-09-02] MEDS: BUPIVACAINE W/ EPINEPH 0.5% MPF 30ML VIAL IJ ONE (16:06)
[2024-09-02] MEDS: LIDOCAINE 1% HCL (LOCAL ANESTH.) INJ 20ML MDV ONE (16:36)
--- NOTE | 2024-09-02 17:20 | DVHOP ---
DATE OF SURGERY: 09/02/2024 PREOPERATIVE DIAGNOSIS: Empyema, right chest. POSTOPERATIVE DIAGNOSES: Empyema, right chest plus lung entrapment with pleural peel. SURGEON: Nicholas Tobar MD DOG BATHER: Chivo Prescott. ANESTHESIA: General endotracheal. ANESTHESIOLOGIST: Dr. Mendez. PROCEDURE: Right thoracotomy, evacuation of empyema, right lung decortication. DESCRIPTION OF PROCEDURE: Under general endotracheal anesthesia, with the patient's skin prepped and draped, 0.25% Marcaine, 0.5% Xylocaine infiltration wheal was raised over the fifth interspace and the incision accomplished with a knife deepened with electrocautery. Muscles divided with electrocautery. The fifth interspace was entered superior to the 6th rib. The patient's chest cavity contained infected fluid, which was sent for cultures. The patient's lung was trapped by a pleural peel, which was decorticated. Samples of the decortication sent for histopathologic examination. The chest was then thoroughly irrigated with saline containing Betadine solution, which was aspirated prior to closure. Following achievement of complete hemostasis, the 40 size chest tube was placed to replace the pleural catheter ____ removed prior to anesthesia. The 40 size chest tube was directed posterosuperiorly and secured with Tevdek suture. Subsequently, the ribcage was approximated using nonabsorbable [id number] sutures. Muscle was approximated using #1 double stranded PDS suture. The wound was approximated using Monocryl sutures, Dermabond glue and Steri-Strips. The patient remained stable throughout the procedure, left the operating room following an accurate needle and sponge count. The patient's family was informed by phone. Nicholas Tobar MD PF TID: [id number] RECEIPT: [id number]
[2024-09-02] MEDS ORDERED: ePHEDrine SULFATE 50 MG/ML AMP IV PRN (17:30)
[2024-09-02] MEDS ORDERED: fentaNYL CITRATE 100 MCG/2 ML VL IV PRN (17:30)
[2024-09-02] MEDS ORDERED: hydrALAZINE HCL 20 MG/ML VL IV PRN (17:30)
[2024-09-02] MEDS ORDERED: MIDAZOLAM HCL 2MG/2ML 2ml VIAL (1mg/ml) IV PRN (17:30)
[2024-09-02] MEDS ORDERED: MORPHINE SULFATE 4 MG/ML SYR/VIAL IV PRN (17:30)
--- NOTE | 2024-09-02 17:39 | DVH ---
CHEST RADIOGRAPH Indication:S/P RIGHT THORACOTOMY AND DECORTICATION Technique: Single frontal view of the chest was obtained Comparison: XY CHEST XRAY 1 VIEW on DOS: 09/01/24, XY CHEST XRAY 1 VIEW on DOS: 08/31/24, XY CHEST XR AY 1 VIEW on DOS: 08/30/24 Findings/ IMPRESSION: Elevated right hemidiaphragm with right basilar atelectasis. Right-sided surgical drain terminating i n the right lower lung zone. Left lung is clear. No pneumothorax.
[2024-09-02] MEDS: ePHEDrine SULFATE 50 MG/ML AMP ONE (18:21)
[2024-09-02] MEDS: KETOROLAC TROMETH 30 MG/ML 1ML VIAL IV ONE (20:50)
--- NOTE | 2024-09-02 22:26 | DVHPN2 ---
Progress Note - Dictate Date Seen: Sep 02, 2024 Medical Necessity Reason Pt with a Central, PICC or Fol: No Subjective Patient seen and examined at bedside. Breathing comfortably on room air. Overnight events reviewed. vital signs Vital Sign Date Time Temp Pulse Resp B/P (MAP) Pulse Ox O2 Delivery O2 Flow Rate FiO2 09/02/24 19:29 91 16 99 09/02/24 19:24 Room Air* 0 21 09/02/24 19:20 98.1 100/45 (63) 98.1 Total Intake and Output 09/01/24 09/01/24 09/02/24 15:00 23:00 07:00 Intake Total 60 ml 1790 ml 550 ml Output Total 1050 ml Balance 60 ml 740 ml 550 ml medications Current Medications Medications Dose Ordered Sig/Lori Route Start Time Stop Time Status Last Admin Dose Admin Ondansetron HCl 4 mg Q4HP PRN IV 08/20/24 21:45 08/26/24 17:07 4 MG Docusate Sodium 100 mg BIDPRN PRN PO 08/20/24 21:45 Nitroglycerin 0.4 mg Q5MINP PRN SL 08/20/24 23:30 Albuterol 2.5 mg Q6HR NEB 08/21/24 12:00 09/02/24 19:23 2.5 MG Ipratropium [place] 0.5 mg Q6HR NEB 08/21/24 12:00 09/02/24 19:23 0.5 MG Lamotrigine 100 mg Q12HR PO 08/21/24 22:00 09/02/24 22:05 100 MG Ergocalciferol 50,000 unit Q7D PO 08/21/24 14:30 08/28/24 15:11 50,000 UNIT Doxycycline Hyclate 250 ml @ 125 mls/hr Q12H IV 08/25/24 00:00 09/02/24 12:13 125 MLS/HR Lorazepam 0.5 mg Q6HP PRN IV 08/25/24 20:30 09/02/24 12:13 0.5 MG Diphenhydramine HCl 25 mg Q4HP PRN IV 08/29/24 05:15 08/31/24 12:41 25 MG Throat Lozenges 1 jabier Q6HPRN PRN MT 08/29/24 05:15 08/30/24 16:55 1 JABIER Acetaminophen 650 mg Q6HP PRN PO 08/30/24 11:30 09/02/24 08:48 650 MG Ferrous Sulfate 325 mg BIDWM PO 08/31/24 18:00 09/02/24 08:48 325 MG Acetaminophen/ Hydrocodone Bitart 1 tab Q6HP PRN PO 08/31/24 18:15 09/02/24 22:24 1 TAB Piperacillin Sod/ Tazobactam Sod 100 ml @ 25 mls/hr Q6H IV 09/02/24 08:00 09/02/24 20:06 25 MLS/HR objective Gen.: Patient lying in bed in no apparent distress. Breathing on room air. Head: Normocephalic, atraumatic. Eyes: EOMI/PERRLA. Ears: Normal hearing. Normal anatomy. Neck/trachea: Trachea midline, supple. Nose: Normal external anatomy. Mouth: Moist mucous membranes. Chest: Decreased air entry bilaterally. No wheezing or rhonchi. Cardiovascular: Positive S1, positive S2. Regular rate and rhythm. Abdomen: Positive bowel sounds in all 4 quadrants. Soft, non-tender, non- distended. : Deferred. Rectal: Deferred. Skin: Warm, dry. Intact. Extremities: 2+ radial pulses bilaterally. No lower extremity edema. Neuro: Awake, alert, oriented x3. No gross motor or sensory deficits. Cranial nerves II through XII intact. Gait not assessed. laboratory and microbiology Laboratory Tests 09/02/24 05:14 Test 09/02/24 05:14 Range/Units Serum Glucose 94 74-106 mg/dL Assessment/Plan Impression: Loculated pleural effusion Pneumonia likely Gram-negative Elevated liver enzymes Atelectasis Events: Remains on room air No respiratory distress Patient is afebrile. Continue antibiotics Incentive spirometry Blood cx show no growth thus far. S/p large-bore chest tube Chest tube placed to suction -20 cmH2O. Sanguineous output - continue to monitor Continue daily chest tube flush. Pain control/Anxiolytic Avoid oversedation Plan for thoracotomy. Labs and imaging reviewed. Rest of plan as noted below. Plan: Supplemental oxygen if necessary Keep O2 saturation above 92%. Continue antibiotics Follow up fluid cultures Limited chest ultrasound demonstrated loculated right pleural effusion. Drained 700 mL of yellow colored fluid. Several septations were seen. See separate procedure note for right thoracentesis (08/22). S/p chest tube placement by IR. Continue bronchodilators Anxiolytics prn Monitor renal function Monitor electrolytes. Supplement as necessary. DVT prophylaxis Prognosis: Poor given multiple comorbidities. Rest of plan per hospitalist and other consultants. Thank you Dr. Jewell for allowing me to participate in this patient's care. Further recommendations will depend on patient's clinical course. Please do not hesitate to contact me if you have any questions or concerns. This medical document was created using an electronic medical record system with [employer] dictation system. Although this document has been carefully reviewed, there may still be some phonetic and typographical errors. These areas are purely typographical due to imperfections of the software programs, and do not reflect any compromise in the patient's medical care. Dietary Evaluation Review Comments: Continue current plan of care Expected Outcomes/Goals: F/U in 3-5 days Plan discussed with: Patient, Other (DOC Mann) PRESTON CARTY MD Sep 02, 2024 22:26
[2024-09-03] VITALS (16 sets, daily range): BP systolic 91–111; BP diastolic 54–66; PULSE 78–113; RESP 16–20; TEMP 97.3–98; O2SAT 94–100
[2024-09-03 05:39] LABS: Hemoglobin 9.1 g/dL (13.5-17.5)
[2024-09-03 05:42] LABS: Hematocrit 28.4 % (41.0-53.0); Mean Corpuscular Hemoglobin 19.5 pg (28.0-32.0); Mean Corpuscular Hgb Conc. 31.8 g/dL (32.0-36.0); Mean Corpuscular Volume 61.2 fL (80.0-100.0); Platelet Count (auto) 603 10^3/uL (140-450); Red Blood Cells 4.65 10^6/uL (4.5-5.90); Red Cell Distribution Width 16.1 % (11.8-14.3); White Blood Cell 9.8 10^3/uL (4.4-10.8)
--- NOTE | 2024-09-03 05:52 | DVH ---
CHEST RADIOGRAPH Indication:POST OP Technique: Single frontal view of the chest was obtained Comparison: XY CHEST PORTABLE on DOS: 09/02/24 FINDINGS: Lines and Tubes: Right chest tubes unchanged. Lungs: Right airspace disease similar to prior study. Pleura: No effusion. No pneumothorax. Cardiomediastinal contours: Unremarkable Bones: No acute osseous abnormality. IMPRESSION: 1. Right chest tubes unchanged. Right airspace disease similar to prior study.
[2024-09-03 05:55] LABS: Band Neutrophils % (manual) 0; Basophils % (manual) 0 (0.0-2.0); Blast Cells 0; Eosinophils % (manual) 0 (0-7); Metamyelocytes % 0; Myelocytes % 0; Promyelocytes % 0; Reactive Lymphocytes 0
--- NOTE | 2024-09-03 06:36 | DVHPNRES ---
Progress Note Date Seen: Sep 03, 2024 Resident Creating Document: LAVELL GONSALES RESIDENT Medical Necessity Reason Pt with a Central, PICC or Fol: No Subjective Review of Systems Xu Amado is a 28-year-old male with past medical history of ADHD and depression who presented to [facility] ED with complaint of right sided chest pain and shortness of breath. 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 Reports vaping a lot recently and sharing his friends vape. Denies any recent travel history. Patient was [place]His father in law has probable COPD as he smokes and cough a lot per the patient. His pain is 9/10 numeric scale, getting worse on deep inhalation that prompted this visit. Patient also mentioned he has a history of fever for last 1 week and the highest temperature was 104 and yesterday he went to urgent care and he was referred from the urgent care due to the right-sided pleural effusion. Patient denied chest pain, dizziness, headache, diaphoresis, nausea or vomiting. Patient was admitted for further evaluation and medical management. Denies any weight loss. No history of incarceration or IV drug use. Home medications; lamotrigine, fluoxetine 08/25 - Patient seen and examined at bedside. Overnight patient was anxious received lorazepam 1 mg. Also reported night sweats. Chest x-ray repeated, shows enlarging pleural effusion, surgeon consulted for chest tube placement. Final blood culture negative, MRSA screen is negative. 08/26 - patient reports feeling better, no shortness of breaths. Overnight reports night sweats. IR was consulted, chest tube placed - draining yellow fluid. Specimen sent for cytology/differential/culture. 08/27-patient has no active complaint. 6 mg alteplase injected for intra- articular administration at around 8:30 p.m.. Patient tolerated well. Advised the nurse in the night float team to open the [place] at around 9:[address] Kemp in case gross blood seen. 08/28 - patient feels much better. Chest x-ray repeated 12 hours after 6 mg alteplase injection. Shows dramatic improvement in the right pleural effusion. Second dose of alteplase injection administered at 5:00 p.m.. Nurse advised to and cough the chest tube at 6:00 p.m.. Notify cut off saw operator in case of gross bleeding in the chest tube. 08/29 - patient reports no active complaint. Wants to go home. Chest x-ray reviewed in the a.m., or effusion looks worsen. WBC elevated from 15-17 with neutrophilic predominance. Chest tube draining 800 mL of dark yellow color fluid. 5:00 p.m.-history of draining pinkish color serosanguineous fluid. Per Dr. Kemp, chest x-ray in the a.m.. Third course of tPA probably tomorrow 08/30. 08/31 - no acute complaint. Chest x-ray in the a.m. repeated, shows persistent right middle and lower lobe effusion. Chest tube draining serosanguineous fluid. Dressing dry and intact. WBC trended down to 13 today. Surgeon consulted for surgical chest tube. 09/01 - reports feeling fine. Breath sounds absent on RLL. Flushed the chest tube with saline in AM. Draining 1020 ml of serosanguis fluid. Satting 95 on RA. Potassium 25meQ given. WBC 11.9. CXR: Small right pleural effusion. NPO starting midnight. Thoracotomy scheduled 09/02. 09/02 - Tmax 99.5. WBC count downtrending 10.4. Blood cultures so far have been negative. Underwent Right thoracotomy, evacuation of empyema, right lung decortication - The patient's chest cavity contained infected fluid, which was sent for cultures. 40 size chest tube placed 09/03 - Patient feels fine. Chest tube draining 190cc red serosanguinous fluid. Dressing dry, intact and clean. Objective vital signs Vital Sign Date Time Temp Pulse Resp B/P (MAP) Pulse Ox O2 Delivery O2 Flow Rate FiO2 09/03/24 05:00 97.7 90 18 98/65 (76) 95 97.7 09/03/24 00:36 Room Air* 0 21 Total Intake and Output 09/02/24 09/02/24 09/03/24 15:00 23:00 07:00 Intake Total 350 ml 0 ml 600 ml Output Total 400 ml Balance 350 ml 0 ml 200 ml medications Current Medications Medications Dose Ordered Sig/Lori Route Start Time Stop Time Status Last Admin Dose Admin Ondansetron HCl 4 mg Q4HP PRN IV 08/20/24 21:45 08/26/24 17:07 4 MG Docusate Sodium 100 mg BIDPRN PRN PO 08/20/24 21:45 Nitroglycerin 0.4 mg Q5MINP PRN SL 08/20/24 23:30 Albuterol 2.5 mg Q6HR NEB 08/21/24 12:00 09/03/24 00:36 2.5 MG Ipratropium [place] 0.5 mg Q6HR NEB 08/21/24 12:00 09/03/24 00:36 0.5 MG Lamotrigine 100 mg Q12HR PO 08/21/24 22:00 09/02/24 22:05 100 MG Ergocalciferol 50,000 unit Q7D PO 08/21/24 14:30 08/28/24 15:11 50,000 UNIT Doxycycline Hyclate 250 ml @ 125 mls/hr Q12H IV 08/25/24 00:00 09/03/24 00:00 125 MLS/HR Lorazepam 0.5 mg Q6HP PRN IV 08/25/24 20:30 09/02/24 12:13 0.5 MG Diphenhydramine HCl 25 mg Q4HP PRN IV 08/29/24 05:15 08/31/24 12:41 25 MG Throat Lozenges 1 jabier Q6HPRN PRN MT 08/29/24 05:15 08/30/24 16:55 1 JABIER Acetaminophen 650 mg Q6HP PRN PO 08/30/24 11:30 09/02/24 08:48 650 MG Ferrous Sulfate 325 mg BIDWM PO 08/31/24 18:00 09/02/24 08:48 325 MG Acetaminophen/ Hydrocodone Bitart 1 tab Q6HP PRN PO 08/31/24 18:15 09/03/24 05:44 1 TAB Piperacillin Sod/ Tazobactam Sod 100 ml @ 25 mls/hr Q6H IV 09/02/24 08:00 09/02/24 20:06 25 MLS/HR Examination General Appearance: Alert, Oriented X4, Cooperative, No acute distress. Lying comfortably in the bed HEENT: Atraumatic, PERRLA, EOMI, Mucous membrane moist/pink Respiratory: Diminished breath sounds, more on the right side. No crackles or wheezing heard. Right-sided chest tube seen draining 190cc reddish serosanguineous fluid. No air leak noticed. Dressing dry clean and intact. Cardiovascular: Regular rate, Normal S1, Normal S2, No murmurs, no chest wall tenderness Abdominal: Normal bowel sounds, Soft, No tenderness, No hepatospenomegaly, No masses Extremities: Erythema noticed on the extensor surfaces including the elbows, knees and the ankles. Skin: No rashes, No breakdown, No significant lesion Neuro: Normal gait, Normal speech, Strength at 5/5 X4 ext, Normal tone, Sensation intact, grossly intact cranial nerves. Psych/Mental Status: Mental status NL, Mood NL laboratory and microbiology Laboratory Tests 09/03/24 05:12 09/02/24 05:14 Test 09/02/24 05:14 Range/Units Serum Glucose 94 74-106 mg/dL Microbiology Date/Time Source Procedure Growth Status 08/29/24 13:23 Blood Blood Culture - Preliminary NO GROWTH AFTER 72 HOURS OF INCUBATION. Resulted 08/26/24 11:00 Pleural Fluid Gram Stain - Final Complete 08/26/24 11:00 Pleural Fluid Body Fluid Culture - Final Complete 08/24/24 21:20 Nasopharynx Coronavirus COVID-19 PCR (RONNIE) - Final Complete 08/24/24 18:29 Nose MRSA Screen - Final Complete Labs and/or images reviewed: Labs reviewed by me, Image(s) reviewed by me Problem List/Assessment/Plan Problem List/Assessment/Plan Acute hypoxic respiratory failure likely secondary to community-acquired pneumonia ? Vape associated vs ? Malignancy Sepsis due to Community-acquired pneumonia, Gram-positive and Gram-negative Loculated right-sided exudative pleural effusion status post R thoracotomy and chest tube placement and thoracocentesis with 700 mL drainage undergoing tPA course 09/02 - Underwent Right thoracotomy, evacuation of empyema, right lung decortication by Dr. Tobar Chest tube placed 08/26/2024 in the right 4th intercostal mid axillary line by the ER. Draining yellow fluid. Per Dr. Kemp, tPA course after chest tube placement. 08/27 & 08/28- patient received 2 doses of 6 mg alteplase. Holding off on 3rd dose per cut off saw operator Dr. Kemp. Thoracocentesis performed by Dr. Kemp 08/22, drain 700 mL of yellow fluid. Pleural studies suggestive of exudative effusion. Patient required oxygen supplementation with 2 L oxygen via NC, now on room air. CT chest revealed right-sided pleural effusion with atelectasis in the right lower lung field IV Zosyn q.6 hour starting 08/21/2024 IV doxycycline q.12 hour started 08/24/24 Discontinued IV azithromycin 500 mg daily - patient received from 08/21 to 08/24 Nebulized treatment with albuterol and ipratropium q.6 hours Blood cultures and body fluid culture have been negative so far. WBC 12 on arrival, up trending to 17 with 86 % neutrophils, now 13 COVID RNA and influenza testing negative R lower lobe atelectasis Incentive spirometery Q1hr advised Reactive thrombocytosis Secondary to sepsis Monitor Rule Out pericardial effusion Echocardiogram completed 08/24 showed LVEF 55%. Normal frontal/valvular heart. No pericardial effusion Anemia, likely microcytic Hemoglobin on arrival 10.8, MCV 32, hematocrit 32 ESR 50, retic count 1.66, CRP 14, LDH 328 Iron panel completed shows low iron low TIBC low% saturation Ferritin elevated at 744 Urine analysis shows 2+ blood and 17 RBCs P.o. iron supplementation b.i.d. Transaminitis Bilirubin elevated at 1.3 Direct bili 0.7 AST 33, ALT 69, ALP 196 Patient quit drinking 3 years back Asymptomatic Hypotonic euvolemic hyponatremia secondary to ? Fluoxetine Serum sodium 128, serum osmolality 271, urine osmolality 340, urine sodium less than 10 DC fluoxetine Cavernous hemangioma Ultrasound liver completed, shows 1.7 cm well-circumscribed oval echogenic nodule in the left hepatic lobe compatible with a cavernous hemangioma Outpatient workup advised Ruled out HIV HIV testing negative ADHD, depression - stable No homicidal or suicidal ideation Continue fluoxetine 40 mg daily, lamotrigine 100 mg b.i.d. Ativan 0.5 mg p.r.n. Vitamin-D deficiency Supplemented Hypokalemia Replenished Diet cardiac Plan discussed with patient in which all questions have been answered Goals of care discussed for more than 22 minutes, full code status Case discussed with Dr. Gonzalez. Two doses of tPA administered 08/27 and 08/28. Underwent Right thoracotomy 09/02. Chest tube draining 190cc red serosanguinous fluid. Plan discussed with: Patient, Spouse Dietary Evaluation Review Comments: Continue current plan of care Expected Outcomes/Goals: F/U in 3-5 days Date of Service: Sep 03, 2024 Billing Provider: MARICRUZ GONZALEZ MD Common Visit Codes: [id number] INP/OBS CARE(HIGH) LAVELL GONSALES RESIDENT Sep 03, 2024 06:36 MARICRUZ GONZALEZ MD Sep 03, 2024 18:02
[2024-09-03 07:30] LABS: Lymphocytes % (manual) 3 (10.0-50.0); Monocytes % (manual) 1 (0-12); Platelet Estimate Increased
--- NOTE | 2024-09-03 11:06 | DVHPNRES ---
Progress Note Medical Necessity Reason Pt with a Central, PICC or Fol: No Objective vital signs Vital Sign Date Time Temp Pulse Resp B/P (MAP) Pulse Ox O2 Delivery O2 Flow Rate FiO2 09/03/24 09:00 97.4 91 19 96/54 (68) 94 97.4 09/03/24 07:00 Room Air 0.0 09/03/24 07:00 21 Total Intake and Output 09/02/24 09/02/24 09/03/24 15:00 23:00 07:00 Intake Total 350 ml 0 ml 600 ml Output Total 400 ml Balance 350 ml 0 ml 200 ml medications Current Medications Medications Dose Ordered Sig/Lori Route Start Time Stop Time Status Last Admin Dose Admin Ondansetron HCl 4 mg Q4HP PRN IV 08/20/24 21:45 08/26/24 17:07 4 MG Docusate Sodium 100 mg BIDPRN PRN PO 08/20/24 21:45 Nitroglycerin 0.4 mg Q5MINP PRN SL 08/20/24 23:30 Albuterol 2.5 mg Q6HR NEB 08/21/24 12:00 09/03/24 07:00 2.5 MG Ipratropium [place] 0.5 mg Q6HR NEB 08/21/24 12:00 09/03/24 07:00 0.5 MG Lamotrigine 100 mg Q12HR PO 08/21/24 22:00 09/03/24 09:07 100 MG Ergocalciferol 50,000 unit Q7D PO 08/21/24 14:30 08/28/24 15:11 50,000 UNIT Doxycycline Hyclate 250 ml @ 125 mls/hr Q12H IV 08/25/24 00:00 09/03/24 00:00 125 MLS/HR Lorazepam 0.5 mg Q6HP PRN IV 08/25/24 20:30 09/02/24 12:13 0.5 MG Diphenhydramine HCl 25 mg Q4HP PRN IV 08/29/24 05:15 08/31/24 12:41 25 MG Throat Lozenges 1 jabier Q6HPRN PRN MT 08/29/24 05:15 08/30/24 16:55 1 JABIRE Acetaminophen 650 mg Q6HP PRN PO 08/30/24 11:30 09/02/24 08:48 650 MG Ferrous Sulfate 325 mg BIDWM PO 08/31/24 18:00 09/03/24 09:07 325 MG Acetaminophen/ Hydrocodone Bitart 1 tab Q6HP PRN PO 08/31/24 18:15 09/03/24 05:44 1 TAB Piperacillin Sod/ Tazobactam Sod 100 ml @ 25 mls/hr Q6H IV 09/02/24 08:00 09/03/24 08:56 25 MLS/HR laboratory and microbiology Laboratory Tests 09/03/24 05:12 09/02/24 05:14 Test 09/02/24 05:14 Range/Units Serum Glucose 94 74-106 mg/dL Microbiology Date/Time Source Procedure Growth Status 08/29/24 13:23 Blood Blood Culture - Preliminary NO GROWTH AFTER 72 HOURS OF INCUBATION. Resulted 08/26/24 11:00 Pleural Fluid Gram Stain - Final Complete 08/26/24 11:00 Pleural Fluid Body Fluid Culture - Final Complete 08/24/24 21:20 Nasopharynx Coronavirus COVID-19 PCR (RONNIE) - Final Complete 08/24/24 18:29 Nose MRSA Screen - Final Complete Problem List/Assessment/Plan Problem List/Assessment/Plan Acute hypoxic respiratory failure likely secondary to community-acquired pneumonia ? Vape associated vs ? Malignancy Sepsis due to Community-acquired pneumonia, Gram-positive and Gram-negative Loculated right-sided exudative pleural effusion status post R thoracotomy and chest tube placement and thoracocentesis with 700 mL drainage undergoing tPA course 09/02 - Underwent Right thoracotomy, evacuation of empyema, right lung decortication by Dr. Tobar Chest tube placed 08/26/2024 in the right 4th intercostal mid axillary line by the ER. Draining yellow fluid. Per Dr. Kemp, tPA course after chest tube placement. 08/27 & 08/28- patient received 2 doses of 6 mg alteplase. Holding off on 3rd dose per vegetable thinner Dr. Kemp. Thoracocentesis performed by Dr. Kemp 08/22, drain 700 mL of yellow fluid. Pleural studies suggestive of exudative effusion. Patient required oxygen supplementation with 2 L oxygen via NC, now on room air. CT chest revealed right-sided pleural effusion with atelectasis in the right lower lung field IV Zosyn q.6 hour starting 08/21/2024 IV doxycycline q.12 hour started 08/24/24 Discontinued IV azithromycin 500 mg daily - patient received from 08/21 to 08/24 Nebulized treatment with albuterol and ipratropium q.6 hours Blood cultures and body fluid culture have been negative so far. WBC 12 on arrival, up trending to 17 with 86 % neutrophils, now 13 COVID RNA and influenza testing negative 08/31-surgeon consulted for thoracotomy - NPO starting midnight. Thoracotomy scheduled 09/02. R lower lobe atelectasis Incentive spirometery Q1hr advised Reactive thrombocytosis Secondary to sepsis Monitor Rule Out pericardial effusion Echocardiogram completed 08/24 showed LVEF 55%. Normal frontal/valvular heart. No pericardial effusion Anemia, likely microcytic Hemoglobin on arrival 10.8, MCV 32, hematocrit 32 ESR 50, retic count 1.66, CRP 14, LDH 328 Iron panel completed shows low iron low TIBC low% saturation Ferritin elevated at 744 Urine analysis shows 2+ blood and 17 RBCs P.o. iron supplementation b.i.d. Transaminitis Bilirubin elevated at 1.3 Direct bili 0.7 AST 33, ALT 69, ALP 196 Patient quit drinking 3 years back Asymptomatic Hypotonic euvolemic hyponatremia secondary to ? Fluoxetine Serum sodium 128, serum osmolality 271, urine osmolality 340, urine sodium less than 10 DC fluoxetine Cavernous hemangioma Ultrasound liver completed, shows 1.7 cm well-circumscribed oval echogenic nodule in the left hepatic lobe compatible with a cavernous hemangioma Outpatient workup advised Ruled out HIV HIV testing negative ADHD, depression - stable No homicidal or suicidal ideation Continue fluoxetine 40 mg daily, lamotrigine 100 mg b.i.d. Ativan 0.5 mg p.r.n. Vitamin-D deficiency Supplemented Hypokalemia Replenished Diet cardiac Plan discussed with patient in which all questions have been answered Goals of care discussed for more than 22 minutes, full code status Case discussed with Dr. Gonzalez. Two doses of tPA administered 08/27 and 08/28. Underwent Right thoracotomy, evacuation of empyema, right lung decortication. My Orders My Orders Orders - LAVELL GONSALES Procedure Category Date Status Time Discontinue Tele LEANDRO 09/03/24 In Process 07:15 Regular Diet DIET 09/03/24 Transmitted Breakfast Dietary Evaluation Review Comments: Continue current plan of care Expected Outcomes/Goals: F/U in 3-5 days LAVELL GONSALES Sep 03, 2024 11:06
--- NOTE | 2024-09-03 14:05 | DVHPN2 ---
Progress Note Date Seen: Sep 03, 2024 Medical Necessity Reason Pt with a Central, PICC or Fol: No Objective vital signs Vital Sign Date Time Temp Pulse Resp B/P (MAP) Pulse Ox O2 Delivery O2 Flow Rate FiO2 09/03/24 12:12 92 18 95 09/03/24 12:06 Room Air 0.0 09/03/24 12:06 21 09/03/24 09:00 97.4 96/54 (68) 97.4 Total Intake and Output 09/02/24 09/02/24 09/03/24 15:00 23:00 07:00 Intake Total 350 ml 0 ml 600 ml Output Total 400 ml Balance 350 ml 0 ml 200 ml medications Current Medications Medications Dose Ordered Sig/Lori Route Start Time Stop Time Status Last Admin Dose Admin Ondansetron HCl 4 mg Q4HP PRN IV 08/20/24 21:45 08/26/24 17:07 4 MG Docusate Sodium 100 mg BIDPRN PRN PO 08/20/24 21:45 Nitroglycerin 0.4 mg Q5MINP PRN SL 08/20/24 23:30 Albuterol 2.5 mg Q6HR NEB 08/21/24 12:00 09/03/24 12:06 2.5 MG Ipratropium [place] 0.5 mg Q6HR NEB 08/21/24 12:00 09/03/24 12:06 0.5 MG Lamotrigine 100 mg Q12HR PO 08/21/24 22:00 09/03/24 09:07 100 MG Ergocalciferol 50,000 unit Q7D PO 08/21/24 14:30 08/28/24 15:11 50,000 UNIT Doxycycline Hyclate 250 ml @ 125 mls/hr Q12H IV 08/25/24 00:00 09/03/24 11:41 125 MLS/HR Lorazepam 0.5 mg Q6HP PRN IV 08/25/24 20:30 09/02/24 12:13 0.5 MG Diphenhydramine HCl 25 mg Q4HP PRN IV 08/29/24 05:15 08/31/24 12:41 25 MG Throat Lozenges 1 jabier Q6HPRN PRN MT 08/29/24 05:15 08/30/24 16:55 1 JABIER Acetaminophen 650 mg Q6HP PRN PO 08/30/24 11:30 09/02/24 08:48 650 MG Ferrous Sulfate 325 mg BIDWM PO 08/31/24 18:00 09/03/24 09:07 325 MG Acetaminophen/ Hydrocodone Bitart 1 tab Q6HP PRN PO 08/31/24 18:15 09/03/24 11:42 1 TAB Piperacillin Sod/ Tazobactam Sod 100 ml @ 25 mls/hr Q6H IV 09/02/24 08:00 09/03/24 08:56 25 MLS/HR laboratory and microbiology Laboratory Tests 09/03/24 05:12 09/02/24 05:14 Test 09/02/24 05:14 Range/Units Serum Glucose 94 74-106 mg/dL Problem List/Assessment/Plan Problem List/Assessment/Plan 09/03/24 feels like he is breathing betterm, dressing dry, chest tube output moderate, no effusion on X ray, no air leak per chest tube. continue as is Plan discussed with: Patient Dietary Evaluation Review Comments: Continue current plan of care Expected Outcomes/Goals: F/U in 3-5 days DELTA CHI MD Sep 03, 2024 14:05
[2024-09-03] MEDS: BACLOFEN 10 MG TAB PO ONE (21:14)
--- NOTE | 2024-09-03 21:23 | DVHPN2 ---
Progress Note - Dictate Date Seen: Sep 03, 2024 Medical Necessity Reason Pt with a Central, PICC or Fol: No Subjective Patient seen and examined at bedside. Breathing comfortably on room air. Overnight events reviewed. vital signs Vital Sign Date Time Temp Pulse Resp B/P (MAP) Pulse Ox O2 Delivery O2 Flow Rate FiO2 09/03/24 18:30 95 Room Air 09/03/24 18:30 0 21 09/03/24 17:00 97.3 90 19 107/66 (80) 97.3 Total Intake and Output 09/02/24 09/02/24 09/03/24 15:00 23:00 07:00 Intake Total 350 ml 0 ml 600 ml Output Total 120 ml 400 ml Balance 350 ml -120 ml 200 ml medications Current Medications Medications Dose Ordered Sig/Lori Route Start Time Stop Time Status Last Admin Dose Admin Ondansetron HCl 4 mg Q4HP PRN IV 08/20/24 21:45 08/26/24 17:07 4 MG Docusate Sodium 100 mg BIDPRN PRN PO 08/20/24 21:45 Nitroglycerin 0.4 mg Q5MINP PRN SL 08/20/24 23:30 Albuterol 2.5 mg Q6HR NEB 08/21/24 12:00 09/03/24 12:06 2.5 MG Ipratropium [place] 0.5 mg Q6HR NEB 08/21/24 12:00 09/03/24 12:06 0.5 MG Lamotrigine 100 mg Q12HR PO 08/21/24 22:00 09/03/24 21:14 100 MG Ergocalciferol 50,000 unit Q7D PO 08/21/24 14:30 08/28/24 15:11 50,000 UNIT Doxycycline Hyclate 250 ml @ 125 mls/hr Q12H IV 08/25/24 00:00 09/03/24 11:41 125 MLS/HR Lorazepam 0.5 mg Q6HP PRN IV 08/25/24 20:30 09/02/24 12:13 0.5 MG Diphenhydramine HCl 25 mg Q4HP PRN IV 08/29/24 05:15 08/31/24 12:41 25 MG Throat Lozenges 1 jabier Q6HPRN PRN MT 08/29/24 05:15 08/30/24 16:55 1 JABIER Acetaminophen 650 mg Q6HP PRN PO 08/30/24 11:30 09/02/24 08:48 650 MG Ferrous Sulfate 325 mg BIDWM PO 08/31/24 18:00 09/03/24 18:14 325 MG Acetaminophen/ Hydrocodone Bitart 1 tab Q6HP PRN PO 08/31/24 18:15 09/03/24 18:15 1 TAB Piperacillin Sod/ Tazobactam Sod 100 ml @ 25 mls/hr Q6H IV 09/02/24 08:00 09/03/24 19:45 25 MLS/HR Baclofen 5 mg Q8HR PO 09/04/24 06:00 objective Gen.: Patient lying in bed in no apparent distress. Breathing on room air. Head: Normocephalic, atraumatic. Eyes: EOMI/PERRLA. Ears: Normal hearing. Normal anatomy. Neck/trachea: Trachea midline, supple. Nose: Normal external anatomy. Mouth: Moist mucous membranes. Chest: Decreased air entry bilaterally. No wheezing or rhonchi. Cardiovascular: Positive S1, positive S2. Regular rate and rhythm. Abdomen: Positive bowel sounds in all 4 quadrants. Soft, non-tender, non- distended. : Deferred. Rectal: Deferred. Skin: Warm, dry. Intact. Extremities: 2+ radial pulses bilaterally. No lower extremity edema. Neuro: Awake, alert, oriented x3. No gross motor or sensory deficits. Cranial nerves II through XII intact. Gait not assessed. laboratory and microbiology Laboratory Tests 09/03/24 05:12 09/02/24 05:14 Test 09/02/24 05:14 Range/Units Serum Glucose 94 74-106 mg/dL Assessment/Plan Impression: Loculated pleural effusion Pneumonia likely Gram-negative Elevated liver enzymes Atelectasis Events: Breathing on room air No respiratory distress Patient is afebrile. Continue antibiotics Incentive spirometry Blood cx show no growth thus far. S/p large-bore chest tube Chest tube placed to suction -20 cmH2O. Serosanguineous drainage - chest tube output 20 mL this shift. Continue to monitor output No air leak. Continue daily chest tube flush. Obtain daily CXR to monitor pleural effusion as well as chest tube. Pain control/Anxiolytic PRN Avoid oversedation S/p thoracotomy on 09/02 - Right thoracotomy with evacuation of empyema and right lung decortication. F/u cultures Labs and imaging reviewed. Rest of plan as noted below. Plan: Supplemental oxygen if necessary Keep O2 saturation above 92%. Continue antibiotics Follow up fluid cultures Limited chest ultrasound demonstrated loculated right pleural effusion. Drained 700 mL of yellow colored fluid. Several septations were seen. See separate procedure note for right thoracentesis (08/22). S/p thoracotomy on 09/02 - Right thoracotomy with evacuation of empyema and right lung decortication. S/p chest tube placement. Continue bronchodilators Anxiolytics prn Monitor renal function Monitor electrolytes. Supplement as necessary. DVT prophylaxis Prognosis: Poor given multiple comorbidities. Rest of plan per hospitalist and other consultants. Thank you Dr. Jewell for allowing me to participate in this patient's care. Further recommendations will depend on patient's clinical course. Please do not hesitate to contact me if you have any questions or concerns. This medical document was created using an electronic medical record system with [email or web address] dictation system. Although this document has been carefully reviewed, there may still be some phonetic and typographical errors. These areas are purely typographical due to imperfections of the software programs, and do not reflect any compromise in the patient's medical care. Dietary Evaluation Review Comments: Continue current plan of care Expected Outcomes/Goals: F/U in 3-5 days Plan discussed with: Patient, Other (DOC Loya) PRESTON CARTY MD Sep 03, 2024 21:23
[2024-09-04] VITALS (17 sets, daily range): BP systolic 99–124; BP diastolic 58–74; PULSE 86–114; RESP 16–22; TEMP 97.4–98.4; O2SAT 93–97
[2024-09-04] MEDS: BACLOFEN 10 MG TAB PO SCH (06:00)
[2024-09-04] MEDS: DOCUSATE SOD 100 MG CAP PO PRN (08:57)
--- NOTE | 2024-09-04 09:09 | DVH ---
CHEST RADIOGRAPH Indication:r pl effuson vs atelectasis Technique: Single frontal view of the chest was obtained Comparison: XY CHEST PORTABLE on DOS: 09/03/24, XY CHEST PORTABLE on DOS: 09/02/24, XY CHEST XRAY 1 V IEW on DOS: 09/01/24, XY CHEST XRAY 1 VIEW on DOS: 08/31/24, XY CHEST XRAY 1 VIEW on DOS: 08/30/24, X Y CHEST PORTABLE on DOS: 09/03/24 FINDINGS: Lines and Tubes: Right chest tubes unchanged. Lungs: Right airspace disease similar to prior study. Pleura: No effusion. No pneumothorax. Cardiomediastinal contours: Unremarkable Bones: No acute osseous abnormality. IMPRESSION: 1. Right chest tubes unchanged. Right airspace disease similar to prior study.
--- NOTE | 2024-09-04 12:21 | DVHPNRES ---
Progress Note Date Seen: Sep 04, 2024 Resident Creating Document: LAVELL GONSALES RESIDENT Medical Necessity Reason Pt with a Central, PICC or Fol: No Subjective Review of Systems Xu Amado is a 28-year-old male with past medical history of ADHD and depression who presented to [facility] ED with complaint of right sided chest pain and shortness of breath. 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 Reports vaping a lot recently and sharing his friends vape. Denies any recent travel history. [place] was [place]His father in law has probable COPD as he smokes and cough a lot per the patient. His pain is 9/10 numeric scale, getting worse on deep inhalation that prompted this visit. Patient also mentioned he has a history of fever for last 1 week and the highest temperature was 104 and yesterday he went to urgent care and he was referred from the urgent care due to the right-sided pleural effusion. Patient denied chest pain, dizziness, headache, diaphoresis, nausea or vomiting. Patient was admitted for further evaluation and medical management. Denies any weight loss. No history of incarceration or IV drug use. Home medications; lamotrigine, fluoxetine 08/25 - Patient seen and examined at bedside. Overnight patient was anxious received lorazepam 1 mg. Also reported night sweats. Chest x-ray repeated, shows enlarging pleural effusion, surgeon consulted for chest tube placement. Final blood culture negative, MRSA screen is negative. 08/26 - patient reports feeling better, no shortness of breaths. Overnight reports night sweats. IR was consulted, chest tube placed - draining yellow fluid. Specimen sent for cytology/differential/culture. 08/27-patient has no active complaint. 6 mg alteplase injected for intra- articular administration at around 8:30 p.m.. Patient tolerated well. Advised the nurse in the night float team to open the [place] at around 9:[address] Kemp in case gross blood seen. 08/28 - patient feels much better. Chest x-ray repeated 12 hours after 6 mg alteplase injection. Shows dramatic improvement in the right pleural effusion. Second dose of alteplase injection administered at 5:00 p.m.. Nurse advised to and cough the chest tube at 6:00 p.m.. Notify mechanical assembly in case of gross bleeding in the chest tube. 08/29 - patient reports no active complaint. Wants to go home. Chest x-ray reviewed in the a.m., or effusion looks worsen. WBC elevated from 15-17 with neutrophilic predominance. Chest tube draining 800 mL of dark yellow color fluid. 5:00 p.m.-history of draining pinkish color serosanguineous fluid. Per Dr. Kemp, chest x-ray in the a.m.. Third course of tPA probably tomorrow 08/30. 08/31 - no acute complaint. Chest x-ray in the a.m. repeated, shows persistent right middle and lower lobe effusion. Chest tube draining serosanguineous fluid. Dressing dry and intact. WBC trended down to 13 today. Surgeon consulted for surgical chest tube. 09/01 - reports feeling fine. Breath sounds absent on RLL. Flushed the chest tube with saline in AM. Draining 1020 ml of serosanguis fluid. Satting 95 on RA. Potassium 25meQ given. WBC 11.9. CXR: Small right pleural effusion. NPO starting midnight. Thoracotomy scheduled 09/02. 09/02 - Tmax 99.5. WBC count downtrending 10.4. Blood cultures so far have been negative. Underwent Right thoracotomy, evacuation of empyema, right lung decortication - The patient's chest cavity contained infected fluid, which was sent for cultures. 40 size chest tube placed 09/03 - Patient feels fine. Chest tube draining 190cc red serosanguinous fluid. Dressing dry, intact and clean. 09/04 - patient is anxious, reports tingling pain at the site of chest tube, otherwise in no distress. Chest x-ray reviewed, shows right basilar atelectasis versus effusion. Objective vital signs Vital Sign Date Time Temp Pulse Resp B/P (MAP) Pulse Ox O2 Delivery O2 Flow Rate FiO2 09/04/24 08:10 97.8 102 22 124/69 (87) 97 97.8 09/04/24 06:53 Room Air* 0 21 Total Intake and Output 09/03/24 09/03/24 09/04/24 15:00 23:00 07:00 Intake Total 920 ml 1050 ml Output Total 1345 ml 2000 ml Balance -425 ml -950 ml medications Current Medications Medications Dose Ordered Sig/Lori Route Start Time Stop Time Status Last Admin Dose Admin Ondansetron HCl 4 mg Q4HP PRN IV 08/20/24 21:45 09/04/24 05:01 4 MG Docusate Sodium 100 mg BIDPRN PRN PO 08/20/24 21:45 09/04/24 08:57 100 MG Nitroglycerin 0.4 mg Q5MINP PRN SL 08/20/24 23:30 Albuterol 2.5 mg Q6HR NEB 08/21/24 12:00 09/04/24 06:53 2.5 MG Ipratropium [place] 0.5 mg Q6HR NEB 08/21/24 12:00 09/04/24 06:53 0.5 MG Lamotrigine 100 mg Q12HR PO 08/21/24 22:00 09/04/24 08:57 100 MG Ergocalciferol 50,000 unit Q7D PO 08/21/24 14:30 08/28/24 15:11 50,000 UNIT Doxycycline Hyclate 250 ml @ 125 mls/hr Q12H IV 08/25/24 00:00 09/04/24 00:09 125 MLS/HR Lorazepam 0.5 mg Q6HP PRN IV 08/25/24 20:30 09/02/24 12:13 0.5 MG Diphenhydramine HCl 25 mg Q4HP PRN IV 08/29/24 05:15 08/31/24 12:41 25 MG Throat Lozenges 1 jabier Q6HPRN PRN MT 08/29/24 05:15 08/30/24 16:55 1 JABIER Acetaminophen 650 mg Q6HP PRN PO 08/30/24 11:30 09/02/24 08:48 650 MG Ferrous Sulfate 325 mg BIDWM PO 08/31/24 18:00 09/04/24 08:57 325 MG Acetaminophen/ Hydrocodone Bitart 1 tab Q6HP PRN PO 08/31/24 18:15 09/04/24 06:49 1 TAB Piperacillin Sod/ Tazobactam Sod 100 ml @ 25 mls/hr Q6H IV 09/02/24 08:00 09/04/24 08:57 25 MLS/HR Baclofen 5 mg Q8HR PO 09/04/24 06:00 Morphine Sulfate 0.5 mg Q6HP PRN IV 09/04/24 09:15 Examination General Appearance: Alert, Oriented X4, Cooperative, No acute distress. Lying comfortably in the bed HEENT: Atraumatic, PERRLA, EOMI, Mucous membrane moist/pink Respiratory: Diminished breath sounds, more on the right side. No crackles or wheezing heard. Right-sided chest tube seen draining 220cc reddish serosanguineous fluid. No air leak noticed. Dressing dry clean and intact. Cardiovascular: Regular rate, Normal S1, Normal S2, No murmurs, no chest wall tenderness Abdominal: Normal bowel sounds, Soft, No tenderness, No hepatospenomegaly, No masses Extremities: Erythema noticed on the extensor surfaces including the elbows, knees and the ankles. Skin: No rashes, No breakdown, No significant lesion Neuro: Normal gait, Normal speech, Strength at 5/5 X4 ext, Normal tone, Sensation intact, grossly intact cranial nerves. Psych/Mental Status: Mental status NL, Mood NL laboratory and microbiology Laboratory Tests 09/03/24 05:12 09/02/24 05:14 Test 09/02/24 05:14 Range/Units Serum Glucose 94 74-106 mg/dL Microbiology Date/Time Source Procedure Growth Status 08/29/24 13:23 Blood Blood Culture - Final NO GROWTH AFTER 5 DAYS OF INCUBATION. Complete 08/26/24 11:00 Pleural Fluid Gram Stain - Final Complete 08/26/24 11:00 Pleural Fluid Body Fluid Culture - Final Complete 08/24/24 21:20 Nasopharynx Coronavirus COVID-19 PCR (RONNIE) - Final Complete 08/24/24 18:29 Nose MRSA Screen - Final Complete Labs and/or images reviewed: Labs reviewed by me, Image(s) reviewed by me Problem List/Assessment/Plan Problem List/Assessment/Plan Acute hypoxic respiratory failure likely secondary to community-acquired pneumonia ? Vape associated vs ? Malignancy Sepsis due to Community-acquired pneumonia, Gram-positive and Gram-negative Loculated right-sided exudative pleural effusion status post R thoracotomy and chest tube placement and thoracocentesis with 700 mL drainage undergoing tPA course 09/02 - Underwent Right thoracotomy, evacuation of empyema, right lung decortication by Dr. Tobar Chest tube placed 08/26/2024 in the right 4th intercostal mid axillary line by the ER. Draining yellow fluid. Per Dr. Kemp, tPA course after chest tube placement. 08/27 & 08/28- patient received 2 doses of 6 mg alteplase. Holding off on 3rd dose per mechanical assembly Dr. Kemp. Thoracocentesis performed by Dr. Kemp 08/22, drain 700 mL of yellow fluid. Pleural studies suggestive of exudative effusion. Patient required oxygen supplementation with 2 L oxygen via NC, now on room air. CT chest revealed right-sided pleural effusion with atelectasis in the right lower lung field IV Zosyn q.6 hour starting 08/21/2024 IV doxycycline q.12 hour started 08/24/24 Discontinued IV azithromycin 500 mg daily - patient received from 08/21 to 08/24 Nebulized treatment with albuterol and ipratropium q.6 hours Blood cultures and body fluid culture have been negative so far. WBC 12 on arrival, up trending to 17 with 86 % neutrophils, now 13 COVID RNA and influenza testing negative R lower lobe atelectasis Incentive spirometery Q1hr advised Reactive thrombocytosis Secondary to sepsis Monitor Rule Out pericardial effusion Echocardiogram completed 08/24 showed LVEF 55%. Normal frontal/valvular heart. No pericardial effusion Anemia, likely microcytic Hemoglobin on arrival 10.8, MCV 32, hematocrit 32 ESR 50, retic count 1.66, CRP 14, LDH 328 Iron panel completed shows low iron low TIBC low% saturation Ferritin elevated at 744 Urine analysis shows 2+ blood and 17 RBCs P.o. iron supplementation b.i.d. Transaminitis Bilirubin elevated at 1.3 Direct bili 0.7 AST 33, ALT 69, ALP 196 Patient quit drinking 3 years back Asymptomatic Hypotonic euvolemic hyponatremia secondary to ? Fluoxetine Serum sodium 128, serum osmolality 271, urine osmolality 340, urine sodium less than 10 DC fluoxetine Cavernous hemangioma Ultrasound liver completed, shows 1.7 cm well-circumscribed oval echogenic nodule in the left hepatic lobe compatible with a cavernous hemangioma Outpatient workup advised Ruled out HIV HIV testing negative ADHD, depression - stable No homicidal or suicidal ideation Continue lamotrigine 100 mg b.i.d. Ativan 0.5 mg p.r.n. DC fluoxetine given the questionable SIADH Vitamin-D deficiency Supplemented Hypokalemia Replenished Diet regular Plan discussed with patient in which all questions have been answered Goals of care discussed for more than 22 minutes, full code status Case discussed with Dr. Gonzalez. Two doses of tPA administered 08/27 and 08/28. Underwent Right thoracotomy 09/02. Chest tube draining 220cc red serosanguinous fluid. Plan discussed with: Patient, Spouse My Orders My Orders Orders - LAVELL GONSALES Procedure Category Date Status Time Baclofen Tablet PHA 09/04/24 In Process (Liorisal Tablet) 06:00 Chest Xray 1 View XY 09/04/24 Resulted 06:21 Dietary Evaluation Review Comments: Continue current plan of care Expected Outcomes/Goals: F/U in 3-5 days Date of Service: Sep 04, 2024 Billing Provider: MARICRUZ GONZALEZ MD Common Visit Codes: [id number] INP/OBS CARE(HIGH) LAVELL GONSALES Sep 04, 2024 12:21 MARICRUZ GONZALEZ MD Sep 04, 2024 18:13
[2024-09-04] MEDS: MORPHINE SULFATE INJ 2 MG/ml SYRG IV PRN (12:42)
--- NOTE | 2024-09-04 14:06 | DVHPN2 ---
Progress Note Date Seen: Sep 04, 2024 Medical Necessity Reason Pt with a Central, PICC or Fol: No Objective vital signs Vital Sign Date Time Temp Pulse Resp B/P (MAP) Pulse Ox O2 Delivery O2 Flow Rate FiO2 09/04/24 13:15 105 18 95 09/04/24 13:12 101/63 09/04/24 13:09 Room Air* 0 21 09/04/24 12:15 98.4 98.4 Total Intake and Output 09/03/24 09/03/24 09/04/24 15:00 23:00 07:00 Intake Total 920 ml 1050 ml Output Total 1345 ml 2000 ml Balance -425 ml -950 ml medications Current Medications Medications Dose Ordered Sig/Lori Route Start Time Stop Time Status Last Admin Dose Admin Ondansetron HCl 4 mg Q4HP PRN IV 08/20/24 21:45 09/04/24 05:01 4 MG Docusate Sodium 100 mg BIDPRN PRN PO 08/20/24 21:45 09/04/24 08:57 100 MG Nitroglycerin 0.4 mg Q5MINP PRN SL 08/20/24 23:30 Albuterol 2.5 mg Q6HR NEB 08/21/24 12:00 09/04/24 13:09 2.5 MG Ipratropium [place] 0.5 mg Q6HR NEB 08/21/24 12:00 09/04/24 13:09 0.5 MG Lamotrigine 100 mg Q12HR PO 08/21/24 22:00 09/04/24 08:57 100 MG Ergocalciferol 50,000 unit Q7D PO 08/21/24 14:30 08/28/24 15:11 50,000 UNIT Doxycycline Hyclate 250 ml @ 125 mls/hr Q12H IV 08/25/24 00:00 09/04/24 12:41 125 MLS/HR Lorazepam 0.5 mg Q6HP PRN IV 08/25/24 20:30 09/02/24 12:13 0.5 MG Diphenhydramine HCl 25 mg Q4HP PRN IV 08/29/24 05:15 08/31/24 12:41 25 MG Throat Lozenges 1 jabier Q6HPRN PRN MT 08/29/24 05:15 08/30/24 16:55 1 JABIER Acetaminophen 650 mg Q6HP PRN PO 08/30/24 11:30 09/02/24 08:48 650 MG Ferrous Sulfate 325 mg BIDWM PO 08/31/24 18:00 09/04/24 08:57 325 MG Acetaminophen/ Hydrocodone Bitart 1 tab Q6HP PRN PO 08/31/24 18:15 09/04/24 06:49 1 TAB Piperacillin Sod/ Tazobactam Sod 100 ml @ 25 mls/hr Q6H IV 09/02/24 08:00 09/04/24 08:57 25 MLS/HR Baclofen 5 mg Q8HR PO 09/04/24 06:00 Morphine Sulfate 0.5 mg Q6HP PRN IV 09/04/24 09:15 09/04/24 12:42 0.5 MG laboratory and microbiology Laboratory Tests 09/03/24 05:12 09/02/24 05:14 Test 09/02/24 05:14 Range/Units Serum Glucose 94 74-106 mg/dL Problem List/Assessment/Plan Problem List/Assessment/Plan 09/04/24 - No new complaints - Denies shortness of breath - Feels better every day - Chest tube output: okay - Wound: clean, dry, and intact - No air leak Plan: - continue with current treatment Advised to use incentive spirometer hourly Plan discussed with: Patient Dietary Evaluation Review Comments: Continue current plan of care Expected Outcomes/Goals: F/U in 3-5 days TAMELA DEMARCO NP Sep 04, 2024 14:06
[2024-09-04] MEDS ORDERED: POLYETHYLENE GLYCOL 17 GM PWDR PO PRN (16:00)
[2024-09-04] MEDS: POLYETHYLENE GLYCOL 17 GM PWDR PO ONE (16:26)
[2024-09-04] MEDS: PIPERACILLIN-TAZOB 3.375GM 100 ML IV SCH (21:28)
--- NOTE | 2024-09-04 22:34 | DVHPN2 ---
Progress Note - Dictate Date Seen: Sep 04, 2024 Medical Necessity Reason Pt with a Central, PICC or Fol: No vital signs Vital Sign Date Time Temp Pulse Resp B/P (MAP) Pulse Ox O2 Delivery O2 Flow Rate FiO2 09/04/24 21:00 98.2 112 18 108/58 (75) 93 98.2 09/04/24 20:00 Room Air* 0 21 Total Intake and Output 09/03/24 09/03/24 09/04/24 15:00 23:00 07:00 Intake Total 350 ml 920 ml 1050 ml Output Total 1345 ml 2000 ml Balance 350 ml -425 ml -950 ml medications Current Medications Medications Dose Ordered Sig/Lori Route Start Time Stop Time Status Last Admin Dose Admin Ondansetron HCl 4 mg Q4HP PRN IV 08/20/24 21:45 09/04/24 05:01 4 MG Docusate Sodium 100 mg BIDPRN PRN PO 08/20/24 21:45 09/04/24 18:15 100 MG Nitroglycerin 0.4 mg Q5MINP PRN SL 08/20/24 23:30 Albuterol 2.5 mg Q6HR NEB 08/21/24 12:00 09/04/24 19:03 2.5 MG Ipratropium [place] 0.5 mg Q6HR NEB 08/21/24 12:00 09/04/24 19:03 0.5 MG Lamotrigine 100 mg Q12HR PO 08/21/24 22:00 09/04/24 21:27 100 MG Ergocalciferol 50,000 unit Q7D PO 08/21/24 14:30 09/04/24 15:49 50,000 UNIT Doxycycline Hyclate 250 ml @ 125 mls/hr Q12H IV 08/25/24 00:00 09/04/24 12:41 125 MLS/HR Lorazepam 0.5 mg Q6HP PRN IV 08/25/24 20:30 09/02/24 12:13 0.5 MG Diphenhydramine HCl 25 mg Q4HP PRN IV 08/29/24 05:15 08/31/24 12:41 25 MG Throat Lozenges 1 jabier Q6HPRN PRN MT 08/29/24 05:15 08/30/24 16:55 1 JABIER Acetaminophen 650 mg Q6HP PRN PO 08/30/24 11:30 09/02/24 08:48 650 MG Ferrous Sulfate 325 mg BIDWM PO 08/31/24 18:00 09/04/24 18:15 325 MG Acetaminophen/ Hydrocodone Bitart 1 tab Q6HP PRN PO 08/31/24 18:15 09/04/24 16:27 1 TAB Baclofen 5 mg Q8HR PO 09/04/24 06:00 09/04/24 21:27 5 MG Morphine Sulfate 0.5 mg Q6HP PRN IV 09/04/24 09:15 09/04/24 20:08 0.5 MG Polyethylene Glycol 17 gm DAILYPRN PRN PO 09/04/24 16:00 Piperacillin Sod/ Tazobactam Sod 100 ml @ 25 mls/hr Q6H IV 09/04/24 22:00 09/04/24 21:28 25 MLS/HR laboratory and microbiology Laboratory Tests 09/03/24 05:12 09/02/24 05:14 Test 09/02/24 05:14 Range/Units Serum Glucose 94 74-106 mg/dL Dietary Evaluation Review Comments: Continue current plan of care Expected Outcomes/Goals: F/U in 3-5 days [facility] Sep 04, 2024 22:34
[2024-09-05] VITALS (18 sets, daily range): BP systolic 100–148; BP diastolic 51–71; PULSE 89–106; RESP 16–20; TEMP 98.1–98.7; O2SAT 92–100
--- NOTE | 2024-09-05 10:15 | DVHPN2 ---
Progress Note - Dictate Date Seen: Sep 04, 2024 Medical Necessity Reason Pt with a Central, PICC or Fol: No Subjective Patient seen and examined at bedside. Breathing comfortably on room air. Overnight events reviewed. vital signs Vital Sign Date Time Temp Pulse Resp B/P (MAP) Pulse Ox O2 Delivery O2 Flow Rate FiO2 09/05/24 09:21 98.5 89 17 118/69 (85) 96 98.5 09/05/24 06:45 0.0 09/05/24 06:09 Room Air* Total Intake and Output 09/04/24 09/04/24 09/05/24 15:00 23:00 07:00 Intake Total 350 ml 480 ml 2350 ml Output Total 1160 ml 600 ml Balance 350 ml -680 ml 1750 ml medications Current Medications Medications Dose Ordered Sig/Lori Route Start Time Stop Time Status Last Admin Dose Admin Ondansetron HCl 4 mg Q4HP PRN IV 08/20/24 21:45 09/04/24 05:01 4 MG Docusate Sodium 100 mg BIDPRN PRN PO 08/20/24 21:45 09/05/24 06:48 100 MG Nitroglycerin 0.4 mg Q5MINP PRN SL 08/20/24 23:30 Albuterol 2.5 mg Q6HR NEB 08/21/24 12:00 09/05/24 06:09 2.5 MG Ipratropium [place] 0.5 mg Q6HR NEB 08/21/24 12:00 09/05/24 06:09 0.5 MG Lamotrigine 100 mg Q12HR PO 08/21/24 22:00 09/05/24 08:51 100 MG Ergocalciferol 50,000 unit Q7D PO 08/21/24 14:30 09/04/24 15:49 50,000 UNIT Lorazepam 0.5 mg Q6HP PRN IV 08/25/24 20:30 09/02/24 12:13 0.5 MG Diphenhydramine HCl 25 mg Q4HP PRN IV 08/29/24 05:15 08/31/24 12:41 25 MG Throat Lozenges 1 jabier Q6HPRN PRN MT 08/29/24 05:15 08/30/24 16:55 1 JABIER Acetaminophen 650 mg Q6HP PRN PO 08/30/24 11:30 09/02/24 08:48 650 MG Ferrous Sulfate 325 mg BIDWM PO 08/31/24 18:00 09/05/24 08:51 325 MG Acetaminophen/ Hydrocodone Bitart 1 tab Q6HP PRN PO 08/31/24 18:15 09/05/24 05:04 1 TAB Baclofen 5 mg Q8HR PO 09/04/24 06:00 09/05/24 05:04 5 MG Morphine Sulfate 0.5 mg Q6HP PRN IV 09/04/24 09:15 09/05/24 08:53 0.5 MG Polyethylene Glycol 17 gm DAILYPRN PRN PO 09/04/24 16:00 Piperacillin Sod/ Tazobactam Sod 100 ml @ 25 mls/hr Q6H IV 09/04/24 22:00 09/05/24 08:53 25 MLS/HR objective Gen.: Patient lying in bed in no apparent distress. Breathing on room air. Head: Normocephalic, atraumatic. Eyes: EOMI/PERRLA. Ears: Normal hearing. Normal anatomy. Neck/trachea: Trachea midline, supple. Nose: Normal external anatomy. Mouth: Moist mucous membranes. Chest: Decreased air entry bilaterally. No wheezing or rhonchi. Cardiovascular: Positive S1, positive S2. Regular rate and rhythm. Abdomen: Positive bowel sounds in all 4 quadrants. Soft, non-tender, non- distended. : Deferred. Rectal: Deferred. Skin: Warm, dry. Intact. Extremities: 2+ radial pulses bilaterally. No lower extremity edema. Neuro: Awake, alert, oriented x3. No gross motor or sensory deficits. Cranial nerves II through XII intact. Gait not assessed. laboratory and microbiology Laboratory Tests 09/03/24 05:12 09/02/24 05:14 Test 09/02/24 05:14 Range/Units Serum Glucose 94 74-106 mg/dL Assessment/Plan Impression: Loculated pleural effusion Pneumonia likely Gram-negative Elevated liver enzymes Atelectasis Events: Breathing on room air No respiratory distress CXR pending. Nausea - Zofran x1. Patient is afebrile. Continue antibiotics Incentive spirometry Blood cx show no growth thus far. S/p large-bore chest tube Chest tube placed to suction -20 cmH2O. Serosanguineous drainage - chest tube output 8 mL this shift. Continue to monitor output No air leak. Continue daily chest tube flush. Obtain daily CXR to monitor pleural effusion as well as chest tube. Pain control/Anxiolytic PRN Avoid oversedation S/p thoracotomy on 09/02 - Right thoracotomy with evacuation of empyema and right lung decortication. F/u cultures Labs and imaging reviewed. Rest of plan as noted below. Plan: Supplemental oxygen if necessary Keep O2 saturation above 92%. Continue antibiotics Follow up fluid cultures Limited chest ultrasound demonstrated loculated right pleural effusion. Drained 700 mL of yellow colored fluid. Several septations were seen. See separate procedure note for right thoracentesis (08/22). S/p thoracotomy on 09/02 - Right thoracotomy with evacuation of empyema and right lung decortication. S/p chest tube placement. Continue bronchodilators Anxiolytics prn Monitor renal function Monitor electrolytes. Supplement as necessary. DVT prophylaxis Prognosis: Poor given multiple comorbidities. Rest of plan per hospitalist and other consultants. Thank you Dr. Jewell for allowing me to participate in this patient's care. Further recommendations will depend on patient's clinical course. Please do not hesitate to contact me if you have any questions or concerns. This medical document was created using an electronic medical record system with [employer] dictation system. Although this document has been carefully reviewed, there may still be some phonetic and typographical errors. These areas are purely typographical due to imperfections of the software programs, and do not reflect any compromise in the patient's medical care. Dietary Evaluation Review Comments: Continue current plan of care Expected Outcomes/Goals: F/U in 3-5 days Plan discussed with: Patient, Other (DOC Neil) PRESTON CARTY MD Sep 05, 2024 10:15
--- NOTE | 2024-09-05 10:25 | DVH ---
EXAM: CT CHEST WITHOUT CONTRAST HISTORY: recurrent pleural effusion COMPARISON: Chest radiograph dated 09/04/2024 CT CHEST WITHOUT CONTRAST on DOS: 08/26/24, CT CHEST WI THOUT CONTRAST on DOS: 08/20/24 TECHNIQUE: Axial images were obtained and reformatted in coronal and sagittal planes. All CT scans at this medical facility are performed using dose modulation techniques as appropriate to a performed exam including the following: Automated exposure control was utilized; adjustment of the MA and/or K V according to patient size; and use of iterative reconstruction technique. CT Dose: CTDI volume is 4.82 mGy. Dose-length product is 175.36 mGy*cm FINDINGS: The right-sided chest tube anterior say hemithorax in the right costophrenic angle extending superior ly, tightly kinked in the posterolateral upper right hemithorax. Small right hydro pneumothorax note d. Moderate right lower and middle lobe consolidation. 8 mm spiculated nodule in the left upper lobe . Numerous tiny, 1-2 mm nodules in tree-in-bud pattern noted in the left apex. Mild mediastinal lymp hadenopathy with lymph nodes measuring up to 1.2 x 0.9 cm. Airways are patent. The heart is normal in size. In the upper abdomen, mild splenomegaly noted measu ring 12.6 cm in AP. Thyroid gland is unremarkable. No acute osseous abnormality. Small right latera l chest wall subcutaneous emphysema. IMPRESSION: 1. The right chest tube is tiny kinked in the upper hemithorax . Reposition is recommended . 2. Small right hydropneumothorax or pleural effusion mixed with air due to placement of the chest tub e. 3. Stable right upper and lower lobe consolidations likely pneumonia . 4. Stable left upper lobe pulmonary nodules with a suspicious spiculated nodule in the left apex. Met astatic malignancy can not be ruled out although unlikely considering patient's demographics. Recomm end correlation with pleural fluid cytology. Further evaluation with PET-CT scan may be required.
--- NOTE | 2024-09-05 10:39 | DVHPN2 ---
Progress Note Date Seen: Sep 05, 2024 Medical Necessity Reason Pt with a Central, PICC or Fol: No Objective vital signs Vital Sign Date Time Temp Pulse Resp B/P (MAP) Pulse Ox O2 Delivery O2 Flow Rate FiO2 09/05/24 09:21 98.5 89 17 118/69 (85) 96 98.5 09/05/24 06:45 0.0 21 09/05/24 06:09 Room Air* Total Intake and Output 09/04/24 09/04/24 09/05/24 15:00 23:00 07:00 Intake Total 350 ml 480 ml 2350 ml Output Total 1160 ml 600 ml Balance 350 ml -680 ml 1750 ml medications Current Medications Medications Dose Ordered Sig/Lori Route Start Time Stop Time Status Last Admin Dose Admin Ondansetron HCl 4 mg Q4HP PRN IV 08/20/24 21:45 09/04/24 05:01 4 MG Docusate Sodium 100 mg BIDPRN PRN PO 08/20/24 21:45 09/05/24 06:48 100 MG Nitroglycerin 0.4 mg Q5MINP PRN SL 08/20/24 23:30 Albuterol 2.5 mg Q6HR NEB 08/21/24 12:00 09/05/24 06:09 2.5 MG Ipratropium [place] 0.5 mg Q6HR NEB 08/21/24 12:00 09/05/24 06:09 0.5 MG Lamotrigine 100 mg Q12HR PO 08/21/24 22:00 09/05/24 08:51 100 MG Ergocalciferol 50,000 unit Q7D PO 08/21/24 14:30 09/04/24 15:49 50,000 UNIT Lorazepam 0.5 mg Q6HP PRN IV 08/25/24 20:30 09/02/24 12:13 0.5 MG Diphenhydramine HCl 25 mg Q4HP PRN IV 08/29/24 05:15 08/31/24 12:41 25 MG Throat Lozenges 1 jabier Q6HPRN PRN MT 08/29/24 05:15 08/30/24 16:55 1 JABIER Acetaminophen 650 mg Q6HP PRN PO 08/30/24 11:30 09/02/24 08:48 650 MG Ferrous Sulfate 325 mg BIDWM PO 08/31/24 18:00 09/05/24 08:51 325 MG Acetaminophen/ Hydrocodone Bitart 1 tab Q6HP PRN PO 08/31/24 18:15 09/05/24 05:04 1 TAB Baclofen 5 mg Q8HR PO 09/04/24 06:00 09/05/24 05:04 5 MG Morphine Sulfate 0.5 mg Q6HP PRN IV 09/04/24 09:15 09/05/24 08:53 0.5 MG Polyethylene Glycol 17 gm DAILYPRN PRN PO 09/04/24 16:00 Piperacillin Sod/ Tazobactam Sod 100 ml @ 25 mls/hr Q6H IV 09/04/24 22:00 09/05/24 08:53 25 MLS/HR laboratory and microbiology Laboratory Tests 09/03/24 05:12 09/02/24 05:14 Test 09/02/24 05:14 Range/Units Serum Glucose 94 74-106 mg/dL Problem List/Assessment/Plan Problem List/Assessment/Plan 09/03/24 feels like he is breathing betterm, dressing dry, chest tube output moderate, no effusion on X ray, no air leak per chest tube. continue as is 09/05/24 FEELS WELL, CHEST WALL WOUND CLEAN AND WELL APPROXIMATED, CHEST TUBE WITH MINIMAL AIR LEAK ON FORCED EXPIRATION, OUTPUT DIMINISHING, PLAN TO REMOVE CHEST TUBE ON SATURDAY. Plan discussed with: Patient Dietary Evaluation Review Comments: Continue current plan of care Expected Outcomes/Goals: F/U in 3-5 days DELTA CHI MD Sep 05, 2024 10:39
[2024-09-05] MEDS: LACTULOSE 20Gm/30ML SOLN PO ONE (14:01)
--- NOTE | 2024-09-05 14:57 | DVHPNRES ---
Progress Note Date Seen: Sep 05, 2024 Resident Creating Document: DELORIS JENSEN RESIDENT Medical Necessity Reason Pt with a Central, PICC or Fol: No Subjective Review of Systems Patient seen and examined at bedside. Mentioned only mild pain at chest tube area but denied any other complaints. ROS Constitutional: No: Fever, Chills, Sweats, Weakness, Malaise, Other Eyes: No: Pain, Vision change, Conjunctivae inflammation, Eyelid inflammation, Other, Redness ENT: No: Ear pain, Ear discharge, Nose pain, Nose discharge, Nose congestion, Mouth pain, Mouth swelling, Throat pain, Throat swelling, Other Respiratory: No: Cough, Dry, Shortness of breath, SOB with excertion, Wheezing, Hemoptysis, Pleuritic Pain, Sputum, Wheezing, Other Cardiovascular: No: Chest Pain, Palpitations, Orthopnea, Paroxysmal Noc. Dyspnea, Edema, Lt Headedness, Other Gastrointestinal: No: Nausea, Vomiting, Abdominal Pain, Diarrhea, Constipation, Melena, Hematochezia, Other Musculoskeletal: No: other, neck pain, shoulder pain, arm pain, back pain, hand pain, leg pain, foot pain Neurological:; No: Weakness, Numbness, Incoordination, Change in speech, Confusion, Seizures Review of Systems: HEENT:Normal, CVS:Normal, RESPIRATORY:Normal, GI:Normal, :Normal Objective vital signs Vital Sign Date Time Temp Pulse Resp B/P (MAP) Pulse Ox O2 Delivery O2 Flow Rate FiO2 09/05/24 13:00 98.7 99 16 148/61 (90) 96 98.7 09/05/24 11:37 Room Air 09/05/24 11:37 0 21 Total Intake and Output 09/04/24 09/04/24 09/05/24 15:00 23:00 07:00 Intake Total 350 ml 480 ml 2350 ml Output Total 1160 ml 600 ml Balance 350 ml -680 ml 1750 ml medications Current Medications Medications Dose Ordered Sig/Lori Route Start Time Stop Time Status Last Admin Dose Admin Ondansetron HCl 4 mg Q4HP PRN IV 08/20/24 21:45 09/04/24 05:01 4 MG Docusate Sodium 100 mg BIDPRN PRN PO 08/20/24 21:45 09/05/24 06:48 100 MG Nitroglycerin 0.4 mg Q5MINP PRN SL 08/20/24 23:30 Albuterol 2.5 mg Q6HR NEB 08/21/24 12:00 09/05/24 11:37 2.5 MG Ipratropium [place] 0.5 mg Q6HR NEB 08/21/24 12:00 09/05/24 11:37 0.5 MG Lamotrigine 100 mg Q12HR PO 08/21/24 22:00 09/05/24 08:51 100 MG Ergocalciferol 50,000 unit Q7D PO 08/21/24 14:30 09/04/24 15:49 50,000 UNIT Lorazepam 0.5 mg Q6HP PRN IV 08/25/24 20:30 09/02/24 12:13 0.5 MG Diphenhydramine HCl 25 mg Q4HP PRN IV 08/29/24 05:15 08/31/24 12:41 25 MG Throat Lozenges 1 jabier Q6HPRN PRN MT 08/29/24 05:15 08/30/24 16:55 1 JABIER Acetaminophen 650 mg Q6HP PRN PO 08/30/24 11:30 09/02/24 08:48 650 MG Ferrous Sulfate 325 mg BIDWM PO 08/31/24 18:00 09/05/24 08:51 325 MG Acetaminophen/ Hydrocodone Bitart 1 tab Q6HP PRN PO 08/31/24 18:15 09/05/24 11:06 1 TAB Baclofen 5 mg Q8HR PO 09/04/24 06:00 09/05/24 14:01 5 MG Morphine Sulfate 0.5 mg Q6HP PRN IV 09/04/24 09:15 09/05/24 08:53 0.5 MG Polyethylene Glycol 17 gm DAILYPRN PRN PO 09/04/24 16:00 Piperacillin Sod/ Tazobactam Sod 100 ml @ 25 mls/hr Q6H IV 09/04/24 22:00 09/05/24 08:53 25 MLS/HR Examination Examination General Appearance: Alert, Oriented X3, Cooperative, No acute distress HEENT: EOMI Respiratory: Decreased air entry on right basilar lung, chest tube present Cardiovascular: Regular rate, Normal S1, Normal S2 Abdominal: Normal bowel sounds Extremities: No cyanosis, No edema, Normal pulses, No tenderness/swelling Skin: No rashes, No breakdown Neuro: Normal speech and tone laboratory and microbiology Laboratory Tests 09/03/24 05:12 09/02/24 05:14 Test 09/02/24 05:14 Range/Units Serum Glucose 94 74-106 mg/dL Microbiology Date/Time Source Procedure Growth Status 08/29/24 13:23 Blood Blood Culture - Final NO GROWTH AFTER 5 DAYS OF INCUBATION. Complete 08/26/24 11:00 Pleural Fluid Gram Stain - Final Complete 08/26/24 11:00 Pleural Fluid Body Fluid Culture - Final Complete 08/24/24 21:20 Nasopharynx Coronavirus COVID-19 PCR (RONNIE) - Final Complete 08/24/24 18:29 Nose MRSA Screen - Final Complete Labs and/or images reviewed: Labs reviewed by me, Image(s) reviewed by me Problem List/Assessment/Plan Problem List/Assessment/Plan Assessment # Sepsis due to pneumonia, resolved -received iv fluids -iv antibiotics -repeat Blood culture reveals no growth # acute hypoxic respiratory failure due to pneumonia Currently on room air Nebulized treatment with albuterol and ipratropium q.6 hours # community-acquired pneumonia, Gram-positive/Gram-negative -iv antibiotics -repeat Blood culture # recurrent pleural effusion, right side, parapneumonic, complicated, loculated , exudative -s/p thoracentesis 08/22, drain 700 mL of yellow fluid. Pleural studies suggestive of exudative effusion. -chest tube for recurrent pleural effusion -currently draining serosanguineous fluid -pulmonology and surgery on board -Chest CT revealed The right chest tube is tiny kinked in the upper hemithorax . Reposition is recommended . -repeat Cytology sent # Stable left upper lobe pulmonary nodules with a suspicious spiculated nodule in the left apex approx 8mm -IR consulted for biopsy -pulmonology on board # Right lower lobe atelectasis Incentive spirometry Q1hr advised # Anemia, microcytic anemia Iron panel # Asymptomatic Hypotonic hyponatremia -monitor bmp # Cavernous hemangioma Ultrasound liver completed, shows 1.7 cm well-circumscribed oval echogenic nodule in the left hepatic lobe compatible with a cavernous hemangioma Outpatient workup advised # ADHD -continue home meds # depression - stable Continue fluoxetine 40 mg daily, lamotrigine 100 mg b.i.d. # Anxiety Ativan 0.5 mg p.r.n. # Vitamin-D deficiency Supplemented #Hypokalemia Replenished Goals of care discussed with the patient for greater than 21 minute, full code Case discussion with dr Rhodes Plan discussed with: Patient, Other My Orders My Orders Orders - DELORIS JENSEN Procedure Category Date Status Time Chest Without Contrast CT 09/05/24 Resulted 09:27 Dietary Evaluation Review Comments: Continue current plan of care Expected Outcomes/Goals: F/U in 3-5 days Date of Service: Sep 05, 2024 Billing Provider: TRINITY RHODES DO Common Visit Codes: [id number] INP/OBS CARE(HIGH) DELORIS JENSEN Sep 05, 2024 14:57 TRINITY RHODES DO Sep 06, 2024 12:06
--- NOTE | 2024-09-05 20:57 | DVHINCON2 ---
DATE OF CONSULTATION: 09/05/2024 PULMONARY FOLLOWUP I am covering for Dr. Kemp. HISTORY OF PRESENT ILLNESS: The patient has a history of loculated pleural effusion, pneumonia, likely gram-negative. The patient had a chest tube placement. The patient was seen in the morning by Dr. Tobar who was planned to remove the chest tube over the next few days. The patient is feeling well. His is at bedside. He denies any significant pain, which gets controlled with pain medication. He denies any orthopnea or PND. He is tolerating p.o. No fevers. He denies any significant cough or expectoration. PHYSICAL EXAMINATION: VITAL SIGNS: Reveals he is afebrile, heart rate 90, respiratory rate 17, blood pressure 118/70, saturations 96 on room air. HEENT: Unremarkable. Tongue moist. NECK: Supple. No JVD. CHEST: Reveals diminished air entry on the right side. No wheezing, no rales. ABDOMEN: Soft, nontender. No organomegaly. No guarding, rigidity or rebound. EXTREMITIES: No edema or clubbing. NEUROLOGIC: Awake and oriented, moving all extremities live. LABORATORY DATA: Lab work and chest x-ray done shows a right sided chest tube in the upper thorax. There is a small right hydropneumothorax. Stable right upper and left lower lobe consolidation and pulmonary nodule. Lab work, WBC 9.8, hematocrit 28, platelet count 603, this was done on 09/03/2024. BMP done on 09/02/2024 was largely unremarkable. The patient's pleural fluid analysis has revealed 97% mononuclear cells, protein 4.6. LDH 1184. Cultures have so far all been negative. The Gram stain and culture had drawn no growth after intubation for 5 days from the right pleural effusion. Another one done on 08/26/2024 also has shown no growth. IMPRESSION: Pneumonia, parapneumonic effusion with loculated pleural effusion, empyema pulmonary nodule. PLAN: At this time, is to continue current chest tube, incentive spirometry, pain control. The patient remains on Zosyn, p.r.n. morphine. Recommended follow up for pulmonary nodule unstable. Discussed importance of followup and compliance. Continue med nebs. Agapito Pedro MD /ANDREW TID: [id number] RECEIPT: [id number]
[2024-09-06] VITALS (16 sets, daily range): BP systolic 101–117; BP diastolic 51–67; PULSE 86–113; RESP 16–20; TEMP 97.9–98.8; O2SAT 92–100
[2024-09-06 08:35] LABS: Basophils # (auto) 0.1 10 ^3/uL (0-0.2); Eosinophils # (auto) 0.3 10 ^3/uL (0-0.8); Hemoglobin 9.4 g/dL (13.5-17.5)
[2024-09-06 08:37] LABS: Eosinophils % (auto) 2.6 % (0.0-7.0); Lymphocytes # (auto) 1.1 10 ^3/uL (0.4-5.4); Lymphocytes % (auto) 10.5 % (10.0-50.0); Mean Corpuscular Hemoglobin 19.5 pg (28.0-32.0); Mean Corpuscular Hgb Conc. 31.3 g/dL (32.0-36.0); Mean Corpuscular Volume 62.3 fL (80.0-100.0); Monocytes # (auto) 0.7 10 ^3/uL (0-1.3); Monocytes % (auto) 7.1 % (0.0-12.0); Neutrophils % (auto) 78.8 % (37.0-80.0); Nucleated Red Blood Cells % 0.6 %; Platelet Count (auto) 621 10^3/uL (140-450); Red Blood Cells 4.81 10^6/uL (4.5-5.90); Red Cell Distribution Width 16.9 % (11.8-14.3); White Blood Cell 10.1 10^3/uL (4.4-10.8)
[2024-09-06 09:01] LABS: Alanine Aminotransferase 95 U/L (7-40); Albumin 3.7 g/dL (3.2-4.8); Alkaline Phosphatase 146 U/L (46-116); Anion Gap 8 (5-15); Aspartate Aminotransferase 85 U/L (13-40); BUN/Creatinine Ratio 6.4 (10.0-20.0); Blood Urea Nitrogen 5 mg/dL (9-23); Calcium 9.5 mg/dL (8.7-10.4); Carbon Dioxide 26 mmol/L (20-31); Chloride 104 mmol/L (98-107); Glucose 116 mg/dL (74-106); Potassium 3.8 mmol/L (3.5-5.1); Sodium 138 mmol/L (136-145)
[2024-09-06 09:02] LABS: Bilirubin, Total 0.8 mg/dL (0.2-1.0); Total Protein 6.3 g/dL (5.7-8.2)
[2024-09-06 09:19] LABS: Hypochromia Marked; Ovalocytes FEW; Platelet Estimate Increased
--- NOTE | 2024-09-06 13:38 | DVHINCON2 ---
Date of service: Sep 06, 2024 Referring Physician Dionne Zaidi Reason for Consultation pneumonia History of Present Illness A patient who is a 28-year-old male with past medical history of ADHD and depression who presented to [facility] ED with complaint of right upper quadrant abdominal pain. Patient reports radiating right flank pain, rating 9/10 numeric scale, getting worse that prompted this visit. Patient was seen and evaluated in the ED, laboratory data shows WBC 9.6, platelets 403, sodium 135, potassium 3.7, BUN 11, creatinine 0.90, glucose 125, troponin 32, AST 62, ALT 89, BNP 25.14, lipase 30. Chest x-ray revealing moderate right-sided pleural effusion with associated atelectasis, underlying pneumonia/mass can not be excluded. Patient was started on IV antibiotic regimen azithromycin, given IV Lasix. Patient was admitted for further evaluation and medical management. Past Medical History depression and ADHD Past Surgical History denies all surgeries Family History: Patient reports no known family medical history. Family History Reviewed , noncontributory to the management of this case Social History The patient lives at home, denies smoking, alcohol , or drug abuse. Allergies: Coded Allergies: NO KNOWN ALLERGIES (Unverified , 12/01/18) Home Meds Reported Medications Fluoxetine HCl (Pmdd) (Fluoxetine HCl) 20 Mg Tab, 20 MG PO DAILY, TAB 08/21/24 Lamotrigine (Lamotrigine) 100 Mg Tab, 1 TAB PO BID 08/21/24 Review of Systems Constitutional: No: Fever, Chills, Sweats, Weakness, Malaise, Other Eyes: No: Pain, Vision change, Conjunctivae inflammation, Eyelid inflammation, Other, Redness ENT: No: Ear pain, Ear discharge, Nose pain, Nose discharge, Nose congestion, Mouth pain, Mouth swelling, Throat pain, Throat swelling, Other Respiratory: No: Cough, Dry, Shortness of breath, SOB with excertion, Wheezing, Hemoptysis, Pleuritic Pain, Sputum, Wheezing, Other Cardiovascular: No: Chest Pain, Palpitations, Orthopnea, Paroxysmal Noc. Dyspnea, Edema, Lt Headedness, Other Gastrointestinal: Abdominal Pain; No: Nausea, Vomiting, Diarrhea, Constipation, Melena, Hematochezia, Other Genitourinary: No Dysuria, No Frequency, No Incontinence, No Hematuria, No Retention, No Other Musculoskeletal: No: other, neck pain, shoulder pain, arm pain, back pain, hand pain, leg pain, foot pain Skin: No: Rash, Lesions, Jaundice, Bruising, Other Neurological: No: Weakness, Numbness, Incoordination, Change in speech, Confusion, Seizures, Other Vital Signs Vital Signs Date Time Temp Pulse Resp B/P (MAP) Pulse Ox O2 Delivery O2 Flow Rate FiO2 09/06/24 13:04 99 18 100 09/06/24 10:00 Room Air 0.0 09/06/24 10:00 21 09/06/24 09:12 98.6 101/56 (71) 98.6 Physical Exam General Appearance: Alert, Oriented X3, Cooperative, No acute distress HEENT: Atraumatic, PERRLA, EOMI, Mucous membr. moist/pink Respiratory: Normal air movement, Other (Diminished breath sounds) Cardiovascular: Regular rate, Normal S1, Normal S2, No murmurs Abdominal: Normal bowel sounds, Soft, No tenderness, No hepatospenomegaly, No masses Extremities: No clubbing, No cyanosis, No edema, Normal pulses, No tenderness/swelling Skin: No rashes, No breakdown, No significant lesion Neuro: Normal gait, Normal speech, Strength at 5/5 X4 ext, Normal tone, Sensation intact, Cranial nerves 3-12 NL, Reflexes 2+ Psych/Mental Status: Mental status NL, Mood NL Labs/Diagnostic Data Labs Test 09/06/24 08:17 09/03/24 05:12 08/31/24 05:21 08/30/24 06:54 Range/Units White Blood Count 10.1 4.4-10.8 10^3/uL Red Blood Count 4.81 4.5-5.90 10^6/uL Hemoglobin 9.4 L 13.5-17.5 g/dL Hematocrit 30.0 L 41.0-53.0 % Mean Corpuscular Volume 62.3 L 80.0-100.0 fL Mean Corpuscular Hemoglobin 19.5 L 28.0-32.0 pg Mean Corpuscular Hemoglobin Concent 31.3 L 32.0-36.0 g/dL Red Cell Distribution Width 16.9 H 11.8-14.3 % Platelet Count 621 H 140-450 10^3/uL Mean Platelet Volume 7.1 6.9-10.8 fL Neutrophils (%) (Auto) 78.8 37.0-80.0 % Lymphocytes (%) (Auto) 10.5 10.0-50.0 % Monocytes (%) (Auto) 7.1 0.0-12.0 % Eosinophils (%) (Auto) 2.6 0.0-7.0 % Basophils (%) (Auto) 1.0 0.0-2.0 % Neutrophils # (Auto) 8.0 1.6-8.6 10 ^3/uL Lymphocytes # (Auto) 1.1 0.4-5.4 10 ^3/uL Monocytes # (Auto) 0.7 0-1.3 10 ^3/uL Eosinophils # (Auto) 0.3 0-0.8 10 ^3/uL Basophils # (Auto) 0.1 0-0.2 10 ^3/uL Nucleated Red Blood Cells 0.6 % Platelet Estimate Increased Hypochromasia (manual) Marked Microcytosis Marked Ovalocytes Few Sodium Level 138 136-145 mmol/L Potassium Level 3.8 3.5-5.1 mmol/L Chloride Level 104 98-107 mmol/L Carbon Dioxide Level 26 20-31 mmol/L Anion Gap 8 5-15 Blood Urea Nitrogen 5 L 9-23 mg/dL Creatinine 0.78 0.700-1.30 mg/dL Glomerular Filtration Rate Calc 126 >90 mL/min BUN/Creatinine Ratio 6.4 L 10.0-20.0 Serum Glucose 116 H 74-106 mg/dL Calcium Level 9.5 8.7-10.4 mg/dL Total Bilirubin 0.8 0.2-1.0 mg/dL Aspartate Amino Transferase (AST) 85 H 13-40 U/L Alanine Aminotransferase (ALT) 95 H 7-40 U/L Alkaline Phosphatase 146 H 46-116 U/L Total Protein 6.3 5.7-8.2 g/dL Albumin 3.7 3.2-4.8 g/dL Differential Total Cells Counted 100.0 100 Neutrophils % (Manual) 96 H 37.0-80.0 Band Neutrophils % (Manual) 0 Lymphocytes % (Manual) 3 L 10.0-50.0 Monocytes % (Manual) 1 0-12 Eosinophils % (Manual) 0 0-7 Basophils % (Manual) 0 0.0-2.0 Metamyelocytes % (manual) 0 Myelocytes % (Manual) 0 Promyelocytes % (Manual) 0 Blast Cells % (Manual) 0 Reactive Lymphocytes 0 Magnesium Level 2.1 1.6-2.6 mg/dL Urine Osmolality 340 mOsm/kg Urine Sodium < 10 L 40-220 mmol/L Test 08/29/24 05:20 08/27/24 07:57 08/26/24 05:24 08/24/24 11:52 Range/Units Large Platelets Moderate Stomatocytes Few Anti-Nuclear Antibody Screen Negative Negative Tear Drop Cells Few Serum Osmolality 271 L 278-298 mOsm/kg Prothrombin Time 12.4 H 9.3-11.8 sec Prothrombin Time INR 1.18 H 0.9-1.15 Activated Partial Thromboplast Time 33.3 24.5-34.5 SEC Test 08/24/24 05:52 08/22/24 18:20 08/21/24 14:08 08/21/24 03:21 Range/Units Erythrocyte Sedimentation Rate 50 H 0-20 mm/hr Reticulocyte Count (auto) 1.66 H 0.5-1.5 % Iron Level 23 L 65-175 ug/dL Total Iron Binding Capacity 195 L 250-425 ug/dL Percent Iron Saturation 11.8 L 20-55 % Ferritin 744.9 H 22-322 ng/mL Direct Bilirubin 0.7 H <0.3 mg/dL C-Reactive Protein High Sensitivity 14.73 H <1.0 mg/dL Body Fluid Source Pleural fluid Body Fluid pH 8 Body Fluid WBC (Manual) 1756 H 0-200 CUMM Body Fluid RBC (Manual) 1213 0-2000 CUMM Body Fluid Mononuclear Cells 97 % Body Fluid Polymorphonuclear Cells 3 0-25 % Body Fluid Glucose 70 . mg/dL Body Fluid Total Protein 4.6 . g/dL Body Fluid Lactate Dehydrogenase 1184 . IU/L Influenza Type A Antigen Negative Negative Influenza Type B Antigen Negative Negative Hemoglobin A1c 5.1 <5.7 % A1C Lactate Dehydrogenase 328 H 120-246 U/L Vitamin B12 Level 673 211-911 pg/mL Vitamin D 25-Hydroxy 22.4 L 30.0-100 ng/mL Thyroid Stimulating Hormone (TSH) 1.30 0.55-4.78 uIU/mL Hepatitis A Antibody Total Positive H Negative Hepatitis B Surface Antigen Negative Negative Hepatitis B Surface Antibody Negative Negative Hepatitis B Core Total Antibody Negative Negative Hepatitis C Antibody Negative Negative HIV (1&2) Antibody Negative Negative Test 08/20/24 18:15 08/20/24 15:58 08/20/24 15:57 Range/Units SARS-CoV-2 Antigen (Rapid) Negative NEGATIVE Lactic Acid Level 1.5 0.4-2.0 mmol/L Troponin I High Sensitivity 32 </=54 ng/L B-Type Natriuretic Peptide 25.14 0-100 pg/mL Lipase 30 12-53 U/L Plasma/Serum Blood Alcohol < 3.0 <10 mg/dL Monoscreen Negative Urine Color Yellow Yellow Urine Clarity Clear Clear Urine pH 6.5 5.0-9.0 Urine Specific [place] 1.018 1.001-1.035 Urine Protein Trace H Negative Urine Ketones Negative Negative Urine Blood 2+ H Negative /uL Urine Nitrite Negative Negative Urine Bilirubin Negative Negative Urine Urobilinogen 3 H Negative mg/dL Urine Leukocyte Esterase Negative Negative /uL Urine RBC 17 0 - 3 /hpf Urine WBC 1 0 - 3 /hpf Urine Squamous Epithelial Cells None seen <5 /hpf Urine Bacteria None seen None Seen /hpf Urine Glucose Normal Normal mg/dL Urine Opiates Screen Neg NEGATIVE Urine Fentanyl Screen Neg NEGATIVE Urine Barbiturates Screen Neg NEGATIVE Urine Phencyclidine Screen Neg NEGATIVE Urine Amphetamines Screen Neg NEGATIVE Urine Benzodiazepines Screen Neg NEGATIVE Urine Cocaine Screen Neg NEGATIVE Urine Cannabinoids Screen Neg NEGATIVE Microbiology Date/Time Source Procedure Growth Status 08/29/24 13:23 Blood Blood Culture - Final NO GROWTH AFTER 5 DAYS OF INCUBATION. Complete 08/26/24 11:00 Pleural Fluid Gram Stain - Final Complete 08/26/24 11:00 Pleural Fluid Body Fluid Culture - Final Complete 08/24/24 21:20 Nasopharynx Coronavirus COVID-19 PCR (RONNIE) - Final Complete 08/24/24 18:29 Nose MRSA Screen - Final Complete Assessment A patient 28 year old male patient Assessment Pleural effusion Elevated liver enzymes Pneumonia, unspecified organism Plan/Recommendation plan Plan discussed with: Patient, Other (RN) MITCH CAMP MD Sep 06, 2024 13:38
--- NOTE | 2024-09-06 16:42 | DVHPNRES ---
Progress Note Date Seen: Sep 06, 2024 Resident Creating Document: LAVELL GONSALES RESIDENT Medical Necessity Reason Pt with a Central, PICC or Fol: No Subjective Review of Systems Xu Amado is a 28-year-old male with past medical history of ADHD and depression who presented to [facility] ED with complaint of right sided chest pain and shortness of breath. 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 Reports vaping a lot recently and sharing his friends vape. Denies any recent travel history. Patient was [place]His father in law has probable COPD as he smokes and cough a lot per the patient. His pain is 9/10 numeric scale, getting worse on deep inhalation that prompted this visit. Patient also mentioned he has a history of fever for last 1 week and the highest temperature was 104 and yesterday he went to urgent care and he was referred from the urgent care due to the right-sided pleural effusion. Patient denied chest pain, dizziness, headache, diaphoresis, nausea or vomiting. Patient was admitted for further evaluation and medical management. Denies any weight loss. No history of incarceration or IV drug use. Home medications; lamotrigine, fluoxetine 08/25 - Patient seen and examined at bedside. Overnight patient was anxious received lorazepam 1 mg. Also reported night sweats. Chest x-ray repeated, shows enlarging pleural effusion, surgeon consulted for chest tube placement. Final blood culture negative, MRSA screen is negative. 08/26 - patient reports feeling better, no shortness of breaths. Overnight reports night sweats. IR was consulted, chest tube placed - draining yellow fluid. Specimen sent for cytology/differential/culture. 08/27-patient has no active complaint. 6 mg alteplase injected for intra- articular administration at around 8:30 p.m.. Patient tolerated well. Advised the nurse in the night float team to open the [place] at around 9:[address] Kemp in case gross blood seen. 08/28 - patient feels much better. Chest x-ray repeated 12 hours after 6 mg alteplase injection. Shows dramatic improvement in the right pleural effusion. Second dose of alteplase injection administered at 5:00 p.m.. Nurse advised to and cough the chest tube at 6:00 p.m.. Notify computer applications instructor in case of gross bleeding in the chest tube. 08/29 - patient reports no active complaint. Wants to go home. Chest x-ray reviewed in the a.m., or effusion looks worsen. WBC elevated from 15-17 with neutrophilic predominance. Chest tube draining 800 mL of dark yellow color fluid. 5:00 p.m.-history of draining pinkish color serosanguineous fluid. Per Dr. Kemp, chest x-ray in the a.m.. Third course of tPA probably tomorrow 08/30. 08/31 - no acute complaint. Chest x-ray in the a.m. repeated, shows persistent right middle and lower lobe effusion. Chest tube draining serosanguineous fluid. Dressing dry and intact. WBC trended down to 13 today. Surgeon consulted for surgical chest tube. 09/01 - reports feeling fine. Breath sounds absent on RLL. Flushed the chest tube with saline in AM. Draining 1020 ml of serosanguis fluid. Satting 95 on RA. Potassium 25meQ given. WBC 11.9. CXR: Small right pleural effusion. NPO starting midnight. Thoracotomy scheduled 09/02. 09/02 - Tmax 99.5. WBC count downtrending 10.4. Blood cultures so far have been negative. Underwent Right thoracotomy, evacuation of empyema, right lung decortication - The patient's chest cavity contained infected fluid, which was sent for cultures. 40 size chest tube placed 09/03 - Patient feels fine. Chest tube draining 190cc red serosanguinous fluid. Dressing dry, intact and clean. 09/04 - patient is anxious, reports tingling pain at the site of chest tube, otherwise in no distress. Chest x-ray reviewed, shows right basilar atelectasis versus effusion. 09/06 - no active issues. Chest tube draining 400 cc of serosanguineous fluid. Patient is in isolation protocols given the suspected TB. Patient reports: No new complaints Review of Systems: HEENT:Normal, CVS:Normal, RESPIRATORY:Normal, GI:Normal, :Normal, MSK:Normal Objective vital signs Vital Sign Date Time Temp Pulse Resp B/P (MAP) Pulse Ox O2 Delivery O2 Flow Rate FiO2 09/06/24 13:04 99 18 100 09/06/24 13:00 98.7 112/58 (76) 98.7 09/06/24 10:00 Room Air 0.0 09/06/24 10:00 21 Total Intake and Output 09/05/24 09/05/24 09/06/24 15:00 23:00 07:00 Intake Total 1500 ml 700 ml Output Total 1700 ml 500 ml Balance -200 ml 200 ml medications Current Medications Medications Dose Ordered Sig/Lori Route Start Time Stop Time Status Last Admin Dose Admin Ondansetron HCl 4 mg Q4HP PRN IV 08/20/24 21:45 09/04/24 05:01 4 MG Docusate Sodium 100 mg BIDPRN PRN PO 08/20/24 21:45 09/06/24 09:53 100 MG Nitroglycerin 0.4 mg Q5MINP PRN SL 08/20/24 23:30 Albuterol 2.5 mg Q6HR NEB 08/21/24 12:00 09/06/24 12:54 2.5 MG Ipratropium [place] 0.5 mg Q6HR NEB 08/21/24 12:00 09/06/24 12:53 0.5 MG Lamotrigine 100 mg Q12HR PO 08/21/24 22:00 09/06/24 09:53 100 MG Ergocalciferol 50,000 unit Q7D PO 08/21/24 14:30 09/04/24 15:49 50,000 UNIT Lorazepam 0.5 mg Q6HP PRN IV 08/25/24 20:30 09/02/24 12:13 0.5 MG Diphenhydramine HCl 25 mg Q4HP PRN IV 08/29/24 05:15 08/31/24 12:41 25 MG Throat Lozenges 1 jabier Q6HPRN PRN MT 08/29/24 05:15 08/30/24 16:55 1 JABIER Acetaminophen 650 mg Q6HP PRN PO 08/30/24 11:30 09/02/24 08:48 650 MG Ferrous Sulfate 325 mg BIDWM PO 08/31/24 18:00 09/06/24 09:53 325 MG Acetaminophen/ Hydrocodone Bitart 1 tab Q6HP PRN PO 08/31/24 18:15 09/06/24 13:24 1 TAB Baclofen 5 mg Q8HR PO 09/04/24 06:00 09/06/24 13:24 5 MG Morphine Sulfate 0.5 mg Q6HP PRN IV 09/04/24 09:15 09/05/24 08:53 0.5 MG Polyethylene Glycol 17 gm DAILYPRN PRN PO 09/04/24 16:00 Piperacillin Sod/ Tazobactam Sod 100 ml @ 25 mls/hr Q6H IV 09/04/24 22:00 09/06/24 15:59 25 MLS/HR Examination General Appearance: Alert, Oriented X4, Cooperative, No acute distress. Lying comfortably in the bed HEENT: Atraumatic, PERRLA, EOMI, Mucous membrane moist/pink Respiratory: Diminished breath sounds, more on the right side. No crackles or wheezing heard. Right-sided chest tube seen draining 450cc reddish serosanguineous fluid. No air leak noticed. Dressing dry clean and intact. Cardiovascular: Regular rate, Normal S1, Normal S2, No murmurs, no chest wall tenderness Abdominal: Normal bowel sounds, Soft, No tenderness, No hepatospenomegaly, No masses Extremities: Erythema noticed on the extensor surfaces including the elbows, knees and the ankles. Skin: No rashes, No breakdown, No significant lesion Neuro: Normal gait, Normal speech, Strength at 5/5 X4 ext, Normal tone, Sensation intact, grossly intact cranial nerves. Psych/Mental Status: Mental status NL, Mood NL Examination: GENERAL:Normal, HEENT:Normal, NECK:Normal, CVS:Normal, SKIN:Normal laboratory and microbiology Laboratory Tests 09/06/24 08:17 Test 09/06/24 08:17 Range/Units Serum Glucose 116 H 74-106 mg/dL Microbiology Date/Time Source Procedure Growth Status 08/29/24 13:23 Blood Blood Culture - Final NO GROWTH AFTER 5 DAYS OF INCUBATION. Complete 08/26/24 11:00 Pleural Fluid Gram Stain - Final Complete 08/26/24 11:00 Pleural Fluid Body Fluid Culture - Final Complete 08/24/24 21:20 Nasopharynx Coronavirus COVID-19 PCR (RONNIE) - Final Complete 08/24/24 18:29 Nose MRSA Screen - Final Complete Labs and/or images reviewed: Labs reviewed by me, Image(s) reviewed by me Problem List/Assessment/Plan Problem List/Assessment/Plan Acute hypoxic respiratory failure likely secondary to community-acquired pneumonia ? Vape associated vs ? Malignancy vs ? Mycobacterium tuberculosis Sepsis due to Community-acquired pneumonia, Gram-positive and Gram-negative Loculated right-sided exudative pleural effusion status post R thoracotomy and chest tube placement and thoracocentesis with 700 mL drainage undergoing tPA course 09/02 - Underwent Right thoracotomy, evacuation of empyema, right lung decortication by Dr. Tobar Chest tube placed 08/26/2024 in the right 4th intercostal mid axillary line by the ER. Draining yellow fluid. Per Dr. Kemp, tPA course after chest tube placement. 08/27 & 08/28- patient received 2 doses of 6 mg alteplase. Holding off on 3rd dose per computer applications instructor Dr. Kemp. Thoracocentesis performed by Dr. Kemp 08/22, drain 700 mL of yellow fluid. Pleural studies suggestive of exudative effusion. Patient required oxygen supplementation with 2 L oxygen via NC, now on room air. CT chest revealed right-sided pleural effusion with atelectasis in the right lower lung field IV Zosyn q.6 hour starting 08/21/2024 IV doxycycline q.12 hour started 08/24/24 Discontinued IV azithromycin 500 mg daily - patient received from 08/21 to 08/24 Nebulized treatment with albuterol and ipratropium q.6 hours Blood cultures and body fluid culture have been negative so far. WBC 12 on arrival, up trending to 17 with 86 % neutrophils, now 13 COVID RNA and influenza testing negative Chest CT revealed The right chest tube is tiny kinked in the upper hemithorax. Reposition is recommended . Stable left upper lobe pulmonary nodules with a suspicious spiculated nodule in the left apex approx 8mm Chest CT completed 09/05 showed Stable left upper lobe pulmonary nodules with a suspicious spiculated nodule in the left apex. Metastatic malignancy can not be ruled out although unlikely considering patient's demographics. Recommend correlation with pleural fluid cytology. Further evaluation with PET-CT scan may be required. IR consulted for biopsy pulmonology on board Infectious disease consulted R lower lobe atelectasis Incentive spirometery Q1hr advised Reactive thrombocytosis Secondary to sepsis Monitor Rule Out pericardial effusion Echocardiogram completed 08/24 showed LVEF 55%. Normal frontal/valvular heart. No pericardial effusion Anemia, likely microcytic Hemoglobin on arrival 10.8, MCV 32, hematocrit 32 ESR 50, retic count 1.66, CRP 14, LDH 328 Iron panel completed shows low iron low TIBC low% saturation Ferritin elevated at 744 Urine analysis shows 2+ blood and 17 RBCs P.o. iron supplementation b.i.d. Transaminitis Bilirubin elevated at 1.3 Direct bili 0.7 AST 33, ALT 69, ALP 196 Patient quit drinking 3 years back Liver U/S pending Asymptomatic Hypotonic euvolemic hyponatremia secondary to ? Fluoxetine Serum sodium 128, serum osmolality 271, urine osmolality 340, urine sodium less than 10 DC fluoxetine Cavernous hemangioma Ultrasound liver completed, shows 1.7 cm well-circumscribed oval echogenic nodule in the left hepatic lobe compatible with a cavernous hemangioma Outpatient workup advised Ruled out HIV HIV testing negative ADHD, depression - stable No homicidal or suicidal ideation Continue lamotrigine 100 mg b.i.d. Ativan 0.5 mg p.r.n. DC fluoxetine given the questionable SIADH Vitamin-D deficiency Supplemented Hypokalemia Replenished Diet regular Plan discussed with patient in which all questions have been answered Goals of care discussed for more than 22 minutes, full code status Case discussed with Dr. Rhodes. Infectious Disease consulted. IR consulted for biopsy. Two doses of tPA administered 08/27 and 08/28. Underwent Right thoracotomy 09/02. Chest tube draining 450cc red serosanguinous fluid. Plan discussed with: Patient, Spouse (Over the phone) Dietary Evaluation Review Comments: Continue current plan of care Expected Outcomes/Goals: F/U in 3-5 days Date of Service: Sep 06, 2024 Billing Provider: TRINITY RHODES DO Common Visit Codes: [id number] INP/OBS CARE(HIGH) LAVELL GONSALES RESIDENT Sep 06, 2024 16:41 TRINITY RHODES DO Sep 14, 2024 07:33
[2024-09-06] MEDS: LACTULOSE 20Gm/30ML SOLN PO ONE (18:29)
[2024-09-07] VITALS (12 sets, daily range): BP systolic 103–115; BP diastolic 56–65; PULSE 85–108; RESP 16–18; TEMP 97.9–99.3; O2SAT 93–99
[2024-09-07 06:59] LABS: Albumin 3.5 g/dL (3.2-4.8); Bilirubin, Direct 0.3 mg/dL (<0.3); Bilirubin, Total 0.7 mg/dL (0.2-1.0); Total Protein 5.8 g/dL (5.7-8.2)
--- NOTE | 2024-09-07 11:01 | DVHPN2 ---
Progress Note - Dictate Date Seen: Sep 07, 2024 Medical Necessity Reason Pt with a Central, PICC or Fol: No Subjective Patient is seen and evaluated. patient is awake and alert x4. No S/S of distress/SOB or pain. IV intact with no redness at the site. QuantiFERON gold test and AFB smear pending. Overnight patient had a bowel movement which was soft. vital signs Vital Sign Date Time Temp Pulse Resp B/P (MAP) Pulse Ox O2 Delivery O2 Flow Rate FiO2 09/07/24 09:55 98.6 87 16 104/61 (75) 97 98.6 09/07/24 06:42 Room Air 0.0 09/07/24 06:42 21 Total Intake and Output 09/06/24 09/06/24 09/07/24 15:00 23:00 07:00 Intake Total 650 ml 650 ml 1800 ml Output Total 700 ml 1200 ml Balance 650 ml -50 ml 600 ml medications Current Medications Medications Dose Ordered Sig/Lori Route Start Time Stop Time Status Last Admin Dose Admin Ondansetron HCl 4 mg Q4HP PRN IV 08/20/24 21:45 09/04/24 05:01 4 MG Docusate Sodium 100 mg BIDPRN PRN PO 08/20/24 21:45 09/06/24 09:53 100 MG Nitroglycerin 0.4 mg Q5MINP PRN SL 08/20/24 23:30 Albuterol 2.5 mg Q6HR NEB 08/21/24 12:00 09/07/24 06:42 2.5 MG Ipratropium [place] 0.5 mg Q6HR NEB 08/21/24 12:00 09/07/24 06:42 0.5 MG Lamotrigine 100 mg Q12HR PO 08/21/24 22:00 09/07/24 10:16 100 MG Ergocalciferol 50,000 unit Q7D PO 08/21/24 14:30 09/04/24 15:49 50,000 UNIT Lorazepam 0.5 mg Q6HP PRN IV 08/25/24 20:30 09/02/24 12:13 0.5 MG Diphenhydramine HCl 25 mg Q4HP PRN IV 08/29/24 05:15 08/31/24 12:41 25 MG Throat Lozenges 1 jabier Q6HPRN PRN MT 08/29/24 05:15 08/30/24 16:55 1 JABIER Acetaminophen 650 mg Q6HP PRN PO 08/30/24 11:30 09/02/24 08:48 650 MG Ferrous Sulfate 325 mg BIDWM PO 08/31/24 18:00 09/07/24 10:15 325 MG Acetaminophen/ Hydrocodone Bitart 1 tab Q6HP PRN PO 08/31/24 18:15 09/07/24 04:29 1 TAB Baclofen 5 mg Q8HR PO 09/04/24 06:00 09/07/24 10:16 5 MG Morphine Sulfate 0.5 mg Q6HP PRN IV 09/04/24 09:15 09/05/24 08:53 0.5 MG Polyethylene Glycol 17 gm DAILYPRN PRN PO 09/04/24 16:00 Piperacillin Sod/ Tazobactam Sod 100 ml @ 25 mls/hr Q6H IV 09/04/24 22:00 09/07/24 10:14 25 MLS/HR laboratory and microbiology Laboratory Tests 09/06/24 08:17 Test 09/06/24 08:17 Range/Units Serum Glucose 116 H 74-106 mg/dL Assessment/Plan A patient 28 year old male patient Assessment Pleural effusion Elevated liver enzymes Pneumonia, unspecified organism Recommendations B QuantiFERON gold test and AFB smear pending. Dietary Evaluation Review Comments: Continue current plan of care Expected Outcomes/Goals: F/U in 3-5 days MITCH CMAP MD Sep 07, 2024 11:01
--- NOTE | 2024-09-07 11:21 | DVHPNRES ---
Progress Note Date Seen: Sep 07, 2024 Resident Creating Document: LAVELL GONSALES RESIDENT Medical Necessity Reason Pt with a Central, PICC or Fol: No Subjective Review of Systems Xu Amado is a 28-year-old male with past medical history of ADHD and depression who presented to [facility] ED with complaint of right sided chest pain and shortness of breath. 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 Reports vaping a lot recently and sharing his friends vape. Denies any recent travel history. Patient was [place]His father in law has probable COPD as he smokes and cough a lot per the patient. His pain is 9/10 numeric scale, getting worse on deep inhalation that prompted this visit. Patient also mentioned he has a history of fever for last 1 week and the highest temperature was 104 and yesterday he went to urgent care and he was referred from the urgent care due to the right-sided pleural effusion. Patient denied chest pain, dizziness, headache, diaphoresis, nausea or vomiting. Patient was admitted for further evaluation and medical management. Denies any weight loss. No history of incarceration or IV drug use. Home medications; lamotrigine, fluoxetine 08/25 - Patient seen and examined at bedside. Overnight patient was anxious received lorazepam 1 mg. Also reported night sweats. Chest x-ray repeated, shows enlarging pleural effusion, surgeon consulted for chest tube placement. Final blood culture negative, MRSA screen is negative. 08/26 - patient reports feeling better, no shortness of breaths. Overnight reports night sweats. IR was consulted, chest tube placed - draining yellow fluid. Specimen sent for cytology/differential/culture. 08/27-patient has no active complaint. 6 mg alteplase injected for intra- articular administration at around 8:30 p.m.. Patient tolerated well. Advised the nurse in the night float team to open the [place] at around 9:[address] Kemp in case gross blood seen. 08/28 - patient feels much better. Chest x-ray repeated 12 hours after 6 mg alteplase injection. Shows dramatic improvement in the right pleural effusion. Second dose of alteplase injection administered at 5:00 p.m.. Nurse advised to and cough the chest tube at 6:00 p.m.. Notify methods examiner in case of gross bleeding in the chest tube. 08/29 - patient reports no active complaint. Wants to go home. Chest x-ray reviewed in the a.m., or effusion looks worsen. WBC elevated from 15-17 with neutrophilic predominance. Chest tube draining 800 mL of dark yellow color fluid. 5:00 p.m.-history of draining pinkish color serosanguineous fluid. Per Dr. Kemp, chest x-ray in the a.m.. Third course of tPA probably tomorrow 08/30. 08/31 - no acute complaint. Chest x-ray in the a.m. repeated, shows persistent right middle and lower lobe effusion. Chest tube draining serosanguineous fluid. Dressing dry and intact. WBC trended down to 13 today. Surgeon consulted for surgical chest tube. 09/01 - reports feeling fine. Breath sounds absent on RLL. Flushed the chest tube with saline in AM. Draining 1020 ml of serosanguis fluid. Satting 95 on RA. Potassium 25meQ given. WBC 11.9. CXR: Small right pleural effusion. NPO starting midnight. Thoracotomy scheduled 09/02. 09/02 - Tmax 99.5. WBC count downtrending 10.4. Blood cultures so far have been negative. Underwent Right thoracotomy, evacuation of empyema, right lung decortication - The patient's chest cavity contained infected fluid, which was sent for cultures. 40 size chest tube placed 09/03 - Patient feels fine. Chest tube draining 190cc red serosanguinous fluid. Dressing dry, intact and clean. 09/04 - patient is anxious, reports tingling pain at the site of chest tube, otherwise in no distress. Chest x-ray reviewed, shows right basilar atelectasis versus effusion. 09/06 - no active issues. Chest tube draining 400 cc of serosanguineous fluid. Patient is in isolation protocols given the suspected TB. Discussed the plan and why the patient is in isolation precautions with the patient for more than 30 minutes. 09/07 - patient reports feeling fine, wants to go home. Chest tube draining serosanguineous dark red fluid. Id consulted. TB QuantiFERON gold test and AFB smear pending. Overnight patient had a bowel movement which was soft. Objective vital signs Vital Sign Date Time Temp Pulse Resp B/P (MAP) Pulse Ox O2 Delivery O2 Flow Rate FiO2 09/07/24 09:55 98.6 87 16 104/61 (75) 97 98.6 09/07/24 06:42 Room Air 0.0 09/07/24 06:42 21 Total Intake and Output 09/06/24 09/06/24 09/07/24 15:00 23:00 07:00 Intake Total 650 ml 650 ml 1800 ml Output Total 700 ml 1200 ml Balance 650 ml -50 ml 600 ml medications Current Medications Medications Dose Ordered Sig/Lori Route Start Time Stop Time Status Last Admin Dose Admin Ondansetron HCl 4 mg Q4HP PRN IV 08/20/24 21:45 09/04/24 05:01 4 MG Docusate Sodium 100 mg BIDPRN PRN PO 08/20/24 21:45 09/06/24 09:53 100 MG Nitroglycerin 0.4 mg Q5MINP PRN SL 08/20/24 23:30 Albuterol 2.5 mg Q6HR NEB 08/21/24 12:00 09/07/24 06:42 2.5 MG Ipratropium [place] 0.5 mg Q6HR NEB 08/21/24 12:00 09/07/24 06:42 0.5 MG Lamotrigine 100 mg Q12HR PO 08/21/24 22:00 09/07/24 10:16 100 MG Ergocalciferol 50,000 unit Q7D PO 08/21/24 14:30 09/04/24 15:49 50,000 UNIT Lorazepam 0.5 mg Q6HP PRN IV 08/25/24 20:30 09/02/24 12:13 0.5 MG Diphenhydramine HCl 25 mg Q4HP PRN IV 08/29/24 05:15 08/31/24 12:41 25 MG Throat Lozenges 1 jabier Q6HPRN PRN MT 08/29/24 05:15 08/30/24 16:55 1 JABIER Acetaminophen 650 mg Q6HP PRN PO 08/30/24 11:30 09/02/24 08:48 650 MG Ferrous Sulfate 325 mg BIDWM PO 08/31/24 18:00 09/07/24 10:15 325 MG Acetaminophen/ Hydrocodone Bitart 1 tab Q6HP PRN PO 08/31/24 18:15 09/07/24 10:48 1 TAB Baclofen 5 mg Q8HR PO 09/04/24 06:00 09/07/24 10:16 5 MG Morphine Sulfate 0.5 mg Q6HP PRN IV 09/04/24 09:15 09/05/24 08:53 0.5 MG Polyethylene Glycol 17 gm DAILYPRN PRN PO 09/04/24 16:00 Piperacillin Sod/ Tazobactam Sod 100 ml @ 25 mls/hr Q6H IV 09/04/24 22:00 09/07/24 10:14 25 MLS/HR Examination General Appearance: Alert, Oriented X4, Cooperative, No acute distress. Lying comfortably in the bed HEENT: Atraumatic, PERRLA, EOMI, Mucous membrane moist/pink Respiratory: Diminished breath sounds, more on the right side which is improving. No crackles or wheezing heard. Right-sided chest tube seen draining around 470cc reddish serosanguineous fluid. No air leak noticed. Dressing dry clean and intact. Cardiovascular: Regular rate, Normal S1, Normal S2, No murmurs, no chest wall tenderness Abdominal: Normal bowel sounds, Soft, No tenderness, No hepatospenomegaly, No masses Extremities: Erythema noticed on the extensor surfaces including the elbows, knees and the ankles. Skin: No rashes, No breakdown, No significant lesion Neuro: Normal gait, Normal speech, Strength at 5/5 X4 ext, Normal tone, Sensation intact, grossly intact cranial nerves. Psych/Mental Status: Mental status NL, Mood NL laboratory and microbiology Laboratory Tests 09/06/24 08:17 Test 09/06/24 08:17 Range/Units Serum Glucose 116 H 74-106 mg/dL Microbiology Date/Time Source Procedure Growth Status 08/29/24 13:23 Blood Blood Culture - Final NO GROWTH AFTER 5 DAYS OF INCUBATION. Complete 08/26/24 11:00 Pleural Fluid Gram Stain - Final Complete 08/26/24 11:00 Pleural Fluid Body Fluid Culture - Final Complete 08/24/24 21:20 Nasopharynx Coronavirus COVID-19 PCR (RONNIE) - Final Complete 08/24/24 18:29 Nose MRSA Screen - Final Complete Labs and/or images reviewed: Labs reviewed by me, Image(s) reviewed by me Problem List/Assessment/Plan Problem List/Assessment/Plan Acute hypoxic respiratory failure likely secondary to community-acquired pneumonia ? Vape associated vs ? Malignancy vs ? Mycobacterium tuberculosis Sepsis due to Community-acquired pneumonia, Gram-positive and Gram-negative Loculated right-sided exudative pleural effusion status post R thoracotomy and chest tube placement and thoracocentesis with 700 mL drainage undergoing tPA course 09/02 - Underwent Right thoracotomy, evacuation of empyema, right lung decortication by Dr. Tobar Chest tube placed 08/26/2024 in the right 4th intercostal mid axillary line by the ER. Draining yellow fluid. Per Dr. Kemp, tPA course after chest tube placement. 08/27 & 08/28- patient received 2 doses of 6 mg alteplase. Holding off on 3rd dose per methods examiner Dr. Kemp. Thoracocentesis performed by Dr. Kemp 08/22, drain 700 mL of yellow fluid. Pleural studies suggestive of exudative effusion. Patient required oxygen supplementation with 2 L oxygen via NC, now on room air. CT chest revealed right-sided pleural effusion with atelectasis in the right lower lung field IV Zosyn q.6 hour starting 08/21/2024 IV doxycycline q.12 hour started 08/24/24 Discontinued IV azithromycin 500 mg daily - patient received from 08/21 to 08/24 Nebulized treatment with albuterol and ipratropium q.6 hours Blood cultures and body fluid culture have been negative so far. WBC 12 on arrival, up trending to 17 with 86 % neutrophils, now 13 COVID RNA and influenza testing negative Chest CT revealed The right chest tube is tiny kinked in the upper hemithorax. Reposition is recommended . QuantiFERON gold test and AFB smear pending Stable left upper lobe pulmonary nodules with a suspicious spiculated nodule in the left apex approx 8mm Chest CT completed 09/05 showed Stable left upper lobe pulmonary nodules with a suspicious spiculated nodule in the left apex. Metastatic malignancy can not be ruled out although unlikely considering patient's demographics. Recommend correlation with pleural fluid cytology. Further evaluation with PET-CT scan may be required. IR consulted for biopsy pulmonology on board Infectious disease consulted R lower lobe atelectasis Incentive spirometery Q1hr advised Reactive thrombocytosis Secondary to sepsis Monitor Rule Out pericardial effusion Echocardiogram completed 08/24 showed LVEF 55%. Normal frontal/valvular heart. No pericardial effusion Anemia, likely microcytic Hemoglobin on arrival 10.8, MCV 32, hematocrit 32 ESR 50, retic count 1.66, CRP 14, LDH 328 Iron panel completed shows low iron low TIBC low% saturation Ferritin elevated at 744 Urine analysis shows 2+ blood and 17 RBCs P.o. iron supplementation b.i.d. Transaminitis Bilirubin elevated at 1.3 Direct bili 0.7 AST 33, ALT 69, ALP 196 Patient quit drinking 3 years back Liver U/S pending Asymptomatic Hypotonic euvolemic hyponatremia secondary to ? Fluoxetine Serum sodium 128, serum osmolality 271, urine osmolality 340, urine sodium less than 10 DC fluoxetine Cavernous hemangioma Ultrasound liver completed, shows 1.7 cm well-circumscribed oval echogenic nodule in the left hepatic lobe compatible with a cavernous hemangioma Outpatient workup advised Ruled out HIV HIV testing negative ADHD, depression - stable No homicidal or suicidal ideation Continue lamotrigine 100 mg b.i.d. Ativan 0.5 mg p.r.n. DC fluoxetine given the questionable SIADH Vitamin-D deficiency Supplemented Hypokalemia Replenished Diet regular 66 minutes of critical care time Goals of care discussed for 20 minutes, full code status Case discussed with Dr. Erwin. Infectious Disease consulted. Two doses of tPA administered 08/27 and 08/28. Underwent Right thoracotomy 09/02. Chest tube draining red serosanguinous fluid. QuantiFERON gold test and AFB smear pending. Plan discussed with: Patient, Spouse (Over the phone), Other (Nurse) My Orders My Orders Orders - LAVELL GONSALES RESIDENT Procedure Category Date Status Time Afb Cult/Smear Broth RONNIE 09/08/24 Uncollected Suscep 05:00 Afb Cult/Smear Broth RONNIE 09/09/24 Uncollected Suscep 05:00 Afb Cult/Smear Broth RONNIE 09/10/24 Uncollected Suscep 05:00 Quantiferon-Tb Gold LAB 09/07/24 Logged 10:17 Dietary Evaluation Review Comments: Continue current plan of care Expected Outcomes/Goals: F/U in 3-5 days Critical Care Time (mins): 66 Addendum Addendum Addendum I was physically present for the wood portions of the service provided to patient by THE RESIDENT. I have reviewed the documentation, discussed the case with resident and agree with the resident's documentation except as noted. Also the patient's clinical case was discussed with the patient's nurse. This medical document was created using an electronic medical record system with computerized dictation system. Although this document has been carefully reviewed, there might still be some phonetic and typographical errors. These areas are purely typographical due to imperfections of the software programs, and do not reflect any compromise in the patient's medical care. Late signature. Date of Service: Sep 07, 2024 Billing Provider: AASHISH ERWIN MD Common Visit Codes: 02996-YHHLXHCA CARE 30-74 MIN (66 minutes) Secondary Visit Codes: 65544-[id number] CARE PLAN 30 MINUTES (20 minutes) LAVELL GONSALES Sep 07, 2024 11:21 AASHISH ERWIN MD Sep 08, 2024 04:24
--- NOTE | 2024-09-07 12:57 | DVHPN2 ---
Progress Note Date Seen: Sep 07, 2024 Medical Necessity Reason Pt with a Central, PICC or Fol: No Objective vital signs Vital Sign Date Time Temp Pulse Resp B/P (MAP) Pulse Ox O2 Delivery O2 Flow Rate FiO2 09/07/24 09:55 98.6 87 16 104/61 (75) 97 98.6 09/07/24 06:42 Room Air 0.0 09/07/24 06:42 21 Total Intake and Output 09/06/24 09/06/24 09/07/24 15:00 23:00 07:00 Intake Total 650 ml 650 ml 1800 ml Output Total 700 ml 1200 ml Balance 650 ml -50 ml 600 ml medications Current Medications Medications Dose Ordered Sig/Lori Route Start Time Stop Time Status Last Admin Dose Admin Ondansetron HCl 4 mg Q4HP PRN IV 08/20/24 21:45 09/04/24 05:01 4 MG Docusate Sodium 100 mg BIDPRN PRN PO 08/20/24 21:45 09/06/24 09:53 100 MG Nitroglycerin 0.4 mg Q5MINP PRN SL 08/20/24 23:30 Albuterol 2.5 mg Q6HR NEB 08/21/24 12:00 09/07/24 06:42 2.5 MG Ipratropium [place] 0.5 mg Q6HR NEB 08/21/24 12:00 09/07/24 06:42 0.5 MG Lamotrigine 100 mg Q12HR PO 08/21/24 22:00 09/07/24 10:16 100 MG Ergocalciferol 50,000 unit Q7D PO 08/21/24 14:30 09/04/24 15:49 50,000 UNIT Lorazepam 0.5 mg Q6HP PRN IV 08/25/24 20:30 09/02/24 12:13 0.5 MG Diphenhydramine HCl 25 mg Q4HP PRN IV 08/29/24 05:15 08/31/24 12:41 25 MG Throat Lozenges 1 jabier Q6HPRN PRN MT 08/29/24 05:15 08/30/24 16:55 1 JABIER Acetaminophen 650 mg Q6HP PRN PO 08/30/24 11:30 09/02/24 08:48 650 MG Ferrous Sulfate 325 mg BIDWM PO 08/31/24 18:00 09/07/24 10:15 325 MG Acetaminophen/ Hydrocodone Bitart 1 tab Q6HP PRN PO 08/31/24 18:15 09/07/24 10:48 1 TAB Baclofen 5 mg Q8HR PO 09/04/24 06:00 09/07/24 10:16 5 MG Morphine Sulfate 0.5 mg Q6HP PRN IV 09/04/24 09:15 09/05/24 08:53 0.5 MG Polyethylene Glycol 17 gm DAILYPRN PRN PO 09/04/24 16:00 Piperacillin Sod/ Tazobactam Sod 100 ml @ 25 mls/hr Q6H IV 09/04/24 22:00 09/07/24 10:14 25 MLS/HR laboratory and microbiology Laboratory Tests 09/06/24 08:17 Test 09/06/24 08:17 Range/Units Serum Glucose 116 H 74-106 mg/dL Problem List/Assessment/Plan Problem List/Assessment/Plan 09/03/24 feels like he is breathing betterm, dressing dry, chest tube output moderate, no effusion on X ray, no air leak per chest tube. continue as is 09/05/24 FEELS WELL, CHEST WALL WOUND CLEAN AND WELL APPROXIMATED, CHEST TUBE WITH MINIMAL AIR LEAK ON FORCED EXPIRATION, OUTPUT DIMINISHING, PLAN TO REMOVE CHEST TUBE ON SATURDAY. 09/07/24 FEELS"VERY WELL", NO SHORTNESS OF BREATH, NO AIR LEAK PER CHEST TUBE HOWEVER OUTPUT STILL QUITE SANGUINEOUS AND ABOUT 40 CC, WILL KEEP CHEST TUBE IN Plan discussed with: Patient Dietary Evaluation Review Comments: Continue current plan of care Expected Outcomes/Goals: F/U in 3-5 days DELTA CHI MD Sep 07, 2024 12:57
[2024-09-07] MEDS ORDERED: IPRATROPIUM BROM 0.5 MG/2.5ML INH SOL NEB PRN (14:00)
[2024-09-07] MEDS ORDERED: ALBUTEROL SULF 2.5 MG/0.5ML(0.5%) NEB SOLN NEB PRN (14:00)
--- NOTE | 2024-09-07 19:59 | DVHPN2 ---
Progress Note - Dictate Date Seen: Sep 07, 2024 Medical Necessity Reason Pt with a Central, PICC or Fol: No Subjective Patient seen and examined at bedside. Breathing comfortably on room air. Overnight events reviewed. vital signs Vital Sign Date Time Temp Pulse Resp B/P (MAP) Pulse Ox O2 Delivery O2 Flow Rate FiO2 09/07/24 18:26 95 Room Air* 0 21 09/07/24 17:00 98.8 88 18 104/56 (72) 98.8 Total Intake and Output 09/06/24 09/06/24 09/07/24 15:00 23:00 07:00 Intake Total 650 ml 650 ml 1800 ml Output Total 700 ml 1200 ml Balance 650 ml -50 ml 600 ml medications Current Medications Medications Dose Ordered Sig/Lori Route Start Time Stop Time Status Last Admin Dose Admin Ondansetron HCl 4 mg Q4HP PRN IV 08/20/24 21:45 09/04/24 05:01 4 MG Docusate Sodium 100 mg BIDPRN PRN PO 08/20/24 21:45 09/06/24 09:53 100 MG Nitroglycerin 0.4 mg Q5MINP PRN SL 08/20/24 23:30 Lamotrigine 100 mg Q12HR PO 08/21/24 22:00 09/07/24 10:16 100 MG Ergocalciferol 50,000 unit Q7D PO 08/21/24 14:30 09/04/24 15:49 50,000 UNIT Lorazepam 0.5 mg Q6HP PRN IV 08/25/24 20:30 09/02/24 12:13 0.5 MG Diphenhydramine HCl 25 mg Q4HP PRN IV 08/29/24 05:15 08/31/24 12:41 25 MG Throat Lozenges 1 jabier Q6HPRN PRN MT 08/29/24 05:15 08/30/24 16:55 1 JABIER Acetaminophen 650 mg Q6HP PRN PO 08/30/24 11:30 09/02/24 08:48 650 MG Ferrous Sulfate 325 mg BIDWM PO 08/31/24 18:00 09/07/24 17:04 325 MG Acetaminophen/ Hydrocodone Bitart 1 tab Q6HP PRN PO 08/31/24 18:15 09/07/24 17:07 1 TAB Baclofen 5 mg Q8HR PO 09/04/24 06:00 09/07/24 10:16 5 MG Morphine Sulfate 0.5 mg Q6HP PRN IV 09/04/24 09:15 09/05/24 08:53 0.5 MG Polyethylene Glycol 17 gm DAILYPRN PRN PO 09/04/24 16:00 Piperacillin Sod/ Tazobactam Sod 100 ml @ 25 mls/hr Q6H IV 09/04/24 22:00 09/07/24 17:05 25 MLS/HR Albuterol 2.5 mg Q4HPRN PRN NEB 09/07/24 14:00 Ipratropium [place] 0.5 mg Q4HPRN PRN NEB 09/07/24 14:00 objective Gen.: Patient lying in bed in no apparent distress. Breathing on room air. Head: Normocephalic, atraumatic. Eyes: EOMI/PERRLA. Ears: Normal hearing. Normal anatomy. Neck/trachea: Trachea midline, supple. Nose: Normal external anatomy. Mouth: Moist mucous membranes. Chest: Decreased air entry bilaterally. No wheezing or rhonchi. Cardiovascular: Positive S1, positive S2. Regular rate and rhythm. Abdomen: Positive bowel sounds in all 4 quadrants. Soft, non-tender, non- distended. : Deferred. Rectal: Deferred. Skin: Warm, dry. Intact. Extremities: 2+ radial pulses bilaterally. No lower extremity edema. Neuro: Awake, alert, oriented x3. No gross motor or sensory deficits. Cranial nerves II through XII intact. Gait not assessed. laboratory and microbiology Laboratory Tests 09/06/24 08:17 Test 09/06/24 08:17 Range/Units Serum Glucose 116 H 74-106 mg/dL Assessment/Plan Impression: Loculated pleural effusion Pneumonia likely Gram-negative Elevated liver enzymes Atelectasis Events: Breathing on room air No respiratory distress Continue antibiotics Incentive spirometry Recommend outpatient CT chest in 2-3 months. OK to remove chest tube in the AM. Pain control Avoid oversedation S/p thoracotomy on 09/02 - Right thoracotomy with evacuation of empyema and right lung decortication. Labs and imaging reviewed. Rest of plan as noted below. Plan: Supplemental oxygen if necessary Keep O2 saturation above 92%. Continue antibiotics Fluid cultures show no growth Blood cultures show no growth Limited chest ultrasound demonstrated loculated right pleural effusion. Drained 700 mL of yellow colored fluid. Several septations were seen. See separate procedure note for right thoracentesis (08/22). S/p thoracotomy on 09/02 - Right thoracotomy with evacuation of empyema and right lung decortication. S/p chest tube placement. S/p large-bore chest tube Chest tube placed to suction -20 cmH2O. Monitor output No air leak. Continue daily chest tube flush. Obtain daily CXR to monitor pleural effusion as well as chest tube. Continue bronchodilators Pain control Avoid oversedation Anxiolytics prn Monitor renal function Monitor electrolytes. Supplement as necessary. DVT prophylaxis Prognosis: Poor given multiple comorbidities. Rest of plan per hospitalist and other consultants. Thank you Dr. Jewell for allowing me to participate in this patient's care. Further recommendations will depend on patient's clinical course. Please do not hesitate to contact me if you have any questions or concerns. This medical document was created using an electronic medical record system with [employer] dictation system. Although this document has been carefully reviewed, there may still be some phonetic and typographical errors. These areas are purely typographical due to imperfections of the software programs, and do not reflect any compromise in the patient's medical care. Dietary Evaluation Review Comments: Continue current plan of care Expected Outcomes/Goals: F/U in 3-5 days Plan discussed with: Patient, Other (DOC Arndt) PRESTON CARTY MD Sep 07, 2024 19:59
[2024-09-08] VITALS (12 sets, daily range): BP systolic 93–119; BP diastolic 42–65; PULSE 73–103; RESP 16–20; TEMP 98–98.7; O2SAT 93–97
[2024-09-08] MEDS: ONDANSETRON HCL 4 MG/2 ML VIAL IV ONE ×2 (07:36→07:37)
--- NOTE | 2024-09-08 09:23 | DVH ---
XY CHEST PORTABLE, HISTORY: pleural effusion COMPARISON: XY CHEST XRAY 1 VIEW on DOS: 09/04/24, XY CHEST PORTABLE on DOS: 09/03/24, XY CHEST PORTAB LE on DOS: 09/02/24 XY CHEST XRAY 1 VIEW on DOS: 09/04/24, XY CHEST PORTABLE on DOS: 09/03/24, XY CHEST PORTABLE on DOS: 1 TECHNICAL DATA: 1 view of the chest was obtained. FINDINGS: Lines and tubes: Right chest tube is seen in place. Cardiomediastinal silhouette: normal Pulmonary vasculature: normal Lung expansion: normal Lung airspace: Patchy right basilar airspace opacities. Lung interstitium: prominent Pleura: small right pleural effusion. Pneumothorax: no Bones: Unremarkable Other: no IMPRESSION: Similar lung aeration with patchy right basilar airspace opacities and right chest tube in place. No pneumothorax seen.
--- NOTE | 2024-09-08 15:37 | DVHPNRES ---
Progress Note Date Seen: Sep 08, 2024 Resident Creating Document: LAVELL GONSALES RESIDENT Medical Necessity Reason Pt with a Central, PICC or Fol: No Subjective Review of Systems Xu Amado is a 28-year-old male with past medical history of ADHD and depression who presented to [facility] ED with complaint of right sided chest pain and shortness of breath. 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 Reports vaping a lot recently and sharing his friends vape. Denies any recent travel history. Patient was [place]His father in law has probable COPD as he smokes and cough a lot per the patient. His pain is 9/10 numeric scale, getting worse on deep inhalation that prompted this visit. Patient also mentioned he has a history of fever for last 1 week and the highest temperature was 104 and yesterday he went to urgent care and he was referred from the urgent care due to the right-sided pleural effusion. Patient denied chest pain, dizziness, headache, diaphoresis, nausea or vomiting. Patient was admitted for further evaluation and medical management. Denies any weight loss. No history of incarceration or IV drug use. Home medications; lamotrigine, fluoxetine 08/25 - Patient seen and examined at bedside. Overnight patient was anxious received lorazepam 1 mg. Also reported night sweats. Chest x-ray repeated, shows enlarging pleural effusion, surgeon consulted for chest tube placement. Final blood culture negative, MRSA screen is negative. 08/26 - patient reports feeling better, no shortness of breaths. Overnight reports night sweats. IR was consulted, chest tube placed - draining yellow fluid. Specimen sent for cytology/differential/culture. 08/27-patient has no active complaint. 6 mg alteplase injected for intra- articular administration at around 8:30 p.m.. Patient tolerated well. Advised the nurse in the night float team to open the [place] at around 9:[address] Kemp in case gross blood seen. 08/28 - patient feels much better. Chest x-ray repeated 12 hours after 6 mg alteplase injection. Shows dramatic improvement in the right pleural effusion. Second dose of alteplase injection administered at 5:00 p.m.. Nurse advised to and cough the chest tube at 6:00 p.m.. Notify chemical compounder in case of gross bleeding in the chest tube. 08/29 - patient reports no active complaint. Wants to go home. Chest x-ray reviewed in the a.m., or effusion looks worsen. WBC elevated from 15-17 with neutrophilic predominance. Chest tube draining 800 mL of dark yellow color fluid. 5:00 p.m.-history of draining pinkish color serosanguineous fluid. Per Dr. Kemp, chest x-ray in the a.m.. Third course of tPA probably tomorrow 08/30. 08/31 - no acute complaint. Chest x-ray in the a.m. repeated, shows persistent right middle and lower lobe effusion. Chest tube draining serosanguineous fluid. Dressing dry and intact. WBC trended down to 13 today. Surgeon consulted for surgical chest tube. 09/01 - reports feeling fine. Breath sounds absent on RLL. Flushed the chest tube with saline in AM. Draining 1020 ml of serosanguis fluid. Satting 95 on RA. Potassium 25meQ given. WBC 11.9. CXR: Small right pleural effusion. NPO starting midnight. Thoracotomy scheduled 09/02. 09/02 - Tmax 99.5. WBC count downtrending 10.4. Blood cultures so far have been negative. Underwent Right thoracotomy, evacuation of empyema, right lung decortication - The patient's chest cavity contained infected fluid, which was sent for cultures. 40 size chest tube placed 09/03 - Patient feels fine. Chest tube draining 190cc red serosanguinous fluid. Dressing dry, intact and clean. 09/04 - patient is anxious, reports tingling pain at the site of chest tube, otherwise in no distress. Chest x-ray reviewed, shows right basilar atelectasis versus effusion. 09/06 - no active issues. Chest tube draining 400 cc of serosanguineous fluid. Patient is in isolation protocols given the suspected TB. Discussed the plan and why the patient is in isolation precautions with the patient for more than 30 minutes. 09/07 - patient reports feeling fine, wants to go home. Chest tube draining serosanguineous dark red fluid. Id consulted. TB QuantiFERON gold test and AFB smear pending. Overnight patient had a bowel movement which was soft. 09/08 - patient is alert and oriented x4, feeling all right, no active complaint. Chest tube drained 25 cc overnight. Surgeon consultation pending. Chest x-ray repeated, shows resolving right lower effusion/atelectasis. Objective vital signs Vital Sign Date Time Temp Pulse Resp B/P (MAP) Pulse Ox O2 Delivery O2 Flow Rate FiO2 09/08/24 13:00 98.7 91 19 104/56 (72) 96 98.7 09/08/24 09:44 Room Air* 0 21 Total Intake and Output 09/07/24 09/07/24 09/08/24 15:00 23:00 07:00 Intake Total 1700 ml 1800 ml Output Total 950 ml 0 ml Balance 750 ml 1800 ml medications Current Medications Medications Dose Ordered Sig/Lori Route Start Time Stop Time Status Last Admin Dose Admin Ondansetron HCl 4 mg Q4HP PRN IV 08/20/24 21:45 09/04/24 05:01 4 MG Docusate Sodium 100 mg BIDPRN PRN PO 08/20/24 21:45 09/06/24 09:53 100 MG Nitroglycerin 0.4 mg Q5MINP PRN SL 08/20/24 23:30 Lamotrigine 100 mg Q12HR PO 08/21/24 22:00 09/08/24 09:01 100 MG Ergocalciferol 50,000 unit Q7D PO 08/21/24 14:30 09/04/24 15:49 50,000 UNIT Lorazepam 0.5 mg Q6HP PRN IV 08/25/24 20:30 09/02/24 12:13 0.5 MG Diphenhydramine HCl 25 mg Q4HP PRN IV 08/29/24 05:15 08/31/24 12:41 25 MG Throat Lozenges 1 jabier Q6HPRN PRN MT 08/29/24 05:15 08/30/24 16:55 1 JABIER Acetaminophen 650 mg Q6HP PRN PO 08/30/24 11:30 09/02/24 08:48 650 MG Ferrous Sulfate 325 mg BIDWM PO 08/31/24 18:00 09/08/24 09:01 325 MG Acetaminophen/ Hydrocodone Bitart 1 tab Q6HP PRN PO 08/31/24 18:15 09/08/24 13:31 1 TAB Baclofen 5 mg Q8HR PO 09/04/24 06:00 11/5/24 13:31 5 MG Morphine Sulfate 0.5 mg Q6HP PRN IV 09/04/24 09:15 09/05/24 08:53 0.5 MG Polyethylene Glycol 17 gm DAILYPRN PRN PO 09/04/24 16:00 Piperacillin Sod/ Tazobactam Sod 100 ml @ 25 mls/hr Q6H IV 09/04/24 22:00 09/08/24 11:23 25 MLS/HR Albuterol 2.5 mg Q4HPRN PRN NEB 09/07/24 14:00 Ipratropium [place] 0.5 mg Q4HPRN PRN NEB 09/07/24 14:00 Examination General Appearance: Alert, Oriented X4, Cooperative, No acute distress. Lying comfortably in the bed HEENT: Atraumatic, PERRLA, EOMI, Mucous membrane moist/pink Respiratory: Diminished breath sounds, more on the right side which is improving. No crackles or wheezing heard. Right-sided chest tube seen draining reddish serosanguineous fluid. No air leak noticed. Dressing dry clean and intact. Cardiovascular: Regular rate, Normal S1, Normal S2, No murmurs, no chest wall tenderness Abdominal: Normal bowel sounds, Soft, No tenderness, No hepatosplenomegaly, No masses Extremities: Erythema noticed on the extensor surfaces including the elbows, knees and the ankles. Skin: No rashes, No breakdown, No significant lesion Neuro: Normal gait, Normal speech, Strength at 5/5 X4 ext, Normal tone, Sensation intact, grossly intact cranial nerves. Psych/Mental Status: Mental status NL, Mood NL laboratory and microbiology Laboratory Tests 09/06/24 08:17 Test 09/06/24 08:17 Range/Units Serum Glucose 116 H 74-106 mg/dL Microbiology Date/Time Source Procedure Growth Status 09/07/24 10:00 Sputum AFB Broth Culture Pending Resulted 09/07/24 10:00 Sputum - Final Resulted 09/07/24 10:00 Sputum - Final Resulted 09/07/24 10:00 Sputum Acid Fast Bacilli Culture Pending Resulted 08/29/24 13:23 Blood Blood Culture - Final NO GROWTH AFTER 5 DAYS OF INCUBATION. Complete 08/26/24 11:00 Pleural Fluid Gram Stain - Final Complete 08/26/24 11:00 Pleural Fluid Body Fluid Culture - Final Complete 08/24/24 18:29 Nose MRSA Screen - Final Complete Labs and/or images reviewed: Labs reviewed by me, Image(s) reviewed by me Problem List/Assessment/Plan Problem List/Assessment/Plan Acute hypoxic respiratory failure likely secondary to community-acquired pneumonia ? Vape associated vs ? Malignancy vs ? Mycobacterium tuberculosis Sepsis due to Community-acquired pneumonia, Gram-positive and Gram-negative Loculated right-sided exudative pleural effusion status post R thoracotomy and chest tube placement and thoracocentesis with 700 mL drainage undergoing tPA course 09/02 - Underwent Right thoracotomy, evacuation of empyema, right lung decortication by Dr. Tobar Chest tube placed 08/26/2024 in the right 4th intercostal mid axillary line by the ER. Draining yellow fluid. Per Dr. Kemp, tPA course after chest tube placement. 08/27 & 08/28- patient received 2 doses of 6 mg alteplase. Holding off on 3rd dose per chemical compounder Dr. Kemp. Thoracocentesis performed by Dr. Kemp 08/22, drain 700 mL of yellow fluid. Pleural studies suggestive of exudative effusion. Patient required oxygen supplementation with 2 L oxygen via NC, now on room air. CT chest revealed right-sided pleural effusion with atelectasis in the right lower lung field IV Zosyn q.6 hour starting 08/21/2024 IV doxycycline q.12 hour started 08/24/24 Discontinued IV azithromycin 500 mg daily - patient received from 08/21 to 08/24 Nebulized treatment with albuterol and ipratropium q.6 hours Blood cultures and body fluid culture have been negative so far. WBC 12 on arrival, up trending to 17 with 86 % neutrophils, now 13 COVID RNA and influenza testing negative Chest CT revealed The right chest tube is tiny kinked in the upper hemithorax. Reposition is recommended . QuantiFERON gold test and AFB smear pending Stable left upper lobe pulmonary nodules with a suspicious spiculated nodule in the left apex approx 8mm Chest CT completed 09/05 showed Stable left upper lobe pulmonary nodules with a suspicious spiculated nodule in the left apex. Metastatic malignancy can not be ruled out although unlikely considering patient's demographics. Recommend correlation with pleural fluid cytology. Further evaluation with PET-CT scan may be required. IR consulted for biopsy pulmonology on board Infectious disease consulted R lower lobe atelectasis Incentive spirometry Q1hr advised Reactive thrombocytosis Secondary to sepsis Monitor Rule Out pericardial effusion Echocardiogram completed 08/24 showed LVEF 55%. Normal frontal/valvular heart. No pericardial effusion Anemia, microcytic due to iron deficiency Hemoglobin on arrival 10.8, MCV 32, hematocrit 32 ESR 50, retic count 1.66, CRP 14, LDH 328 Iron panel completed shows low iron low TIBC low% saturation Ferritin elevated at 744 Urine analysis shows 2+ blood and 17 RBCs P.o. iron supplementation b.i.d. Transaminitis Bilirubin elevated at 1.3 Direct bili 0.7 AST 33, ALT 69, ALP 196 Patient quit drinking 3 years back Liver U/S pending Asymptomatic Hypotonic euvolemic hyponatremia secondary to ? Fluoxetine Serum sodium 128, serum osmolality 271, urine osmolality 340, urine sodium less than 10 D/C fluoxetine Cavernous hemangioma Ultrasound liver completed, shows 1.7 cm well-circumscribed oval echogenic nodule in the left hepatic lobe compatible with a cavernous hemangioma Outpatient workup advised Ruled out HIV HIV testing negative ADHD, depression - stable No homicidal or suicidal ideation Continue lamotrigine 100 mg b.i.d. Ativan 0.5 mg p.r.n. D/C fluoxetine given the questionable SIADH Vitamin-D deficiency Supplemented Hypokalemia Replenished Diet; regular Plan discussed with patient and his over the phone call for more than 30 minutes in which all questions have been answered Goals of care; rediscussed for 20 minutes; full code 66 minutes of critical care time Case discussed with Dr. Erwin. Infectious Disease consulted. Two doses of tPA administered 08/27 and 08/28. Underwent Right thoracotomy 09/02. Chest tube draining red serosanguineous fluid. QuantiFERON gold test and AFB smear pending. Plan discussed with: Patient, Other (RN) My Orders My Orders Orders - LAVELL GONSALES RESIDENT Procedure Category Date Status Time Up In Chair Radha REEVES 09/07/24 In Process 15:49 Dietary Evaluation Review Comments: Continue current plan of care Expected Outcomes/Goals: F/U in 3-5 days Critical Care Time (mins): 66 Addendum Addendum Addendum I was physically present for the wood portions of the service provided to patient by THE RESIDENT. I have reviewed the documentation, discussed the case with resident and agree with the resident's documentation except as noted. Also the patient's clinical case was discussed with the patient's nurse. This medical document was created using an electronic medical record system with computerized dictation system. Although this document has been carefully reviewed, there might still be some phonetic and typographical errors. These areas are purely typographical due to imperfections of the software programs, and do not reflect any compromise in the patient's medical care. Late signature. Date of Service: Sep 08, 2024 Billing Provider: AASHISH ERWIN MD Common Visit Codes: 27132-ILCDJYIP CARE 30-74 MIN (66 minutes) Secondary Visit Codes: 75914-[id number] CARE PLAN 30 MINUTES (20 minutes) LAVELL GONSALES RESIDENT Sep 08, 2024 15:37 AASHISH ERWIN MD Sep 09, 2024 04:34
--- NOTE | 2024-09-08 18:37 | DVHINCON2 ---
Date of service: Sep 08, 2024 Family History: Patient reports no known family medical history. Allergies: Coded Allergies: NO KNOWN ALLERGIES (Unverified , 12/01/18) Home Meds Reported Medications Fluoxetine HCl (Pmdd) (Fluoxetine HCl) 20 Mg Tab, 20 MG PO DAILY, TAB 08/21/24 Lamotrigine (Lamotrigine) 100 Mg Tab, 1 TAB PO BID 08/21/24 Vital Signs Vital Signs Date Time Temp Pulse Resp B/P (MAP) Pulse Ox O2 Delivery O2 Flow Rate FiO2 09/08/24 17:00 98.0 73 19 94/42 (59) 96 98.0 09/08/24 09:44 Room Air* 0 21 Labs/Diagnostic Data Labs Test 09/08/24 06:30 09/07/24 12:58 09/07/24 12:18 09/07/24 05:41 Range/Units Miscellaneous Referred Test (Rm Tmp Sent to [facility] Miscellaneous Referred Test (Refrg) Sent to [facility] Total Bilirubin 0.7 0.2-1.0 mg/dL Direct Bilirubin 0.3 <0.3 mg/dL Aspartate Amino Transferase (AST) 45 H 13-40 U/L Alanine Aminotransferase (ALT) 70 H 7-40 U/L Alkaline Phosphatase 129 H 46-116 U/L Total Protein 5.8 5.7-8.2 g/dL Albumin 3.5 3.2-4.8 g/dL Test 09/06/24 08:17 09/03/24 05:12 08/31/24 05:21 08/30/24 06:54 Range/Units White Blood Count 10.1 4.4-10.8 10^3/uL Red Blood Count 4.81 4.5-5.90 10^6/uL Hemoglobin 9.4 L 13.5-17.5 g/dL Hematocrit 30.0 L 41.0-53.0 % Mean Corpuscular Volume 62.3 L 80.0-100.0 fL Mean Corpuscular Hemoglobin 19.5 L 28.0-32.0 pg Mean Corpuscular Hemoglobin Concent 31.3 L 32.0-36.0 g/dL Red Cell Distribution Width 16.9 H 11.8-14.3 % Platelet Count 621 H 140-450 10^3/uL Mean Platelet Volume 7.1 6.9-10.8 fL Neutrophils (%) (Auto) 78.8 37.0-80.0 % Lymphocytes (%) (Auto) 10.5 10.0-50.0 % Monocytes (%) (Auto) 7.1 0.0-12.0 % Eosinophils (%) (Auto) 2.6 0.0-7.0 % Basophils (%) (Auto) 1.0 0.0-2.0 % Neutrophils # (Auto) 8.0 1.6-8.6 10 ^3/uL Lymphocytes # (Auto) 1.1 0.4-5.4 10 ^3/uL Monocytes # (Auto) 0.7 0-1.3 10 ^3/uL Eosinophils # (Auto) 0.3 0-0.8 10 ^3/uL Basophils # (Auto) 0.1 0-0.2 10 ^3/uL Nucleated Red Blood Cells 0.6 % Platelet Estimate Increased Hypochromasia (manual) Marked Microcytosis Marked Ovalocytes Few Sodium Level 138 136-145 mmol/L Potassium Level 3.8 3.5-5.1 mmol/L Chloride Level 104 98-107 mmol/L Carbon Dioxide Level 26 20-31 mmol/L Anion Gap 8 5-15 Blood Urea Nitrogen 5 L 9-23 mg/dL Creatinine 0.78 0.700-1.30 mg/dL Glomerular Filtration Rate Calc 126 >90 mL/min BUN/Creatinine Ratio 6.4 L 10.0-20.0 Serum Glucose 116 H 74-106 mg/dL Calcium Level 9.5 8.7-10.4 mg/dL Differential Total Cells Counted 100.0 100 Neutrophils % (Manual) 96 H 37.0-80.0 Band Neutrophils % (Manual) 0 Lymphocytes % (Manual) 3 L 10.0-50.0 Monocytes % (Manual) 1 0-12 Eosinophils % (Manual) 0 0-7 Basophils % (Manual) 0 0.0-2.0 Metamyelocytes % (manual) 0 Myelocytes % (Manual) 0 Promyelocytes % (Manual) 0 Blast Cells % (Manual) 0 Reactive Lymphocytes 0 Magnesium Level 2.1 1.6-2.6 mg/dL Urine Osmolality 340 mOsm/kg Urine Sodium < 10 L 40-220 mmol/L Test 08/29/24 05:20 08/27/24 07:57 08/26/24 05:24 08/24/24 11:52 Range/Units Large Platelets Moderate Stomatocytes Few Anti-Nuclear Antibody Screen Negative Negative Tear Drop Cells Few Serum Osmolality 271 L 278-298 mOsm/kg Prothrombin Time 12.4 H 9.3-11.8 sec Prothrombin Time INR 1.18 H 0.9-1.15 Activated Partial Thromboplast Time 33.3 24.5-34.5 SEC Test 08/24/24 05:52 08/22/24 18:20 08/21/24 14:08 08/21/24 03:21 Range/Units Erythrocyte Sedimentation Rate 50 H 0-20 mm/hr Reticulocyte Count (auto) 1.66 H 0.5-1.5 % Iron Level 23 L 65-175 ug/dL Total Iron Binding Capacity 195 L 250-425 ug/dL Percent Iron Saturation 11.8 L 20-55 % Ferritin 744.9 H 22-322 ng/mL C-Reactive Protein High Sensitivity 14.73 H <1.0 mg/dL Body Fluid Source Pleural fluid Body Fluid pH 8 Body Fluid WBC (Manual) 1756 H 0-200 CUMM Body Fluid RBC (Manual) 1213 0-2000 CUMM Body Fluid Mononuclear Cells 97 % Body Fluid Polymorphonuclear Cells 3 0-25 % Body Fluid Glucose 70 . mg/dL Body Fluid Total Protein 4.6 . g/dL Body Fluid Lactate Dehydrogenase 1184 . IU/L Influenza Type A Antigen Negative Negative Influenza Type B Antigen Negative Negative Hemoglobin A1c 5.1 <5.7 % A1C Lactate Dehydrogenase 328 H 120-246 U/L Vitamin B12 Level 673 211-911 pg/mL Vitamin D 25-Hydroxy 22.4 L 30.0-100 ng/mL Thyroid Stimulating Hormone (TSH) 1.30 0.55-4.78 uIU/mL Hepatitis A Antibody Total Positive H Negative Hepatitis B Surface Antigen Negative Negative Hepatitis B Surface Antibody Negative Negative Hepatitis B Core Total Antibody Negative Negative Hepatitis C Antibody Negative Negative HIV (1&2) Antibody Negative Negative Test 08/20/24 18:15 08/20/24 15:58 08/20/24 15:57 Range/Units SARS-CoV-2 Antigen (Rapid) Negative NEGATIVE Lactic Acid Level 1.5 0.4-2.0 mmol/L Troponin I High Sensitivity 32 </=54 ng/L B-Type Natriuretic Peptide 25.14 0-100 pg/mL Lipase 30 12-53 U/L Plasma/Serum Blood Alcohol < 3.0 <10 mg/dL Monoscreen Negative Urine Color Yellow Yellow Urine Clarity Clear Clear Urine pH 6.5 5.0-9.0 Urine Specific [place] 1.018 1.001-1.035 Urine Protein Trace H Negative Urine Ketones Negative Negative Urine Blood 2+ H Negative /uL Urine Nitrite Negative Negative Urine Bilirubin Negative Negative Urine Urobilinogen 3 H Negative mg/dL Urine Leukocyte Esterase Negative Negative /uL Urine RBC 17 0 - 3 /hpf Urine WBC 1 0 - 3 /hpf Urine Squamous Epithelial Cells None seen <5 /hpf Urine Bacteria None seen None Seen /hpf Urine Glucose Normal Normal mg/dL Urine Opiates Screen Neg NEGATIVE Urine Fentanyl Screen Neg NEGATIVE Urine Barbiturates Screen Neg NEGATIVE Urine Phencyclidine Screen Neg NEGATIVE Urine Amphetamines Screen Neg NEGATIVE Urine Benzodiazepines Screen Neg NEGATIVE Urine Cocaine Screen Neg NEGATIVE Urine Cannabinoids Screen Neg NEGATIVE Microbiology Date/Time Source Procedure Growth Status 09/07/24 10:00 Sputum AFB Broth Culture Pending Resulted 09/07/24 10:00 Sputum - Final Resulted 09/07/24 10:00 Sputum - Final Resulted 09/07/24 10:00 Sputum Acid Fast Bacilli Culture Pending Resulted 08/29/24 13:23 Blood Blood Culture - Final NO GROWTH AFTER 5 DAYS OF INCUBATION. Complete 08/26/24 11:00 Pleural Fluid Gram Stain - Final Complete 08/26/24 11:00 Pleural Fluid Body Fluid Culture - Final Complete 08/24/24 18:29 Nose MRSA Screen - Final Complete Problems(with codes): (1) Elevated liver enzymes (2) Pneumonia, unspecified organism (3) Abdominal pain (4) Elevated LFTs (5) Pleural effusion Plan/Recommendation Clinical Note: - Encounter date: 09/10/2024 Patient Name: Xu Amado Patient ID: [ID] - Assessment and Plan: ID Problem List: - Right loculated pleural effusion - Acute hypoxic respiratory failure - Atypical pneumonia - Emphysema - Positive Quantiferon Gold test - Multiple psychiatric disorders, including depression and ADHD Assessment: Mr. Xu Amado is a 28-year-old male with no significant past medical history except for multiple psychiatric disorders on fluoxetine and lamotrigine, who presents with a complaint of right upper quadrant abdominal pain ongoing for about a month. He also reports shortness of breath, fevers, night sweats, but no cough or hemoptysis. A CT test demonstrated a right loculated pleural effusion. Initial Hospital Course: - The patient was initially in acute hypoxic respiratory failure requiring 2 liters nasal cannula. - Vital signs: Temp: 90.1F, HR: 105, RR: 18, BP: 106/64. - Started on azithromycin initially, later changed to ceftriaxone. Labs/Imaging: - WBC: 12 on admission, Hemoglobin: 11, Platelet count: 460. - HIV test: Negative, COVID test: Negative. - Vitamin D level: 22.4, Lactic acid: 1.5. - Urine drug screen: Negative. - Pleural fluid analysis: pH 8.0, WBC 1756, RBC 1213, PMNs 3%, polynuclear cells 97%, LDH 1184, glucose 70, protein 4.6. - Hepatitis B/C: Negative, Hepatitis A antibody: Positive. - Quantiferon Gold test: Positive, with methodogen response of 10 and nil of 0.17. Imaging Results: - CT Scan: - Stable left upper lobe pulmonary nodules with a suspicious speculated nodule on the left apex. - Moderate right lower lobe consolidation. - Numerous tiny 1-2 mm nodules in a tree-in-bud pattern noted in the left apex. Plan: - Continue monitoring while inpatient. continue Zosyn - Evaluate for full acute TB rule out: AFB negative x3 and MTB-PCR negative x2. 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 - Check for coccidioidomycosis and aspergillus antibodies. - Ultimately, if all cultures are negative, patient can be discharged on 30 days of Augmentin and fu w ID. - Stop Diflucan unless there is specific concern for fungal pneumonia. - Follow up on pending AFB cultures, pleural fluid cytology. - Send pleural fluid for AFB testing and ADA level. Isolation Precautions: Standard. Assessment and plan was discussed with the patient as written above. Plan is subject to change pending incorporation of new incoming information/diagnostics. Updates may be added as an addendum at the bottom (OR TOP) of this note. - History: The patient's chart and medications were reviewed in detail and the patient was seen and examined. History obtained from: Patient and medical records. - Review of Systems: (ROS) - CONSTITUTIONAL: Denies weight loss, fever, and chills. - HEENT: Denies changes in vision and hearing. - RESPIRATORY: Reports shortness of breath; denies cough and hemoptysis. - CV: Denies palpitations and chest pain. - GI: Denies abdominal pain, nausea, vomiting, and diarrhea. - : Denies dysuria and urinary frequency. - MSK: Denies myalgia and joint pain. - SKIN: Denies rash and pruritus. - NEUROLOGICAL: Denies headache and syncope. - PSYCHIATRIC: Denies recent changes in mood, anxiety, and depression. - Past Medical History: Diagnosis: Multiple psychiatric disorders, including depression and ADHD. - Past Surgical History: No pertinent surgical history. - Home Medications: - Fluoxetine - Lamotrigine - Allergies: - No Known Allergies - Family History: - Problem: Not reported. - Relation: Not reported. - Age of Onset: Not reported. Family status: - Father: Not specified. - Sister: Not specified. - Brother: Not specified. - Social History: Socioeconomic History: - Marital status: Not reported. - Children: Not reported. - Education: Not reported. - Occupation: Works at a [employer] facility. Tobacco Use: - Smoking status: Never - Smokeless tobacco: Never Alcohol Use: - Never Drug Use: - Never - Vaping: Extensive use. Sexual Activity: - Not currently sexually active. - Objective: Vital Signs: - On Arrival: Temp: 90.1F, BP: 106/64, Pulse: 105, Resp: 18, SpO2: 96% on 2L nasal cannula. - Physical Exam: General: NAD Neck: Supple. No masses. HEENT: PERRL. Normal lids and conjunctiva. Moist mucous membranes. Oropharynx without lesions, exudates or excessive erythema. Normal appearance of the external aspects of the nose and ears. Heart: Regular rhythm, normal rate. No murmur. No lower extremity edema. Lungs: Normal respiratory effort. Crackles in the right lower lung base. Abdomen: Soft. Non-tender. Non-distended. No masses or abdominal hernia. Musculoskeletal: No digital cyanosis. Normal strength and tone in all 4 limbs. Skin: Warm and dry, no rashes. Tattoos across the back and face. Neuro: Alert. No facial droop or slurred speech. Extra-ocular movements intact. Sensation intact to soft touch in all 4 limbs. Psych: Appropriate mood. Full affect. Oriented to person, place, time, and situation. - Diagnostic Studies: Plan discussed with: Patient CONCEPCION BURRELL MD Sep 08, 2024 18:37
--- NOTE | 2024-09-08 20:54 | DVHPN2 ---
Progress Note - Dictate Date Seen: Sep 08, 2024 Medical Necessity Reason Pt with a Central, PICC or Fol: No Subjective Patient seen and examined at bedside. Breathing comfortably on room air. Overnight events reviewed. vital signs Vital Sign Date Time Temp Pulse Resp B/P (MAP) Pulse Ox O2 Delivery O2 Flow Rate FiO2 09/08/24 20:05 96 Room Air* 0 21 09/08/24 17:00 98.0 73 19 94/42 (59) 98.0 Total Intake and Output 09/07/24 09/07/24 09/08/24 15:00 23:00 07:00 Intake Total 1700 ml 1800 ml Output Total 950 ml 0 ml Balance 750 ml 1800 ml medications Current Medications Medications Dose Ordered Sig/Lori Route Start Time Stop Time Status Last Admin Dose Admin Ondansetron HCl 4 mg Q4HP PRN IV 08/20/24 21:45 09/04/24 05:01 4 MG Docusate Sodium 100 mg BIDPRN PRN PO 08/20/24 21:45 09/06/24 09:53 100 MG Nitroglycerin 0.4 mg Q5MINP PRN SL 08/20/24 23:30 Lamotrigine 100 mg Q12HR PO 08/21/24 22:00 09/08/24 09:01 100 MG Ergocalciferol 50,000 unit Q7D PO 08/21/24 14:30 09/04/24 15:49 50,000 UNIT Lorazepam 0.5 mg Q6HP PRN IV 08/25/24 20:30 09/02/24 12:13 0.5 MG Diphenhydramine HCl 25 mg Q4HP PRN IV 08/29/24 05:15 08/31/24 12:41 25 MG Throat Lozenges 1 jabier Q6HPRN PRN MT 08/29/24 05:15 08/30/24 16:55 1 JABIER Acetaminophen 650 mg Q6HP PRN PO 08/30/24 11:30 09/02/24 08:48 650 MG Ferrous Sulfate 325 mg BIDWM PO 08/31/24 18:00 09/08/24 16:41 325 MG Acetaminophen/ Hydrocodone Bitart 1 tab Q6HP PRN PO 08/31/24 18:15 09/08/24 13:31 1 TAB Baclofen 5 mg Q8HR PO 09/04/24 06:00 09/08/24 13:31 5 MG Morphine Sulfate 0.5 mg Q6HP PRN IV 09/04/24 09:15 09/05/24 08:53 0.5 MG Polyethylene Glycol 17 gm DAILYPRN PRN PO 09/04/24 16:00 Piperacillin Sod/ Tazobactam Sod 100 ml @ 25 mls/hr Q6H IV 09/04/24 22:00 09/08/24 16:41 25 MLS/HR Albuterol 2.5 mg Q4HPRN PRN NEB 09/07/24 14:00 Ipratropium [place] 0.5 mg Q4HPRN PRN NEB 09/07/24 14:00 objective Gen.: Patient lying in bed in no apparent distress. Breathing on room air. Head: Normocephalic, atraumatic. Eyes: EOMI/PERRLA. Ears: Normal hearing. Normal anatomy. Neck/trachea: Trachea midline, supple. Nose: Normal external anatomy. Mouth: Moist mucous membranes. Chest: Decreased air entry bilaterally. No wheezing or rhonchi. Cardiovascular: Positive S1, positive S2. Regular rate and rhythm. Abdomen: Positive bowel sounds in all 4 quadrants. Soft, non-tender, non- distended. : Deferred. Rectal: Deferred. Skin: Warm, dry. Intact. Extremities: 2+ radial pulses bilaterally. No lower extremity edema. Neuro: Awake, alert, oriented x3. No gross motor or sensory deficits. Cranial nerves II through XII intact. Gait not assessed. laboratory and microbiology Laboratory Tests 09/06/24 08:17 Test 09/06/24 08:17 Range/Units Serum Glucose 116 H 74-106 mg/dL Assessment/Plan Impression: Loculated pleural effusion Pneumonia likely Gram-negative Elevated liver enzymes Atelectasis Events: Breathing on room air No respiratory distress CXR demonstrates right chest tube in place. No pneumothorax. Patchy right basilar opacities. Continue antibiotics Bronchodilators PRN. Incentive spirometry Iron supplementation Monitor hemoglobin Recommend outpatient CT chest in 2-3 months. Pain control Avoid oversedation S/p thoracotomy on 09/02 - Right thoracotomy with evacuation of empyema and right lung decortication. Labs and imaging reviewed. Rest of plan as noted below. Plan: Supplemental oxygen if necessary Keep O2 saturation above 92%. Continue antibiotics Fluid cultures show no growth Blood cultures show no growth Limited chest ultrasound demonstrated loculated right pleural effusion. Drained 700 mL of yellow colored fluid. Several septations were seen. See separate procedure note for right thoracentesis (08/22). S/p thoracotomy on 09/02 - Right thoracotomy with evacuation of empyema and right lung decortication. S/p chest tube placement. S/p large-bore chest tube Chest tube placed to suction -20 cmH2O. Monitor output No air leak. Continue daily chest tube flush. Obtain daily CXR to monitor pleural effusion as well as chest tube. Continue bronchodilators Pain control Avoid oversedation Anxiolytics prn Monitor renal function Monitor electrolytes. Supplement as necessary. DVT prophylaxis Prognosis: Poor given multiple comorbidities. Rest of plan per hospitalist and other consultants. Thank you Dr. Jewell for allowing me to participate in this patient's care. Further recommendations will depend on patient's clinical course. Please do not hesitate to contact me if you have any questions or concerns. This medical document was created using an electronic medical record system with [employer] dictation system. Although this document has been carefully reviewed, there may still be some phonetic and typographical errors. These areas are purely typographical due to imperfections of the software programs, and do not reflect any compromise in the patient's medical care. Dietary Evaluation Review Comments: Continue current plan of care Expected Outcomes/Goals: F/U in 3-5 days Plan discussed with: Patient, Other PRESTON CARTY MD Sep 08, 2024 20:54
[2024-09-09] VITALS (10 sets, daily range): BP systolic 94–106; BP diastolic 48–60; PULSE 76–111; RESP 17–20; TEMP 97.3–98; O2SAT 93–97
--- NOTE | 2024-09-09 14:15 | DVHPN2 ---
Progress Note Date Seen: Sep 09, 2024 Medical Necessity Reason Pt with a Central, PICC or Fol: No Objective vital signs Vital Sign Date Time Temp Pulse Resp B/P (MAP) Pulse Ox O2 Delivery O2 Flow Rate FiO2 09/09/24 12:13 97.8 89 20 105/57 (73) 96 97.8 09/09/24 09:55 Room Air 09/09/24 09:55 0 21 Total Intake and Output 09/08/24 09/08/24 09/09/24 15:00 23:00 07:00 Intake Total 100 ml 550 ml 2100 ml Output Total 15 ml 1700 ml Balance 100 ml 535 ml 400 ml medications Current Medications Medications Dose Ordered Sig/Lori Route Start Time Stop Time Status Last Admin Dose Admin Ondansetron HCl 4 mg Q4HP PRN IV 08/20/24 21:45 09/04/24 05:01 4 MG Docusate Sodium 100 mg BIDPRN PRN PO 08/20/24 21:45 09/06/24 09:53 100 MG Nitroglycerin 0.4 mg Q5MINP PRN SL 08/20/24 23:30 Lamotrigine 100 mg Q12HR PO 08/21/24 22:00 09/09/24 09:58 100 MG Ergocalciferol 50,000 unit Q7D PO 08/21/24 14:30 09/04/24 15:49 50,000 UNIT Lorazepam 0.5 mg Q6HP PRN IV 08/25/24 20:30 09/09/24 14:01 0.5 MG Diphenhydramine HCl 25 mg Q4HP PRN IV 08/29/24 05:15 08/31/24 12:41 25 MG Throat Lozenges 1 jabier Q6HPRN PRN MT 08/29/24 05:15 08/30/24 16:55 1 JABIER Acetaminophen 650 mg Q6HP PRN PO 08/30/24 11:30 09/02/24 08:48 650 MG Ferrous Sulfate 325 mg BIDWM PO 08/31/24 18:00 09/09/24 08:25 325 MG Acetaminophen/ Hydrocodone Bitart 1 tab Q6HP PRN PO 08/31/24 18:15 09/09/24 09:59 1 TAB Baclofen 5 mg Q8HR PO 09/04/24 06:00 09/09/24 14:01 5 MG Morphine Sulfate 0.5 mg Q6HP PRN IV 09/04/24 09:15 09/05/24 08:53 0.5 MG Polyethylene Glycol 17 gm DAILYPRN PRN PO 09/04/24 16:00 Piperacillin Sod/ Tazobactam Sod 100 ml @ 25 mls/hr Q6H IV 09/04/24 22:00 09/09/24 09:57 25 MLS/HR Albuterol 2.5 mg Q4HPRN PRN NEB 09/07/24 14:00 Ipratropium [place] 0.5 mg Q4HPRN PRN NEB 09/07/24 14:00 laboratory and microbiology Laboratory Tests 09/06/24 08:17 Test 09/06/24 08:17 Range/Units Serum Glucose 116 H 74-106 mg/dL Problem List/Assessment/Plan Problem List/Assessment/Plan 09/03/24 feels like he is breathing betterm, dressing dry, chest tube output moderate, no effusion on X ray, no air leak per chest tube. continue as is 09/05/24 FEELS WELL, CHEST WALL WOUND CLEAN AND WELL APPROXIMATED, CHEST TUBE WITH MINIMAL AIR LEAK ON FORCED EXPIRATION, OUTPUT DIMINISHING, PLAN TO REMOVE CHEST TUBE ON SATURDAY. 09/07/24 FEELS"VERY WELL", NO SHORTNESS OF BREATH, NO AIR LEAK PER CHEST TUBE HOWEVER OUTPUT STILL QUITE SANGUINEOUS AND ABOUT 40 CC, WILL KEEP CHEST TUBE IN 09/09/24 minimal chest tube output, no air leak, chest x ray reviewed, chest tube removed, wound clean and well approximated, will get CR in the AM and if OK he can be discharged tomorrow Plan discussed with: Patient Dietary Evaluation Review Comments: Continue current plan of care Expected Outcomes/Goals: F/U in 3-5 days DELTA CHI MD Sep 09, 2024 14:15
--- NOTE | 2024-09-09 15:30 | DVHPNRES ---
Progress Note Date Seen: Sep 09, 2024 Resident Creating Document: LAVELL GONSALES RESIDENT Medical Necessity Reason Pt with a Central, PICC or Fol: No Subjective Review of Systems Xu Amado is a 28-year-old male with past medical history of ADHD and depression who presented to [facility] ED with complaint of right sided chest pain and shortness of breath. 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 Reports vaping a lot recently and sharing his friends vape. Denies any recent travel history. [place] was [place]His father in law has probable COPD as he smokes and cough a lot per the patient. His pain is 9/10 numeric scale, getting worse on deep inhalation that prompted this visit. Patient also mentioned he has a history of fever for last 1 week and the highest temperature was 104 and yesterday he went to urgent care and he was referred from the urgent care due to the right-sided pleural effusion. Patient denied chest pain, dizziness, headache, diaphoresis, nausea or vomiting. Patient was admitted for further evaluation and medical management. Denies any weight loss. No history of incarceration or IV drug use. Home medications; lamotrigine, fluoxetine 08/25 - Patient seen and examined at bedside. Overnight patient was anxious received lorazepam 1 mg. Also reported night sweats. Chest x-ray repeated, shows enlarging pleural effusion, surgeon consulted for chest tube placement. Final blood culture negative, MRSA screen is negative. 08/26 - patient reports feeling better, no shortness of breaths. Overnight reports night sweats. IR was consulted, chest tube placed - draining yellow fluid. Specimen sent for cytology/differential/culture. 08/27-patient has no active complaint. 6 mg alteplase injected for intra- articular administration at around 8:30 p.m.. Patient tolerated well. Advised the nurse in the night float team to open the [place] at around 9:[address] Kemp in case gross blood seen. 08/28 - patient feels much better. Chest x-ray repeated 12 hours after 6 mg alteplase injection. Shows dramatic improvement in the right pleural effusion. Second dose of alteplase injection administered at 5:00 p.m.. Nurse advised to and cough the chest tube at 6:00 p.m.. Notify cocoa powder mixer operator in case of gross bleeding in the chest tube. 08/29 - patient reports no active complaint. Wants to go home. Chest x-ray reviewed in the a.m., or effusion looks worsen. WBC elevated from 15-17 with neutrophilic predominance. Chest tube draining 800 mL of dark yellow color fluid. 5:00 p.m.-history of draining pinkish color serosanguineous fluid. Per Dr. Kemp, chest x-ray in the a.m.. Third course of tPA probably tomorrow 08/30. 08/31 - no acute complaint. Chest x-ray in the a.m. repeated, shows persistent right middle and lower lobe effusion. Chest tube draining serosanguineous fluid. Dressing dry and intact. WBC trended down to 13 today. Surgeon consulted for surgical chest tube. 09/01 - reports feeling fine. Breath sounds absent on RLL. Flushed the chest tube with saline in AM. Draining 1020 ml of serosanguis fluid. Satting 95 on RA. Potassium 25meQ given. WBC 11.9. CXR: Small right pleural effusion. NPO starting midnight. Thoracotomy scheduled 09/02. 09/02 - Tmax 99.5. WBC count downtrending 10.4. Blood cultures so far have been negative. Underwent Right thoracotomy, evacuation of empyema, right lung decortication - The patient's chest cavity contained infected fluid, which was sent for cultures. 40 size chest tube placed 09/03 - Patient feels fine. Chest tube draining 190cc red serosanguinous fluid. Dressing dry, intact and clean. 09/04 - patient is anxious, reports tingling pain at the site of chest tube, otherwise in no distress. Chest x-ray reviewed, shows right basilar atelectasis versus effusion. 09/06 - no active issues. Chest tube draining 400 cc of serosanguineous fluid. Patient is in isolation protocols given the suspected TB. Discussed the plan and why the patient is in isolation precautions with the patient for more than 30 minutes. 09/07 - patient reports feeling fine, wants to go home. Chest tube draining serosanguineous dark red fluid. Id consulted. TB QuantiFERON gold test and AFB smear pending. Overnight patient had a bowel movement which was soft. 09/08 - patient is alert and oriented x4, feeling all right, no active complaint. Chest tube drained 25 cc overnight. Surgeon consultation pending. Chest x-ray repeated, shows resolving right lower effusion/atelectasis. 09/09 - patient feels fine, chest tube removed by the surgeon, wound clean and well approximated. Chest x-ray in the morning. Objective vital signs Vital Sign Date Time Temp Pulse Resp B/P (MAP) Pulse Ox O2 Delivery O2 Flow Rate FiO2 09/09/24 12:13 97.8 89 20 105/57 (73) 96 97.8 09/09/24 09:55 Room Air 09/09/24 09:55 0 21 Total Intake and Output 09/08/24 09/08/24 09/09/24 15:00 23:00 07:00 Intake Total 100 ml 550 ml 2100 ml Output Total 15 ml 1700 ml Balance 100 ml 535 ml 400 ml medications Current Medications Medications Dose Ordered Sig/Lori Route Start Time Stop Time Status Last Admin Dose Admin Ondansetron HCl 4 mg Q4HP PRN IV 08/20/24 21:45 09/04/24 05:01 4 MG Docusate Sodium 100 mg BIDPRN PRN PO 08/20/24 21:45 09/06/24 09:53 100 MG Nitroglycerin 0.4 mg Q5MINP PRN SL 08/20/24 23:30 Lamotrigine 100 mg Q12HR PO 08/21/24 22:00 09/09/24 09:58 100 MG Ergocalciferol 50,000 unit Q7D PO 08/21/24 14:30 09/04/24 15:49 50,000 UNIT Lorazepam 0.5 mg Q6HP PRN IV 08/25/24 20:30 09/09/24 14:01 0.5 MG Diphenhydramine HCl 25 mg Q4HP PRN IV 08/29/24 05:15 08/31/24 12:41 25 MG Throat Lozenges 1 jabier Q6HPRN PRN MT 08/29/24 05:15 08/30/24 16:55 1 JABIER Acetaminophen 650 mg Q6HP PRN PO 08/30/24 11:30 09/02/24 08:48 650 MG Ferrous Sulfate 325 mg BIDWM PO 08/31/24 18:00 09/09/24 08:25 325 MG Acetaminophen/ Hydrocodone Bitart 1 tab Q6HP PRN PO 08/31/24 18:15 09/09/24 09:59 1 TAB Baclofen 5 mg Q8HR PO 09/04/24 06:00 09/09/24 14:01 5 MG Morphine Sulfate 0.5 mg Q6HP PRN IV 09/04/24 09:15 09/05/24 08:53 0.5 MG Polyethylene Glycol 17 gm DAILYPRN PRN PO 09/04/24 16:00 Piperacillin Sod/ Tazobactam Sod 100 ml @ 25 mls/hr Q6H IV 09/04/24 22:00 09/09/24 15:04 25 MLS/HR Albuterol 2.5 mg Q4HPRN PRN NEB 09/07/24 14:00 Ipratropium [place] 0.5 mg Q4HPRN PRN NEB 09/07/24 14:00 Examination General Appearance: Alert, Oriented X4, Cooperative, No acute distress. Lying comfortably in the bed HEENT: Atraumatic, PERRLA, EOMI, Mucous membrane moist/pink Respiratory: Diminished breath sounds, more on the right side which is improving. No crackles or wheezing heard. Right-sided chest tube is removed. Dressing dry clean and intact. Cardiovascular: Regular rate, Normal S1, Normal S2, No murmurs, no chest wall tenderness Abdominal: Normal bowel sounds, Soft, No tenderness, No hepatosplenomegaly, No masses Extremities: Erythema noticed on the extensor surfaces including the elbows, knees and the ankles. Skin: No rashes, No breakdown, No significant lesion Neuro: Normal gait, Normal speech, Strength at 5/5 X4 ext, Normal tone, Sensation intact, grossly intact cranial nerves. Psych/Mental Status: Mental status NL, Mood NL laboratory and microbiology Laboratory Tests 09/06/24 08:17 Test 09/06/24 08:17 Range/Units Serum Glucose 116 H 74-106 mg/dL Microbiology Date/Time Source Procedure Growth Status 09/07/24 10:00 Sputum AFB Broth Culture Pending Resulted 09/07/24 10:00 Sputum - Final Resulted 09/07/24 10:00 Sputum - Final Resulted 09/07/24 10:00 Sputum Acid Fast Bacilli Culture Pending Resulted 08/29/24 13:23 Blood Blood Culture - Final NO GROWTH AFTER 5 DAYS OF INCUBATION. Complete 08/26/24 11:00 Pleural Fluid Gram Stain - Final Complete 08/26/24 11:00 Pleural Fluid Body Fluid Culture - Final Complete 08/24/24 18:29 Nose MRSA Screen - Final Complete Labs and/or images reviewed: Labs reviewed by me, Image(s) reviewed by me Problem List/Assessment/Plan Problem List/Assessment/Plan Acute hypoxic respiratory failure likely secondary to community-acquired pneumonia ? Vape associated vs ? Malignancy vs ? Mycobacterium tuberculosis Sepsis due to Community-acquired pneumonia, Gram-positive and Gram-negative Loculated right-sided exudative pleural effusion status post R thoracotomy and chest tube removal and thoracocentesis with 700 mL drainage undergoing tPA course 09/02 - Underwent Right thoracotomy, evacuation of empyema, right lung decortication by Dr. Tobar Chest tube placed 08/26/2024 to 09/09/2024, in the right 4th intercostal mid axillary line by the ER. Draining yellow fluid. Per Dr. Kemp, tPA course after chest tube placement. 08/27 & 08/28- patient received 2 doses of 6 mg alteplase. Holding off on 3rd dose per cocoa powder mixer operator Dr. Kemp. Thoracocentesis performed by Dr. Kemp 08/22, drain 700 mL of yellow fluid. Pleural studies suggestive of exudative effusion. Patient required oxygen supplementation with 2 L oxygen via NC, now on room air. CT chest revealed right-sided pleural effusion with atelectasis in the right lower lung field IV Zosyn q.6 hour starting 08/21/2024 IV doxycycline q.12 hour started 08/24/24 Discontinued IV azithromycin 500 mg daily - patient received from 08/21 to 08/24 Nebulized treatment with albuterol and ipratropium q.6 hours Blood cultures and body fluid culture have been negative so far. COVID RNA and influenza testing negative QuantiFERON gold test and AFB smear pending Stable left upper lobe pulmonary nodules with a suspicious spiculated nodule in the left apex approx 8mm Chest CT completed 09/05 showed Stable left upper lobe pulmonary nodules with a suspicious spiculated nodule in the left apex. Metastatic malignancy can not be ruled out although unlikely considering patient's demographics. Recommend correlation with pleural fluid cytology. Further evaluation with PET-CT scan may be required. IR consulted - no need of biopsy given the small size pulmonology on board - outpatient PET-CT scan Infectious disease consulted - TB testing pending R lower lobe atelectasis Incentive spirometery Q1hr advised Reactive thrombocytosis Secondary to sepsis Monitor Rule Out pericardial effusion Echocardiogram completed 08/24 showed LVEF 55%. Normal frontal/valvular heart. No pericardial effusion Anemia, likely microcytic Hemoglobin on arrival 10.8, MCV 32, hematocrit 32 ESR 50, retic count 1.66, CRP 14, LDH 328 Iron panel completed shows low iron low TIBC low% saturation Ferritin elevated at 744 Urine analysis shows 2+ blood and 17 RBCs P.o. iron supplementation b.i.d. Transaminitis Bilirubin elevated at 1.3 Direct bili 0.7 AST 33, ALT 69, ALP 196 Patient quit drinking 3 years back Liver U/S shows given cavernous hemangioma otherwise unremarkable Asymptomatic Hypotonic euvolemic hyponatremia secondary to ? Fluoxetine Serum sodium 128, serum osmolality 271, urine osmolality 340, urine sodium less than 10 DC fluoxetine Cavernous hemangioma Ultrasound liver completed, shows 1.7 cm well-circumscribed oval echogenic nodule in the left hepatic lobe compatible with a cavernous hemangioma Outpatient workup advised Ruled out HIV HIV testing negative ADHD, depression - stable No homicidal or suicidal ideation Continue lamotrigine 100 mg b.i.d. Ativan 0.5 mg p.r.n. DC fluoxetine given the questionable SIADH Vitamin-D deficiency Supplemented Hypokalemia Replenished Diet regular Plan discussed with patient and his over the phone call for more than 30 minutes in which all questions have been answered Goals of care discussed for more than 22 minutes, full code status Case discussed with Dr. Katz. Infectious Disease consulted. Chest tube removed, chest x-ray in the a.m. QuantiFERON gold test and AFB smear pending. Plan discussed with: Patient, Spouse Dietary Evaluation Review Comments: Continue current plan of care Expected Outcomes/Goals: F/U in 3-5 days LAVELL GONSALES RESIDENT Sep 09, 2024 15:30
--- NOTE | 2024-09-09 19:49 | DVHPN2 ---
Progress Note - Dictate Date Seen: Sep 09, 2024 Medical Necessity Reason Pt with a Central, PICC or Fol: No Subjective Patient seen and examined at bedside. Breathing comfortably on room air. Overnight events reviewed. vital signs Vital Sign Date Time Temp Pulse Resp B/P (MAP) Pulse Ox O2 Delivery O2 Flow Rate FiO2 09/09/24 17:00 97.8 87 18 96/60 (72) 97 97.8 09/09/24 09:55 Room Air 09/09/24 09:55 0 21 Total Intake and Output 09/08/24 09/08/24 09/09/24 15:00 23:00 07:00 Intake Total 100 ml 550 ml 2100 ml Output Total 15 ml 1700 ml Balance 100 ml 535 ml 400 ml medications Current Medications Medications Dose Ordered Sig/Lori Route Start Time Stop Time Status Last Admin Dose Admin Ondansetron HCl 4 mg Q4HP PRN IV 08/20/24 21:45 09/04/24 05:01 4 MG Docusate Sodium 100 mg BIDPRN PRN PO 08/20/24 21:45 09/06/24 09:53 100 MG Nitroglycerin 0.4 mg Q5MINP PRN SL 08/20/24 23:30 Lamotrigine 100 mg Q12HR PO 08/21/24 22:00 09/09/24 09:58 100 MG Ergocalciferol 50,000 unit Q7D PO 08/21/24 14:30 09/04/24 15:49 50,000 UNIT Lorazepam 0.5 mg Q6HP PRN IV 08/25/24 20:30 09/09/24 14:01 0.5 MG Diphenhydramine HCl 25 mg Q4HP PRN IV 08/29/24 05:15 08/31/24 12:41 25 MG Throat Lozenges 1 jabier Q6HPRN PRN MT 08/29/24 05:15 08/30/24 16:55 1 JABIER Acetaminophen 650 mg Q6HP PRN PO 08/30/24 11:30 09/02/24 08:48 650 MG Ferrous Sulfate 325 mg BIDWM PO 08/31/24 18:00 09/09/24 16:38 325 MG Acetaminophen/ Hydrocodone Bitart 1 tab Q6HP PRN PO 08/31/24 18:15 09/09/24 16:39 1 TAB Baclofen 5 mg Q8HR PO 09/04/24 06:00 09/09/24 14:01 5 MG Morphine Sulfate 0.5 mg Q6HP PRN IV 09/04/24 09:15 09/05/24 08:53 0.5 MG Polyethylene Glycol 17 gm DAILYPRN PRN PO 09/04/24 16:00 Piperacillin Sod/ Tazobactam Sod 100 ml @ 25 mls/hr Q6H IV 09/04/24 22:00 09/09/24 15:04 25 MLS/HR Albuterol 2.5 mg Q4HPRN PRN NEB 09/07/24 14:00 Ipratropium [place] 0.5 mg Q4HPRN PRN NEB 09/07/24 14:00 objective Gen.: Patient lying in bed in no apparent distress. Breathing on room air. Head: Normocephalic, atraumatic. Eyes: EOMI/PERRLA. Ears: Normal hearing. Normal anatomy. Neck/trachea: Trachea midline, supple. Nose: Normal external anatomy. Mouth: Moist mucous membranes. Chest: Decreased air entry bilaterally. No wheezing or rhonchi. Cardiovascular: Positive S1, positive S2. Regular rate and rhythm. Abdomen: Positive bowel sounds in all 4 quadrants. Soft, non-tender, non- distended. : Deferred. Rectal: Deferred. Skin: Warm, dry. Intact. Extremities: 2+ radial pulses bilaterally. No lower extremity edema. Neuro: Awake, alert, oriented x3. No gross motor or sensory deficits. Cranial nerves II through XII intact. Gait not assessed. laboratory and microbiology Laboratory Tests 09/06/24 08:17 Test 09/06/24 08:17 Range/Units Serum Glucose 116 H 74-106 mg/dL Assessment/Plan Impression: Loculated pleural effusion Pneumonia likely Gram-negative Elevated liver enzymes Atelectasis Events: Breathing on room air No respiratory distress CXR demonstrates right chest tube in place. Improved aeration. Patchy right basilar airspace opacities. Chest tube output 65 mL, sanguineous. ID recs appreciated. Continue antibiotics Bronchodilators PRN. Incentive spirometry Surgery recommends keeping chest tube in until fluid is less sanguineous. Awaiting Quantiferon. Pleural fluid cultures negative. Blood cultures negative. Monitor hemoglobin Recommend outpatient CT chest in 2-3 months. Pain control Avoid oversedation S/p thoracotomy on 09/02 - Right thoracotomy with evacuation of empyema and right lung decortication. Labs and imaging reviewed. Rest of plan as noted below. Plan: Supplemental oxygen if necessary Keep O2 saturation above 92%. Continue antibiotics Fluid cultures show no growth Blood cultures show no growth Limited chest ultrasound demonstrated loculated right pleural effusion. Drained 700 mL of yellow colored fluid. Several septations were seen. See separate procedure note for right thoracentesis (08/22). S/p thoracotomy on 09/02 - Right thoracotomy with evacuation of empyema and right lung decortication. S/p chest tube placement. S/p large-bore chest tube Chest tube placed to suction -20 cmH2O. Monitor output No air leak. Continue daily chest tube flush. Obtain daily CXR to monitor pleural effusion as well as chest tube. Continue bronchodilators Pain control Avoid oversedation Anxiolytics prn Monitor renal function Monitor electrolytes. Supplement as necessary. DVT prophylaxis Prognosis: Poor given multiple comorbidities. Rest of plan per hospitalist and other consultants. Thank you Dr. Jewell for allowing me to participate in this patient's care. Further recommendations will depend on patient's clinical course. Please do not hesitate to contact me if you have any questions or concerns. This medical document was created using an electronic medical record system with [employer] dictation system. Although this document has been carefully reviewed, there may still be some phonetic and typographical errors. These areas are purely typographical due to imperfections of the software programs, and do not reflect any compromise in the patient's medical care. Dietary Evaluation Review Comments: Continue current plan of care Expected Outcomes/Goals: F/U in 3-5 days Plan discussed with: Patient, Other (DOC Carias) PRESTON CARTY MD Sep 09, 2024 19:49
[2024-09-10] VITALS (9 sets, daily range): BP systolic 92–110; BP diastolic 51–59; PULSE 78–109; RESP 15–20; TEMP 97.7–98.3; O2SAT 94–98
[2024-09-10 02:06] LABS: QuantiFERON-TB Gold Plus Positive (Negative)
--- NOTE | 2024-09-10 06:00 | DVH ---
CHEST RADIOGRAPH Indication:s/p chest tube removal Technique: Single frontal view of the chest was obtained COMPARISON: XY CHEST PORTABLE on DOS: 09/08/24, XY CHEST XRAY 1 VIEW on DOS: 09/04/24, XY CHEST PORTABL E on DOS: 09/03/24, XY CHEST PORTABLE on DOS: 09/08/24 FINDINGS: Lines and tubes: Right chest tube is seen in place. Cardiomediastinal silhouette: normal Pulmonary vasculature: normal Lung expansion: normal Lung airspace: Patchy right basilar airspace opacities. Lung interstitium: prominent Pleura: small right pleural effusion. Pneumothorax: no Bones: Unremarkable Other: no IMPRESSION: Similar lung aeration with patchy right basilar airspace opacities and right chest tube in place. No pneumothorax seen.
[2024-09-10 09:42] LABS: Basophils # (auto) 0.1 10 ^3/uL (0-0.2); Eosinophils # (auto) 0.3 10 ^3/uL (0-0.8); Hemoglobin 8.7 g/dL (13.5-17.5); Mean Corpuscular Volume 62.2 fL (80.0-100.0); Neutrophils # (auto) 6.5 10 ^3/uL (1.6-8.6); White Blood Cell 9.1 10^3/uL (4.4-10.8)
[2024-09-10 09:44] LABS: Basophils % (auto) 1.5 % (0.0-2.0); Eosinophils % (auto) 3.2 % (0.0-7.0); Hematocrit 28.3 % (41.0-53.0); Lymphocytes # (auto) 1.3 10 ^3/uL (0.4-5.4); Mean Corpuscular Hemoglobin 19.2 pg (28.0-32.0); Mean Corpuscular Hgb Conc. 30.9 g/dL (32.0-36.0); Monocytes # (auto) 0.9 10 ^3/uL (0-1.3); Monocytes % (auto) 9.6 % (0.0-12.0); Neutrophils % (auto) 71.7 % (37.0-80.0); Nucleated Red Blood Cells % 0.2 %; Platelet Count (auto) 570 10^3/uL (140-450); Red Blood Cells 4.54 10^6/uL (4.5-5.90)
[2024-09-10] MEDS ORDERED: FLUCONAZOLE 200MG/100ML 100 ML IV SCH (10:00)
[2024-09-10 10:02] LABS: Chloride 106 mmol/L (98-107); Sodium 140 mmol/L (136-145)
[2024-09-10 10:03] LABS: Anion Gap 7 (5-15); Carbon Dioxide 27 mmol/L (20-31)
[2024-09-10 10:04] LABS: Calcium 9.6 mg/dL (8.7-10.4)
[2024-09-10 10:08] LABS: Glucose 92 mg/dL (74-106)
[2024-09-10 10:09] LABS: Blood Urea Nitrogen 7 mg/dL (9-23)
--- NOTE | 2024-09-10 14:34 | DVHPN2 ---
Progress Note Date Seen: Sep 10, 2024 Medical Necessity Reason Pt with a Central, PICC or Fol: No Objective vital signs Vital Sign Date Time Temp Pulse Resp B/P (MAP) Pulse Ox O2 Delivery O2 Flow Rate FiO2 09/10/24 12:43 98.3 102 16 104/58 (73) 94 98.3 09/10/24 12:00 Room Air* 0 21 Total Intake and Output 09/09/24 09/09/24 09/10/24 15:00 23:00 07:00 Intake Total 200 ml 1860 ml 695 ml Output Total 1000 ml 650 ml Balance 200 ml 860 ml 45 ml medications Current Medications Medications Dose Ordered Sig/Lori Route Start Time Stop Time Status Last Admin Dose Admin Ondansetron HCl 4 mg Q4HP PRN IV 08/20/24 21:45 09/04/24 05:01 4 MG Docusate Sodium 100 mg BIDPRN PRN PO 08/20/24 21:45 09/06/24 09:53 100 MG Nitroglycerin 0.4 mg Q5MINP PRN SL 08/20/24 23:30 Lamotrigine 100 mg Q12HR PO 08/21/24 22:00 09/10/24 11:51 100 MG Ergocalciferol 50,000 unit Q7D PO 08/21/24 14:30 09/04/24 15:49 50,000 UNIT Lorazepam 0.5 mg Q6HP PRN IV 08/25/24 20:30 09/09/24 20:16 0.5 MG Diphenhydramine HCl 25 mg Q4HP PRN IV 08/29/24 05:15 08/31/24 12:41 25 MG Throat Lozenges 1 jabier Q6HPRN PRN MT 08/29/24 05:15 08/30/24 16:55 1 JABIER Acetaminophen 650 mg Q6HP PRN PO 08/30/24 11:30 09/02/24 08:48 650 MG Ferrous Sulfate 325 mg BIDWM PO 08/31/24 18:00 09/10/24 11:51 325 MG Acetaminophen/ Hydrocodone Bitart 1 tab Q6HP PRN PO 08/31/24 18:15 09/10/24 12:09 1 TAB Baclofen 5 mg Q8HR PO 09/04/24 06:00 09/10/24 05:21 5 MG Morphine Sulfate 0.5 mg Q6HP PRN IV 09/04/24 09:15 09/05/24 08:53 0.5 MG Polyethylene Glycol 17 gm DAILYPRN PRN PO 09/04/24 16:00 Piperacillin Sod/ Tazobactam Sod 100 ml @ 25 mls/hr Q6H IV 09/04/24 22:00 09/10/24 11:52 25 MLS/HR Albuterol 2.5 mg Q4HPRN PRN NEB 09/07/24 14:00 Ipratropium [place] 0.5 mg Q4HPRN PRN NEB 09/07/24 14:00 Fluconazole 100 ml @ 100 mls/hr DAILY IV 09/10/24 10:00 Cancel laboratory and microbiology Laboratory Tests 09/10/24 08:30 Test 09/10/24 08:30 Range/Units Serum Glucose 92 74-106 mg/dL Problem List/Assessment/Plan Problem List/Assessment/Plan 09/03/24 feels like he is breathing betterm, dressing dry, chest tube output moderate, no effusion on X ray, no air leak per chest tube. continue as is 09/05/24 FEELS WELL, CHEST WALL WOUND CLEAN AND WELL APPROXIMATED, CHEST TUBE WITH MINIMAL AIR LEAK ON FORCED EXPIRATION, OUTPUT DIMINISHING, PLAN TO REMOVE CHEST TUBE ON SATURDAY. 09/07/24 FEELS"VERY WELL", NO SHORTNESS OF BREATH, NO AIR LEAK PER CHEST TUBE HOWEVER OUTPUT STILL QUITE SANGUINEOUS AND ABOUT 40 CC, WILL KEEP CHEST TUBE IN 09/09/24 minimal chest tube output, no air leak, chest x ray reviewed, chest tube removed, wound clean and well approximated, will get CR in the AM and if OK he can be discharged tomorrow 09/10/24 DOING WELL, WOUND OK, CXR WITHOUT EFFUSION OR PNEUMOTHORAX, HE IS CLEARED FOR DISCHARGE, RETURN TO SEE ME IN TWO WEEKS IN THE OFFICE Plan discussed with: Patient Dietary Evaluation Review Comments: Continue current plan of care Expected Outcomes/Goals: F/U in 3-5 days DELTA CHI MD Sep 10, 2024 14:34
[2024-09-10] MEDS ORDERED: FLUO-470 PO (17:54)
[2024-09-10] MEDS ORDERED: FLUO40CA PO (17:54)
--- NOTE | 2024-09-10 19:31 | DVHPNRES ---
Progress Note Date Seen: Sep 10, 2024 Resident Creating Document: LAVELL GONSALES RESIDENT Medical Necessity Reason Pt with a Central, PICC or Fol: No Subjective Review of Systems Xu Amado is a 28-year-old male with past medical history of ADHD and depression who presented to [facility] ED with complaint of right sided chest pain and shortness of breath. 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 Reports vaping a lot recently and sharing his friends vape. Denies any recent travel history. [place] was [place]His father in law has probable COPD as he smokes and cough a lot per the patient. His pain is 9/10 numeric scale, getting worse on deep inhalation that prompted this visit. Patient also mentioned he has a history of fever for last 1 week and the highest temperature was 104 and yesterday he went to urgent care and he was referred from the urgent care due to the right-sided pleural effusion. Patient denied chest pain, dizziness, headache, diaphoresis, nausea or vomiting. Patient was admitted for further evaluation and medical management. Denies any weight loss. No history of incarceration or IV drug use. Home medications; lamotrigine, fluoxetine 08/25 - Patient seen and examined at bedside. Overnight patient was anxious received lorazepam 1 mg. Also reported night sweats. Chest x-ray repeated, shows enlarging pleural effusion, surgeon consulted for chest tube placement. Final blood culture negative, MRSA screen is negative. 08/26 - patient reports feeling better, no shortness of breaths. Overnight reports night sweats. IR was consulted, chest tube placed - draining yellow fluid. Specimen sent for cytology/differential/culture. 08/27-patient has no active complaint. 6 mg alteplase injected for intra- articular administration at around 8:30 p.m.. Patient tolerated well. Advised the nurse in the night float team to open the [place] at around 9:[address] Kemp in case gross blood seen. 08/28 - patient feels much better. Chest x-ray repeated 12 hours after 6 mg alteplase injection. Shows dramatic improvement in the right pleural effusion. Second dose of alteplase injection administered at 5:00 p.m.. Nurse advised to and cough the chest tube at 6:00 p.m.. Notify field service analyst in case of gross bleeding in the chest tube. 08/29 - patient reports no active complaint. Wants to go home. Chest x-ray reviewed in the a.m., or effusion looks worsen. WBC elevated from 15-17 with neutrophilic predominance. Chest tube draining 800 mL of dark yellow color fluid. 5:00 p.m.-history of draining pinkish color serosanguineous fluid. Per Dr. Kemp, chest x-ray in the a.m.. Third course of tPA probably tomorrow 08/30. 08/31 - no acute complaint. Chest x-ray in the a.m. repeated, shows persistent right middle and lower lobe effusion. Chest tube draining serosanguineous fluid. Dressing dry and intact. WBC trended down to 13 today. Surgeon consulted for surgical chest tube. 09/01 - reports feeling fine. Breath sounds absent on RLL. Flushed the chest tube with saline in AM. Draining 1020 ml of serosanguis fluid. Satting 95 on RA. Potassium 25meQ given. WBC 11.9. CXR: Small right pleural effusion. NPO starting midnight. Thoracotomy scheduled 09/02. 09/02 - Tmax 99.5. WBC count downtrending 10.4. Blood cultures so far have been negative. Underwent Right thoracotomy, evacuation of empyema, right lung decortication - The patient's chest cavity contained infected fluid, which was sent for cultures. 40 size chest tube placed 09/03 - Patient feels fine. Chest tube draining 190cc red serosanguinous fluid. Dressing dry, intact and clean. 09/04 - patient is anxious, reports tingling pain at the site of chest tube, otherwise in no distress. Chest x-ray reviewed, shows right basilar atelectasis versus effusion. 09/06 - no active issues. Chest tube draining 400 cc of serosanguineous fluid. Patient is in isolation protocols given the suspected TB. Discussed the plan and why the patient is in isolation precautions with the patient for more than 30 minutes. 09/07 - patient reports feeling fine, wants to go home. Chest tube draining serosanguineous dark red fluid. Id consulted. TB QuantiFERON gold test and AFB smear pending. Overnight patient had a bowel movement which was soft. 09/08 - patient is alert and oriented x4, feeling all right, no active complaint. Chest tube drained 25 cc overnight. Surgeon consultation pending. Chest x-ray repeated, shows resolving right lower effusion/atelectasis. 09/09 - patient feels fine, chest tube removed by the surgeon, wound clean and well approximated. Chest x-ray in the morning. 09/10 - patient reports no active complaint. WBC stable at 9, hemoglobin 8.7/hematocrit 28. MCV 62. Continuing ferrous sulfate b.i.d.. Infectious disease consulted, ordered Aspergillus antibodies. Objective vital signs Vital Sign Date Time Temp Pulse Resp B/P (MAP) Pulse Ox O2 Delivery O2 Flow Rate FiO2 09/10/24 16:26 97.9 78 15 92/51 (65) 96 97.9 09/10/24 12:00 Room Air* 0 21 Total Intake and Output 09/09/24 09/09/24 09/10/24 15:00 23:00 07:00 Intake Total 200 ml 1860 ml 695 ml Output Total 1000 ml 650 ml Balance 200 ml 860 ml 45 ml medications Current Medications Medications Dose Ordered Sig/Lori Route Start Time Stop Time Status Last Admin Dose Admin Ondansetron HCl 4 mg Q4HP PRN IV 08/20/24 21:45 09/04/24 05:01 4 MG Docusate Sodium 100 mg BIDPRN PRN PO 08/20/24 21:45 09/06/24 09:53 100 MG Nitroglycerin 0.4 mg Q5MINP PRN SL 08/20/24 23:30 Lamotrigine 100 mg Q12HR PO 08/21/24 22:00 09/10/24 11:51 100 MG Ergocalciferol 50,000 unit Q7D PO 08/21/24 14:30 09/04/24 15:49 50,000 UNIT Lorazepam 0.5 mg Q6HP PRN IV 08/25/24 20:30 09/09/24 20:16 0.5 MG Diphenhydramine HCl 25 mg Q4HP PRN IV 08/29/24 05:15 08/31/24 12:41 25 MG Throat Lozenges 1 jabier Q6HPRN PRN MT 08/29/24 05:15 08/30/24 16:55 1 JABIER Acetaminophen 650 mg Q6HP PRN PO 08/30/24 11:30 09/02/24 08:48 650 MG Ferrous Sulfate 325 mg BIDWM PO 08/31/24 18:00 09/10/24 17:43 325 MG Acetaminophen/ Hydrocodone Bitart 1 tab Q6HP PRN PO 08/31/24 18:15 09/10/24 18:44 1 TAB Baclofen 5 mg Q8HR PO 09/04/24 06:00 09/10/24 15:29 5 MG Morphine Sulfate 0.5 mg Q6HP PRN IV 09/04/24 09:15 09/05/24 08:53 0.5 MG Polyethylene Glycol 17 gm DAILYPRN PRN PO 09/04/24 16:00 Piperacillin Sod/ Tazobactam Sod 100 ml @ 25 mls/hr Q6H IV 09/04/24 22:00 09/10/24 15:29 25 MLS/HR Albuterol 2.5 mg Q4HPRN PRN NEB 09/07/24 14:00 Ipratropium [place] 0.5 mg Q4HPRN PRN NEB 09/07/24 14:00 Fluconazole 100 ml @ 100 mls/hr DAILY IV 09/10/24 10:00 Cancel Examination General Appearance: Alert, Oriented X4, Cooperative, No acute distress. Lying comfortably in the bed HEENT: Atraumatic, PERRLA, EOMI, Mucous membrane moist/pink Respiratory: Diminished breath sounds, more on the right side which is improving. No crackles or wheezing heard. Right-sided chest tube is removed. Dressing dry clean and intact. Cardiovascular: Regular rate, Normal S1, Normal S2, No murmurs, no chest wall tenderness Abdominal: Normal bowel sounds, Soft, No tenderness, No hepatosplenomegaly, No masses Extremities: Erythema noticed on the extensor surfaces including the elbows, knees and the ankles. Skin: No rashes, No breakdown, No significant lesion Neuro: Normal gait, Normal speech, Strength at 5/5 X4 ext, Normal tone, Sensation intact, grossly intact cranial nerves. Psych/Mental Status: Mental status NL, Mood NL laboratory and microbiology Laboratory Tests 09/10/24 08:30 Test 09/10/24 08:30 Range/Units Serum Glucose 92 74-106 mg/dL Microbiology Date/Time Source Procedure Growth Status 09/09/24 05:00 Sputum Expectorated Sputum AFB Broth Culture Pending Resulted 09/09/24 05:00 Sputum Expectorated Sputum - Final Resulted 09/09/24 05:00 Sputum Expectorated Sputum - Final Resulted 09/09/24 05:00 Sputum Expectorated Sputum Acid Fast Bacilli Culture Pending Resulted 08/29/24 13:23 Blood Blood Culture - Final NO GROWTH AFTER 5 DAYS OF INCUBATION. Complete 08/26/24 11:00 Pleural Fluid Gram Stain - Final Complete 08/26/24 11:00 Pleural Fluid Body Fluid Culture - Final Complete 08/24/24 18:29 Nose MRSA Screen - Final Complete Labs and/or images reviewed: Labs reviewed by me, Image(s) reviewed by me Problem List/Assessment/Plan Problem List/Assessment/Plan Acute hypoxic respiratory failure likely secondary to community-acquired pneumonia ? Vape associated vs ? Malignancy vs ? Mycobacterium tuberculosis Sepsis due to Community-acquired pneumonia, Gram-positive and Gram-negative Loculated right-sided exudative pleural effusion status post R thoracotomy and chest tube removal and thoracocentesis with 700 mL drainage undergoing tPA course 08/22, Thoracocentesis performed by Dr. Kemp. drain 700 mL of yellow fluid. Pleural studies suggestive of exudative effusion. 08/27 & 08/28- patient received 2 doses of 6 mg alteplase. 09/02 - Underwent Right thoracotomy, evacuation of empyema, right lung decortication by Dr. Tobar 09/02/2024 to 09/09/2024 - surgical chest tube was placed. Patient required oxygen supplementation with 2 L oxygen via NC, now on room air. CT chest revealed right-sided pleural effusion with atelectasis in the right lower lung field IV Zosyn q.6 hour starting 08/21/2024 IV doxycycline q.12 hour started 08/24/24 to 09/05 Discontinued IV azithromycin 500 mg daily - patient received from 08/21 to 08/24 Nebulized treatment with albuterol and ipratropium q.6 hours Blood cultures and body fluid culture have been negative so far. TB QuantiFERON gold test positive. Final AFB smear is negative. AFB culture pending Stable left upper lobe pulmonary nodules with a suspicious spiculated nodule in the left apex approx 8mm Chest CT completed 09/05 showed Stable left upper lobe pulmonary nodules with a suspicious spiculated nodule in the left apex. Metastatic malignancy can not be ruled out although unlikely considering patient's demographics. Recommend correlation with pleural fluid cytology. Further evaluation with PET-CT scan may be required. IR consulted - no need of biopsy given the small size pulmonology on board - outpatient PET-CT scan Infectious disease consulted - TB QuantiFERON gold test positive. Final AFB smear is negative. AFB culture pending R lower lobe atelectasis Incentive spirometery Q1hr advised Reactive thrombocytosis Secondary to sepsis Monitor Rule Out pericardial effusion Echocardiogram completed 08/24 showed LVEF 55%. Normal frontal/valvular heart. No pericardial effusion Anemia, likely microcytic Hemoglobin on arrival 10.8, MCV 32, hematocrit 32 ESR 50, retic count 1.66, CRP 14, LDH 328 Iron panel completed shows low iron low TIBC low% saturation Ferritin elevated at 744 Urine analysis shows 2+ blood and 17 RBCs P.o. iron supplementation b.i.d. Transaminitis Bilirubin elevated at 1.3 Direct bili 0.7 AST 33, ALT 69, ALP 196 Patient quit drinking 3 years back Liver U/S shows given cavernous hemangioma otherwise unremarkable Asymptomatic Hypotonic euvolemic hyponatremia secondary to ? Fluoxetine Serum sodium 128, serum osmolality 271, urine osmolality 340, urine sodium less than 10 DC fluoxetine Cavernous hemangioma Ultrasound liver completed, shows 1.7 cm well-circumscribed oval echogenic nodule in the left hepatic lobe compatible with a cavernous hemangioma Outpatient workup advised Ruled out HIV HIV testing negative ADHD, depression - stable No homicidal or suicidal ideation Continue lamotrigine 100 mg b.i.d. Ativan 0.5 mg p.r.n. DC fluoxetine given the questionable SIADH Vitamin-D deficiency Supplemented Hypokalemia Replenished Diet regular Plan discussed with patient and his over the phone call for more than 30 minutes in which all questions have been answered Goals of care discussed for more than 22 minutes, full code status Case discussed with Dr. Katz. Infectious Disease. TB QuantiFERON gold test positive. Final AFB smear is negative. AFB culture pending Plan discussed with: Patient Dietary Evaluation Review Comments: Continue current plan of care Expected Outcomes/Goals: F/U in 3-5 days LAVELL GONSALES RESIDENT Sep 10, 2024 19:31
--- NOTE | 2024-09-10 20:40 | DVHPN2 ---
Consult Progress Note Date Seen: Sep 09, 2024 Subjective Patient reports: Feels better (breathing well no chest pain) Objective vital signs Vital Sign Date Time Temp Pulse Resp B/P (MAP) Pulse Ox O2 Delivery O2 Flow Rate FiO2 09/10/24 16:26 97.9 78 15 92/51 (65) 96 97.9 09/10/24 12:00 Room Air* 0 21 Total Intake and Output 09/09/24 09/09/24 09/10/24 15:00 23:00 07:00 Intake Total 200 ml 1860 ml 695 ml Output Total 1000 ml 650 ml Balance 200 ml 860 ml 45 ml medications Current Medications Medications Dose Ordered Sig/Lori Route Start Time Stop Time Status Last Admin Dose Admin Ondansetron HCl 4 mg Q4HP PRN IV 08/20/24 21:45 09/04/24 05:01 4 MG Docusate Sodium 100 mg BIDPRN PRN PO 08/20/24 21:45 09/06/24 09:53 100 MG Nitroglycerin 0.4 mg Q5MINP PRN SL 08/20/24 23:30 Lamotrigine 100 mg Q12HR PO 08/21/24 22:00 09/10/24 11:51 100 MG Ergocalciferol 50,000 unit Q7D PO 08/21/24 14:30 09/04/24 15:49 50,000 UNIT Lorazepam 0.5 mg Q6HP PRN IV 08/25/24 20:30 09/09/24 20:16 0.5 MG Diphenhydramine HCl 25 mg Q4HP PRN IV 08/29/24 05:15 08/31/24 12:41 25 MG Throat Lozenges 1 jabier Q6HPRN PRN MT 08/29/24 05:15 08/30/24 16:55 1 JABIER Acetaminophen 650 mg Q6HP PRN PO 08/30/24 11:30 09/02/24 08:48 650 MG Acetaminophen/ Hydrocodone Bitart 1 tab Q6HP PRN PO 08/31/24 18:15 09/10/24 18:44 1 TAB Baclofen 5 mg Q8HR PO 09/04/24 06:00 09/10/24 15:29 5 MG Morphine Sulfate 0.5 mg Q6HP PRN IV 09/04/24 09:15 09/05/24 08:53 0.5 MG Polyethylene Glycol 17 gm DAILYPRN PRN PO 09/04/24 16:00 Piperacillin Sod/ Tazobactam Sod 100 ml @ 25 mls/hr Q6H IV 09/04/24 22:00 09/10/24 15:29 25 MLS/HR Albuterol 2.5 mg Q4HPRN PRN NEB 09/07/24 14:00 Ipratropium [place] 0.5 mg Q4HPRN PRN NEB 09/07/24 14:00 Fluconazole 100 ml @ 100 mls/hr DAILY IV 09/10/24 10:00 Cancel Ferrous Sulfate 325 mg TIDWMEALS PO 09/11/24 08:00 PHYSICAL EXAM: - GENERAL: intubated and sedated , Well-nourished. - EYES: EOMI. Anicteric. - HENT: Moist mucous membranes. No scleral icterus. No cervical lymphadenopathy. - LUNGS: Clear to auscultation bilaterally. No accessory muscle use. crackles in both lungs , worse on the left - CARDIOVASCULAR: Regular rate and rhythm. No murmur. No JVD. - ABDOMEN: Soft, non-tender and non-distended. No palpable masses. - EXTREMITIES: No edema. Non-tender.?SKIN: No rashes or lesions. Warm. - NEUROLOGIC: No focal neurological deficits. CN II-XII grossly intact, but not individually tested. - PSYCHIATRIC: Cooperative. Appropriate mood and affect. laboratory and microbiology Laboratory Tests 09/10/24 08:30 Test 09/10/24 08:30 Range/Units Serum Glucose 92 74-106 mg/dL Problem List/Assessment/Plan Problem List/Assessment/Plan Assessment and Plan: ID Problem List: - Right loculated pleural effusion - Acute hypoxic respiratory failure - Atypical pneumonia - Emphysema - Positive Quantiferon Gold test - Multiple psychiatric disorders, including depression and ADHD Assessment: Mr. Xu Amado is a 28-year-old male with no significant past medical history except for multiple psychiatric disorders on fluoxetine and lamotrigine, who presents with a complaint of right upper quadrant abdominal pain ongoing for about a month. He also reports shortness of breath, fevers, night sweats, but no cough or hemoptysis. A CT test demonstrated a right loculated pleural effusion. Initial Hospital Course: - The patient was initially in acute hypoxic respiratory failure requiring 2 liters nasal cannula. - Vital signs: Temp: 90.1F, HR: 105, RR: 18, BP: 106/64. - Started on azithromycin initially, later changed to ceftriaxone. Labs/Imaging: - WBC: 12 on admission, Hemoglobin: 11, Platelet count: 460. - HIV test: Negative, COVID test: Negative. - Vitamin D level: 22.4, Lactic acid: 1.5. - Urine drug screen: Negative. - Pleural fluid analysis: pH 8.0, WBC 1756, RBC 1213, PMNs 3%, polynuclear cells 97%, LDH 1184, glucose 70, protein 4.6. - Hepatitis B/C: Negative, Hepatitis A antibody: Positive. - Quantiferon Gold test: Positive, with methodogen response of 10 and nil of 0.17. Imaging Results: - CT Scan: - Stable left upper lobe pulmonary nodules with a suspicious speculated nodule on the left apex. - Moderate right lower lobe consolidation. - Numerous tiny 1-2 mm nodules in a tree-in-bud pattern noted in the left apex. Plan: - Continue monitoring while inpatient. continue Zosyn - Evaluate for full acute TB rule out: AFB negative x3 and MTB-PCR negative x2. 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 - Check for coccidioidomycosis and aspergillus antibodies. - Ultimately, if all cultures are negative, patient can be discharged on 30 days of Augmentin and fu w ID in 4 weeks - Stop Diflucan unless there is specific concern for fungal pneumonia. - Follow up on pending AFB cultures, pleural fluid cytology. - Send pleural fluid for AFB testing and ADA level. Isolation Precautions: Standard. Plan discussed with: Patient Dietary Evaluation Review Comments: Continue current plan of care Expected Outcomes/Goals: F/U in 3-5 days CONCEPCION BURRELL MD Sep 10, 2024 20:40
--- NOTE | 2024-09-10 21:50 | DVHPN2 ---
Progress Note - Dictate Date Seen: Sep 10, 2024 Medical Necessity Reason Pt with a Central, PICC or Fol: No Subjective Patient seen and examined at bedside. Breathing comfortably on room air. Overnight events reviewed. vital signs Vital Sign Date Time Temp Pulse Resp B/P (MAP) Pulse Ox O2 Delivery O2 Flow Rate FiO2 09/10/24 21:07 97 Room Air 0.0 09/10/24 21:07 21 09/10/24 16:26 97.9 78 15 92/51 (65) 97.9 Total Intake and Output 09/09/24 09/09/24 09/10/24 15:00 23:00 07:00 Intake Total 200 ml 1860 ml 695 ml Output Total 1000 ml 650 ml Balance 200 ml 860 ml 45 ml medications Current Medications Medications Dose Ordered Sig/Lori Route Start Time Stop Time Status Last Admin Dose Admin Ondansetron HCl 4 mg Q4HP PRN IV 08/20/24 21:45 09/04/24 05:01 4 MG Docusate Sodium 100 mg BIDPRN PRN PO 08/20/24 21:45 09/06/24 09:53 100 MG Nitroglycerin 0.4 mg Q5MINP PRN SL 08/20/24 23:30 Lamotrigine 100 mg Q12HR PO 08/21/24 22:00 09/10/24 21:40 100 MG Ergocalciferol 50,000 unit Q7D PO 08/21/24 14:30 09/04/24 15:49 50,000 UNIT Lorazepam 0.5 mg Q6HP PRN IV 08/25/24 20:30 09/09/24 20:16 0.5 MG Diphenhydramine HCl 25 mg Q4HP PRN IV 08/29/24 05:15 08/31/24 12:41 25 MG Throat Lozenges 1 jabier Q6HPRN PRN MT 08/29/24 05:15 08/30/24 16:55 1 JABIER Acetaminophen 650 mg Q6HP PRN PO 08/30/24 11:30 09/02/24 08:48 650 MG Acetaminophen/ Hydrocodone Bitart 1 tab Q6HP PRN PO 08/31/24 18:15 09/10/24 18:44 1 TAB Baclofen 5 mg Q8HR PO 09/04/24 06:00 09/10/24 21:41 5 MG Morphine Sulfate 0.5 mg Q6HP PRN IV 09/04/24 09:15 09/05/24 08:53 0.5 MG Polyethylene Glycol 17 gm DAILYPRN PRN PO 09/04/24 16:00 Piperacillin Sod/ Tazobactam Sod 100 ml @ 25 mls/hr Q6H IV 09/04/24 22:00 09/10/24 21:40 25 MLS/HR Albuterol 2.5 mg Q4HPRN PRN NEB 09/07/24 14:00 Ipratropium [place] 0.5 mg Q4HPRN PRN NEB 09/07/24 14:00 Fluconazole 100 ml @ 100 mls/hr DAILY IV 09/10/24 10:00 Cancel Ferrous Sulfate 325 mg TIDWMEALS PO 09/11/24 08:00 objective Gen.: Patient lying in bed in no apparent distress. Breathing on room air. Head: Normocephalic, atraumatic. Eyes: EOMI/PERRLA. Ears: Normal hearing. Normal anatomy. Neck/trachea: Trachea midline, supple. Nose: Normal external anatomy. Mouth: Moist mucous membranes. Chest: Decreased air entry bilaterally. No wheezing or rhonchi. Cardiovascular: Positive S1, positive S2. Regular rate and rhythm. Abdomen: Positive bowel sounds in all 4 quadrants. Soft, non-tender, non- distended. : Deferred. Rectal: Deferred. Skin: Warm, dry. Intact. Extremities: 2+ radial pulses bilaterally. No lower extremity edema. Neuro: Awake, alert, oriented x3. No gross motor or sensory deficits. Cranial nerves II through XII intact. Gait not assessed. laboratory and microbiology Laboratory Tests 09/10/24 08:30 Test 09/10/24 08:30 Range/Units Serum Glucose 92 74-106 mg/dL Assessment/Plan Impression: Loculated pleural effusion Pneumonia likely Gram-negative Elevated liver enzymes Atelectasis Events: Breathing on room air No respiratory distress Quantiferon positive AFB smear negative. ID recommendations appreciated. S/p chest tube removal. ID recs appreciated. Continue antibiotics Bronchodilators PRN. Incentive spirometry Pleural fluid cultures negative. Blood cultures negative. Monitor hemoglobin Recommend outpatient CT chest in 2-3 months. Pain control Avoid oversedation S/p thoracotomy on 09/02 - Right thoracotomy with evacuation of empyema and right lung decortication. Labs and imaging reviewed. Rest of plan as noted below. Plan: Supplemental oxygen if necessary Keep O2 saturation above 92%. Continue antibiotics Fluid cultures show no growth Blood cultures show no growth Limited chest ultrasound demonstrated loculated right pleural effusion. Drained 700 mL of yellow colored fluid. Several septations were seen. See separate procedure note for right thoracentesis (08/22). S/p thoracotomy on 09/02 - Right thoracotomy with evacuation of empyema and right lung decortication. Underwent placement of large-bore chest tube Patient currently s/p chest tube removal. Continue bronchodilators Antibiotics Pain control Avoid oversedation Anxiolytics prn Monitor renal function Monitor electrolytes. Supplement as necessary. DVT prophylaxis Prognosis: Poor given multiple comorbidities. Rest of plan per hospitalist and other consultants. Thank you Dr. Jewell for allowing me to participate in this patient's care. Further recommendations will depend on patient's clinical course. Please do not hesitate to contact me if you have any questions or concerns. This medical document was created using an electronic medical record system with [employer] dictation system. Although this document has been carefully reviewed, there may still be some phonetic and typographical errors. These areas are purely typographical due to imperfections of the software programs, and do not reflect any compromise in the patient's medical care. Dietary Evaluation Review Comments: Continue current plan of care Expected Outcomes/Goals: F/U in 3-5 days Plan discussed with: Patient, Other (DOC Rivera) PRESTON CARTY MD Sep 10, 2024 21:50
--- NOTE | 2024-09-10 22:24 | DVHPN2 ---
Consult Progress Note Date Seen: Sep 10, 2024 Subjective Patient reports: No new complaints (no cough , no chest pain and no fevers ) Objective vital signs Vital Sign Date Time Temp Pulse Resp B/P (MAP) Pulse Ox O2 Delivery O2 Flow Rate FiO2 09/10/24 21:07 97 Room Air 0.0 09/10/24 21:07 21 09/10/24 16:26 97.9 78 15 92/51 (65) 97.9 Total Intake and Output 09/09/24 09/09/24 09/10/24 15:00 23:00 07:00 Intake Total 200 ml 1860 ml 695 ml Output Total 1000 ml 650 ml Balance 200 ml 860 ml 45 ml medications Current Medications Medications Dose Ordered Sig/Lori Route Start Time Stop Time Status Last Admin Dose Admin Ondansetron HCl 4 mg Q4HP PRN IV 08/20/24 21:45 09/04/24 05:01 4 MG Docusate Sodium 100 mg BIDPRN PRN PO 08/20/24 21:45 09/06/24 09:53 100 MG Nitroglycerin 0.4 mg Q5MINP PRN SL 08/20/24 23:30 Lamotrigine 100 mg Q12HR PO 08/21/24 22:00 09/10/24 21:40 100 MG Ergocalciferol 50,000 unit Q7D PO 08/21/24 14:30 09/04/24 15:49 50,000 UNIT Lorazepam 0.5 mg Q6HP PRN IV 08/25/24 20:30 09/09/24 20:16 0.5 MG Diphenhydramine HCl 25 mg Q4HP PRN IV 08/29/24 05:15 08/31/24 12:41 25 MG Throat Lozenges 1 jabier Q6HPRN PRN MT 08/29/24 05:15 08/30/24 16:55 1 JABIER Acetaminophen 650 mg Q6HP PRN PO 08/30/24 11:30 09/02/24 08:48 650 MG Acetaminophen/ Hydrocodone Bitart 1 tab Q6HP PRN PO 08/31/24 18:15 09/10/24 18:44 1 TAB Baclofen 5 mg Q8HR PO 09/04/24 06:00 09/10/24 21:41 5 MG Morphine Sulfate 0.5 mg Q6HP PRN IV 09/04/24 09:15 09/05/24 08:53 0.5 MG Polyethylene Glycol 17 gm DAILYPRN PRN PO 09/04/24 16:00 Piperacillin Sod/ Tazobactam Sod 100 ml @ 25 mls/hr Q6H IV 09/04/24 22:00 09/10/24 21:40 25 MLS/HR Albuterol 2.5 mg Q4HPRN PRN NEB 09/07/24 14:00 Ipratropium [place] 0.5 mg Q4HPRN PRN NEB 09/07/24 14:00 Fluconazole 100 ml @ 100 mls/hr DAILY IV 09/10/24 10:00 Cancel Ferrous Sulfate 325 mg TIDWMEALS PO 09/11/24 08:00 PHYSICAL EXAM: - GENERAL: intubated and sedated , Well-nourished. - EYES: EOMI. Anicteric. - HENT: Moist mucous membranes. No scleral icterus. No cervical lymphadenopathy. - LUNGS: Clear to auscultation bilaterally. No accessory muscle use. crackles in both lungs , worse on the left - CARDIOVASCULAR: Regular rate and rhythm. No murmur. No JVD. - ABDOMEN: Soft, non-tender and non-distended. No palpable masses. - EXTREMITIES: No edema. Non-tender.?SKIN: No rashes or lesions. Warm. - NEUROLOGIC: No focal neurological deficits. CN II-XII grossly intact, but not individually tested. - PSYCHIATRIC: Cooperative. Appropriate mood and affect. laboratory and microbiology Laboratory Tests 09/10/24 08:30 Test 09/10/24 08:30 Range/Units Serum Glucose 92 74-106 mg/dL Problem List/Assessment/Plan Problems(with codes): (1) Elevated liver enzymes (2) Pneumonia, unspecified organism (3) Abdominal pain (4) Elevated LFTs (5) Pleural effusion Problem List/Assessment/Plan Assessment and Plan: ID Problem List: - Right loculated pleural effusion - Acute hypoxic respiratory failure - Atypical pneumonia - Emphysema - Positive Quantiferon Gold test - Multiple psychiatric disorders, including depression and ADHD Assessment: Mr. Xu Amado is a 28-year-old male with no significant past medical history except for multiple psychiatric disorders on fluoxetine and lamotrigine, who presents with a complaint of right upper quadrant abdominal pain ongoing for about a month. He also reports shortness of breath, fevers, night sweats, but no cough or hemoptysis. A CT test demonstrated a right loculated pleural effusion. Initial Hospital Course: - The patient was initially in acute hypoxic respiratory failure requiring 2 liters nasal cannula. - Vital signs: Temp: 90.1F, HR: 105, RR: 18, BP: 106/64. - Started on azithromycin initially, later changed to ceftriaxone. Labs/Imaging: - WBC: 12 on admission, Hemoglobin: 11, Platelet count: 460. - HIV test: Negative, COVID test: Negative. - Vitamin D level: 22.4, Lactic acid: 1.5. - Urine drug screen: Negative. - Pleural fluid analysis: pH 8.0, WBC 1756, RBC 1213, PMNs 3%, polynuclear cells 97%, LDH 1184, glucose 70, protein 4.6. - Hepatitis B/C: Negative, Hepatitis A antibody: Positive. - Quantiferon Gold test: Positive, with methodogen response of 10 and nil of 0.17. Imaging Results: - CT Scan: - Stable left upper lobe pulmonary nodules with a suspicious speculated nodule on the left apex. - Moderate right lower lobe consolidation. - Numerous tiny 1-2 mm nodules in a tree-in-bud pattern noted in the left apex. 09/10: Patient is AFB negative x3, MTV PCR x2. Patient is clear for discharge from infectious disease perspective. ruled out acute TB at this time. Plan: - Patient is clear for discharge from infectious disease perspective - Continue monitoring while inpatient. 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 - Check for coccidioidomycosis and aspergillus antibodies. - Ultimately, if all cultures are negative, patient can be discharged on 30 days of Augmentin and fu w ID in 4 weeks - Stop Diflucan unless there is specific concern for fungal pneumonia. - Follow up on pending AFB cultures, pleural fluid cytology. - Send pleural fluid for AFB testing and ADA level. Isolation Precautions: Standard. Plan discussed with: Other Dietary Evaluation Review Comments: Continue current plan of care Expected Outcomes/Goals: F/U in 3-5 days CONCEPCION BURRELL MD Sep 10, 2024 22:23
[2024-09-11] VITALS (10 sets, daily range): BP systolic 101–128; BP diastolic 52–71; PULSE 84–98; RESP 16–20; TEMP 97.8–98.5; O2SAT 93–97
[2024-09-11 05:47] LABS: Eosinophils # (auto) 0.3 10 ^3/uL (0-0.8); Hemoglobin 9.3 g/dL (13.5-17.5); Lymphocytes # (auto) 1.2 10 ^3/uL (0.4-5.4); Nucleated Red Blood Cells % 0.2 %
[2024-09-11 05:49] LABS: Basophils # (auto) 0.2 10 ^3/uL (0-0.2); Basophils % (auto) 1.5 % (0.0-2.0); Eosinophils % (auto) 3.1 % (0.0-7.0); Hematocrit 28.9 % (41.0-53.0); Lymphocytes % (auto) 11.8 % (10.0-50.0); Mean Corpuscular Hemoglobin 19.7 pg (28.0-32.0); Mean Corpuscular Hgb Conc. 32.3 g/dL (32.0-36.0); Mean Corpuscular Volume 60.9 fL (80.0-100.0); Monocytes # (auto) 0.8 10 ^3/uL (0-1.3); Monocytes % (auto) 7.4 % (0.0-12.0); Neutrophils % (auto) 76.2 % (37.0-80.0); Platelet Count (auto) 506 10^3/uL (140-450); Red Blood Cells 4.75 10^6/uL (4.5-5.90); Red Cell Distribution Width 17.3 % (11.8-14.3); White Blood Cell 10.5 10^3/uL (4.4-10.8)
[2024-09-11 06:58] LABS: Large Platelets FEW; Ovalocytes FEW; Platelet Estimate Increa; Stomatocytes Few
--- NOTE | 2024-09-11 09:39 | DVHPN2 ---
Progress Note Date Seen: Sep 11, 2024 Medical Necessity Reason Pt with a Central, PICC or Fol: No Subjective Patient reports: No new complaints, Feels better Review of Systems: HEENT:Normal, CVS:Normal, RESPIRATORY:Normal, GI:Normal, :Normal, MSK:Normal, NEURO:Normal Objective vital signs Vital Sign Date Time Temp Pulse Resp B/P (MAP) Pulse Ox O2 Delivery O2 Flow Rate FiO2 09/11/24 07:45 95 Room Air 0.0 09/11/24 07:45 21 09/11/24 06:10 94 18 128/71 09/11/24 05:00 98.5 98.5 Total Intake and Output 09/10/24 09/10/24 09/11/24 15:00 23:00 07:00 Intake Total 450 ml 1200 ml 1030 ml Balance 450 ml 1200 ml 1030 ml medications Current Medications Medications Dose Ordered Sig/Lori Route Start Time Stop Time Status Last Admin Dose Admin Ondansetron HCl 4 mg Q4HP PRN IV 08/20/24 21:45 09/04/24 05:01 4 MG Docusate Sodium 100 mg BIDPRN PRN PO 08/20/24 21:45 09/06/24 09:53 100 MG Nitroglycerin 0.4 mg Q5MINP PRN SL 08/20/24 23:30 Lamotrigine 100 mg Q12HR PO 08/21/24 22:00 09/10/24 21:40 100 MG Ergocalciferol 50,000 unit Q7D PO 08/21/24 14:30 09/04/24 15:49 50,000 UNIT Lorazepam 0.5 mg Q6HP PRN IV 08/25/24 20:30 09/10/24 22:42 0.5 MG Diphenhydramine HCl 25 mg Q4HP PRN IV 08/29/24 05:15 08/31/24 12:41 25 MG Throat Lozenges 1 jabier Q6HPRN PRN MT 08/29/24 05:15 08/30/24 16:55 1 JABIER Acetaminophen 650 mg Q6HP PRN PO 08/30/24 11:30 09/02/24 08:48 650 MG Acetaminophen/ Hydrocodone Bitart 1 tab Q6HP PRN PO 08/31/24 18:15 09/11/24 05:17 1 TAB Baclofen 5 mg Q8HR PO 09/04/24 06:00 09/11/24 05:17 5 MG Morphine Sulfate 0.5 mg Q6HP PRN IV 09/04/24 09:15 09/05/24 08:53 0.5 MG Polyethylene Glycol 17 gm DAILYPRN PRN PO 09/04/24 16:00 Piperacillin Sod/ Tazobactam Sod 100 ml @ 25 mls/hr Q6H IV 09/04/24 22:00 09/11/24 03:58 25 MLS/HR Albuterol 2.5 mg Q4HPRN PRN NEB 09/07/24 14:00 Ipratropium [place] 0.5 mg Q4HPRN PRN NEB 09/07/24 14:00 Fluconazole 100 ml @ 100 mls/hr DAILY IV 09/10/24 10:00 Cancel Ferrous Sulfate 325 mg TIDWMEALS PO 09/11/24 08:00 Examination: GENERAL:Normal, HEENT:Normal, NECK:Normal, LUNGS:Normal, CVS:Normal, ABDOMEN:Normal, MSK:Normal, SKIN:Normal laboratory and microbiology Laboratory Tests 09/11/24 05:08 09/10/24 08:30 Test 09/10/24 08:30 Range/Units Serum Glucose 92 74-106 mg/dL Problem List/Assessment/Plan Problem List/Assessment/Plan 09/04/24 - No new complaints - Denies shortness of breath - Feels better every day - Chest tube output: okay - Wound: clean, dry, and intact - No air leak Plan: - continue with current treatment Advised to use incentive spirometer hourly 09/11/2024 - no new complaints, no SOB , wounds clean dry and intact, patient may shower, ok to discharge per surgery point of view, signing off for now please recall if needed, patient to follow up two weeks after discharge in surgery clinic Plan discussed with: Patient, Other (Dr. Tobar) Dietary Evaluation Review Comments: Continue current plan of care Expected Outcomes/Goals: F/U in 3-5 days TAMELA DEMARCO NP Sep 11, 2024 09:39
[2024-09-11] MEDS: FERROUS SULFATE 325mg EC TAB PO SCH (10:40)
[2024-09-11] MEDS ORDERED: AUG875T PO (10:41)
[2024-09-11] MEDS ORDERED: PROBCAP PO (10:41)
--- NOTE | 2024-09-11 10:53 | DVHDSRES ---
Discharge Summary Date of Admission Resident Creating Document: LAVELL GONSALES RESIDENT Aug 20, 2024 at 23:31 Date of Discharge: Sep 15, 2024 Admitting Diagnosis Right abdominal pain Labs/Diagnostic Data: Laboratory Results Test 09/11/24 05:08 09/10/24 12:44 09/10/24 08:30 09/08/24 06:30 White Blood Count 10.5 10^3/uL (4.4-10.8) Red Blood Count 4.75 10^6/uL (4.5-5.90) Hemoglobin 9.3 g/dL (13.5-17.5) Hematocrit 28.9 % (41.0-53.0) Mean Corpuscular Volume 60.9 fL (80.0-100.0) Mean Corpuscular Hemoglobin 19.7 pg (28.0-32.0) Mean Corpuscular Hemoglobin Concent 32.3 g/dL (32.0-36.0) Red Cell Distribution Width 17.3 % (11.8-14.3) Platelet Count 506 10^3/uL (140-450) Mean Platelet Volume 6.7 fL (6.9-10.8) Neutrophils (%) (Auto) 76.2 % (37.0-80.0) Lymphocytes (%) (Auto) 11.8 % (10.0-50.0) Monocytes (%) (Auto) 7.4 % (0.0-12.0) Eosinophils (%) (Auto) 3.1 % (0.0-7.0) Basophils (%) (Auto) 1.5 % (0.0-2.0) Neutrophils # (Auto) 8.0 10 ^3/uL (1.6-8.6) Lymphocytes # (Auto) 1.2 10 ^3/uL (0.4-5.4) Monocytes # (Auto) 0.8 10 ^3/uL (0-1.3) Eosinophils # (Auto) 0.3 10 ^3/uL (0-0.8) Basophils # (Auto) 0.2 10 ^3/uL (0-0.2) Nucleated Red Blood Cells 0.2 % Platelet Estimate Increa Large Platelets Few Ovalocytes Few Stomatocytes Few Sodium Level 140 mmol/L (136-145) Potassium Level 4.0 mmol/L (3.5-5.1) Chloride Level 106 mmol/L (98-107) Carbon Dioxide Level 27 mmol/L (20-31) Anion Gap 7 (5-15) Blood Urea Nitrogen 7 mg/dL (9-23) Creatinine 0.78 mg/dL (0.700-1.30) Glomerular Filtration Rate Calc 126 mL/min (>90) BUN/Creatinine Ratio 9.0 (10.0-20.0) Serum Glucose 92 mg/dL (74-106) Calcium Level 9.6 mg/dL (8.7-10.4) Miscellaneous Referred Test (Rm Tmp Sent to [facility] Test 09/07/24 12:58 09/07/24 12:18 09/07/24 05:41 09/06/24 08:17 TB Test (QFT) Gold Plus Positive (Negative) TB Test (QFT) Nil 0.17 IU/mL (.) TB Test (QFT) Mitogen >10.00 IU/mL (.) TB Test (QFT) Antigen 1 1.87 IU/mL (.) TB Test (QFT) Antigen 2 1.72 IU/mL (.) TB Test (QFT) Criteria Comment (.) Miscellaneous Referred Test (Refrg) Sent to [facility] Total Bilirubin 0.7 mg/dL (0.2-1.0) Direct Bilirubin 0.3 mg/dL (<0.3) Aspartate Amino Transferase (AST) 45 U/L (13-40) Alanine Aminotransferase (ALT) 70 U/L (7-40) Alkaline Phosphatase 129 U/L (46-116) Total Protein 5.8 g/dL (5.7-8.2) Albumin 3.5 g/dL (3.2-4.8) Hypochromasia (manual) Marked Microcytosis Marked Test 09/03/24 05:12 08/31/24 05:21 08/30/24 06:54 08/27/24 07:57 Differential Total Cells Counted 100.0 (100) Neutrophils % (Manual) 96 (37.0-80.0) Band Neutrophils % (Manual) 0 Lymphocytes % (Manual) 3 (10.0-50.0) Monocytes % (Manual) 1 (0-12) Eosinophils % (Manual) 0 (0-7) Basophils % (Manual) 0 (0.0-2.0) Metamyelocytes % (manual) 0 Myelocytes % (Manual) 0 Promyelocytes % (Manual) 0 Blast Cells % (Manual) 0 Reactive Lymphocytes 0 Magnesium Level 2.1 mg/dL (1.6-2.6) Urine Osmolality 340 mOsm/kg Urine Sodium < 10 mmol/L (40-220) Anti-Nuclear Antibody Screen Negative (Negative) Test 08/26/24 05:24 08/24/24 11:52 08/24/24 05:52 08/22/24 18:20 Tear Drop Cells Few Serum Osmolality 271 mOsm/kg (278-298) Prothrombin Time 12.4 sec (9.3-11.8) Prothrombin Time INR 1.18 (0.9-1.15) Activated Partial Thromboplast Time 33.3 SEC (24.5-34.5) Erythrocyte Sedimentation Rate 50 mm/hr (0-20) Reticulocyte Count (auto) 1.66 % (0.5-1.5) Iron Level 23 ug/dL (65-175) Total Iron Binding Capacity 195 ug/dL (250-425) Percent Iron Saturation 11.8 % (20-55) Ferritin 744.9 ng/mL (22-322) C-Reactive Protein High Sensitivity 14.73 mg/dL (<1.0) Body Fluid Source Pleural fluid Body Fluid pH 8 Body Fluid WBC (Manual) 1756 CUMM (0-200) Body Fluid RBC (Manual) 1213 CUMM (0-2000) Body Fluid Mononuclear Cells 97 % Body Fluid Polymorphonuclear Cells 3 % (0-25) Body Fluid Glucose 70 mg/dL (.) Body Fluid Total Protein 4.6 g/dL (.) Body Fluid Lactate Dehydrogenase 1184 IU/L (.) Test 08/21/24 14:08 08/21/24 03:21 08/20/24 18:15 08/20/24 15:58 Influenza Type A Antigen Negative (Negative) Influenza Type B Antigen Negative (Negative) Hemoglobin A1c 5.1 % A1C (<5.7) Lactate Dehydrogenase 328 U/L (120-246) Vitamin B12 Level 673 pg/mL (211-911) Vitamin D 25-Hydroxy 22.4 ng/mL (30.0-100) Thyroid Stimulating Hormone (TSH) 1.30 uIU/mL (0.55-4.78) Hepatitis A Antibody Total Positive (Negative) Hepatitis B Surface Antigen Negative (Negative) Hepatitis B Surface Antibody Negative (Negative) Hepatitis B Core Total Antibody Negative (Negative) Hepatitis C Antibody Negative (Negative) HIV (1&2) Antibody Negative (Negative) SARS-CoV-2 Antigen (Rapid) Negative (NEGATIVE) Lactic Acid Level 1.5 mmol/L (0.4-2.0) Troponin I High Sensitivity 32 ng/L (</=54) B-Type Natriuretic Peptide 25.14 pg/mL (0-100) Lipase 30 U/L (12-53) Plasma/Serum Blood Alcohol < 3.0 mg/dL (<10) Monoscreen Negative Test 08/20/24 15:57 Urine Color Yellow (Yellow) Urine Clarity Clear (Clear) Urine pH 6.5 (5.0-9.0) Urine Specific [place] 1.018 (1.001-1.035) Urine Protein Trace (Negative) Urine Ketones Negative (Negative) Urine Blood 2+ /uL (Negative) Urine Nitrite Negative (Negative) Urine Bilirubin Negative (Negative) Urine Urobilinogen 3 mg/dL (Negative) Urine Leukocyte Esterase Negative /uL (Negative) Urine RBC 17 /hpf (0 - 3) Urine WBC 1 /hpf (0 - 3) Urine Squamous Epithelial Cells None seen /hpf (<5) Urine Bacteria None seen /hpf (None Seen) Urine Glucose Normal mg/dL (Normal) Urine Opiates Screen Neg (NEGATIVE) Urine Fentanyl Screen Neg (NEGATIVE) Urine Barbiturates Screen Neg (NEGATIVE) Urine Phencyclidine Screen Neg (NEGATIVE) Urine Amphetamines Screen Neg (NEGATIVE) Urine Benzodiazepines Screen Neg (NEGATIVE) Urine Cocaine Screen Neg (NEGATIVE) Urine Cannabinoids Screen Neg (NEGATIVE) Other Laboratory Tests 09/11/24 05:08 09/10/24 08:30 Brief Hx & Hospital Course: Xu Amado is a 28-year-old male with past medical history of ADHD and depression who presented to [facility] ED with complaint of right sided chest pain and shortness of breath. 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 Reports vaping a lot recently and sharing his friends vape. Denies any recent travel history. Patient was [place]His father in law has probable COPD as he smokes and cough a lot per the patient. His pain is 9/10 numeric scale, getting worse on deep inhalation that prompted this visit. Patient also mentioned he has a history of fever for last 1 week and the highest temperature was 104 and yesterday he went to urgent care and he was referred from the urgent care due to the right-sided pleural effusion. Patient denied chest pain, dizziness, headache, diaphoresis, nausea or vomiting. Patient was admitted for further evaluation and medical management. Denies any weight loss. No history of incarceration or IV drug use. Home medications; lamotrigine, fluoxetine During the hospital stay, chest x-ray completed which showed right-sided pleural effusion. Therefore patient underwent thoracocentesis on 08/22 and 700 mL of yellow fluid was drained. Pleural fluid studies suggestive of exudative effusion. Patient was started on IV Zosyn starting 08/21 till 09/13 and IV doxycycline. Patient received 10 days of atypical coverage with IV doxycycline and IV azithromycin. 08/27 & 08/28- patient received 2 doses of 6 mg alteplase. Patient did not received a 3rd dose of alteplase given the serosanguineous drainage. 09/02/2024 to 09/09/2024 - surgical chest tube was placed. 09/02 - Underwent Right thoracotomy, evacuation of empyema, right lung decortication by Dr. Tobar. TB QuantiFERON gold test positive. 2 AFB smear are negative. 3rd AFB smear pending. AFB culture pending. Pleural fluid specimen colected by Dr Tobar on 09/02 shows necrotizing granulomatous inflammation. Rare AFB present. Negative for malignancy. Patient started on RIPE therapy with vit B6 on 09/11 for the next [address] completed 09/05 showed Stable left upper lobe pulmonary nodules with a suspicious spiculated nodule in the left apex. Metastatic malignancy can not be ruled out although unlikely considering patient's demographics. IR consulted - no need of biopsy given the small size. Therefore mental health consultant was consulted who recommended- outpatient PET-CT scan within the next 3 months. Discharge instruction: 08/22, Thoracocentesis performed by Dr. Kemp. drain 700 mL of yellow fluid. Pleural studies suggestive of exudative effusion. 08/27 & 08/28- patient received 2 doses of 6 mg alteplase. 09/02 - Underwent Right thoracotomy, evacuation of empyema, right lung decortication by Dr. Tobar 09/02/2024 to 09/09/2024 - surgical chest tube was placed. 09/11 - patient started on ripe therapy with vitamin B6. Received 5 days of ripe therapy inpatient 09/15-patient is being discharged home after clearance from [facility], with a strong recommendation to follow up with his infectious disease appointment with Dr. Valladares on 09/23 at 3:00 p.m.. Follow up with discharge clinic appointment within 7-14 days Follow up with primary care physician within 7-14 days Follow up with surgeon as outpatient within 2 weeks. Discharge medications: Patient is given 30 days of ripe therapy with vitamin B6 in hand. Need to continue ripe therapy for 60 days. Consults/Reason for consult Surgery, Technical Support Technician, infectious disease consultation for suspected tuberculosis and pleural effusion Operations or Procedures ORDERING PHYSICIAN: MONICA RAMIREZ DO PROCEDURE(s): ABPL - CT AB PEL WO CON-NO ORAL OR IV REASON: RUQ and r flank pain, fever ORDER NUMBER(s): [id number], ACCESSION NUMBER(s): [id number] Exam: CT CT AB PEL WO CON-NO ORAL OR IV, CT CHEST WITHOUT CONTRAST History: RUQ and r flank pain, fever Comparison Study: None available at time of dictation. TECHNIQUE: Multidetector CT of the abdomen was performed from lung bases to pubic symphysis. Imaging was performed without IV contrast. Axial, coronal and sagittal multiplanar reformats were obtained from the axial data set by the technologist. Radiation Dose Information: CT Dose: CTDI volume is 5.68 mGy. Dose-length product is 324.0 mGy*cm FINDINGS: Evaluation of solid organs is limited due to lack of intravenous contrast use. Findings: Lung Bases: Normal heart size. There is a right pleural effusion with atelectasis in the right lower lung field. There is a trace pericardial effusion.. Liver: The liver is normal in size. No focal lesions. Gallbladder and Biliary Tree: Gallbladder contracted. There are no calcified gallstones. Spleen: Unremarkable Pancreas: The pancreas is grossly normal in appearance. Adrenal Glands: Unremarkable Kidneys: Kidneys are grossly normal without calculi or hydronephrosis. Bladder: Grossly unremarkable for degree of distention. Bowel: The stomach is grossly normal in appearance. Small bowel and colon are normal in caliber and distribution. There are no findings to suggest bowel obstruction. Stool is noted throughout colon. The appendix is not visualized; however, no secondary findings of acute appendicitis identified. Ascites: Absent Lymphadenopathy: No mesenteric, retroperitoneal or periportal lymphadenopathy. Abdominal Wall and Mesentery: Unremarkable. Vasculature: The visualized abdominal aorta is normal in size and caliber. Evaluation of abdominal and pelvic vessels is limited due to lack of intravenous contrast. Pelvic Organs: Unremarkable Musculoskeletal: No aggressive focal bony lesions, acute fractures or dislocation. Soft tissues: Unremarkable IMPRESSION: 1. No acute abdominal or pelvic finding. 2. Gallbladder is contracted. 3. No findings of bowel obstruction 4. Stool noted throughout the colon. 5. No nephrolithiasis or hydronephrosis. 6. Right pleural effusion with atelectasis in the right lower lung field. Radiation optimization: All CT scans at this facility use at least one of these dose optimization techniques: automated exposure control mA and/or kV adjustment per patient size (includes targeted exams where dose is matched to clinical indication) or iterative reconstruction. ATED BY: KARYN BHAGAT Jr., DO DICTATED DATE/TIME: 08/20/241537 SIGNED BY: KARYN BHAGAT Jr., DO SIGNED DATE/TIME: 08/20/241537 CC: ULTRASOUND LIVER INDICATION: Pain. TECHNIQUE: Multiple real-time sonographic images of the abdomen were obtained. COMPARISON: None FINDINGS: [Findings] The liver parenchyma appears homogeneous. There is a 1.7 cm well-circumscribed oval echogenic nodule in the left hepatic lobe compatible with a cavernous hemangioma. There is no intrahepatic biliary ductal dilatation. There is partial visualization of right pleural effusion. There is no evidence of gallstones, gallbladder wall thickening or pericholecystic fluid. The edge brusher reports a negative Britt's sign. The common duct is not dilated. The right kidney measures 10.3 cm. No nephrolithiasis or hydronephrosis. Visualized pancreas appears within normal limits. IMPRESSION: 1. 1.7 cm well-circumscribed oval echogenic nodule in the left hepatic lobe compatible with a cavernous hemangioma. 2. There is partial visualization of right pleural effusion. HS:Y ATED BY: PETER LÓPEZ MD DICTATED DATE/TIME: 08/25/24901 SIGNED BY: PETER LÓPEZ MD SIGNED DATE/TIME: 08/25/24901 CC: ORDERING PHYSICIAN: LAVELL GONSALES RESIDENT PROCEDURE(s): [facility] - ECHO 2D MODE CARDIAC DOP REASON: pericarditis? effusion? ef? ORDER NUMBER(s): [id number], ACCESSION NUMBER(s): [id number] APPROVED REPORT EXAM: Two-dimensional and M-mode echocardiogram with Doppler and color Doppler. Blood Pressure: 96/60 mmHg INDICATION Pericarditis? Effusion? EF? RISK FACTORS Height: 64, Weight: 160 DIMENSIONS LVDd 4.4 (3.8-5.7cm) LA (2D) 3.5 (1.9-4.0cm) Aortic Root 3.2 (2.0- 3.7cm) LVDs 3.0 (2.5-4.0cm) LA (MM) (1.9-4.0cm) Aortic Cusp Exc 1.7 (1.5- 2.0cm) EF (%) 60.0 (55-70%) Rt. Atrium 3.9 (1.9-4.0cm) Asc. Aorta cm IVSd 0.9 (0.7-1.1cm) RV (D) (1.8-2.4cm) PWd 1.1 (0.7-1.1cm) Mitral Valve Mitral Mitral Stenosis E wave 0.82m/s MV Mean GR. mmHg A wave 0.82m/s MV Peak GR. 47mmHg E/A ratio 1.0 2D MVA cm2 DECEL Time 152ms PRESS 1/2 Time 47ms IVRT ms Dop MVA 4.66cm2 Aortic Valve Aortic Valve Aortic Stenosis V1 1.12m/s AO Mean GR. 4mmHg V2 1.34m/s AO Peak GR. 7mmHg LVOT Diameter 2.3 (1.8-2.4cm) Doppler JOHN 3.47cm2 Pulmonic Valve V2 1.14m/s Tricuspid Valve TR Velocity 2.49m/s RVSP 28mmHg Conclusion Normal left ventricular size and dimension. Normal left ventricular systolic function estimated ejection fraction 55%. Normal diastolic function. Normal right ventricular size and dimension. Normal right ventricular systolic function. Normal biatrial size and dimension. Normal aortic valve structure and function. Normal mitral valve structure and function. Normal tricuspid valve structure and function. The pulmonary valve is grossly normal. No pericardial effusion. SIGNED BY: QUIANA PENA MD SIGNED DATE/TIME: 08/24/24 4512 CC: Condition at Discharge: Stable Final Diagnosis/Problems List - Acute hypoxic respiratory failure likely secondary to community-acquired pneumonia ? Vape associated vs ? Malignancy vs ? 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 - Sepsis due to Community-acquired pneumonia, Gram-positive and Gram-negative - Loculated right-sided exudative pleural effusion status post R thoracotomy and chest tube removal and thoracocentesis with 700 mL drainage undergoing tPA cours- Right loculated pleural effusion - Positive Quantiferon Gold test - Multiple psychiatric disorders, including depression and ADHD - solitary pulmonary nodule of the left upper lobe - right lower lobe atelectasis - reactive thrombocytosis - ruled out pericardial effusion - anemia likely microcytic - transaminitis -cavernous hemangioma - ?SIADH secondary to fluoxetine use - ruled out HIV - vitamin-D deficiency - hypokalemia Discharge Disposition: Home Discharge Instruct/Medications Diet: Regular Activity: Light activity Follow Up/Referral: Follow up with PCP within 7 - 14 days Follow up with Infectious disease Dr Valladares within 30 days Follow up with surgery clinic within 2 weeks Medications: Augmentin for 30 days with probiotics Discharge Statement: "Patient was advised to return to the ER or call 911 if any headaches, dizziness, shortness of breath, chest pain, abdominal pain, bleeding, fevers, or worsening of medical condition. Patient was counseled about treatment plan, medications, possible side effects, patientverbalized understanding. All questions were answered to the best of my ability. This discharge took greater then 30 minutes in planning, reviewing documentation, counseling the patient, and discussing with other team members." ASSESSMENT ASSESSMENT Assessment - Acute hypoxic respiratory failure likely secondary to community-acquired pneumonia ? Vape associated vs ? Malignancy vs ? Mycobacterium tuberculosis - Sepsis due to Community-acquired pneumonia, Gram-positive and Gram-negative - Loculated right-sided exudative pleural effusion status post R thoracotomy and chest tube removal and thoracocentesis with 700 mL drainage undergoing tPA cours- Right loculated pleural effusion - Positive Quantiferon Gold test - Multiple psychiatric disorders, including depression and ADHD Date of Service: Sep 15, 2024 Billing Provider: KAYLEN DUMONT MD Common Visit Codes: 82431-VYO/OBS DISCH DAY >30min LAVELL GONSALES RESIDENT Sep 11, 2024 10:53 KAYLEN DUMONT MD Sep 16, 2024 09:32
--- NOTE | 2024-09-11 12:50 | DVHPNRES ---
Progress Note Date Seen: Sep 11, 2024 Resident Creating Document: LAVELL GONSALES RESIDENT Medical Necessity Reason Pt with a Central, PICC or Fol: No Subjective Review of Systems Xu Amado is a 28-year-old male with past medical history of ADHD and depression who presented to [facility] ED with complaint of right sided chest pain and shortness of breath. 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 Reports vaping a lot recently and sharing his friends vape. Denies any recent travel history. [place] was [place]His father in law has probable COPD as he smokes and cough a lot per the patient. His pain is 9/10 numeric scale, getting worse on deep inhalation that prompted this visit. Patient also mentioned he has a history of fever for last 1 week and the highest temperature was 104 and yesterday he went to urgent care and he was referred from the urgent care due to the right-sided pleural effusion. Patient denied chest pain, dizziness, headache, diaphoresis, nausea or vomiting. Patient was admitted for further evaluation and medical management. Denies any weight loss. No history of incarceration or IV drug use. Home medications; lamotrigine, fluoxetine 08/25 - Patient seen and examined at bedside. Overnight patient was anxious received lorazepam 1 mg. Also reported night sweats. Chest x-ray repeated, shows enlarging pleural effusion, surgeon consulted for chest tube placement. Final blood culture negative, MRSA screen is negative. 08/26 - patient reports feeling better, no shortness of breaths. Overnight reports night sweats. IR was consulted, chest tube placed - draining yellow fluid. Specimen sent for cytology/differential/culture. 08/27-patient has no active complaint. 6 mg alteplase injected for intra- articular administration at around 8:30 p.m.. Patient tolerated well. Advised the nurse in the night float team to open the [place] at around 9:[address] Kemp in case gross blood seen. 08/28 - patient feels much better. Chest x-ray repeated 12 hours after 6 mg alteplase injection. Shows dramatic improvement in the right pleural effusion. Second dose of alteplase injection administered at 5:00 p.m.. Nurse advised to and cough the chest tube at 6:00 p.m.. Notify fine unhairer in case of gross bleeding in the chest tube. 08/29 - patient reports no active complaint. Wants to go home. Chest x-ray reviewed in the a.m., or effusion looks worsen. WBC elevated from 15-17 with neutrophilic predominance. Chest tube draining 800 mL of dark yellow color fluid. 5:00 p.m.-history of draining pinkish color serosanguineous fluid. Per Dr. Kemp, chest x-ray in the a.m.. Third course of tPA probably tomorrow 08/30. 08/31 - no acute complaint. Chest x-ray in the a.m. repeated, shows persistent right middle and lower lobe effusion. Chest tube draining serosanguineous fluid. Dressing dry and intact. WBC trended down to 13 today. Surgeon consulted for surgical chest tube. 09/01 - reports feeling fine. Breath sounds absent on RLL. Flushed the chest tube with saline in AM. Draining 1020 ml of serosanguis fluid. Satting 95 on RA. Potassium 25meQ given. WBC 11.9. CXR: Small right pleural effusion. NPO starting midnight. Thoracotomy scheduled 09/02. 09/02 - Tmax 99.5. WBC count downtrending 10.4. Blood cultures so far have been negative. Underwent Right thoracotomy, evacuation of empyema, right lung decortication - The patient's chest cavity contained infected fluid, which was sent for cultures. 40 size chest tube placed 09/03 - Patient feels fine. Chest tube draining 190cc red serosanguinous fluid. Dressing dry, intact and clean. 09/04 - patient is anxious, reports tingling pain at the site of chest tube, otherwise in no distress. Chest x-ray reviewed, shows right basilar atelectasis versus effusion. 09/06 - no active issues. Chest tube draining 400 cc of serosanguineous fluid. Patient is in isolation protocols given the suspected TB. Discussed the plan and why the patient is in isolation precautions with the patient for more than 30 minutes. 09/07 - patient reports feeling fine, wants to go home. Chest tube draining serosanguineous dark red fluid. Id consulted. TB QuantiFERON gold test and AFB smear pending. Overnight patient had a bowel movement which was soft. 09/08 - patient is alert and oriented x4, feeling all right, no active complaint. Chest tube drained 25 cc overnight. Surgeon consultation pending. Chest x-ray repeated, shows resolving right lower effusion/atelectasis. 09/09 - patient feels fine, chest tube removed by the surgeon, wound clean and well approximated. Chest x-ray in the morning. 09/10 - patient reports no active complaint. WBC stable at 9, hemoglobin 8.7/hematocrit 28. MCV 62. Continuing ferrous sulfate b.i.d.. Infectious disease consulted, ordered Aspergillus antibodies. 09/11 - patient feels fine. Pleural fluid specimen colected by Dr Tobar on 09/02 shows necrotizing granulomatous inflammation. Rare AFB present. Negative for malignancy. Patient started on RIPE therapy with vit B6 for 5 days from 09/11 to 09/15 per ID dept. Objective vital signs Vital Sign Date Time Temp Pulse Resp B/P (MAP) Pulse Ox O2 Delivery O2 Flow Rate FiO2 09/11/24 09:00 98.3 85 20 103/59 (74) 96 98.3 09/11/24 07:45 Room Air 0.0 09/11/24 07:45 21 Total Intake and Output 09/10/24 09/10/24 09/11/24 14:59 22:59 06:59 Intake Total 450 ml 1200 ml 1030 ml Balance 450 ml 1200 ml 1030 ml medications Current Medications Medications Dose Ordered Sig/Lori Route Start Time Stop Time Status Last Admin Dose Admin Ondansetron HCl 4 mg Q4HP PRN IV 08/20/24 21:45 09/04/24 05:01 4 MG Docusate Sodium 100 mg BIDPRN PRN PO 08/20/24 21:45 09/06/24 09:53 100 MG Nitroglycerin 0.4 mg Q5MINP PRN SL 08/20/24 23:30 Lamotrigine 100 mg Q12HR PO 08/21/24 22:00 09/11/24 10:43 100 MG Ergocalciferol 50,000 unit Q7D PO 08/21/24 14:30 09/04/24 15:49 50,000 UNIT Lorazepam 0.5 mg Q6HP PRN IV 08/25/24 20:30 09/10/24 22:42 0.5 MG Diphenhydramine HCl 25 mg Q4HP PRN IV 08/29/24 05:15 08/31/24 12:41 25 MG Throat Lozenges 1 jabier Q6HPRN PRN MT 08/29/24 05:15 08/30/24 16:55 1 JABIER Acetaminophen 650 mg Q6HP PRN PO 08/30/24 11:30 09/02/24 08:48 650 MG Acetaminophen/ Hydrocodone Bitart 1 tab Q6HP PRN PO 08/31/24 18:15 09/11/24 05:17 1 TAB Baclofen 5 mg Q8HR PO 09/04/24 06:00 09/11/24 05:17 5 MG Morphine Sulfate 0.5 mg Q6HP PRN IV 09/04/24 09:15 09/05/24 08:53 0.5 MG Polyethylene Glycol 17 gm DAILYPRN PRN PO 09/04/24 16:00 Piperacillin Sod/ Tazobactam Sod 100 ml @ 25 mls/hr Q6H IV 09/04/24 22:00 09/11/24 10:43 25 MLS/HR Fluconazole 100 ml @ 100 mls/hr DAILY IV 09/10/24 10:00 Cancel Ferrous Sulfate 325 mg TIDWMEALS PO 09/11/24 08:00 09/11/24 10:40 325 MG Examination General Appearance: Alert, Oriented X4, Cooperative, No acute distress. Sitting comfortably in the bed HEENT: Atraumatic, PERRLA, EOMI, Mucous membrane moist/pink Respiratory: Diminished breath sounds, more on the right side which is improving. No crackles or wheezing heard. Right-sided chest tube is removed. Dressing dry clean and intact. Cardiovascular: Regular rate, Normal S1, Normal S2, No murmurs, no chest wall tenderness Abdominal: Normal bowel sounds, Soft, No tenderness, No hepatosplenomegaly, No masses Extremities: Erythema noticed on the extensor surfaces including the elbows, knees and the ankles. Skin: No rashes, No breakdown, No significant lesion Neuro: Normal gait, Normal speech, Strength at 5/5 X4 ext, Normal tone, Sensation intact, grossly intact cranial nerves. Psych/Mental Status: Mental status NL, Mood NL laboratory and microbiology Laboratory Tests 09/11/24 05:08 09/10/24 08:30 Test 09/10/24 08:30 Range/Units Serum Glucose 92 74-106 mg/dL Microbiology Date/Time Source Procedure Growth Status 09/09/24 05:00 Sputum Expectorated Sputum AFB Broth Culture Pending Resulted 09/09/24 05:00 Sputum Expectorated Sputum - Final Resulted 09/09/24 05:00 Sputum Expectorated Sputum - Final Resulted 09/09/24 05:00 Sputum Expectorated Sputum Acid Fast Bacilli Culture Pending Resulted 08/29/24 13:23 Blood Blood Culture - Final NO GROWTH AFTER 5 DAYS OF INCUBATION. Complete 08/26/24 11:00 Pleural Fluid Gram Stain - Final Complete 08/26/24 11:00 Pleural Fluid Body Fluid Culture - Final Complete 08/24/24 18:29 Nose MRSA Screen - Final Complete Labs and/or images reviewed: Labs reviewed by me, Image(s) reviewed by me Problem List/Assessment/Plan Problem List/Assessment/Plan Acute hypoxic respiratory failure likely secondary to community-acquired pneumonia ? Vape associated vs ? Malignancy vs ? Mycobacterium tuberculosis Sepsis due to Community-acquired pneumonia, Gram-positive and Gram-negative Loculated right-sided exudative pleural effusion status post R thoracotomy and chest tube removal and thoracocentesis with 700 mL drainage undergoing tPA course 08/22, Thoracocentesis performed by Dr. Kemp. drain 700 mL of yellow fluid. Pleural studies suggestive of exudative effusion. 08/27 & 08/28- patient received 2 doses of 6 mg alteplase. 09/02 - Underwent Right thoracotomy, evacuation of empyema, right lung decortication by Dr. Tobar 09/02/2024 to 09/09/2024 - surgical chest tube was placed. Patient required oxygen supplementation with 2 L oxygen via NC, now on room air. CT chest revealed right-sided pleural effusion with atelectasis in the right lower lung field IV Zosyn q.6 hour starting 08/21/2024 IV doxycycline q.12 hour started 08/24/24 to 09/05 Discontinued IV azithromycin 500 mg daily - patient received from 08/21 to 08/24 Nebulized treatment with albuterol and ipratropium q.6 hours Blood cultures and body fluid culture have been negative so far. TB QuantiFERON gold test positive. 2 AFB smear are negative. 3rd AFB smear pending. AFB culture pending Pleural fluid specimen colected by Dr Tobar on 09/02 shows necrotizing granulomatous inflammation. Rare AFB present. Negative for malignancy. Patient started on RIPE therapy with vit B6 for 5 days from 09/11 to 09/15. Stable left upper lobe pulmonary nodules with a suspicious spiculated nodule in the left apex approx 8mm Chest CT completed 09/05 showed Stable left upper lobe pulmonary nodules with a suspicious spiculated nodule in the left apex. Metastatic malignancy can not be ruled out although unlikely considering patient's demographics. Recommend correlation with pleural fluid cytology. Further evaluation with PET-CT scan may be required. IR consulted - no need of biopsy given the small size pulmonology on board - outpatient PET-CT scan Infectious disease consulted - TB QuantiFERON gold test positive. 2 AFB smear are negative. 3rd AFB smear pending. AFB culture pending R lower lobe atelectasis Incentive spirometery Q1hr advised Reactive thrombocytosis Secondary to sepsis Monitor Rule Out pericardial effusion Echocardiogram completed 08/24 showed LVEF 55%. Normal frontal/valvular heart. No pericardial effusion Anemia, likely microcytic Hemoglobin on arrival 10.8, MCV 32, hematocrit 32 ESR 50, retic count 1.66, CRP 14, LDH 328 Iron panel completed shows low iron low TIBC low% saturation Ferritin elevated at 744 Urine analysis shows 2+ blood and 17 RBCs P.o. iron supplementation b.i.d. Transaminitis Bilirubin elevated at 1.3 Direct bili 0.7 AST 33, ALT 69, ALP 196 Patient quit drinking 3 years back Liver U/S shows given cavernous hemangioma otherwise unremarkable Asymptomatic Hypotonic euvolemic hyponatremia secondary to ? Fluoxetine Serum sodium 128, serum osmolality 271, urine osmolality 340, urine sodium less than 10 DC fluoxetine Restarted Fluoxetine 09/11 - monitor Na Cavernous hemangioma Ultrasound liver completed, shows 1.7 cm well-circumscribed oval echogenic nodule in the left hepatic lobe compatible with a cavernous hemangioma Outpatient workup advised Ruled out HIV HIV testing negative ADHD, depression - stable No homicidal or suicidal ideation Continue lamotrigine 100 mg b.i.d. Ativan 0.5 mg p.r.n. DC fluoxetine given the questionable SIADH Vitamin-D deficiency Supplemented Hypokalemia Replenished Diet regular Plan discussed with patient and his over the phone call for more than 30 minutes in which all questions have been answered Goals of care discussed for more than 22 minutes, full code status Case discussed with Dr. Katz. TB QuantiFERON gold test positive. 3 AFB smear are negative. AFB culture /Smear Broth Suscep pending Pleural fluid specimen colected by Dr Tobar on 09/02 shows necrotizing granulomatous inflammation. Rare AFB present. Negative for malignancy. Patient started on RIPE therapy with vit B6 for 5 days from 09/11 to 09/15. Plan discussed with: Patient My Orders My Orders Orders - LAVELL GONSALES Procedure Category Date Status Time Ferrous Sulfate Tablet PHA 09/11/24 In Process 08:00 Discharge DISCHARGE 09/11/24 Transmitted 10:35 Schedule For Dc LAENDRO 09/11/24 In Process Clinic F/U 10:35 Dietary Evaluation Review Comments: Continue current plan of care Expected Outcomes/Goals: F/U in 3-5 days LAVELL GONSALES Sep 11, 2024 12:50
[2024-09-11] MEDS: FLUoxetine HCL 20 MG CAP PO SCH (14:27)
--- NOTE | 2024-09-11 15:42 | DVHPN2 ---
Consult Progress Note Date Seen: Sep 11, 2024 Subjective Patient reports: Feels better (no hemotypsis, no fever, no rash) Objective vital signs Vital Sign Date Time Temp Pulse Resp B/P (MAP) Pulse Ox O2 Delivery O2 Flow Rate FiO2 09/11/24 13:00 97.8 97 20 103/68 (80) 93 97.8 09/11/24 07:45 Room Air 0.0 09/11/24 07:45 21 Total Intake and Output 09/10/24 09/10/24 09/11/24 15:00 23:00 07:00 Intake Total 450 ml 1200 ml 1030 ml Balance 450 ml 1200 ml 1030 ml medications Current Medications Medications Dose Ordered Sig/Lori Route Start Time Stop Time Status Last Admin Dose Admin Ondansetron HCl 4 mg Q4HP PRN IV 08/20/24 21:45 09/04/24 05:01 4 MG Docusate Sodium 100 mg BIDPRN PRN PO 08/20/24 21:45 09/06/24 09:53 100 MG Nitroglycerin 0.4 mg Q5MINP PRN SL 08/20/24 23:30 Lamotrigine 100 mg Q12HR PO 08/21/24 22:00 09/11/24 10:43 100 MG Ergocalciferol 50,000 unit Q7D PO 08/21/24 14:30 09/04/24 15:49 50,000 UNIT Lorazepam 0.5 mg Q6HP PRN IV 08/25/24 20:30 09/10/24 22:42 0.5 MG Diphenhydramine HCl 25 mg Q4HP PRN IV 08/29/24 05:15 08/31/24 12:41 25 MG Throat Lozenges 1 jabier Q6HPRN PRN MT 08/29/24 05:15 08/30/24 16:55 1 JABIER Acetaminophen 650 mg Q6HP PRN PO 08/30/24 11:30 09/02/24 08:48 650 MG Acetaminophen/ Hydrocodone Bitart 1 tab Q6HP PRN PO 08/31/24 18:15 09/11/24 14:28 1 TAB Baclofen 5 mg Q8HR PO 09/04/24 06:00 09/11/24 14:28 5 MG Morphine Sulfate 0.5 mg Q6HP PRN IV 09/04/24 09:15 09/05/24 08:53 0.5 MG Polyethylene Glycol 17 gm DAILYPRN PRN PO 09/04/24 16:00 Piperacillin Sod/ Tazobactam Sod 100 ml @ 25 mls/hr Q6H IV 09/04/24 22:00 09/11/24 10:43 25 MLS/HR Fluconazole 100 ml @ 100 mls/hr DAILY IV 09/10/24 10:00 Cancel Ferrous Sulfate 325 mg TIDWMEALS PO 09/11/24 08:00 09/11/24 14:28 325 MG Fluoxetine HCl 20 mg DAILY PO 09/11/24 13:30 Physical Exam: General: NAD Neck: Supple. No masses. HEENT: PERRL. Normal lids and conjunctiva. Moist mucous membranes. Oropharynx without lesions, exudates, or excessive erythema. Normal appearance of the external aspects of the nose and ears. Heart: Regular rhythm, normal rate. No murmur. No lower extremity edema. Lungs: Normal respiratory effort. Clear to auscultation bilaterally. No wheezes. No crackles. Abdomen: Soft. Non-tender. Non-distended. No masses or abdominal hernia. Msk: No digital cyanosis. Normal strength and tone in all 4 limbs. Skin: Warm and dry, no rashes. Neuro: Alert. No facial droop or slurred speech. Extra-ocular movements intact. Sensation intact to soft touch in all 4 limbs. Psych: Appropriate mood. Full affect. Oriented to person, place, time, and situation. laboratory and microbiology Laboratory Tests 09/11/24 05:08 09/10/24 08:30 Test 09/10/24 08:30 Range/Units Serum Glucose 92 74-106 mg/dL Problem List/Assessment/Plan Problem List/Assessment/Plan Assessment and Plan: ID Problem List: - Right loculated pleural effusion - Acute hypoxic respiratory failure - Atypical pneumonia - Emphysema - Positive Quantiferon Gold test - Multiple psychiatric disorders, including depression and ADHD Assessment: Mr. Xu Amado is a 28-year-old male with no significant past medical history except for multiple psychiatric disorders on fluoxetine and lamotrigine, who presents with a complaint of right upper quadrant abdominal pain ongoing for about a month. He also reports shortness of breath, fevers, night sweats, but no cough or hemoptysis. A CT test demonstrated a right loculated pleural effusion. Initial Hospital Course: - The patient was initially in acute hypoxic respiratory failure requiring 2 liters nasal cannula. - Vital signs: Temp: 90.1F, HR: 105, RR: 18, BP: 106/64. - Started on azithromycin initially, later changed to ceftriaxone. Labs/Imaging: - WBC: 12 on admission, Hemoglobin: 11, Platelet count: 460. - HIV test: Negative, COVID test: Negative. - Vitamin D level: 22.4, Lactic acid: 1.5. - Urine drug screen: Negative. - Pleural fluid analysis: pH 8.0, WBC 1756, RBC 1213, PMNs 3%, polynuclear cells 97%, LDH 1184, glucose 70, protein 4.6. - Hepatitis B/C: Negative, Hepatitis A antibody: Positive. - Quantiferon Gold test: Positive, with methodogen response of 10 and nil of 0.17. Imaging Results: - CT Scan: - Stable left upper lobe pulmonary nodules with a suspicious speculated nodule on the left apex. - Moderate right lower lobe consolidation. - Numerous tiny 1-2 mm nodules in a tree-in-bud pattern noted in the left apex. 09/10: Patient is AFB negative x3, MTV PCR x2. Patient is clear for discharge from infectious disease perspective. ruled out acute TB at this time. Plan: - Patient is clear for discharge from infectious disease perspective - Continue monitoring while inpatient. 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 - Check for coccidioidomycosis and aspergillus antibodies. - Ultimately, if all cultures are negative, patient can be discharged on 30 days of Augmentin and fu w ID in 4 weeks - Stop Diflucan unless there is specific concern for fungal pneumonia. - Follow up on pending AFB cultures, pleural fluid cytology. - Send pleural fluid for AFB testing and ADA level. Isolation Precautions: Standard. Plan discussed with: Patient Dietary Evaluation Review Comments: Continue current plan of care Expected Outcomes/Goals: F/U in 3-5 days CONCEPCION BURRELL MD Sep 11, 2024 15:42
[2024-09-11] MEDS: ISONIAZID 300 MG TAB PO SCH (17:52)
[2024-09-11] MEDS: PYRIDOXINE HCL 50 MG TAB PO SCH (17:53)
[2024-09-11] MEDS: ETHAMBUTOL HCL 400 MG TAB PO SCH (17:54)
[2024-09-11] MEDS: PYRAZINAMIDE 500 MG TAB PO SCH (17:55)
[2024-09-11] MEDS: rifAMPin 300 MG CAP PO SCH (17:56)
--- NOTE | 2024-09-11 20:31 | DVHPN2 ---
Progress Note - Dictate Date Seen: Sep 11, 2024 Medical Necessity Reason Pt with a Central, PICC or Fol: No Subjective Patient seen and examined at bedside. Breathing comfortably on room air. Overnight events reviewed. vital signs Vital Sign Date Time Temp Pulse Resp B/P (MAP) Pulse Ox O2 Delivery O2 Flow Rate FiO2 09/11/24 16:52 98.1 91 17 102/52 (69) 97 98.1 09/11/24 10:00 Room Air 0.0 09/11/24 10:00 21 Total Intake and Output 09/10/24 09/10/24 09/11/24 15:00 23:00 07:00 Intake Total 450 ml 1200 ml 1030 ml Balance 450 ml 1200 ml 1030 ml medications Current Medications Medications Dose Ordered Sig/Lori Route Start Time Stop Time Status Last Admin Dose Admin Ondansetron HCl 4 mg Q4HP PRN IV 08/20/24 21:45 09/04/24 05:01 4 MG Docusate Sodium 100 mg BIDPRN PRN PO 08/20/24 21:45 09/06/24 09:53 100 MG Nitroglycerin 0.4 mg Q5MINP PRN SL 08/20/24 23:30 Lamotrigine 100 mg Q12HR PO 08/21/24 22:00 09/11/24 10:43 100 MG Ergocalciferol 50,000 unit Q7D PO 08/21/24 14:30 09/11/24 14:30 50,000 UNIT Lorazepam 0.5 mg Q6HP PRN IV 08/25/24 20:30 09/10/24 22:42 0.5 MG Diphenhydramine HCl 25 mg Q4HP PRN IV 08/29/24 05:15 08/31/24 12:41 25 MG Throat Lozenges 1 jabier Q6HPRN PRN MT 08/29/24 05:15 08/30/24 16:55 1 JABIER Acetaminophen 650 mg Q6HP PRN PO 08/30/24 11:30 09/11/24 19:56 650 MG Baclofen 5 mg Q8HR PO 09/04/24 06:00 09/11/24 14:28 5 MG Morphine Sulfate 0.5 mg Q6HP PRN IV 09/04/24 09:15 09/05/24 08:53 0.5 MG Polyethylene Glycol 17 gm DAILYPRN PRN PO 09/04/24 16:00 Piperacillin Sod/ Tazobactam Sod 100 ml @ 25 mls/hr Q6H IV 09/04/24 22:00 09/11/24 17:11 25 MLS/HR Fluconazole 100 ml @ 100 mls/hr DAILY IV 09/10/24 10:00 Cancel Ferrous Sulfate 325 mg TIDWMEALS PO 09/11/24 08:00 09/11/24 14:28 325 MG Fluoxetine HCl 20 mg DAILY PO 09/11/24 13:30 Rifampin 600 mg DAILY PO 09/11/24 16:15 09/15/24 23:59 09/11/24 17:56 600 MG Isoniazid 300 mg DAILY PO 09/11/24 16:15 09/15/24 23:59 09/11/24 17:52 300 MG Pyrazinamide 1,500 mg DAILY PO 09/11/24 16:15 09/15/24 23:59 09/11/24 17:55 1,500 MG Ethambutol HCl 1,200 mg DAILY PO 09/11/24 16:15 09/15/24 23:59 09/11/24 17:54 1,200 MG Pyridoxine HCl 50 mg DAILY PO 09/11/24 16:15 09/15/24 23:59 09/11/24 17:53 50 MG objective Gen.: Patient lying in bed in no apparent distress. Breathing on room air. Head: Normocephalic, atraumatic. Eyes: EOMI/PERRLA. Ears: Normal hearing. Normal anatomy. Neck/trachea: Trachea midline, supple. Nose: Normal external anatomy. Mouth: Moist mucous membranes. Chest: Decreased air entry bilaterally. No wheezing or rhonchi. Cardiovascular: Positive S1, positive S2. Regular rate and rhythm. Abdomen: Positive bowel sounds in all 4 quadrants. Soft, non-tender, non- distended. : Deferred. Rectal: Deferred. Skin: Warm, dry. Intact. Extremities: 2+ radial pulses bilaterally. No lower extremity edema. Neuro: Awake, alert, oriented x3. No gross motor or sensory deficits. Cranial nerves II through XII intact. Gait not assessed. laboratory and microbiology Laboratory Tests 09/11/24 05:08 09/10/24 08:30 Test 09/10/24 08:30 Range/Units Serum Glucose 92 74-106 mg/dL Assessment/Plan Impression: Loculated pleural effusion Pneumonia likely Gram-negative Elevated liver enzymes Atelectasis Events: Breathing on room air No respiratory distress Quantiferon positive AFB smear negative x3. Defer to ID to discontinue isolation. Patient is stable for discharge from the pulmonary standpoint. S/p chest tube removal. ID recs appreciated. Continue antibiotics Bronchodilators PRN. Incentive spirometry Pleural fluid cultures negative. Blood cultures negative. Monitor hemoglobin Recommend outpatient CT chest in 2-3 months. Pain control Avoid oversedation S/p thoracotomy on 09/02 - Right thoracotomy with evacuation of empyema and right lung decortication. Labs and imaging reviewed. Rest of plan as noted below. Plan: Supplemental oxygen if necessary Keep O2 saturation above 92%. Continue antibiotics Fluid cultures show no growth Blood cultures show no growth Limited chest ultrasound demonstrated loculated right pleural effusion. Drained 700 mL of yellow colored fluid. Several septations were seen. See separate procedure note for right thoracentesis (08/22). S/p thoracotomy on 09/02 - Right thoracotomy with evacuation of empyema and right lung decortication. Underwent placement of large-bore chest tube Patient currently s/p chest tube removal. Continue bronchodilators Antibiotics Pain control Avoid oversedation Anxiolytics prn Monitor renal function Monitor electrolytes. Supplement as necessary. DVT prophylaxis Prognosis: Poor given multiple comorbidities. Rest of plan per hospitalist and other consultants. Thank you Dr. Jewell for allowing me to participate in this patient's care. Further recommendations will depend on patient's clinical course. Please do not hesitate to contact me if you have any questions or concerns. This medical document was created using an electronic medical record system with [employer] dictation system. Although this document has been carefully reviewed, there may still be some phonetic and typographical errors. These areas are purely typographical due to imperfections of the software programs, and do not reflect any compromise in the patient's medical care. Dietary Evaluation Review Comments: Continue current plan of care Expected Outcomes/Goals: F/U in 3-5 days Plan discussed with: Patient, Other (DOC Rivera) PRESTON CARTY MD Sep 11, 2024 20:31
[2024-09-11] MEDS: HYDROcodone-ACET 5/325MG TAB PO PRN (23:52)
[2024-09-12] VITALS (8 sets, daily range): BP systolic 102–118; BP diastolic 54–59; PULSE 80–106; RESP 16–20; TEMP 94.7–98.8; O2SAT 95–97
[2024-09-12 07:09] LABS: Basophils # (auto) 0.1 10 ^3/uL (0-0.2); Eosinophils # (auto) 0.2 10 ^3/uL (0-0.8); Hematocrit 28.6 % (41.0-53.0); Lymphocytes # (auto) 1.1 10 ^3/uL (0.4-5.4); Lymphocytes % (auto) 13.9 % (10.0-50.0); Mean Corpuscular Hgb Conc. 32.3 g/dL (32.0-36.0); Mean Corpuscular Volume 61.1 fL (80.0-100.0); Monocytes # (auto) 0.9 10 ^3/uL (0-1.3)
[2024-09-12 07:12] LABS: Basophils % (auto) 1.4 % (0.0-2.0); Eosinophils % (auto) 2.3 % (0.0-7.0); Hemoglobin 9.3 g/dL (13.5-17.5); Mean Corpuscular Hemoglobin 19.8 pg (28.0-32.0); Monocytes % (auto) 11.7 % (0.0-12.0); Neutrophils # (auto) 5.5 10 ^3/uL (1.6-8.6); Neutrophils % (auto) 70.7 % (37.0-80.0); Nucleated Red Blood Cells % 0.3 %; Platelet Count (auto) 434 10^3/uL (140-450); Red Blood Cells 4.69 10^6/uL (4.5-5.90); Red Cell Distribution Width 17.4 % (11.8-14.3); White Blood Cell 7.8 10^3/uL (4.4-10.8)
[2024-09-12 07:19] LABS: Anion Gap 7 (5-15); Carbon Dioxide 28 mmol/L (20-31); Chloride 107 mmol/L (98-107); Potassium 3.7 mmol/L (3.5-5.1); Sodium 142 mmol/L (136-145)
[2024-09-12 07:20] LABS: Calcium 9.5 mg/dL (8.7-10.4)
[2024-09-12 07:25] LABS: BUN/Creatinine Ratio 10.4 (10.0-20.0); Blood Urea Nitrogen 8 mg/dL (9-23); Glucose 98 mg/dL (74-106)
--- NOTE | 2024-09-12 11:06 | DVHPN2 ---
Consult Progress Note Date Seen: Sep 12, 2024 Subjective Patient reports: Feels better (no fevers, started on RIPE) Objective vital signs Vital Sign Date Time Temp Pulse Resp B/P (MAP) Pulse Ox O2 Delivery O2 Flow Rate FiO2 09/12/24 09:00 98.8 91 17 105/57 (73) 97 98.8 09/11/24 20:00 Room Air* 0 21 Total Intake and Output 09/11/24 09/11/24 09/12/24 15:00 23:00 07:00 Intake Total 100 ml 1700 ml 210 ml Balance 100 ml 1700 ml 210 ml medications Current Medications Medications Dose Ordered Sig/Lori Route Start Time Stop Time Status Last Admin Dose Admin Ondansetron HCl 4 mg Q4HP PRN IV 08/20/24 21:45 09/04/24 05:01 4 MG Docusate Sodium 100 mg BIDPRN PRN PO 08/20/24 21:45 09/06/24 09:53 100 MG Nitroglycerin 0.4 mg Q5MINP PRN SL 08/20/24 23:30 Lamotrigine 100 mg Q12HR PO 08/21/24 22:00 09/12/24 10:30 100 MG Ergocalciferol 50,000 unit Q7D PO 08/21/24 14:30 09/11/24 14:30 50,000 UNIT Lorazepam 0.5 mg Q6HP PRN IV 08/25/24 20:30 09/10/24 22:42 0.5 MG Diphenhydramine HCl 25 mg Q4HP PRN IV 08/29/24 05:15 08/31/24 12:41 25 MG Throat Lozenges 1 jabire Q6HPRN PRN MT 08/29/24 05:15 08/30/24 16:55 1 JABIER Acetaminophen 650 mg Q6HP PRN PO 08/30/24 11:30 09/11/24 19:56 650 MG Baclofen 5 mg Q8HR PO 09/04/24 06:00 09/12/24 04:51 5 MG Morphine Sulfate 0.5 mg Q6HP PRN IV 09/04/24 09:15 09/05/24 08:53 0.5 MG Polyethylene Glycol 17 gm DAILYPRN PRN PO 09/04/24 16:00 Piperacillin Sod/ Tazobactam Sod 100 ml @ 25 mls/hr Q6H IV 09/04/24 22:00 09/12/24 10:31 25 MLS/HR Fluconazole 100 ml @ 100 mls/hr DAILY IV 09/10/24 10:00 Cancel Ferrous Sulfate 325 mg TIDWMEALS PO 09/11/24 08:00 09/11/24 14:28 325 MG Fluoxetine HCl 20 mg DAILY PO 09/11/24 13:30 09/12/24 10:30 20 MG Rifampin 600 mg DAILY PO 09/11/24 16:15 09/15/24 23:59 09/11/24 17:56 600 MG Isoniazid 300 mg DAILY PO 09/11/24 16:15 09/15/24 23:59 09/12/24 10:33 300 MG Pyrazinamide 1,500 mg DAILY PO 09/11/24 16:15 09/15/24 23:59 09/12/24 10:31 1,500 MG Ethambutol HCl 1,200 mg DAILY PO 09/11/24 16:15 09/15/24 23:59 09/12/24 10:31 1,200 MG Pyridoxine HCl 50 mg DAILY PO 09/11/24 16:15 09/15/24 23:59 09/12/24 10:32 50 MG Acetaminophen/ Hydrocodone Bitart 1 tab Q4HPRN PRN PO 09/11/24 23:15 09/12/24 10:30 1 TAB Physical Exam: General: NAD Neck: Supple. No masses. HEENT: PERRL. Normal lids and conjunctiva. Moist mucous membranes. Oropharynx without lesions, exudates, or excessive erythema. Normal appearance of the external aspects of the nose and ears. Heart: Regular rhythm, normal rate. No murmur. No lower extremity edema. Lungs: Normal respiratory effort. Clear to auscultation bilaterally. No wheezes. No crackles. Abdomen: Soft. Non-tender. Non-distended. No masses or abdominal hernia. Msk: No digital cyanosis. Normal strength and tone in all 4 limbs. Skin: Warm and dry, no rashes. Neuro: Alert. No facial droop or slurred speech. Extra-ocular movements intact. Sensation intact to soft touch in all 4 limbs. Psych: Appropriate mood. Full affect. Oriented to person, place, time, and situation. laboratory and microbiology Laboratory Tests 09/12/24 06:15 Test 09/12/24 06:15 Range/Units Serum Glucose 98 74-106 mg/dL Problem List/Assessment/Plan Problem List/Assessment/Plan Assessment and Plan: ID Problem List: - Right loculated pleural effusion - Acute hypoxic respiratory failure - Atypical pneumonia - Emphysema - Positive Quantiferon Gold test - Multiple psychiatric disorders, including depression and ADHD Assessment: Mr. Xu Amado is a 28-year-old male with no significant past medical history except for multiple psychiatric disorders on fluoxetine and lamotrigine, who presents with a complaint of right upper quadrant abdominal pain ongoing for about a month. He also reports shortness of breath, fevers, night sweats, but no cough or hemoptysis. A CT test demonstrated a right loculated pleural effusion. Initial Hospital Course: - The patient was initially in acute hypoxic respiratory failure requiring 2 liters nasal cannula. - Vital signs: Temp: 90.1F, HR: 105, RR: 18, BP: 106/64. - Started on azithromycin initially, later changed to ceftriaxone. Labs/Imaging: - WBC: 12 on admission, Hemoglobin: 11, Platelet count: 460. - HIV test: Negative, COVID test: Negative. - Vitamin D level: 22.4, Lactic acid: 1.5. - Urine drug screen: Negative. - Pleural fluid analysis: pH 8.0, WBC 1756, RBC 1213, PMNs 3%, polynuclear cells 97%, LDH 1184, glucose 70, protein 4.6. - Hepatitis B/C: Negative, Hepatitis A antibody: Positive. - Quantiferon Gold test: Positive, with methodogen response of 10 and nil of 0.17. Imaging Results: - CT Scan: - Stable left upper lobe pulmonary nodules with a suspicious speculated nodule on the left apex. - Moderate right lower lobe consolidation. - Numerous tiny 1-2 mm nodules in a tree-in-bud pattern noted in the left apex. 09/10: Patient is AFB negative x3, MTV PCR x2. Patient is clear for discharge from infectious disease perspective. ruled out acute TB at this time. 09/11: necrotizing granuloma in plueral fluid - Plan: - can stop Zosyn - AFB staining recommend for pleural fluid to confirm diagnosis - start RIPE, will need to continue this regimen for 60 days. please provide atleast 30 days of this on discharge. 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 - Check for coccidioidomycosis and aspergillus antibodies. - Follow up on pending AFB cultures, pleural fluid cytology. - Send pleural fluid for AFB testing and ADA level. Isolation Precautions: TB airborne and contact Plan discussed with: Patient Dietary Evaluation Review Comments: Continue current plan of care Expected Outcomes/Goals: F/U in 3-5 days CONCEPCION BURRELL MD Sep 12, 2024 11:06
[2024-09-12] MEDS: POTASSIUM EFFERVESENT TAB 25 MEQ PO ONE (15:47)
--- NOTE | 2024-09-12 15:57 | DVHPNRES ---
Progress Note Date Seen: Sep 12, 2024 Resident Creating Document: LAVELL GONSALES RESIDENT Medical Necessity Reason Pt with a Central, PICC or Fol: No Subjective Review of Systems 09/12/2024-patient reports pain at the chest tube removal site. No tenderness/dressing is dry and intact and clean. Continue antituberculous therapy. Objective vital signs Vital Sign Date Time Temp Pulse Resp B/P (MAP) Pulse Ox O2 Delivery O2 Flow Rate FiO2 09/12/24 13:00 98.2 93 17 106/56 (73) 96 98.2 09/11/24 20:00 Room Air* 0 21 Total Intake and Output 09/11/24 09/11/24 09/12/24 14:59 22:59 06:59 Intake Total 100 ml 1700 ml 210 ml Balance 100 ml 1700 ml 210 ml medications Current Medications Medications Dose Ordered Sig/Lori Route Start Time Stop Time Status Last Admin Dose Admin Ondansetron HCl 4 mg Q4HP PRN IV 08/20/24 21:45 09/04/24 05:01 4 MG Docusate Sodium 100 mg BIDPRN PRN PO 08/20/24 21:45 09/06/24 09:53 100 MG Nitroglycerin 0.4 mg Q5MINP PRN SL 08/20/24 23:30 Lamotrigine 100 mg Q12HR PO 08/21/24 22:00 09/12/24 10:30 100 MG Ergocalciferol 50,000 unit Q7D PO 08/21/24 14:30 09/11/24 14:30 50,000 UNIT Lorazepam 0.5 mg Q6HP PRN IV 08/25/24 20:30 09/10/24 22:42 0.5 MG Diphenhydramine HCl 25 mg Q4HP PRN IV 08/29/24 05:15 08/31/24 12:41 25 MG Throat Lozenges 1 jabier Q6HPRN PRN MT 08/29/24 05:15 08/30/24 16:55 1 JABIER Acetaminophen 650 mg Q6HP PRN PO 08/30/24 11:30 09/11/24 19:56 650 MG Baclofen 5 mg Q8HR PO 09/04/24 06:00 09/12/24 15:47 5 MG Morphine Sulfate 0.5 mg Q6HP PRN IV 09/04/24 09:15 09/05/24 08:53 0.5 MG Polyethylene Glycol 17 gm DAILYPRN PRN PO 09/04/24 16:00 Piperacillin Sod/ Tazobactam Sod 100 ml @ 25 mls/hr Q6H IV 09/04/24 22:00 09/12/24 10:31 25 MLS/HR Fluconazole 100 ml @ 100 mls/hr DAILY IV 09/10/24 10:00 Cancel Ferrous Sulfate 325 mg TIDWMEALS PO 09/11/24 08:00 09/12/24 13:18 325 MG Fluoxetine HCl 20 mg DAILY PO 09/11/24 13:30 09/12/24 10:30 20 MG Rifampin 600 mg DAILY PO 09/11/24 16:15 09/15/24 23:59 09/12/24 15:47 600 MG Isoniazid 300 mg DAILY PO 09/11/24 16:15 09/15/24 23:59 09/12/24 10:33 300 MG Pyrazinamide 1,500 mg DAILY PO 09/11/24 16:15 09/15/24 23:59 09/12/24 10:31 1,500 MG Ethambutol HCl 1,200 mg DAILY PO 09/11/24 16:15 09/15/24 23:59 09/12/24 10:31 1,200 MG Pyridoxine HCl 50 mg DAILY PO 09/11/24 16:15 09/15/24 23:59 09/12/24 10:32 50 MG Acetaminophen/ Hydrocodone Bitart 1 tab Q4HPRN PRN PO 09/11/24 23:15 09/12/24 10:30 1 TAB Examination General Appearance: Alert, Oriented X4, Cooperative, No acute distress. Sitting comfortably in the bed HEENT: Atraumatic, PERRLA, EOMI, Mucous membrane moist/pink Respiratory: Diminished breath sounds, more on the right side which is improving. No crackles or wheezing heard. Right-sided chest tube is removed. Dressing dry clean and intact. Cardiovascular: Regular rate, Normal S1, Normal S2, No murmurs, no chest wall tenderness Abdominal: Normal bowel sounds, Soft, No tenderness, No hepatosplenomegaly, No masses Extremities: Erythema noticed on the extensor surfaces including the elbows, knees and the ankles. Skin: No rashes, No breakdown, No significant lesion Neuro: Normal gait, Normal speech, Strength at 5/5 X4 ext, Normal tone, Sensation intact, grossly intact cranial nerves. Psych/Mental Status: Mental status NL, Mood NL laboratory and microbiology Laboratory Tests 09/12/24 06:15 Test 09/12/24 06:15 Range/Units Serum Glucose 98 74-106 mg/dL Microbiology Date/Time Source Procedure Growth Status 09/10/24 12:44 Sputum AFB Broth Culture Pending Resulted 09/10/24 12:44 Sputum - Final Resulted 09/10/24 12:44 Sputum - Final Resulted 09/10/24 12:44 Sputum Acid Fast Bacilli Culture Pending Resulted 08/29/24 13:23 Blood Blood Culture - Final NO GROWTH AFTER 5 DAYS OF INCUBATION. Complete 08/26/24 11:00 Pleural Fluid Gram Stain - Final Complete 08/26/24 11:00 Pleural Fluid Body Fluid Culture - Final Complete 08/24/24 18:29 Nose MRSA Screen - Final Complete Labs and/or images reviewed: Labs reviewed by me, Image(s) reviewed by me Problem List/Assessment/Plan Problem List/Assessment/Plan Acute hypoxic respiratory failure likely secondary to community-acquired pneumonia ? Vape associated vs ? Malignancy vs ? Mycobacterium tuberculosis Sepsis due to Community-acquired pneumonia, Gram-positive and Gram-negative Loculated right-sided exudative pleural effusion status post R thoracotomy and chest tube removal and thoracocentesis with 700 mL drainage undergoing tPA course 08/22, Thoracocentesis performed by Dr. Kemp. drain 700 mL of yellow fluid. Pleural studies suggestive of exudative effusion. 08/27 & 08/28- patient received 2 doses of 6 mg alteplase. 09/02 - Underwent Right thoracotomy, evacuation of empyema, right lung decortication by Dr. Tobar 09/02/2024 to 09/09/2024 - surgical chest tube was placed. Patient required oxygen supplementation with 2 L oxygen via NC, now on room air. CT chest revealed right-sided pleural effusion with atelectasis in the right lower lung field IV Zosyn q.6 hour starting 08/21/2024 IV doxycycline q.12 hour started 08/24/24 to 09/05 Discontinued IV azithromycin 500 mg daily - patient received from 08/21 to 08/24 Nebulized treatment with albuterol and ipratropium q.6 hours Blood cultures and body fluid culture have been negative so far. TB QuantiFERON gold test positive. 2 AFB smear are negative. 3rd AFB smear pending. AFB culture pending Pleural fluid specimen colected by Dr Tobar on 09/02 shows necrotizing granulomatous inflammation. Rare AFB present. Negative for malignancy. Infectious disease consulted- start RIPE, will need to continue this regimen for 60 days. please provide atleast 30 days of this on discharge. patient can follow up with me upon discharge. Send pleural fluid for AFB testing and ADA level. Stable left upper lobe pulmonary nodules with a suspicious spiculated nodule in the left apex approx 8mm Chest CT completed 09/05 showed Stable left upper lobe pulmonary nodules with a suspicious spiculated nodule in the left apex. Metastatic malignancy can not be ruled out although unlikely considering patient's demographics. Recommend correlation with pleural fluid cytology. Further evaluation with PET-CT scan may be required. IR consulted - no need of biopsy given the small size pulmonology on board - outpatient PET-CT scan Infectious disease consulted - TB QuantiFERON gold test positive. 2 AFB smear are negative. 3rd AFB smear pending. AFB culture pending R lower lobe atelectasis Incentive spirometery Q1hr advised Reactive thrombocytosis Secondary to sepsis Monitor Rule Out pericardial effusion Echocardiogram completed 08/24 showed LVEF 55%. Normal frontal/valvular heart. No pericardial effusion Anemia, likely microcytic Hemoglobin on arrival 10.8, MCV 32, hematocrit 32 ESR 50, retic count 1.66, CRP 14, LDH 328 Iron panel completed shows low iron low TIBC low% saturation Ferritin elevated at 744 Urine analysis shows 2+ blood and 17 RBCs P.o. iron supplementation b.i.d. Transaminitis Bilirubin elevated at 1.3 Direct bili 0.7 AST 33, ALT 69, ALP 196 Patient quit drinking 3 years back Liver U/S shows given cavernous hemangioma otherwise unremarkable Asymptomatic Hypotonic euvolemic hyponatremia secondary to ? Fluoxetine Serum sodium 128, serum osmolality 271, urine osmolality 340, urine sodium less than 10 DC fluoxetine Restarted Fluoxetine 09/11 - monitor Na Cavernous hemangioma Ultrasound liver completed, shows 1.7 cm well-circumscribed oval echogenic nodule in the left hepatic lobe compatible with a cavernous hemangioma Outpatient workup advised Ruled out HIV HIV testing negative ADHD, depression - stable No homicidal or suicidal ideation Continue lamotrigine 100 mg b.i.d. Ativan 0.5 mg p.r.n. DC fluoxetine given the questionable SIADH Vitamin-D deficiency Supplemented Hypokalemia Replenished Diet regular Plan discussed with patient and his over the phone call for more than 30 minutes in which all questions have been answered Goals of care discussed for more than 22 minutes, full code status Case discussed with Dr. Betancourt. TB QuantiFERON gold test positive. 3 AFB smear are negative. AFB culture /Smear Broth Suscep pending Pleural fluid specimen colected by Dr Tobar on 09/02 shows necrotizing granulomatous inflammation. Rare AFB present. Negative for malignancy. Patient started on RIPE therapy. Plan discussed with: Patient, Spouse (over phone) My Orders My Orders Orders - LAVELL GONSALES Procedure Category Date Status Time Rifampin Capsule PHA 09/11/24 In Process 16:15 Isoniazid (Isoniazid) PHA 09/11/24 In Process 16:15 Pyrazinamide PHA 09/11/24 In Process (Pyrazinamide) 16:15 Ethambutol Hcl PHA 09/11/24 In Process (Myambutol) 16:15 Pyridoxine Hcl Tablet PHA 09/11/24 In Process (Vitamin B-6 Table 16:15 Dietary Evaluation Review Comments: Continue current plan of care Expected Outcomes/Goals: F/U in 3-5 days Date of Service: Sep 12, 2024 Billing Provider: TANO BETANCOURT MD Common Visit Codes: [id number] INP/OBS CARE(HIGH) LAVELL GONSALES Sep 12, 2024 15:57 TANO BETANCOURT MD Sep 13, 2024 10:33
--- NOTE | 2024-09-12 19:03 | DVHPN2 ---
Progress Note - Dictate Date Seen: Sep 12, 2024 Medical Necessity Reason Pt with a Central, PICC or Fol: No Subjective Patient seen and examined at bedside. Breathing comfortably on room air. Overnight events reviewed. vital signs Vital Sign Date Time Temp Pulse Resp B/P (MAP) Pulse Ox O2 Delivery O2 Flow Rate FiO2 09/12/24 16:39 98.2 86 16 107/54 (71) 96 98.2 09/12/24 10:00 Room Air 0.0 09/12/24 10:00 21 Total Intake and Output 09/11/24 09/11/24 09/12/24 15:00 23:00 07:00 Intake Total 100 ml 1700 ml 210 ml Balance 100 ml 1700 ml 210 ml medications Current Medications Medications Dose Ordered Sig/Lori Route Start Time Stop Time Status Last Admin Dose Admin Ondansetron HCl 4 mg Q4HP PRN IV 08/20/24 21:45 09/04/24 05:01 4 MG Docusate Sodium 100 mg BIDPRN PRN PO 08/20/24 21:45 09/06/24 09:53 100 MG Nitroglycerin 0.4 mg Q5MINP PRN SL 08/20/24 23:30 Lamotrigine 100 mg Q12HR PO 08/21/24 22:00 09/12/24 10:30 100 MG Ergocalciferol 50,000 unit Q7D PO 08/21/24 14:30 09/11/24 14:30 50,000 UNIT Lorazepam 0.5 mg Q6HP PRN IV 08/25/24 20:30 09/10/24 22:42 0.5 MG Diphenhydramine HCl 25 mg Q4HP PRN IV 08/29/24 05:15 08/31/24 12:41 25 MG Throat Lozenges 1 jabier Q6HPRN PRN MT 08/29/24 05:15 08/30/24 16:55 1 JABIER Acetaminophen 650 mg Q6HP PRN PO 08/30/24 11:30 09/11/24 19:56 650 MG Baclofen 5 mg Q8HR PO 09/04/24 06:00 09/12/24 15:47 5 MG Morphine Sulfate 0.5 mg Q6HP PRN IV 09/04/24 09:15 09/05/24 08:53 0.5 MG Polyethylene Glycol 17 gm DAILYPRN PRN PO 09/04/24 16:00 Piperacillin Sod/ Tazobactam Sod 100 ml @ 25 mls/hr Q6H IV 09/04/24 22:00 09/12/24 16:50 25 MLS/HR Fluconazole 100 ml @ 100 mls/hr DAILY IV 09/10/24 10:00 Cancel Ferrous Sulfate 325 mg TIDWMEALS PO 09/11/24 08:00 09/12/24 18:05 325 MG Fluoxetine HCl 20 mg DAILY PO 09/11/24 13:30 09/12/24 10:30 20 MG Rifampin 600 mg DAILY PO 09/11/24 16:15 09/15/24 23:59 09/12/24 15:47 600 MG Isoniazid 300 mg DAILY PO 09/11/24 16:15 09/15/24 23:59 09/12/24 10:33 300 MG Pyrazinamide 1,500 mg DAILY PO 09/11/24 16:15 09/15/24 23:59 09/12/24 10:31 1,500 MG Ethambutol HCl 1,200 mg DAILY PO 09/11/24 16:15 09/15/24 23:59 09/12/24 10:31 1,200 MG Pyridoxine HCl 50 mg DAILY PO 09/11/24 16:15 09/15/24 23:59 09/12/24 10:32 50 MG Acetaminophen/ Hydrocodone Bitart 1 tab Q4HPRN PRN PO 09/11/24 23:15 09/12/24 10:30 1 TAB objective Gen.: Patient lying in bed in no apparent distress. Breathing on room air. Head: Normocephalic, atraumatic. Eyes: EOMI/PERRLA. Ears: Normal hearing. Normal anatomy. Neck/trachea: Trachea midline, supple. Nose: Normal external anatomy. Mouth: Moist mucous membranes. Chest: Decreased air entry bilaterally. No wheezing or rhonchi. Cardiovascular: Positive S1, positive S2. Regular rate and rhythm. Abdomen: Positive bowel sounds in all 4 quadrants. Soft, non-tender, non- distended. : Deferred. Rectal: Deferred. Skin: Warm, dry. Intact. Extremities: 2+ radial pulses bilaterally. No lower extremity edema. Neuro: Awake, alert, oriented x3. No gross motor or sensory deficits. Cranial nerves II through XII intact. Gait not assessed. laboratory and microbiology Laboratory Tests 09/12/24 06:15 Test 09/12/24 06:15 Range/Units Serum Glucose 98 74-106 mg/dL Assessment/Plan Impression: Loculated pleural effusion Pneumonia likely Gram-negative Elevated liver enzymes Atelectasis Events: Breathing on room air No respiratory distress Quantiferon positive On RIPE therapy per [facility] AFB smear negative x3. Defer to ID to discontinue isolation. Patient is stable for discharge from the pulmonary standpoint. S/p chest tube removal. ID recs appreciated. Continue antibiotics Bronchodilators PRN. Incentive spirometry Pleural fluid cultures negative. Blood cultures negative. Monitor hemoglobin Recommend outpatient CT chest in 2-3 months. Pain control Avoid oversedation S/p thoracotomy on 09/02 - Right thoracotomy with evacuation of empyema and right lung decortication. Labs and imaging reviewed. Rest of plan as noted below. Plan: Supplemental oxygen if necessary Keep O2 saturation above 92%. Continue antibiotics Fluid cultures show no growth Blood cultures show no growth Limited chest ultrasound demonstrated loculated right pleural effusion. Drained 700 mL of yellow colored fluid. Several septations were seen. See separate procedure note for right thoracentesis (08/22). S/p thoracotomy on 09/02 - Right thoracotomy with evacuation of empyema and right lung decortication. Underwent placement of large-bore chest tube Patient currently s/p chest tube removal. Continue bronchodilators Antibiotics Pain control Avoid oversedation Anxiolytics prn Monitor renal function Monitor electrolytes. Supplement as necessary. DVT prophylaxis Prognosis: Poor given multiple comorbidities. Rest of plan per hospitalist and other consultants. Thank you Dr. Jewell for allowing me to participate in this patient's care. Further recommendations will depend on patient's clinical course. Please do not hesitate to contact me if you have any questions or concerns. This medical document was created using an electronic medical record system with [email or web address] system. Although this document has been carefully reviewed, there may still be some phonetic and typographical errors. These areas are purely typographical due to imperfections of the software programs, and do not reflect any compromise in the patient's medical care. Dietary Evaluation Review Comments: Continue current plan of care Expected Outcomes/Goals: F/U in 3-5 days Plan discussed with: Patient, Other (RN Kerri) PRESTON CARTY MD Sep 12, 2024 19:03
[2024-09-13] VITALS (7 sets, daily range): BP systolic 92–108; BP diastolic 53–62; PULSE 79–104; RESP 17–20; TEMP 97.7–98.4; O2SAT 95–97
--- NOTE | 2024-09-13 15:16 | DVHPNRES ---
Progress Note Date Seen: Sep 13, 2024 Resident Creating Document: DELORIS JENSEN RESIDENT Medical Necessity Reason Pt with a Central, PICC or Fol: No Subjective Review of Systems Patient seen and examined at bedside. Currently no active complaints. Started on RIPE therapy. Needs infectious board controlled clearance before discharge ROS Constitutional: No: Fever, Chills, Sweats, Weakness, Malaise, Other Eyes: No: Pain, Vision change, Conjunctivae inflammation, Eyelid inflammation, Other, Redness ENT: No: Ear pain, Ear discharge, Nose pain, Nose discharge, Nose congestion, Mouth pain, Mouth swelling, Throat pain, Throat swelling, Other Respiratory: No: Cough, Dry, Shortness of breath, SOB with excertion, Wheezing, Hemoptysis, Pleuritic Pain, Sputum, Wheezing, Other Cardiovascular: No: Chest Pain, Palpitations, Orthopnea, Paroxysmal Noc. Dyspnea, Edema, Lt Headedness, Other Gastrointestinal: No: Nausea, Vomiting, Abdominal Pain, Diarrhea, Constipation, Melena, Hematochezia, Other Musculoskeletal: No: other, neck pain, shoulder pain, arm pain, back pain, hand pain, leg pain, foot pain Neurological:; No: Weakness, Numbness, Incoordination, Change in speech, Confusion, Seizures Objective vital signs Vital Sign Date Time Temp Pulse Resp B/P (MAP) Pulse Ox O2 Delivery O2 Flow Rate FiO2 09/13/24 13:00 97.7 104 20 94/61 (72) 95 97.7 09/12/24 20:00 Room Air* 0 21 Total Intake and Output 09/12/24 09/12/24 09/13/24 15:00 23:00 07:00 Intake Total 100 ml 600 ml 1700 ml Output Total 3 ml Balance 100 ml 600 ml 1697 ml medications Current Medications Medications Dose Ordered Sig/Lori Route Start Time Stop Time Status Last Admin Dose Admin Ondansetron HCl 4 mg Q4HP PRN IV 08/20/24 21:45 09/04/24 05:01 4 MG Docusate Sodium 100 mg BIDPRN PRN PO 08/20/24 21:45 09/06/24 09:53 100 MG Nitroglycerin 0.4 mg Q5MINP PRN SL 08/20/24 23:30 Lamotrigine 100 mg Q12HR PO 08/21/24 22:00 09/13/24 11:00 100 MG Ergocalciferol 50,000 unit Q7D PO 08/21/24 14:30 09/11/24 14:30 50,000 UNIT Lorazepam 0.5 mg Q6HP PRN IV 08/25/24 20:30 09/10/24 22:42 0.5 MG Diphenhydramine HCl 25 mg Q4HP PRN IV 08/29/24 05:15 08/31/24 12:41 25 MG Throat Lozenges 1 jabier Q6HPRN PRN MT 08/29/24 05:15 08/30/24 16:55 1 JABIER Acetaminophen 650 mg Q6HP PRN PO 08/30/24 11:30 09/11/24 19:56 650 MG Baclofen 5 mg Q8HR PO 09/04/24 06:00 09/13/24 14:50 5 MG Polyethylene Glycol 17 gm DAILYPRN PRN PO 09/04/24 16:00 Fluconazole 100 ml @ 100 mls/hr DAILY IV 09/10/24 10:00 Cancel Fluoxetine HCl 20 mg DAILY PO 09/11/24 13:30 09/13/24 11:00 20 MG Rifampin 600 mg DAILY PO 09/11/24 16:15 09/15/24 23:59 09/13/24 11:01 600 MG Isoniazid 300 mg DAILY PO 09/11/24 16:15 09/15/24 23:59 09/13/24 11:01 300 MG Pyrazinamide 1,500 mg DAILY PO 09/11/24 16:15 09/15/24 23:59 09/13/24 11:02 1,500 MG Ethambutol HCl 1,200 mg DAILY PO 09/11/24 16:15 09/15/24 23:59 09/13/24 11:02 1,200 MG Pyridoxine HCl 50 mg DAILY PO 09/11/24 16:15 09/15/24 23:59 09/13/24 11:01 50 MG Acetaminophen/ Hydrocodone Bitart 1 tab Q4HPRN PRN PO 09/11/24 23:15 09/13/24 11:31 1 TAB Examination Examination General Appearance: Alert, Oriented X3, Cooperative, No acute distress HEENT: EOMI Respiratory: Clear to auscultation, Normal air movement Cardiovascular: Regular rate, Normal S1, Normal S2 Abdominal: Normal bowel sounds Extremities: No cyanosis, No edema, Normal pulses, No tenderness/swelling Skin: No rashes, No breakdown Neuro: Normal speech and tone laboratory and microbiology Laboratory Tests 09/12/24 06:15 Test 09/12/24 06:15 Range/Units Serum Glucose 98 74-106 mg/dL Microbiology Date/Time Source Procedure Growth Status 09/10/24 12:44 Sputum AFB Broth Culture Pending Resulted 09/10/24 12:44 Sputum - Final Resulted 09/10/24 12:44 Sputum - Final Resulted 09/10/24 12:44 Sputum Acid Fast Bacilli Culture Pending Resulted 08/29/24 13:23 Blood Blood Culture - Final NO GROWTH AFTER 5 DAYS OF INCUBATION. Complete 08/26/24 11:00 Pleural Fluid Gram Stain - Final Complete 08/26/24 11:00 Pleural Fluid Body Fluid Culture - Final Complete 08/24/24 18:29 Nose MRSA Screen - Final Complete Labs and/or images reviewed: Labs reviewed by me, Image(s) reviewed by me Problem List/Assessment/Plan Problem List/Assessment/Plan Assessment # Sepsis due to pneumonia, resolved -received iv fluids -received iv antibiotics -repeat Blood culture reveals no growth # acute hypoxic respiratory failure due to pneumonia , resolved Currently on room air Nebulized treatment with albuterol and ipratropium q.6 hours # community-acquired pneumonia, Gram-positive/Gram-negative, bacterial versus tuberculosis -received iv antibiotics -repeat Blood culture -started on ripe therapy # recurrent pleural effusion, right side, parapneumonic, complicated, loculated , exudative ? Tubercular -s/p thoracentesis 08/22, drain 700 mL of yellow fluid. Pleural studies suggestive of exudative effusion. -chest tube for recurrent pleural effusion -currently draining serosanguineous fluid -pulmonology and surgery on board -Chest CT revealed The right chest tube is tiny kinked in the upper hemithorax . Reposition is recommended . -repeat Cytology sent -pleural peel biopsy revealed necrotizing granuloma and rare acid-fast bacilli Chest tube was removed Started on ripe therapy #?Tuberculosis , pleural --pleural peel biopsy revealed necrotizing granuloma and rare acid-fast bacilli Started on ripe therapy ID on board TB QuantiFERON gold test positive. 3 AFB smear are negative. AFB culture /Smear Broth Suscep pending # Stable left upper lobe pulmonary nodules with a suspicious spiculated nodule in the left apex approx 8mm -pulmonology on board # Right lower lobe atelectasis Incentive spirometry Q1hr advised # Anemia, microcytic anemia Iron panel #Transaminitis -monitor CMP # Asymptomatic Hypotonic hyponatremia -monitor bmp # Cavernous hemangioma Ultrasound liver completed, shows 1.7 cm well-circumscribed oval echogenic nodule in the left hepatic lobe compatible with a cavernous hemangioma Outpatient workup advised # ADHD -continue home Meds # depression - stable Continue fluoxetine 40 mg daily, lamotrigine 100 mg b.i.d. # Anxiety Ativan 0.5 mg p.r.n. # Vitamin-D deficiency Supplemented #Hypokalemia Replenished Goals of care discussed with the patient for greater than 21 minute, full code Case discussion with dr Cisse Plan discussed with: Patient, Other Dietary Evaluation Review Comments: Continue current plan of care Expected Outcomes/Goals: F/U in 3-5 days Date of Service: Sep 13, 2024 Billing Provider: TANO CISSE MD Common Visit Codes: [id number] INP/OBS CARE(HIGH) DELORIS JENSEN RESIDENT Sep 13, 2024 15:16 TANO CISSE MD Sep 16, 2024 17:56
--- NOTE | 2024-09-13 18:27 | DVHPN2 ---
Progress Note - Dictate Date Seen: Sep 13, 2024 Medical Necessity Reason Pt with a Central, PICC or Fol: No Subjective Patient seen and examined at bedside. Breathing comfortably on room air. Overnight events reviewed. vital signs Vital Sign Date Time Temp Pulse Resp B/P (MAP) Pulse Ox O2 Delivery O2 Flow Rate FiO2 09/13/24 13:00 97.7 104 20 94/61 (72) 95 97.7 09/13/24 10:00 Room Air* 0 21 Total Intake and Output 09/12/24 09/12/24 09/13/24 15:00 23:00 07:00 Intake Total 100 ml 600 ml 1700 ml Output Total 3 ml Balance 100 ml 600 ml 1697 ml medications Current Medications Medications Dose Ordered Sig/Lori Route Start Time Stop Time Status Last Admin Dose Admin Ondansetron HCl 4 mg Q4HP PRN IV 08/20/24 21:45 09/04/24 05:01 4 MG Docusate Sodium 100 mg BIDPRN PRN PO 08/20/24 21:45 09/06/24 09:53 100 MG Nitroglycerin 0.4 mg Q5MINP PRN SL 08/20/24 23:30 Lamotrigine 100 mg Q12HR PO 08/21/24 22:00 09/13/24 11:00 100 MG Ergocalciferol 50,000 unit Q7D PO 08/21/24 14:30 09/11/24 14:30 50,000 UNIT Lorazepam 0.5 mg Q6HP PRN IV 08/25/24 20:30 09/10/24 22:42 0.5 MG Diphenhydramine HCl 25 mg Q4HP PRN IV 08/29/24 05:15 08/31/24 12:41 25 MG Throat Lozenges 1 jabier Q6HPRN PRN MT 08/29/24 05:15 08/30/24 16:55 1 JABIER Acetaminophen 650 mg Q6HP PRN PO 08/30/24 11:30 09/11/24 19:56 650 MG Baclofen 5 mg Q8HR PO 09/04/24 06:00 09/13/24 14:50 5 MG Polyethylene Glycol 17 gm DAILYPRN PRN PO 09/04/24 16:00 Fluconazole 100 ml @ 100 mls/hr DAILY IV 09/10/24 10:00 Cancel Fluoxetine HCl 20 mg DAILY PO 09/11/24 13:30 09/13/24 11:00 20 MG Rifampin 600 mg DAILY PO 09/11/24 16:15 09/15/24 23:59 09/13/24 11:01 600 MG Isoniazid 300 mg DAILY PO 09/11/24 16:15 09/15/24 23:59 09/13/24 11:01 300 MG Pyrazinamide 1,500 mg DAILY PO 09/11/24 16:15 09/15/24 23:59 09/13/24 11:02 1,500 MG Ethambutol HCl 1,200 mg DAILY PO 09/11/24 16:15 09/15/24 23:59 09/13/24 11:02 1,200 MG Pyridoxine HCl 50 mg DAILY PO 09/11/24 16:15 09/15/24 23:59 09/13/24 11:01 50 MG Acetaminophen/ Hydrocodone Bitart 1 tab Q4HPRN PRN PO 09/11/24 23:15 09/13/24 11:31 1 TAB objective Gen.: Patient lying in bed in no apparent distress. Breathing on room air. Head: Normocephalic, atraumatic. Eyes: EOMI/PERRLA. Ears: Normal hearing. Normal anatomy. Neck/trachea: Trachea midline, supple. Nose: Normal external anatomy. Mouth: Moist mucous membranes. Chest: Decreased air entry bilaterally. No wheezing or rhonchi. Cardiovascular: Positive S1, positive S2. Regular rate and rhythm. Abdomen: Positive bowel sounds in all 4 quadrants. Soft, non-tender, non- distended. : Deferred. Rectal: Deferred. Skin: Warm, dry. Intact. Extremities: 2+ radial pulses bilaterally. No lower extremity edema. Neuro: Awake, alert, oriented x3. No gross motor or sensory deficits. Cranial nerves II through XII intact. Gait not assessed. laboratory and microbiology Laboratory Tests 09/12/24 06:15 Test 09/12/24 06:15 Range/Units Serum Glucose 98 74-106 mg/dL Assessment/Plan Impression: Loculated pleural effusion Pneumonia likely Gram-negative Elevated liver enzymes Atelectasis Events: Breathing on room air No respiratory distress Quantiferon positive On RIPE therapy per DPH AFB smear negative x3. Defer to ID to discontinue isolation. ID recommendations appreciated. Pain control Avoid oversedation Anxiolytic PRN. Patient is stable for discharge from the pulmonary standpoint. S/p chest tube removal. Continue antibiotics Bronchodilators PRN. Incentive spirometry Pleural fluid cultures negative. Blood cultures negative. Monitor hemoglobin Recommend outpatient CT chest in 2-3 months. S/p thoracotomy on 09/02 - Right thoracotomy with evacuation of empyema and right lung decortication. Labs and imaging reviewed. Rest of plan as noted below. Plan: Supplemental oxygen if necessary Keep O2 saturation above 92%. Continue antibiotics Fluid cultures show no growth Blood cultures show no growth Limited chest ultrasound demonstrated loculated right pleural effusion. Drained 700 mL of yellow colored fluid. Several septations were seen. See separate procedure note for right thoracentesis (08/22). S/p thoracotomy on 09/02 - Right thoracotomy with evacuation of empyema and right lung decortication. Underwent placement of large-bore chest tube Patient currently s/p chest tube removal. Quantiferon positive On RIPE therapy per DPH AFB smear negative x3. Continue bronchodilators Antibiotics Pain control Avoid oversedation Anxiolytics prn Monitor renal function Monitor electrolytes. Supplement as necessary. DVT prophylaxis Prognosis: Poor given multiple comorbidities. Rest of plan per hospitalist and other consultants. Thank you Dr. Jewell for allowing me to participate in this patient's care. Further recommendations will depend on patient's clinical course. Please do not hesitate to contact me if you have any questions or concerns. This medical document was created using an electronic medical record system with [employer] dictation system. Although this document has been carefully reviewed, there may still be some phonetic and typographical errors. These areas are purely typographical due to imperfections of the software programs, and do not reflect any compromise in the patient's medical care. Dietary Evaluation Review Comments: Continue current plan of care Expected Outcomes/Goals: F/U in 3-5 days Plan discussed with: Patient, Other (DOC Manning) PRESTON CARTY MD Sep 13, 2024 18:27
--- NOTE | 2024-09-13 18:43 | DVHPN2 ---
Consult Progress Note Date Seen: Sep 13, 2024 Subjective Patient reports: Feels better (LFTs minimally elevated) Objective vital signs Vital Sign Date Time Temp Pulse Resp B/P (MAP) Pulse Ox O2 Delivery O2 Flow Rate FiO2 09/13/24 17:00 98.1 97 20 106/62 (77) 96 98.1 09/13/24 10:00 Room Air* 0 21 Total Intake and Output 09/12/24 09/12/24 09/13/24 15:00 23:00 07:00 Intake Total 100 ml 600 ml 1700 ml Output Total 3 ml Balance 100 ml 600 ml 1697 ml medications Current Medications Medications Dose Ordered Sig/Lori Route Start Time Stop Time Status Last Admin Dose Admin Ondansetron HCl 4 mg Q4HP PRN IV 08/20/24 21:45 09/04/24 05:01 4 MG Docusate Sodium 100 mg BIDPRN PRN PO 08/20/24 21:45 09/06/24 09:53 100 MG Nitroglycerin 0.4 mg Q5MINP PRN SL 08/20/24 23:30 Lamotrigine 100 mg Q12HR PO 08/21/24 22:00 09/13/24 11:00 100 MG Ergocalciferol 50,000 unit Q7D PO 08/21/24 14:30 09/11/24 14:30 50,000 UNIT Lorazepam 0.5 mg Q6HP PRN IV 08/25/24 20:30 09/10/24 22:42 0.5 MG Diphenhydramine HCl 25 mg Q4HP PRN IV 08/29/24 05:15 08/31/24 12:41 25 MG Throat Lozenges 1 jabier Q6HPRN PRN MT 08/29/24 05:15 08/30/24 16:55 1 JABIER Acetaminophen 650 mg Q6HP PRN PO 08/30/24 11:30 09/11/24 19:56 650 MG Baclofen 5 mg Q8HR PO 09/04/24 06:00 09/13/24 14:50 5 MG Polyethylene Glycol 17 gm DAILYPRN PRN PO 09/04/24 16:00 Fluconazole 100 ml @ 100 mls/hr DAILY IV 09/10/24 10:00 Cancel Fluoxetine HCl 20 mg DAILY PO 09/11/24 13:30 09/13/24 11:00 20 MG Rifampin 600 mg DAILY PO 09/11/24 16:15 09/15/24 23:59 09/13/24 11:01 600 MG Isoniazid 300 mg DAILY PO 09/11/24 16:15 09/15/24 23:59 09/13/24 11:01 300 MG Pyrazinamide 1,500 mg DAILY PO 09/11/24 16:15 09/15/24 23:59 09/13/24 11:02 1,500 MG Ethambutol HCl 1,200 mg DAILY PO 09/11/24 16:15 09/15/24 23:59 09/13/24 11:02 1,200 MG Pyridoxine HCl 50 mg DAILY PO 09/11/24 16:15 09/15/24 23:59 09/13/24 11:01 50 MG Acetaminophen/ Hydrocodone Bitart 1 tab Q4HPRN PRN PO 09/11/24 23:15 09/13/24 11:31 1 TAB Physical Exam: General: NAD Neck: Supple. No masses. HEENT: PERRL. Normal lids and conjunctiva. Moist mucous membranes. Oropharynx without lesions, exudates, or excessive erythema. Normal appearance of the external aspects of the nose and ears. Heart: Regular rhythm, normal rate. No murmur. No lower extremity edema. Lungs: Normal respiratory effort. Clear to auscultation bilaterally. No wheezes. No crackles. Abdomen: Soft. Non-tender. Non-distended. No masses or abdominal hernia. Msk: No digital cyanosis. Normal strength and tone in all 4 limbs. Skin: Warm and dry, no rashes. Neuro: Alert. No facial droop or slurred speech. Extra-ocular movements intact. Sensation intact to soft touch in all 4 limbs. Psych: Appropriate mood. Full affect. Oriented to person, place, time, and situation. laboratory and microbiology Laboratory Tests 09/12/24 06:15 Test 09/12/24 06:15 Range/Units Serum Glucose 98 74-106 mg/dL Problem List/Assessment/Plan Problem List/Assessment/Plan Assessment and Plan: ID Problem List: - Right loculated pleural effusion - Acute hypoxic respiratory failure - Atypical pneumonia - Emphysema - Positive Quantiferon Gold test - Multiple psychiatric disorders, including depression and ADHD Assessment: Mr. Xu Amado is a 28-year-old male with no significant past medical history except for multiple psychiatric disorders on fluoxetine and lamotrigine, who presents with a complaint of right upper quadrant abdominal pain ongoing for about a month. He also reports shortness of breath, fevers, night sweats, but no cough or hemoptysis. A CT test demonstrated a right loculated pleural effusion. Initial Hospital Course: - The patient was initially in acute hypoxic respiratory failure requiring 2 liters nasal cannula. - Vital signs: Temp: 90.1F, HR: 105, RR: 18, BP: 106/64. - Started on azithromycin initially, later changed to ceftriaxone. Labs/Imaging: - WBC: 12 on admission, Hemoglobin: 11, Platelet count: 460. - HIV test: Negative, COVID test: Negative. - Vitamin D level: 22.4, Lactic acid: 1.5. - Urine drug screen: Negative. - Pleural fluid analysis: pH 8.0, WBC 1756, RBC 1213, PMNs 3%, polynuclear cells 97%, LDH 1184, glucose 70, protein 4.6. - Hepatitis B/C: Negative, Hepatitis A antibody: Positive. - Quantiferon Gold test: Positive, with methodogen response of 10 and nil of 0.17. Imaging Results: - CT Scan: - Stable left upper lobe pulmonary nodules with a suspicious speculated nodule on the left apex. - Moderate right lower lobe consolidation. - Numerous tiny 1-2 mm nodules in a tree-in-bud pattern noted in the left apex. 09/10: Patient is AFB negative x3, MTV PCR x2. Patient is clear for discharge from infectious disease perspective. ruled out acute TB at this time. 09/11: necrotizing granuloma in plueral fluid - Plan: - AFB staining recommend for pleural fluid to confirm diagnosis - continue RIPE, will need to continue this regimen for 60 days. please provide atleast 30 days of this on discharge. 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 - Check for coccidioidomycosis and aspergillus antibodies. - Follow up on pending AFB cultures, pleural fluid cytology. - Send pleural fluid for AFB testing and ADA level. Isolation Precautions: TB airborne and contact Plan discussed with: Patient Dietary Evaluation Review Comments: Continue current plan of care Expected Outcomes/Goals: F/U in 3-5 days CONCEPCION BURRELL MD Sep 13, 2024 18:43
[2024-09-14] VITALS (8 sets, daily range): BP systolic 95–115; BP diastolic 50–71; PULSE 70–95; RESP 17–20; TEMP 97.4–98.7; O2SAT 93–97
--- NOTE | 2024-09-14 16:46 | DVHPNRES ---
Progress Note Date Seen: Sep 14, 2024 Resident Creating Document: LAVELL GONSALES RESIDENT Medical Necessity Reason Pt with a Central, PICC or Fol: No Subjective Review of Systems 09/13/2024-patient reports no active complaint. No tenderness/dressing is dry and intact and clean. Continue antituberculous therapy. Objective vital signs Vital Sign Date Time Temp Pulse Resp B/P (MAP) Pulse Ox O2 Delivery O2 Flow Rate FiO2 09/14/24 13:00 97.8 70 20 115/71 (86) 95 97.8 09/14/24 10:00 Room Air* 0 21 Total Intake and Output 09/13/24 09/13/24 09/14/24 15:00 23:00 07:00 Intake Total 100 ml 1250 ml 800 ml Output Total 3 ml Balance 100 ml 1250 ml 797 ml medications Current Medications Medications Dose Ordered Sig/Lori Route Start Time Stop Time Status Last Admin Dose Admin Ondansetron HCl 4 mg Q4HP PRN IV 08/20/24 21:45 09/04/24 05:01 4 MG Docusate Sodium 100 mg BIDPRN PRN PO 08/20/24 21:45 09/06/24 09:53 100 MG Nitroglycerin 0.4 mg Q5MINP PRN SL 08/20/24 23:30 Lamotrigine 100 mg Q12HR PO 08/21/24 22:00 09/14/24 09:44 100 MG Ergocalciferol 50,000 unit Q7D PO 08/21/24 14:30 09/11/24 14:30 50,000 UNIT Lorazepam 0.5 mg Q6HP PRN IV 08/25/24 20:30 09/10/24 22:42 0.5 MG Diphenhydramine HCl 25 mg Q4HP PRN IV 08/29/24 05:15 08/31/24 12:41 25 MG Throat Lozenges 1 sera Q6HPRN PRN MT 08/29/24 05:15 08/30/24 16:55 1 SERA Acetaminophen 650 mg Q6HP PRN PO 08/30/24 11:30 09/11/24 19:56 650 MG Baclofen 5 mg Q8HR PO 09/04/24 06:00 09/14/24 15:18 5 MG Polyethylene Glycol 17 gm DAILYPRN PRN PO 09/04/24 16:00 Fluconazole 100 ml @ 100 mls/hr DAILY IV 09/10/24 10:00 Cancel Fluoxetine HCl 20 mg DAILY PO 09/11/24 13:30 09/14/24 09:44 20 MG Rifampin 600 mg DAILY PO 09/11/24 16:15 09/15/24 23:59 09/14/24 09:44 600 MG Isoniazid 300 mg DAILY PO 09/11/24 16:15 09/15/24 23:59 09/14/24 09:45 300 MG Pyrazinamide 1,500 mg DAILY PO 09/11/24 16:15 09/15/24 23:59 09/14/24 09:46 1,500 MG Ethambutol HCl 1,200 mg DAILY PO 09/11/24 16:15 09/15/24 23:59 09/14/24 09:47 1,200 MG Pyridoxine HCl 50 mg DAILY PO 09/11/24 16:15 09/15/24 23:59 09/14/24 09:44 50 MG Acetaminophen/ Hydrocodone Bitart 1 tab Q4HPRN PRN PO 09/11/24 23:15 09/14/24 10:10 1 TAB Examination General Appearance: Alert, Oriented X4, Cooperative, No acute distress. Sitting comfortably in the bed HEENT: Atraumatic, PERRLA, EOMI, Mucous membrane moist/pink Respiratory: Diminished breath sounds, more on the right side which is improving. No crackles or wheezing heard. Right-sided chest tube is removed. Dressing dry clean and intact. Cardiovascular: Regular rate, Normal S1, Normal S2, No murmurs, no chest wall tenderness Abdominal: Normal bowel sounds, Soft, No tenderness, No hepatosplenomegaly, No masses Extremities: Erythema noticed on the extensor surfaces including the elbows, knees and the ankles. Skin: No rashes, No breakdown, No significant lesion Neuro: Normal gait, Normal speech, Strength at 5/5 X4 ext, Normal tone, Sensation intact, grossly intact cranial nerves. Psych/Mental Status: Mental status NL, Mood NL laboratory and microbiology Laboratory Tests 09/12/24 06:15 Test 09/12/24 06:15 Range/Units Serum Glucose 98 74-106 mg/dL Microbiology Date/Time Source Procedure Growth Status 09/10/24 12:44 Sputum AFB Broth Culture Pending Resulted 09/10/24 12:44 Sputum - Final Resulted 09/10/24 12:44 Sputum - Final Resulted 09/10/24 12:44 Sputum Acid Fast Bacilli Culture Pending Resulted 08/29/24 13:23 Blood Blood Culture - Final NO GROWTH AFTER 5 DAYS OF INCUBATION. Complete 08/26/24 11:00 Pleural Fluid Gram Stain - Final Complete 08/26/24 11:00 Pleural Fluid Body Fluid Culture - Final Complete 08/24/24 18:29 Nose MRSA Screen - Final Complete Labs and/or images reviewed: Labs reviewed by me, Image(s) reviewed by me Problem List/Assessment/Plan Problem List/Assessment/Plan Acute hypoxic respiratory failure likely secondary to community-acquired pneumonia ? Vape associated vs ? Malignancy vs ? Mycobacterium tuberculosis Sepsis due to Community-acquired pneumonia, Gram-positive and Gram-negative Loculated right-sided exudative pleural effusion status post R thoracotomy and chest tube removal and thoracocentesis with 700 mL drainage undergoing tPA course 08/22, Thoracocentesis performed by Dr. Kemp. drain 700 mL of yellow fluid. Pleural studies suggestive of exudative effusion. 08/27 & 08/28- patient received 2 doses of 6 mg alteplase. 09/02 - Underwent Right thoracotomy, evacuation of empyema, right lung decortication by Dr. Tobar 09/02/2024 to 09/09/2024 - surgical chest tube was placed. Patient required oxygen supplementation with 2 L oxygen via NC, now on room air. CT chest revealed right-sided pleural effusion with atelectasis in the right lower lung field IV Zosyn q.6 hour starting 08/21/2024 IV doxycycline q.12 hour started 08/24/24 to 09/05 Discontinued IV azithromycin 500 mg daily - patient received from 08/21 to 08/24 Nebulized treatment with albuterol and ipratropium q.6 hours Blood cultures and body fluid culture have been negative so far. TB QuantiFERON gold test positive. 2 AFB smear are negative. 3rd AFB smear pending. AFB culture pending Pleural fluid specimen colected by Dr Tobar on 09/02 shows necrotizing granulomatous inflammation. Rare AFB present. Negative for malignancy. Infectious disease consulted- start RIPE, will need to continue this regimen for 60 days. please provide atleast 30 days of this on discharge. patient can follow up with me upon discharge. Send pleural fluid for AFB testing and ADA level. Stable left upper lobe pulmonary nodules with a suspicious spiculated nodule in the left apex approx 8mm Chest CT completed 09/05 showed Stable left upper lobe pulmonary nodules with a suspicious spiculated nodule in the left apex. Metastatic malignancy can not be ruled out although unlikely considering patient's demographics. Recommend correlation with pleural fluid cytology. Further evaluation with PET-CT scan may be required. IR consulted - no need of biopsy given the small size pulmonology on board - outpatient PET-CT scan Infectious disease consulted - TB QuantiFERON gold test positive. 2 AFB smear are negative. 3rd AFB smear pending. AFB culture pending R lower lobe atelectasis Incentive spirometery Q1hr advised Reactive thrombocytosis Secondary to sepsis Monitor Rule Out pericardial effusion Echocardiogram completed 08/24 showed LVEF 55%. Normal frontal/valvular heart. No pericardial effusion Anemia, likely microcytic Hemoglobin on arrival 10.8, MCV 32, hematocrit 32 ESR 50, retic count 1.66, CRP 14, LDH 328 Iron panel completed shows low iron low TIBC low% saturation Ferritin elevated at 744 Urine analysis shows 2+ blood and 17 RBCs P.o. iron supplementation b.i.d. Transaminitis Bilirubin elevated at 1.3 Direct bili 0.7 AST 33, ALT 69, ALP 196 Patient quit drinking 3 years back Liver U/S shows given cavernous hemangioma otherwise unremarkable Asymptomatic Hypotonic euvolemic hyponatremia secondary to ? Fluoxetine Serum sodium 128, serum osmolality 271, urine osmolality 340, urine sodium less than 10 DC fluoxetine Restarted Fluoxetine 09/11 - monitor Na Cavernous hemangioma Ultrasound liver completed, shows 1.7 cm well-circumscribed oval echogenic nodule in the left hepatic lobe compatible with a cavernous hemangioma Outpatient workup advised Ruled out HIV HIV testing negative ADHD, depression - stable No homicidal or suicidal ideation Continue lamotrigine 100 mg b.i.d. Ativan 0.5 mg p.r.n. DC fluoxetine given the questionable SIADH Vitamin-D deficiency Supplemented Hypokalemia Replenished Diet regular Plan discussed with patient and his over the phone call for more than 30 minutes in which all questions have been answered Goals of care discussed for more than 22 minutes, full code status Case discussed with Dr. Katz. TB QuantiFERON gold test positive. 3 AFB smear are negative. AFB culture /Smear Broth Suscep pending Pleural fluid specimen collected by Dr Tobar on 09/02 shows necrotizing granulomatous inflammation. Rare AFB present. Negative for malignancy. Patient started on RIPE therapy. Plan discussed with: Patient Dietary Evaluation Review Comments: Continue current plan of care Expected Outcomes/Goals: F/U in 3-5 days LAVELL GONSALES RESIDENT Sep 14, 2024 16:46
--- NOTE | 2024-09-14 18:56 | DVHPN2 ---
Progress Note - Dictate Date Seen: Sep 14, 2024 Medical Necessity Reason Pt with a Central, PICC or Fol: No Subjective Patient seen and examined at bedside. Breathing comfortably on room air. Overnight events reviewed. vital signs Vital Sign Date Time Temp Pulse Resp B/P (MAP) Pulse Ox O2 Delivery O2 Flow Rate FiO2 09/14/24 17:00 97.8 87 20 100/57 (71) 96 97.8 09/14/24 10:00 Room Air* 0 21 Total Intake and Output 09/13/24 09/13/24 09/14/24 15:00 23:00 07:00 Intake Total 100 ml 1250 ml 800 ml Output Total 3 ml Balance 100 ml 1250 ml 797 ml medications Current Medications Medications Dose Ordered Sig/Lori Route Start Time Stop Time Status Last Admin Dose Admin Ondansetron HCl 4 mg Q4HP PRN IV 08/20/24 21:45 09/04/24 05:01 4 MG Docusate Sodium 100 mg BIDPRN PRN PO 08/20/24 21:45 09/06/24 09:53 100 MG Nitroglycerin 0.4 mg Q5MINP PRN SL 08/20/24 23:30 Lamotrigine 100 mg Q12HR PO 08/21/24 22:00 09/14/24 09:44 100 MG Ergocalciferol 50,000 unit Q7D PO 08/21/24 14:30 09/11/24 14:30 50,000 UNIT Lorazepam 0.5 mg Q6HP PRN IV 08/25/24 20:30 09/10/24 22:42 0.5 MG Diphenhydramine HCl 25 mg Q4HP PRN IV 08/29/24 05:15 08/31/24 12:41 25 MG Throat Lozenges 1 jabier Q6HPRN PRN MT 08/29/24 05:15 08/30/24 16:55 1 JABIER Acetaminophen 650 mg Q6HP PRN PO 08/30/24 11:30 09/11/24 19:56 650 MG Baclofen 5 mg Q8HR PO 09/04/24 06:00 09/14/24 15:18 5 MG Polyethylene Glycol 17 gm DAILYPRN PRN PO 09/04/24 16:00 Fluconazole 100 ml @ 100 mls/hr DAILY IV 09/10/24 10:00 Cancel Fluoxetine HCl 20 mg DAILY PO 09/11/24 13:30 09/14/24 09:44 20 MG Rifampin 600 mg DAILY PO 09/11/24 16:15 09/15/24 23:59 09/14/24 09:44 600 MG Isoniazid 300 mg DAILY PO 09/11/24 16:15 09/15/24 23:59 09/14/24 09:45 300 MG Pyrazinamide 1,500 mg DAILY PO 09/11/24 16:15 09/15/24 23:59 09/14/24 09:46 1,500 MG Ethambutol HCl 1,200 mg DAILY PO 09/11/24 16:15 09/15/24 23:59 09/14/24 09:47 1,200 MG Pyridoxine HCl 50 mg DAILY PO 09/11/24 16:15 09/15/24 23:59 09/14/24 09:44 50 MG Acetaminophen/ Hydrocodone Bitart 1 tab Q4HPRN PRN PO 09/11/24 23:15 09/14/24 10:10 1 TAB objective Gen.: Patient lying in bed in no apparent distress. Breathing on room air. Head: Normocephalic, atraumatic. Eyes: EOMI/PERRLA. Ears: Normal hearing. Normal anatomy. Neck/trachea: Trachea midline, supple. Nose: Normal external anatomy. Mouth: Moist mucous membranes. Chest: Decreased air entry bilaterally. No wheezing or rhonchi. Cardiovascular: Positive S1, positive S2. Regular rate and rhythm. Abdomen: Positive bowel sounds in all 4 quadrants. Soft, non-tender, non- distended. : Deferred. Rectal: Deferred. Skin: Warm, dry. Intact. Extremities: 2+ radial pulses bilaterally. No lower extremity edema. Neuro: Awake, alert, oriented x3. No gross motor or sensory deficits. Cranial nerves II through XII intact. Gait not assessed. laboratory and microbiology Laboratory Tests 09/12/24 06:15 Test 09/12/24 06:15 Range/Units Serum Glucose 98 74-106 mg/dL Assessment/Plan Impression: Loculated pleural effusion Pneumonia likely Gram-negative Elevated liver enzymes Atelectasis Events: Breathing on room air No respiratory distress Quantiferon positive Continue RIPE therapy AFB smear negative x3. ID recommendations appreciated. Anxiolytic PRN. Bronchodilators PRN. Incentive spirometry Pleural fluid cultures negative. Blood cultures negative. Monitor hemoglobin Patient is stable for discharge from the pulmonary standpoint. Awaiting [facility] response to safely discharge patient. Recommend outpatient CT chest in 2-3 months. S/p thoracotomy on 09/02 - Right thoracotomy with evacuation of empyema and right lung decortication. Labs and imaging reviewed. Rest of plan as noted below. Plan: Supplemental oxygen if necessary Keep O2 saturation above 92%. Antibiotics Fluid cultures show no growth Blood cultures show no growth Limited chest ultrasound demonstrated loculated right pleural effusion. Drained 700 mL of yellow colored fluid. Several septations were seen. See separate procedure note for right thoracentesis (08/22). S/p thoracotomy on 09/02 - Right thoracotomy with evacuation of empyema and right lung decortication. Underwent placement of large-bore chest tube Patient currently s/p chest tube removal. Quantiferon positive On RIPE therapy per [facility] AFB smear negative x3. Bronchodilators Pain control Avoid oversedation Anxiolytics prn Monitor renal function Monitor electrolytes. Supplement as necessary. DVT prophylaxis Prognosis: Poor given multiple comorbidities. Rest of plan per hospitalist and other consultants. Thank you Dr. Jewell for allowing me to participate in this patient's care. Further recommendations will depend on patient's clinical course. Please do not hesitate to contact me if you have any questions or concerns. This medical document was created using an electronic medical record system with [employer] dictation system. Although this document has been carefully reviewed, there may still be some phonetic and typographical errors. These areas are purely typographical due to imperfections of the software programs, and do not reflect any compromise in the patient's medical care. Dietary Evaluation Review Comments: Continue current plan of care Expected Outcomes/Goals: F/U in 3-5 days Plan discussed with: Patient, Other (DOC Rangel) PRESTON CARTY MD Sep 14, 2024 18:56
--- NOTE | 2024-09-14 23:07 | DVHPN2 ---
Consult Progress Note Date Seen: Sep 14, 2024 Subjective Patient reports: Feels better (on room air , lungs are clear ) Objective vital signs Vital Sign Date Time Temp Pulse Resp B/P (MAP) Pulse Ox O2 Delivery O2 Flow Rate FiO2 09/14/24 21:00 98.2 88 17 115/68 (84) 97 98.2 09/14/24 20:00 Room Air* 0 21 Total Intake and Output 09/13/24 09/13/24 09/14/24 15:00 23:00 07:00 Intake Total 100 ml 1250 ml 800 ml Output Total 3 ml Balance 100 ml 1250 ml 797 ml medications Current Medications Medications Dose Ordered Sig/Lori Route Start Time Stop Time Status Last Admin Dose Admin Ondansetron HCl 4 mg Q4HP PRN IV 08/20/24 21:45 09/04/24 05:01 4 MG Docusate Sodium 100 mg BIDPRN PRN PO 08/20/24 21:45 09/06/24 09:53 100 MG Nitroglycerin 0.4 mg Q5MINP PRN SL 08/20/24 23:30 Lamotrigine 100 mg Q12HR PO 08/21/24 22:00 09/14/24 21:13 100 MG Ergocalciferol 50,000 unit Q7D PO 08/21/24 14:30 09/11/24 14:30 50,000 UNIT Lorazepam 0.5 mg Q6HP PRN IV 08/25/24 20:30 09/10/24 22:42 0.5 MG Diphenhydramine HCl 25 mg Q4HP PRN IV 08/29/24 05:15 08/31/24 12:41 25 MG Throat Lozenges 1 jabier Q6HPRN PRN MT 08/29/24 05:15 08/30/24 16:55 1 JABIER Acetaminophen 650 mg Q6HP PRN PO 08/30/24 11:30 09/11/24 19:56 650 MG Baclofen 5 mg Q8HR PO 09/04/24 06:00 09/14/24 21:13 5 MG Polyethylene Glycol 17 gm DAILYPRN PRN PO 09/04/24 16:00 Fluconazole 100 ml @ 100 mls/hr DAILY IV 09/10/24 10:00 Cancel Fluoxetine HCl 20 mg DAILY PO 09/11/24 13:30 09/14/24 09:44 20 MG Rifampin 600 mg DAILY PO 09/11/24 16:15 09/15/24 23:59 09/14/24 09:44 600 MG Isoniazid 300 mg DAILY PO 09/11/24 16:15 09/15/24 23:59 09/14/24 09:45 300 MG Pyrazinamide 1,500 mg DAILY PO 09/11/24 16:15 09/15/24 23:59 09/14/24 09:46 1,500 MG Ethambutol HCl 1,200 mg DAILY PO 09/11/24 16:15 09/15/24 23:59 09/14/24 09:47 1,200 MG Pyridoxine HCl 50 mg DAILY PO 09/11/24 16:15 09/15/24 23:59 09/14/24 09:44 50 MG Acetaminophen/ Hydrocodone Bitart 1 tab Q4HPRN PRN PO 09/11/24 23:15 09/14/24 21:12 1 TAB Physical Exam: General: NAD Neck: Supple. No masses. HEENT: PERRL. Normal lids and conjunctiva. Moist mucous membranes. Oropharynx without lesions, exudates, or excessive erythema. Normal appearance of the external aspects of the nose and ears. Heart: Regular rhythm, normal rate. No murmur. No lower extremity edema. Lungs: Normal respiratory effort. Clear to auscultation bilaterally. No wheezes. No crackles. Abdomen: Soft. Non-tender. Non-distended. No masses or abdominal hernia. Msk: No digital cyanosis. Normal strength and tone in all 4 limbs. Skin: Warm and dry, no rashes. Neuro: Alert. No facial droop or slurred speech. Extra-ocular movements intact. Sensation intact to soft touch in all 4 limbs. Psych: Appropriate mood. Full affect. Oriented to person, place, time, and situation. laboratory and microbiology Laboratory Tests 09/12/24 06:15 Test 09/12/24 06:15 Range/Units Serum Glucose 98 74-106 mg/dL Problem List/Assessment/Plan Problems(with codes): (1) Elevated liver enzymes (2) Pneumonia, unspecified organism (3) Abdominal pain (4) Pleural effusion (5) Elevated LFTs Problem List/Assessment/Plan Assessment and Plan: ID Problem List: - Right loculated pleural effusion - Acute hypoxic respiratory failure - Atypical pneumonia - Emphysema - Positive Quantiferon Gold test - Multiple psychiatric disorders, including depression and ADHD Assessment: Mr. Xu Amado is a 28-year-old male with no significant past medical history except for multiple psychiatric disorders on fluoxetine and lamotrigine, who presents with a complaint of right upper quadrant abdominal pain ongoing for about a month. He also reports shortness of breath, fevers, night sweats, but no cough or hemoptysis. A CT test demonstrated a right loculated pleural effusion. Initial Hospital Course: - The patient was initially in acute hypoxic respiratory failure requiring 2 liters nasal cannula. - Vital signs: Temp: 90.1F, HR: 105, RR: 18, BP: 106/64. - Started on azithromycin initially, later changed to ceftriaxone. Labs/Imaging: - WBC: 12 on admission, Hemoglobin: 11, Platelet count: 460. - HIV test: Negative, COVID test: Negative. - Vitamin D level: 22.4, Lactic acid: 1.5. - Urine drug screen: Negative. - Pleural fluid analysis: pH 8.0, WBC 1756, RBC 1213, PMNs 3%, polynuclear cells 97%, LDH 1184, glucose 70, protein 4.6. - Hepatitis B/C: Negative, Hepatitis A antibody: Positive. - Quantiferon Gold test: Positive, with methodogen response of 10 and nil of 0.17. Imaging Results: - CT Scan: - Stable left upper lobe pulmonary nodules with a suspicious speculated nodule on the left apex. - Moderate right lower lobe consolidation. - Numerous tiny 1-2 mm nodules in a tree-in-bud pattern noted in the left apex. 09/10: Patient is AFB negative x3, MTV PCR x2. Patient is clear for discharge from infectious disease perspective. ruled out acute TB at this time. 09/11: necrotizing granuloma in plueral fluid 09/14: with necrotizing granuloma on plural fluid imaging will need to treat for TB . tolerating TB medications with LFTs minimally elevated Plan: - need to treat for TB due to necrotizing granuloma - AFB staining recommend for pleural fluid to confirm diagnosis - continue RIPE, will need to continue this regimen for 60 days. please provide atleast 30 days of this on discharge. 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 - Check for coccidioidomycosis and aspergillus antibodies. - Follow up on pending AFB cultures, pleural fluid cytology. - Send pleural fluid for AFB testing and ADA level. Isolation Precautions: TB airborne and contact Plan discussed with: Other Dietary Evaluation Review Comments: Continue current plan of care Expected Outcomes/Goals: F/U in 3-5 days CONCEPCION BURRELL MD Sep 14, 2024 23:07
[2024-09-15] VITALS (8 sets, daily range): BP systolic 101–114; BP diastolic 54–72; PULSE 86–109; RESP 16–19; TEMP 97.3–98.4; O2SAT 95–97
[2024-09-15 11:03] LABS: Bilirubin, Direct 0.3 mg/dL (<0.3); Bilirubin, Total 0.6 mg/dL (0.2-1.0); Total Protein 6.4 g/dL (5.7-8.2)
[2024-09-15 13:07] LABS: Aspergillus flavus Negative (Neg:<1:1); Aspergillus fumigatus Negative (Neg:<1:1); Aspergillus niger Negative (Neg:<1:1)
[2024-09-15] MEDS ORDERED: ETHA400T20 PO (16:00)
[2024-09-15] MEDS ORDERED: ISON300T68 PO (16:00)
[2024-09-15] MEDS ORDERED: PYRI50TA9 PO (16:00)
[2024-09-15] MEDS ORDERED: RIFA300C58 PO (16:00)
--- NOTE | 2024-09-15 19:37 | DVHPN2 ---
Progress Note - Dictate Date Seen: Sep 15, 2024 Medical Necessity Reason Pt with a Central, PICC or Fol: No Subjective Patient seen and examined at bedside. Breathing comfortably on room air. Overnight events reviewed. vital signs Vital Sign Date Time Temp Pulse Resp B/P (MAP) Pulse Ox O2 Delivery O2 Flow Rate FiO2 09/15/24 17:20 98.1 87 16 95 09/15/24 17:00 101/63 (76) 09/15/24 10:00 Room Air* 0 21 Total Intake and Output 09/14/24 09/14/24 09/15/24 15:00 23:00 07:00 Intake Total 400 ml 1100 ml Output Total 800 ml Balance -400 ml 1100 ml medications Current Medications Medications Dose Ordered Sig/Lori Route Start Time Stop Time Status Last Admin Dose Admin Ondansetron HCl 4 mg Q4HP PRN IV 08/20/24 21:45 09/04/24 05:01 4 MG Docusate Sodium 100 mg BIDPRN PRN PO 08/20/24 21:45 09/06/24 09:53 100 MG Nitroglycerin 0.4 mg Q5MINP PRN SL 08/20/24 23:30 Lamotrigine 100 mg Q12HR PO 08/21/24 22:00 09/15/24 10:21 100 MG Ergocalciferol 50,000 unit Q7D PO 08/21/24 14:30 09/11/24 14:30 50,000 UNIT Lorazepam 0.5 mg Q6HP PRN IV 08/25/24 20:30 09/10/24 22:42 0.5 MG Diphenhydramine HCl 25 mg Q4HP PRN IV 08/29/24 05:15 08/31/24 12:41 25 MG Throat Lozenges 1 jabier Q6HPRN PRN MT 08/29/24 05:15 08/30/24 16:55 1 JABIER Acetaminophen 650 mg Q6HP PRN PO 08/30/24 11:30 09/11/24 19:56 650 MG Baclofen 5 mg Q8HR PO 09/04/24 06:00 09/15/24 14:18 5 MG Polyethylene Glycol 17 gm DAILYPRN PRN PO 09/04/24 16:00 Fluconazole 100 ml @ 100 mls/hr DAILY IV 09/10/24 10:00 Cancel Fluoxetine HCl 20 mg DAILY PO 09/11/24 13:30 09/15/24 10:20 20 MG Rifampin 600 mg DAILY PO 09/11/24 16:15 09/15/24 23:59 09/15/24 10:21 600 MG Isoniazid 300 mg DAILY PO 09/11/24 16:15 09/15/24 23:59 09/15/24 10:21 300 MG Pyrazinamide 1,500 mg DAILY PO 09/11/24 16:15 09/15/24 23:59 09/15/24 10:22 1,500 MG Ethambutol HCl 1,200 mg DAILY PO 09/11/24 16:15 09/15/24 23:59 09/15/24 10:21 1,200 MG Pyridoxine HCl 50 mg DAILY PO 09/11/24 16:15 09/15/24 23:59 09/15/24 10:22 50 MG Acetaminophen/ Hydrocodone Bitart 1 tab Q4HPRN PRN PO 09/11/24 23:15 09/15/24 14:38 1 TAB objective Gen.: Patient lying in bed in no apparent distress. Breathing on room air. Head: Normocephalic, atraumatic. Eyes: EOMI/PERRLA. Ears: Normal hearing. Normal anatomy. Neck/trachea: Trachea midline, supple. Nose: Normal external anatomy. Mouth: Moist mucous membranes. Chest: Decreased air entry bilaterally. No wheezing or rhonchi. Cardiovascular: Positive S1, positive S2. Regular rate and rhythm. Abdomen: Positive bowel sounds in all 4 quadrants. Soft, non-tender, non- distended. : Deferred. Rectal: Deferred. Skin: Warm, dry. Intact. Extremities: 2+ radial pulses bilaterally. No lower extremity edema. Neuro: Awake, alert, oriented x3. No gross motor or sensory deficits. Cranial nerves II through XII intact. Gait not assessed. laboratory and microbiology Laboratory Tests 09/12/24 06:15 Test 09/12/24 06:15 Range/Units Serum Glucose 98 74-106 mg/dL Assessment/Plan Impression: Loculated pleural effusion Pneumonia likely Gram-negative Elevated liver enzymes Atelectasis Events: Breathing on room air No respiratory distress Quantiferon positive Continue RIPE therapy AFB smear negative x3. ID recommendations appreciated. Bronchodilators PRN. Incentive spirometry Anxiolytic PRN. Pleural fluid cultures negative. Blood cultures negative. Monitor hemoglobin Patient is stable for discharge from the pulmonary standpoint. Awaiting [facility] response to safely discharge patient. Recommend outpatient CT chest in 2-3 months. S/p thoracotomy on 09/02 - Right thoracotomy with evacuation of empyema and right lung decortication. Labs and imaging reviewed. Rest of plan as noted below. Plan: Supplemental oxygen if necessary Keep O2 saturation above 92%. Antibiotics Fluid cultures show no growth Blood cultures show no growth Limited chest ultrasound demonstrated loculated right pleural effusion. Drained 700 mL of yellow colored fluid. Several septations were seen. See separate procedure note for right thoracentesis (08/22). S/p thoracotomy on 09/02 - Right thoracotomy with evacuation of empyema and right lung decortication. Underwent placement of large-bore chest tube Patient currently s/p chest tube removal. Quantiferon positive On RIPE therapy per [facility] AFB smear negative x3. Bronchodilators Pain control Avoid oversedation Anxiolytics prn Monitor renal function Monitor electrolytes. Supplement as necessary. DVT prophylaxis Prognosis: Poor given multiple comorbidities. Rest of plan per hospitalist and other consultants. Thank you Dr. Jewell for allowing me to participate in this patient's care. Further recommendations will depend on patient's clinical course. Please do not hesitate to contact me if you have any questions or concerns. This medical document was created using an electronic medical record system with [employer] dictation system. Although this document has been carefully reviewed, there may still be some phonetic and typographical errors. These areas are purely typographical due to imperfections of the software programs, and do not reflect any compromise in the patient's medical care. Dietary Evaluation Review Comments: Continue current plan of care Expected Outcomes/Goals: F/U in 3-5 days Plan discussed with: Patient, Other (DOC Lechuga) PRESTON CARTY MD Sep 15, 2024 19:37
--- NOTE | 2024-09-15 21:45 | DVHPN2 ---
Consult Progress Note Date Seen: Sep 15, 2024 Subjective Patient reports: Other (coordinating discharge recs with [facility] . completed 5 days of ripe therapy) Objective vital signs Vital Sign Date Time Temp Pulse Resp B/P (MAP) Pulse Ox O2 Delivery O2 Flow Rate FiO2 09/15/24 17:20 98.1 87 16 95 09/15/24 17:00 101/63 (76) 09/15/24 10:00 Room Air* 0 21 Total Intake and Output 09/14/24 09/14/24 09/15/24 15:00 23:00 07:00 Intake Total 400 ml 1100 ml Output Total 800 ml Balance -400 ml 1100 ml medications Current Medications Medications Dose Ordered Sig/Lori Route Start Time Stop Time Status Last Admin Dose Admin Ondansetron HCl 4 mg Q4HP PRN IV 08/20/24 21:45 09/04/24 05:01 4 MG Docusate Sodium 100 mg BIDPRN PRN PO 08/20/24 21:45 09/06/24 09:53 100 MG Nitroglycerin 0.4 mg Q5MINP PRN SL 08/20/24 23:30 Lamotrigine 100 mg Q12HR PO 08/21/24 22:00 09/15/24 10:21 100 MG Ergocalciferol 50,000 unit Q7D PO 08/21/24 14:30 09/11/24 14:30 50,000 UNIT Lorazepam 0.5 mg Q6HP PRN IV 08/25/24 20:30 09/10/24 22:42 0.5 MG Diphenhydramine HCl 25 mg Q4HP PRN IV 08/29/24 05:15 08/31/24 12:41 25 MG Throat Lozenges 1 jabier Q6HPRN PRN MT 08/29/24 05:15 08/30/24 16:55 1 JABIER Acetaminophen 650 mg Q6HP PRN PO 08/30/24 11:30 09/11/24 19:56 650 MG Baclofen 5 mg Q8HR PO 09/04/24 06:00 09/15/24 14:18 5 MG Polyethylene Glycol 17 gm DAILYPRN PRN PO 09/04/24 16:00 Fluconazole 100 ml @ 100 mls/hr DAILY IV 09/10/24 10:00 Cancel Fluoxetine HCl 20 mg DAILY PO 09/11/24 13:30 09/15/24 10:20 20 MG Rifampin 600 mg DAILY PO 09/11/24 16:15 09/15/24 23:59 09/15/24 10:21 600 MG Isoniazid 300 mg DAILY PO 09/11/24 16:15 09/15/24 23:59 09/15/24 10:21 300 MG Pyrazinamide 1,500 mg DAILY PO 09/11/24 16:15 09/15/24 23:59 09/15/24 10:22 1,500 MG Ethambutol HCl 1,200 mg DAILY PO 09/11/24 16:15 09/15/24 23:59 09/15/24 10:21 1,200 MG Pyridoxine HCl 50 mg DAILY PO 09/11/24 16:15 09/15/24 23:59 09/15/24 10:22 50 MG Acetaminophen/ Hydrocodone Bitart 1 tab Q4HPRN PRN PO 09/11/24 23:15 09/15/24 14:38 1 TAB Physical Exam: General: NAD Neck: Supple. No masses. HEENT: PERRL. Normal lids and conjunctiva. Moist mucous membranes. Oropharynx without lesions, exudates, or excessive erythema. Normal appearance of the external aspects of the nose and ears. Heart: Regular rhythm, normal rate. No murmur. No lower extremity edema. Lungs: Normal respiratory effort. Clear to auscultation bilaterally. No wheezes. No crackles. Abdomen: Soft. Non-tender. Non-distended. No masses or abdominal hernia. Msk: No digital cyanosis. Normal strength and tone in all 4 limbs. Skin: Warm and dry, no rashes. Neuro: Alert. No facial droop or slurred speech. Extra-ocular movements intact. Sensation intact to soft touch in all 4 limbs. Psych: Appropriate mood. Full affect. Oriented to person, place, time, and situation. laboratory and microbiology Laboratory Tests 09/12/24 06:15 Test 09/12/24 06:15 Range/Units Serum Glucose 98 74-106 mg/dL Problem List/Assessment/Plan Problems(with codes): (1) Elevated liver enzymes (2) Abdominal pain (3) Elevated LFTs (4) Pleural effusion (5) Pneumonia, unspecified organism Problem List/Assessment/Plan Assessment and Plan: ID Problem List: - Right loculated pleural effusion - Acute hypoxic respiratory failure - Atypical pneumonia - Emphysema - Positive Quantiferon Gold test - Multiple psychiatric disorders, including depression and ADHD Assessment: Mr. Xu Amado is a 28-year-old male with no significant past medical history except for multiple psychiatric disorders on fluoxetine and lamotrigine, who presents with a complaint of right upper quadrant abdominal pain ongoing for about a month. He also reports shortness of breath, fevers, night sweats, but no cough or hemoptysis. A CT test demonstrated a right loculated pleural effusion. Initial Hospital Course: - The patient was initially in acute hypoxic respiratory failure requiring 2 liters nasal cannula. - Vital signs: Temp: 90.1F, HR: 105, RR: 18, BP: 106/64. - Started on azithromycin initially, later changed to ceftriaxone. Labs/Imaging: - WBC: 12 on admission, Hemoglobin: 11, Platelet count: 460. - HIV test: Negative, COVID test: Negative. - Vitamin D level: 22.4, Lactic acid: 1.5. - Urine drug screen: Negative. - Pleural fluid analysis: pH 8.0, WBC 1756, RBC 1213, PMNs 3%, polynuclear cells 97%, LDH 1184, glucose 70, protein 4.6. - Hepatitis B/C: Negative, Hepatitis A antibody: Positive. - Quantiferon Gold test: Positive, with methodogen response of 10 and nil of 0.17. Imaging Results: - CT Scan: - Stable left upper lobe pulmonary nodules with a suspicious speculated nodule on the left apex. - Moderate right lower lobe consolidation. - Numerous tiny 1-2 mm nodules in a tree-in-bud pattern noted in the left apex. 09/10: Patient is AFB negative x3, MTV PCR x2. Patient is clear for discharge from infectious disease perspective. ruled out acute TB at this time. 09/11: necrotizing granuloma in plueral fluid 09/14: with necrotizing granuloma on plural fluid imaging will need to treat for TB . tolerating TB medications with LFTs minimally elevated 09/15; completed 5 days of ripe therapy , liver enzymes has normalized Plan: - patient has an appointment with infectious disease 09/23 at 3pm - need to treat for TB due to necrotizing granuloma - AFB staining recommend for pleural fluid to confirm diagnosis - continue RIPE, will need to continue this regimen for 60 days. please provide atleast 30 days of this on discharge. 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 - Check for coccidioidomycosis and aspergillus antibodies. - Follow up on pending AFB cultures, pleural fluid cytology. - Send pleural fluid for AFB testing and ADA level. Isolation Precautions: TB airborne and contact Plan discussed with: Other Dietary Evaluation Review Comments: Continue current plan of care Expected Outcomes/Goals: F/U in 3-5 days CONCEPCION BURRELL MD Sep 15, 2024 21:45
[2024-09-16 05:44] VITALS: BP 102/53
--- NOTE | 2024-09-16 06:33 | DVHPNRES ---
Progress Note Date Seen: Sep 16, 2024 Resident Creating Document: LAVELL GONSALES Medical Necessity Reason Pt with a Central, PICC or Fol: No Subjective Review of Systems 09/14/2024-patient feels fine. Reports no active complaint. Discharge delayed as the pharmacy did not had antituberculosis medications available. Called patient's preferred pharmacy, medications to be available on 09/16 around 4:00 p.m.. Contacted patient's over the phone, advised regarding bringing the medications to the hospital. All questions have been answered. Objective vital signs Vital Sign Date Time Temp Pulse Resp B/P (MAP) Pulse Ox O2 Delivery O2 Flow Rate FiO2 09/16/24 05:44 102/53 (69) 09/15/24 21:00 98.2 96 19 96 98.2 09/15/24 20:30 Room Air* 0 21 Total Intake and Output 09/15/24 09/15/24 09/16/24 15:00 23:00 07:00 Intake Total 480 ml 1080 ml 750 ml Output Total 800 ml Balance 480 ml 1080 ml -50 ml medications Current Medications Medications Dose Ordered Sig/Lori Route Start Time Stop Time Status Last Admin Dose Admin Ondansetron HCl 4 mg Q4HP PRN IV 08/20/24 21:45 09/04/24 05:01 4 MG Docusate Sodium 100 mg BIDPRN PRN PO 08/20/24 21:45 09/06/24 09:53 100 MG Nitroglycerin 0.4 mg Q5MINP PRN SL 08/20/24 23:30 Lamotrigine 100 mg Q12HR PO 08/21/24 22:00 09/15/24 22:04 100 MG Ergocalciferol 50,000 unit Q7D PO 08/21/24 14:30 09/11/24 14:30 50,000 UNIT Lorazepam 0.5 mg Q6HP PRN IV 08/25/24 20:30 09/10/24 22:42 0.5 MG Diphenhydramine HCl 25 mg Q4HP PRN IV 08/29/24 05:15 08/31/24 12:41 25 MG Throat Lozenges 1 jabier Q6HPRN PRN MT 08/29/24 05:15 08/30/24 16:55 1 JABIER Acetaminophen 650 mg Q6HP PRN PO 08/30/24 11:30 09/11/24 19:56 650 MG Baclofen 5 mg Q8HR PO 09/04/24 06:00 09/16/24 05:43 5 MG Polyethylene Glycol 17 gm DAILYPRN PRN PO 09/04/24 16:00 Fluconazole 100 ml @ 100 mls/hr DAILY IV 09/10/24 10:00 Cancel Fluoxetine HCl 20 mg DAILY PO 09/11/24 13:30 09/15/24 10:20 20 MG Acetaminophen/ Hydrocodone Bitart 1 tab Q4HPRN PRN PO 09/11/24 23:15 09/16/24 00:08 1 TAB Examination General Appearance: Alert, Oriented X4, Cooperative, No acute distress. Sitting comfortably in the bed HEENT: Atraumatic, PERRLA, EOMI, Mucous membrane moist/pink Respiratory: Diminished breath sounds, more on the right side which is improving. No crackles or wheezing heard. Right-sided chest tube is removed. Dressing dry clean and intact. Cardiovascular: Regular rate, Normal S1, Normal S2, No murmurs, no chest wall tenderness Abdominal: Normal bowel sounds, Soft, No tenderness, No hepatosplenomegaly, No masses Extremities: Erythema noticed on the extensor surfaces including the elbows, knees and the ankles. Skin: No rashes, No breakdown, No significant lesion Neuro: Normal gait, Normal speech, Strength at 5/5 X4 ext, Normal tone, Sensation intact, grossly intact cranial nerves. Psych/Mental Status: Mental status NL, Mood NL laboratory and microbiology Laboratory Tests 09/12/24 06:15 Test 09/12/24 06:15 Range/Units Serum Glucose 98 74-106 mg/dL Microbiology Date/Time Source Procedure Growth Status 09/10/24 12:44 Sputum AFB Broth Culture Pending Resulted 09/10/24 12:44 Sputum - Final Resulted 09/10/24 12:44 Sputum - Final Resulted 09/10/24 12:44 Sputum Acid Fast Bacilli Culture Pending Resulted 08/29/24 13:23 Blood Blood Culture - Final NO GROWTH AFTER 5 DAYS OF INCUBATION. Complete 08/26/24 11:00 Pleural Fluid Gram Stain - Final Complete 08/26/24 11:00 Pleural Fluid Body Fluid Culture - Final Complete 08/24/24 18:29 Nose MRSA Screen - Final Complete Labs and/or images reviewed: Labs reviewed by me, Image(s) reviewed by me Problem List/Assessment/Plan Problem List/Assessment/Plan Acute hypoxic respiratory failure likely secondary to community-acquired pneumonia ? Vape associated vs ? Malignancy vs ? Mycobacterium tuberculosis Sepsis due to Community-acquired pneumonia, Gram-positive and Gram-negative Loculated right-sided exudative pleural effusion status post R thoracotomy and chest tube removal and thoracocentesis with 700 mL drainage undergoing tPA course 08/22, Thoracocentesis performed by Dr. Kemp. drain 700 mL of yellow fluid. Pleural studies suggestive of exudative effusion. 08/27 & 08/28- patient received 2 doses of 6 mg alteplase. 09/02 - Underwent Right thoracotomy, evacuation of empyema, right lung decortication by Dr. Tobar 09/02/2024 to 09/09/2024 - surgical chest tube was placed. Patient required oxygen supplementation with 2 L oxygen via NC, now on room air. CT chest revealed right-sided pleural effusion with atelectasis in the right lower lung field IV Zosyn q.6 hour starting 08/21/2024 IV doxycycline q.12 hour started 08/24/24 to 09/05 Discontinued IV azithromycin 500 mg daily - patient received from 08/21 to 08/24 Nebulized treatment with albuterol and ipratropium q.6 hours Blood cultures and body fluid culture have been negative so far. TB QuantiFERON gold test positive. 2 AFB smear are negative. 3rd AFB smear pending. AFB culture pending Pleural fluid specimen colected by Dr Tobar on 09/02 shows necrotizing granulomatous inflammation. Rare AFB present. Negative for malignancy. Infectious disease consulted- start RIPE, will need to continue this regimen for 60 days. please provide atleast 30 days of this on discharge. patient can follow up with me upon discharge. Send pleural fluid for AFB testing and ADA level. Stable left upper lobe pulmonary nodules with a suspicious spiculated nodule in the left apex approx 8mm Chest CT completed 09/05 showed Stable left upper lobe pulmonary nodules with a suspicious spiculated nodule in the left apex. Metastatic malignancy can not be ruled out although unlikely considering patient's demographics. Recommend correlation with pleural fluid cytology. Further evaluation with PET-CT scan may be required. IR consulted - no need of biopsy given the small size pulmonology on board - outpatient PET-CT scan Infectious disease consulted - TB QuantiFERON gold test positive. 2 AFB smear are negative. 3rd AFB smear pending. AFB culture pending R lower lobe atelectasis Incentive spirometery Q1hr advised Reactive thrombocytosis Secondary to sepsis Monitor Rule Out pericardial effusion Echocardiogram completed 08/24 showed LVEF 55%. Normal frontal/valvular heart. No pericardial effusion Anemia, likely microcytic Hemoglobin on arrival 10.8, MCV 32, hematocrit 32 ESR 50, retic count 1.66, CRP 14, LDH 328 Iron panel completed shows low iron low TIBC low% saturation Ferritin elevated at 744 Urine analysis shows 2+ blood and 17 RBCs P.o. iron supplementation b.i.d. Transaminitis Bilirubin elevated at 1.3 Direct bili 0.7 AST 33, ALT 69, ALP 196 Patient quit drinking 3 years back Liver U/S shows given cavernous hemangioma otherwise unremarkable Asymptomatic Hypotonic euvolemic hyponatremia secondary to ? Fluoxetine Serum sodium 128, serum osmolality 271, urine osmolality 340, urine sodium less than 10 DC fluoxetine Restarted Fluoxetine 09/11 - monitor Na Cavernous hemangioma Ultrasound liver completed, shows 1.7 cm well-circumscribed oval echogenic nodule in the left hepatic lobe compatible with a cavernous hemangioma Outpatient workup advised Ruled out HIV HIV testing negative ADHD, depression - stable No homicidal or suicidal ideation Continue lamotrigine 100 mg b.i.d. Ativan 0.5 mg p.r.n. DC fluoxetine given the questionable SIADH Vitamin-D deficiency Supplemented Hypokalemia Replenished Diet regular Goals of care discussed for more than 22 minutes, full code status Case discussed with Dr. Katz. TB QuantiFERON gold test positive. 3 AFB smear are negative. AFB culture /Smear Broth Suscep pending Pleural fluid specimen collected by Dr Tobar on 09/02 shows necrotizing granulomatous inflammation. Rare AFB present. Negative for malignancy. Patient started on RIPE therapy. Discharge delayed as the pharmacy did not had antituberculosis medications available. Called patient's preferred pharmacy, medications to be available on 09/16 around 4:00 p.m.. Contacted patient's over the phone, advised regarding bringing the medications to the hospital. All questions have been answered. Plan discussed with: Patient, Spouse (Over the phone) My Orders My Orders Orders - LAVELL GONSALES Procedure Category Date Status Time Discharge DISCHARGE 09/15/24 Transmitted 15:41 Communication Order ORDERS 09/15/24 Transmitted 15:41 Dietary Evaluation Review Comments: Continue current plan of care Expected Outcomes/Goals: F/U in 3-5 days Date of Service: Sep 16, 2024 Billing Provider: KAYLEN DUMONT MD Common Visit Codes: [id number] INP/OBS CARE(HIGH) LAVELL GONSALES RESIDENT Sep 16, 2024 06:33 KAYLEN DUMONT MD Sep 17, 2024 18:59
[2024-09-16 09:02] VITALS: BP 109/59; PULSE 101; RESP 20; TEMP 98.4; O2SAT 95
[2024-09-16 10:00] VITALS: O2SAT 95
[2024-09-16 13:00] VITALS: BP 104/58; PULSE 100; RESP 18; TEMP 97.9; O2SAT 95
[2024-09-16 16:31] VITALS: BP 118/63; PULSE 115; RESP 20; TEMP 98.1; O2SAT 97
[2024-09-16] MEDS ORDERED: IBUP1TAB5 PO (18:41)
[2024-09-16] MEDS ORDERED: PANT40T PO (18:41)
[2024-09-16] MEDS ORDERED: BACL10TA PO (18:41)
--- NOTE | 2024-09-16 20:00 | DVHPN2 ---
Progress Note - Dictate Date Seen: Sep 16, 2024 Medical Necessity Reason Pt with a Central, PICC or Fol: No Subjective Patient seen and examined at bedside. Breathing comfortably on room air. Overnight events reviewed. vital signs Vital Sign Date Time Temp Pulse Resp B/P (MAP) Pulse Ox O2 Delivery O2 Flow Rate FiO2 09/16/24 16:31 98.1 115 20 118/63 (81) 97 98.1 09/16/24 10:00 Room Air* 0 21 Total Intake and Output 09/15/24 09/15/24 09/16/24 15:00 23:00 07:00 Intake Total 480 ml 1080 ml 750 ml Output Total 800 ml Balance 480 ml 1080 ml -50 ml medications Current Medications Medications Dose Ordered Sig/Lori Route Start Time Stop Time Status Last Admin Dose Admin Ondansetron HCl 4 mg Q4HP PRN IV 08/20/24 21:45 09/04/24 05:01 4 MG Docusate Sodium 100 mg BIDPRN PRN PO 08/20/24 21:45 09/06/24 09:53 100 MG Nitroglycerin 0.4 mg Q5MINP PRN SL 08/20/24 23:30 Lamotrigine 100 mg Q12HR PO 08/21/24 22:00 09/16/24 10:59 100 MG Ergocalciferol 50,000 unit Q7D PO 08/21/24 14:30 09/11/24 14:30 50,000 UNIT Lorazepam 0.5 mg Q6HP PRN IV 08/25/24 20:30 09/10/24 22:42 0.5 MG Diphenhydramine HCl 25 mg Q4HP PRN IV 08/29/24 05:15 08/31/24 12:41 25 MG Throat Lozenges 1 jabier Q6HPRN PRN MT 08/29/24 05:15 08/30/24 16:55 1 JABIER Acetaminophen 650 mg Q6HP PRN PO 08/30/24 11:30 09/11/24 19:56 650 MG Baclofen 5 mg Q8HR PO 09/04/24 06:00 09/16/24 13:59 5 MG Polyethylene Glycol 17 gm DAILYPRN PRN PO 09/04/24 16:00 Fluconazole 100 ml @ 100 mls/hr DAILY IV 09/10/24 10:00 Cancel Fluoxetine HCl 20 mg DAILY PO 09/11/24 13:30 09/16/24 10:59 20 MG Acetaminophen/ Hydrocodone Bitart 1 tab Q4HPRN PRN PO 09/11/24 23:15 09/16/24 17:58 1 TAB objective Gen.: Patient lying in bed in no apparent distress. Breathing on room air. Head: Normocephalic, atraumatic. Eyes: EOMI/PERRLA. Ears: Normal hearing. Normal anatomy. Neck/trachea: Trachea midline, supple. Nose: Normal external anatomy. Mouth: Moist mucous membranes. Chest: Decreased air entry bilaterally. No wheezing or rhonchi. Cardiovascular: Positive S1, positive S2. Regular rate and rhythm. Abdomen: Positive bowel sounds in all 4 quadrants. Soft, non-tender, non- distended. : Deferred. Rectal: Deferred. Skin: Warm, dry. Intact. Extremities: 2+ radial pulses bilaterally. No lower extremity edema. Neuro: Awake, alert, oriented x3. No gross motor or sensory deficits. Cranial nerves II through XII intact. Gait not assessed. laboratory and microbiology Laboratory Tests 09/12/24 06:15 Test 09/12/24 06:15 Range/Units Serum Glucose 98 74-106 mg/dL Assessment/Plan Impression: Loculated pleural effusion Pneumonia likely Gram-negative Elevated liver enzymes Atelectasis Events: Breathing on room air No respiratory distress Quantiferon positive Continue RIPE therapy AFB smear negative x3. Awaiting for pharmacy to deliver medications. Bronchodilators PRN. Incentive spirometry Anxiolytic PRN. Pleural fluid cultures negative. Blood cultures negative. Monitor hemoglobin Patient is stable for discharge from the pulmonary standpoint. Awaiting [facility] response to safely discharge patient. Recommend outpatient CT chest in 2-3 months. Labs and imaging reviewed. Rest of plan as noted below. Plan: Supplemental oxygen if necessary Keep O2 saturation above 92%. Antibiotics Fluid cultures show no growth Blood cultures show no growth Limited chest ultrasound demonstrated loculated right pleural effusion. Drained 700 mL of yellow colored fluid. Several septations were seen. See separate procedure note for right thoracentesis (08/22). S/p thoracotomy on 09/02 - Right thoracotomy with evacuation of empyema and right lung decortication. Underwent placement of large-bore chest tube Patient currently s/p chest tube removal. Quantiferon positive On RIPE therapy per [facility] AFB smear negative x3. ID recommendations appreciated. Bronchodilators Pain control Avoid oversedation Anxiolytics prn Monitor renal function Monitor electrolytes. Supplement as necessary. DVT prophylaxis Prognosis: Poor given multiple comorbidities. Rest of plan per hospitalist and other consultants. Thank you Dr. Jewell for allowing me to participate in this patient's care. Further recommendations will depend on patient's clinical course. Please do not hesitate to contact me if you have any questions or concerns. This medical document was created using an electronic medical record system with [employer] dictation system. Although this document has been carefully reviewed, there may still be some phonetic and typographical errors. These areas are purely typographical due to imperfections of the software programs, and do not reflect any compromise in the patient's medical care. Dietary Evaluation Review Comments: Continue current plan of care Expected Outcomes/Goals: F/U in 3-5 days Plan discussed with: Patient, Other (DOC Williamson) PRESTON CARTY MD Sep 16, 2024 20:00
--- NOTE | 2024-09-16 22:15 | DVHPN2 ---
Consult Progress Note Date Seen: Sep 16, 2024 Subjective Patient reports: Feels better (having some intermitted chest pains , waiting for public health services for [employer]) Objective vital signs Vital Sign Date Time Temp Pulse Resp B/P (MAP) Pulse Ox O2 Delivery O2 Flow Rate FiO2 09/16/24 16:31 98.1 115 20 118/63 (81) 97 98.1 09/16/24 10:00 Room Air* 0 21 Total Intake and Output 09/15/24 09/15/24 09/16/24 15:00 23:00 07:00 Intake Total 480 ml 1080 ml 750 ml Output Total 800 ml Balance 480 ml 1080 ml -50 ml medications Current Medications Medications Dose Ordered Sig/Lori Route Start Time Stop Time Status Last Admin Dose Admin Ondansetron HCl 4 mg Q4HP PRN IV 08/20/24 21:45 09/04/24 05:01 4 MG Docusate Sodium 100 mg BIDPRN PRN PO 08/20/24 21:45 09/06/24 09:53 100 MG Nitroglycerin 0.4 mg Q5MINP PRN SL 08/20/24 23:30 Lamotrigine 100 mg Q12HR PO 08/21/24 22:00 09/16/24 10:59 100 MG Ergocalciferol 50,000 unit Q7D PO 08/21/24 14:30 09/11/24 14:30 50,000 UNIT Lorazepam 0.5 mg Q6HP PRN IV 08/25/24 20:30 09/10/24 22:42 0.5 MG Diphenhydramine HCl 25 mg Q4HP PRN IV 08/29/24 05:15 08/31/24 12:41 25 MG Throat Lozenges 1 jabier Q6HPRN PRN MT 08/29/24 05:15 08/30/24 16:55 1 JABIER Acetaminophen 650 mg Q6HP PRN PO 08/30/24 11:30 09/11/24 19:56 650 MG Baclofen 5 mg Q8HR PO 09/04/24 06:00 09/16/24 13:59 5 MG Polyethylene Glycol 17 gm DAILYPRN PRN PO 09/04/24 16:00 Fluconazole 100 ml @ 100 mls/hr DAILY IV 09/10/24 10:00 Cancel Fluoxetine HCl 20 mg DAILY PO 09/11/24 13:30 09/16/24 10:59 20 MG Acetaminophen/ Hydrocodone Bitart 1 tab Q4HPRN PRN PO 09/11/24 23:15 09/16/24 17:58 1 TAB Physical Exam: General: NAD Neck: Supple. No masses. HEENT: PERRL. Normal lids and conjunctiva. Moist mucous membranes. Oropharynx without lesions, exudates, or excessive erythema. Normal appearance of the external aspects of the nose and ears. Heart: Regular rhythm, normal rate. No murmur. No lower extremity edema. Lungs: Normal respiratory effort. Clear to auscultation bilaterally. No wheezes. No crackles. Abdomen: Soft. Non-tender. Non-distended. No masses or abdominal hernia. Msk: No digital cyanosis. Normal strength and tone in all 4 limbs. Skin: Warm and dry, no rashes. Neuro: Alert. No facial droop or slurred speech. Extra-ocular movements intact. Sensation intact to soft touch in all 4 limbs. Psych: Appropriate mood. Full affect. Oriented to person, place, time, and situation. laboratory and microbiology Laboratory Tests 09/12/24 06:15 Test 09/12/24 06:15 Range/Units Serum Glucose 98 74-106 mg/dL Problem List/Assessment/Plan Problems(with codes): (1) Elevated liver enzymes (2) Abdominal pain (3) Elevated LFTs (4) Pleural effusion (5) Pneumonia, unspecified organism Problem List/Assessment/Plan Assessment and Plan: ID Problem List: - Right loculated pleural effusion - Acute hypoxic respiratory failure - Atypical pneumonia - Emphysema - Positive Quantiferon Gold test - Multiple psychiatric disorders, including depression and ADHD Assessment: Mr. Xu Amado is a 28-year-old male with no significant past medical history except for multiple psychiatric disorders on fluoxetine and lamotrigine, who presents with a complaint of right upper quadrant abdominal pain ongoing for about a month. He also reports shortness of breath, fevers, night sweats, but no cough or hemoptysis. A CT test demonstrated a right loculated pleural effusion. Initial Hospital Course: - The patient was initially in acute hypoxic respiratory failure requiring 2 liters nasal cannula. - Vital signs: Temp: 90.1F, HR: 105, RR: 18, BP: 106/64. - Started on azithromycin initially, later changed to ceftriaxone. Labs/Imaging: - WBC: 12 on admission, Hemoglobin: 11, Platelet count: 460. - HIV test: Negative, COVID test: Negative. - Vitamin D level: 22.4, Lactic acid: 1.5. - Urine drug screen: Negative. - Pleural fluid analysis: pH 8.0, WBC 1756, RBC 1213, PMNs 3%, polynuclear cells 97%, LDH 1184, glucose 70, protein 4.6. - Hepatitis B/C: Negative, Hepatitis A antibody: Positive. - Quantiferon Gold test: Positive, with methodogen response of 10 and nil of 0.17. Imaging Results: - CT Scan: - Stable left upper lobe pulmonary nodules with a suspicious speculated nodule on the left apex. - Moderate right lower lobe consolidation. - Numerous tiny 1-2 mm nodules in a tree-in-bud pattern noted in the left apex. 09/10: Patient is AFB negative x3, MTV PCR x2. Patient is clear for discharge from infectious disease perspective. ruled out acute TB at this time. 09/11: necrotizing granuloma in plueral fluid 09/14: with necrotizing granuloma on plural fluid imaging will need to treat for TB . tolerating TB medications with LFTs minimally elevated 09/15; completed 5 days of ripe therapy , liver enzymes has normalized 09/16: unable to get additional plural fluid for AFB sampling , will have to presume with current diagnosis until an alternative is found Plan: - patient has an appointment with infectious disease 09/23 at 3pm - need to treat for TB due to necrotizing granuloma - AFB staining recommend for pleural fluid to confirm diagnosis - continue RIPE, will need to continue this regimen for 60 days. please provide atleast 30 days of this on discharge. 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 - Check for coccidioidomycosis and aspergillus antibodies. - Follow up on pending AFB cultures, pleural fluid cytology. - Send pleural fluid for AFB testing and ADA level. Isolation Precautions: TB airborne and contact Plan discussed with: Other Dietary Evaluation Review Comments: Continue current plan of care Expected Outcomes/Goals: F/U in 3-5 days CONCEPCION BURRELL MD Sep 16, 2024 22:15
== END 2024-09-16 19:03 | disposition home or self-care (01) | DRG 853 ==
LOC: ER 14:46 → TELE 23:31 → TELE-E-ADS 08-21 04:30 → EAST 08-31 11:44 → TELE-EAST 09-05 17:36 → EAST 09-06 03:59
PROVIDERS: ADMIT Student in an Organized Health Care Education/Training Program; ATTEND Student in an Organized Health Care Education/Training Program
PROC: 0W993ZX Drainage of Right Pleural Cavity, Percutaneous Approach, Diagnostic (ICD-10-PCS; principal; 2024-08-22)
PROC: 0W9930Z Drainage of Right Pleural Cavity with Drainage Device, Percutaneous Approach (ICD-10-PCS; 2024-08-26)
PROC: 0BNK0ZZ Release Right Lung, Open Approach (ICD-10-PCS; 2024-09-02)
PROC: 0W9900Z Drainage of Right Pleural Cavity with Drainage Device, Open Approach (ICD-10-PCS; 2024-09-02)
DX: A41.59 Other Gram-negative sepsis (principal); J15.69 Pneumonia due to other Gram-negative bacteria; J96.01 Acute respiratory failure with hypoxia; J86.9 Pyothorax without fistula; J15.9 Unspecified bacterial pneumonia; E87.1 Hypo-osmolality and hyponatremia; A15.0 Tuberculosis of lung; Z20.822 Contact with and (suspected) exposure to COVID-19; E87.6 Hypokalemia; D18.03 Hemangioma of intra-abdominal structures; J43.9 Emphysema, unspecified; F90.9 Attention-deficit hyperactivity disorder, unspecified type; R74.01 Elevation of levels of liver transaminase levels; D50.9 Iron deficiency anemia, unspecified; D75.838 Other thrombocytosis; E80.6 Other disorders of bilirubin metabolism; E55.9 Vitamin D deficiency, unspecified; D18.09 Hemangioma of other sites; Z79.899 Other long term (current) drug therapy
CPT/HCPCS: 10005; 36415; 71045; 71046; 71250; 74176; 76705; 77012; 80048; 80053; 80076; 80307; 80320; 81001; 82306; 82607; 82728; 83036; 83540; 83550; 83605; 83615; 83690; 83735; 83880; 83930; 83935; 83986; 84300; 84443; 84484; 85007; 85025; 85027; 85045; 85610; 85652; 85730; 86038; 86141; 86308; 86606; 86703; 86704; 86706; 86708; 86803; 86850; 86900; 86901; 87040; 87070; 87081; 87205; 87340; 87426; 87804; 89051; 93306; 94640; 96365; 96366; 96367; 96375; A4223; A4565; G0378; J1100; J1885; J2003; J2250; J2405; J2543; J2704; J3490